=== PATIENT | female | born 1940 | race African-American/Black ===

== ENCOUNTER 2016-09-02 17:40 | Inpatient (IN) | payer OTHER ==
[~2016-09-02] VITALS: Ht 160 cm; Wt 59.0 kg
[~2016-09-02 17:40] MED LIST: ACETAMINOP650 MG/20. GT; ALBUTEROL2.5 MG/3 M INH; AMBIEN5 MG GT; AMIKACIN SULFATE MC; ATIVAN1 MG GT; CARDIZEM30 M1 GT; CATAPRES0.1 MG GT; COLACE100 MG/10 GT; CRANBERRY400 MG GT; CRANBERRY425 MG PO; DIGOXIN0.125 MG/2 GT; DULCOLAX10 MG RC; DUONEB 0.5 MG-33 ML IH; EPOGEN10000 UNIT SUBQ; FAMOTIDINE40 MG/5 ML GT; FERROUS SU325 MG/5 M GT; FERROUS SULFAT325 MG GT; FLEET ENEMA133 ML RECTAL; GLUCAGON W/DILUE1 MG IJ; GUAIFENESI100 MG/5 M GT; HEPARIN SO5000 UNIT2 IJ; HEPARIN SO5000 UNITS INJ; JUVEN PACKET1 EAC1 PO; LISINOPRIL10 MG GT; MILK OF MA400 MG/51 GT; MILK OF MA400 MG/51 ORAL; MIRALAX17 G2 GT; MIRTAZAPINE15 MG GT; MOM30 ML GT; MORPHINE IR15 MG GT; MULTIVITAMINS1 EAC8 GT; NITROSTAT0.4 M2 SL; NORCO 10/3251 EA GT; NORCO 5-325 TA1 EACH GT; PLAVIX75 MG GT; PRILOSEC20 MG GT; PROMOD946 ML GT; PROSTAT SF GT; TYLENOL650 MG/20. GT; ULTRAM50 MG ORAL; VANCOMYCIN250 MG/5 M GT; VIBRAMYCIN100 MG GT; VITAMIN C250 MG GT; VITAMIN C500 MG/11 PO; ZINC SULFATE220 M1 GT; ZINC50 M1 GT; ZOFRAN4 M1 GT; ZOLOFT25 MG GT; [UNRECOGNIZED DRUG - OTHER] MISC
[2016-09-02] MEDS ORDERED: Acetaminophen 650 MG SUPP RECTAL ONE (17:45)
[2016-09-02] MEDS ORDERED: NS 1000ml 1,900 ML IVLG ONE (17:45)
[2016-09-02] MEDS ORDERED: Vancomycin 1 GM in NS 275 ML IV ONE (17:45)
[2016-09-02 17:48] VITALS: BP 166/64
[2016-09-02] MEDS ORDERED: LEVAQUIN500 MG IVPB (18:07)
[2016-09-02] MEDS ORDERED: VANCOMYCIN1 GM/2502 IVPB (18:07)
--- NOTE | 2016-09-02 18:20 | Emergency Room Report ---
History of Present Illness General Chief Complaint: Dyspnea/Respdistress Source: Medical Record, EMS Present Illness HPI The patient was sent in from the care home facility for fever and decreased oxygen saturation. She is ventilator dependent with a tracheostomy. Bili antibiotics were begun last night. She was given Tylenol at some point before transport. The temperature did not change. It's been quite high. The patient is unable to provide any history. She also has a gastrostomy tube. Patient got levaquin and vanco at SNF. H/O CVAs, COPD Discharged March 2015 with these diagnoses: At that time she was treated with amikacin and invanz. 1. Sepsis with bacteremia. 2. Elevated transaminase. 3. Pneumonia. 4. Urinary tract infection. 5. History of chronic obstructive pulmonary disease. 6. Ventilator-dependent respiratory failure with tracheostomy. 7. Anemia. Allergies: Coded Allergies: AMPICILLIN (Verified Allergy, Unknown, 03/04/11) ASPIRIN (Verified Allergy, Unknown, 03/04/11) PENICILLIN (Unverified Allergy, Unknown, 02/14/15) PENICILLINS (Verified Allergy, Unknown, 09/18/11) TRIFLUOPERAZINE (Verified Allergy, Unknown, 03/04/11) Patient History Limited by: medical condition Past Medical History: see triage record Past Surgical History: other - trach and gastrostomy tube Social History Narrative [facility] Reviewed Nursing Documentation: PMH: Agreed, PSxH: Agreed Nursing Documentation-PMH Hx Cardiac Problems: Yes - TRACH TO VENT Hx Hypertension: Yes Hx COPD: Yes Hx Diabetes: Yes Hx Cancer: No Hx Gastrointestinal Problems: Yes - GERD, GT Hx Neurological Problems: No Hx Cerebrovascular Accident: Yes - Hemiplegia, and hemiparesis Hx Transient Ischemic Attacks: Yes Hx Speech Problem: Yes - ON TRACH. Hx Aphasia: Yes Hx Dysphasia: Yes Hx Weakness: Yes - LEFT SIDE. Review of Systems All Other Systems: limited Physical Exam Vital Signs Date Time Temp Pulse Resp B/P Pulse Ox O2 Delivery O2 Flow Rate FiO2 09/02/16 17:38 103.3 101 20 166/57 98 Ambu-Bag 15.0 09/02/16 17:53 50 Sp02 EP Interpretation: reviewed, abnormal - low based on FIO2 as interpreted by me General Appearance: mild distress, lethargic, Chronically Ill Head: normocephalic, atraumatic Eyes: bilateral eye PERRL, bilateral eye normal inspection ENT: dry mucus membranes Neck: no meningismus - but some rigidity, tracheotomy Respiratory: decreased breath sounds, accessory muscle use, rales, rhonchi Cardiovascular #1: tachycardia Gastrointestinal: non tender, abnormal bowel sounds - decreased, other - g tube Musculoskeletal: decreased range of motion - rigidity, other - legs with extensor contractures, arms with flexion contractures Neurologic: responsive - only to pain and cough Psychiatric: other - veetative state Skin: other - sallo and hot Medical Decision Making Diagnostic Impression: Primary Impression: Severe sepsis Additional Impressions: Bilateral pneumonia Qualified Codes: J18.9 - Pneumonia, unspecified organism Hyperkalemia Hyponatremia ER Course The patient presents with elevated temperature and decreased oxygen saturation. Differential includes sepsis, pneumonia, drug reaction, urinary tract infection amongst others. The patient's varnisher time and needs aggressive care. Ventilatory support is ordered. Evaluation with blood cultures, other labs with lactates, fully, urinalysis will be obtained. In addition she'll receive a 30 mille per kilogram bolus. Antibiotics have been ordered as the most likely sources pulmonary. Patient with bilateral infiltrates. Also leukocytosis. Lactate normal, but clinically septic. Bolus given and antibiotics begun. Improved with treatment. Still significantly ill and needing continued antibiotics (and possible adjustment as had similar started yesterday). Fever resistant to treatment - given fluids and other antipyretics. Patient admitted [facility] to Dr. Ruby ([place]). Laboratory Tests Test 09/02/16 18:00 09/02/16 19:15 09/02/16 23:00 Urine Color Pale yellow Urine Appearance Cloudy Urine pH 5 (4.5-8.0) Urine Specific [place] 1.010 (1.005-1.035) Urine Protein 3+ (NEGATIVE) H Urine Glucose (UA) Negative (NEGATIVE) Urine Ketones Negative (NEGATIVE) Urine Occult Blood 5+ (NEGATIVE) H Urine Nitrite Negative (NEGATIVE) Urine Bilirubin Negative (NEGATIVE) Urine Urobilinogen Normal MG/DL (0.0-1.0) Urine Leukocyte Esterase 2+ (NEGATIVE) H Urine RBC 0-2 /HPF (0 - 2) Urine WBC 0-2 /HPF (0 - 2) Urine Squamous Epithelial Cells Many /LPF (NONE/OCC) H Urine Amorphous Sediment Many /LPF (NONE) H Urine Bacteria Few /HPF (NONE) Sodium Level 130 mEQ/L (135-145) L Potassium Level 5.6 mEQ/L (3.4-4.9) H Chloride Level 88 mEQ/L (98-107) L Carbon Dioxide Level 26 mEQ/L (20-30) Anion Gap 16 (5-15) H Blood Urea Nitrogen 54 mg/dL (7-23) H Creatinine 0.8 mg/dL (0.5-0.9) Estimate Glomerular Filtration Rate mL/min (>60) Glucose Level 121 mg/dL (74-106) H Lactic Acid Level 1.60 mmol/L (0.66-2.22) Calcium Level 9.2 mg/dL (8.6-10.2) Total Bilirubin 0.4 mg/dL (0.0-1.2) Aspartate Amino Transferase (AST) 94 U/L (5-40) H Alanine Aminotransferase (ALT) 52 U/L (3-33) H Alkaline Phosphatase 269 U/L (35-104) H Total Creatine Kinase 49 U/L (26-140) Troponin I < 0.30 ng/mL (<=0.30) Pro-B-Type Natriuretic Peptide 3622 pg/mL (0-450) H Total Protein 8.0 g/dL (6.6-8.7) Albumin 3.6 g/dL (3.5-5.2) Globulin 4.4 g/dL Albumin/Globulin Ratio 0.8 (1.0-2.7) L White Blood Count 6.4 K/UL (4.8-10.8) Red Blood Count 3.27 M/UL (4.20-5.40) L Hemoglobin 8.7 G/DL (12.0-16.0) L Hematocrit 29.3 % (37.0-47.0) L Mean Corpuscular Volume 90 FL (80-99) Mean Corpuscular Hemoglobin 26.7 PG (27.0-31.0) L Mean Corpuscular Hemoglobin Concent 29.8 G/DL (32.0-36.0) L Red Cell Distribution Width 17.6 % (11.6-14.8) H Platelet Count 104 K/UL (150-450) L Mean Platelet Volume 8.2 FL (6.5-10.1) Neutrophils (%) (Auto) 86.9 % (45.0-75.0) H Lymphocytes (%) (Auto) 5.1 % (20.0-45.0) L Monocytes (%) (Auto) 6.8 % (1.0-10.0) Eosinophils (%) (Auto) 0.3 % (0.0-3.0) Basophils (%) (Auto) 0.9 % (0.0-2.0) Prothrombin Time 11.4 SEC (9.30-11.50) Prothrombin Time INR 1.1 (0.9-1.1) PTT 28 SEC (23-33) Arterial Blood pH 7.366 (7.350-7.450) Arterial Blood Partial Pressure CO2 48.8 mmHg (35.0-45.0) H Arterial Blood Partial Pressure O2 105.3 mmHg (75.0-100.0) H Arterial Blood HCO3 27.3 mmol/L (22.0-26.0) H Arterial Blood Oxygen Saturation 97.5 % (92.0-98.0) Arterial Blood Base Excess 1.5 Sandro Test Positive Microbiology Date/Time Source Procedure Growth Status 09/02/16 18:47 Nasal Nares Influenza Types A,B Antigen (VASYL) - Final Complete EKG Diagnostic Results Rate: tachycardiac ST Segments: no acute changes Rhythm Strip Diag. Results EP Interpretation: yes Rhythm: no PVC's, no ectopy, other - sinus tachycardia Chest X-Ray Diagnostic Results EP Interpretation: Yes Findings: no pneumothorax, other - bilateral infiltrates with L effusion Number of Views: 1 Last Vital Signs Date Time Temp Pulse Resp B/P Pulse Ox O2 Delivery O2 Flow Rate FiO2 09/03/16 07:00 74 17 35 09/03/16 01:00 100.0 131/82 97 Mechanical Ventilator 09/03/16 00:30 15.0 Status: improved Disposition: ADMITTED INPATIENT Condition: Serious Referrals: BENTLEY MARTINEZ (PCP) Mitul Jacobsen M.D. Sep 02, 2016 18:20
[2016-09-02] MEDS: metroNIDAZOLE 500mg 100 ML IV SCH (18:36)
[2016-09-02 18:43] LABS: ALANINE AMINOTRANSFERASE 52 U/L (3-33); ALBUMIN/GLOBULIN RATIO 0.8 (1.0-2.7); ANION GAP 16 (5-15); ASPARTATE AMINO TRANSFERASE 94 U/L (5-40); CALCIUM 9.2 mg/dL (8.6-10.2); CARBON DIOXIDE 26 mEQ/L (20-30); CHLORIDE 88 mEQ/L (98-107); CREATININE 0.8 mg/dL (0.5-0.9); HEMOLYSIS 108; POTASSIUM 5.6 mEQ/L (3.4-4.9); SODIUM 130 mEQ/L (135-145); TROPONIN I < 0.30 ng/mL (<=0.30)
[2016-09-02 18:45] LABS: APPEARANCE,URINE CLOUDY; KETONES,URINE NEGATIVE (NEGATIVE); LEUKOCYTE ESTERASE ,URINE 2+ (NEGATIVE); NITRITE,URINE NEGATIVE (NEGATIVE); PH,URINE 5 (4.5-8.0); PROTEIN,URINE 3+ (NEGATIVE); UROBILINOGEN,URINE NORMAL MG/DL (0.0-1.0)
[2016-09-02 19:00] LABS: RBC,URINE 0-2 /HPF (0 - 2)
[2016-09-02 19:01] LABS: SQUAMOUS EPITHELIAL CELL,UR MANY /LPF (NONE/OCC); WBC,URINE 0-2 /HPF (0 - 2)
[2016-09-02 19:02] LABS: BACTERIA,URINE FEW /HPF
[2016-09-02 19:03] LABS: AMORPHOUS SEDIMENT,UR MANY /LPF
[2016-09-02 19:33] VITALS: BP 117/43
[2016-09-02 19:35] LABS: MEAN CORPUSCULAR HEMOGLOBIN 26.7 PG (27.0-31.0); MEAN CORPUSCULAR HGB CONC 29.8 G/DL (32.0-36.0); MEAN CORPUSCULAR VOLUME 90 FL (80-99); MEAN PLATELET VOLUME 8.2 FL (6.5-10.1); PLATELET COUNT 104 K/UL (150-450); RED BLOOD COUNT 3.27 M/UL (4.20-5.40); RED CELL DISTRIBUTION WIDTH 17.6 % (11.6-14.8); WHITE BLOOD COUNT 6.4 K/UL (4.8-10.8)
[2016-09-02 19:37] LABS: LYMPHOCYTES % (AUTO) 5.1 % (20.0-45.0); NEUTROPHILS % (AUTO) 86.9 % (45.0-75.0)
[2016-09-02 19:38] LABS: BASOPHILS % (AUTO) 0.9 % (0.0-2.0); EOSINOPHILS % (AUTO) 0.3 % (0.0-3.0); MONOCYTES % (AUTO) 6.8 % (1.0-10.0)
[2016-09-02] MEDS ORDERED: DiphenhydrAMINE 50mg/ml Inj IVP ONE (19:45)
[2016-09-02] MEDS ORDERED: Ketorolac 30mg Inj IV ONE (19:45)
[2016-09-02] MEDS ORDERED: Vancomycin 1gm inj IVPB ONE (20:03)
[2016-09-02 20:25] LABS: INR 1.1 (0.9-1.1); PROTHROMBIN TIME 11.4 SEC (9.30-11.50)
[2016-09-02 21:52] VITALS: BP 100/49
[2016-09-02 23:07] LABS: ABG BASE EXCESS 1.5; ABG PCO2 48.8 mmHg (35.0-45.0)
[2016-09-02 23:08] LABS: ABG ALLEN TEST POSITIVE
[2016-09-02 23:15] VITALS: BP 126/56
[2016-09-03 00:30] VITALS: BP 125/60
[2016-09-03 01:00] VITALS: BP 131/82
[2016-09-03] MEDS ORDERED: UTI-STAT L3875 MG/31 PEG (01:44)
[2016-09-03] MEDS ORDERED: MULTI-VITAMIN-1 EACH PEG (01:44)
[2016-09-03] MEDS ORDERED: FLORASTOR250 MG GT (01:44)
[2016-09-03] MEDS: metroNIDAZOLE 500mg 100 ML IV SCH (01:45)
[2016-09-03] MEDS ORDERED: Milk of Magnesia 30ml Ud GT PRN (02:30)
[2016-09-03] MEDS ORDERED: Albuterol ud Inhalation IN-LINE PRN (02:30)
[2016-09-03 08:00] VITALS: BP 144/70
[2016-09-03] MEDS: Digoxin Elixir 0.125mg GT SCH (09:24)
[2016-09-03] MEDS: Zinc Sulfate 220mg cap GT SCH (09:24)
[2016-09-03] MEDS ORDERED: Sodium Polystyrene Sulfonate 15gm Powder ORAL ONE (10:30)
--- NOTE | 2016-09-03 10:56 | Diagnostic Imaging Report ---
Indication: Cough Technique: XRAY CHEST 1 V Comparison: 02/04/16 Findings: Cardiomedial still silhouette is stable. Tracheostomy is noted. The lungs are hyperinflated with increased interstitial lung markings. There is no gross consolidation or pleural effusion. Osseous structures are stable. Impression: Pulmonary hyperinflation with increased interstitial lung markings similar in appearance to the prior exam. Interstitial edema or infiltrates not excluded. Clinical correlation/followup recommended.
[2016-09-03] MEDS: Heparin 5000 units/ml inj SUBQ SCH ×2 (13:15→21:00)
--- NOTE | 2016-09-03 13:54 | Wound Care Consultation ---
Wound Assessment Wound Assessment #1: Wound Number: #1 Wound Present on Admission: Yes New Wound: No Status Change of Wound: No Wound Location Body Site: abdomen - surrounding skin gtube site. Wound Type: chemical burn Frankie Test: Does not Frankie Wound Thickness: Partial Thickness Wound Length: 6.0 Wound Width: 6.0 Percent of Wound [place]/Red: 100 Wound Drainage Amount: None Wound Drainage Odor: None/Absent Tissue Surrounding Wound: Macerated Wound General Appearance: Reddened Wound Assessment #2: Wound Number: #2 Wound Present on Admission: Yes New Wound: No Wound Location Body Site Modif: mid Wound Location Body Site: sacral Wound Type: pressure ulcer Frankie Test: Does not Frankie Pressure Ulcer Stage: IV/unstageable Wound Thickness: Full Thickness Wound Length: 1.0 Wound Width: 1.0 Wound Depth: 0.3 Percent of Wound [place]/Red: 50 Percent of Wound Purple/Maroon: 50 Wound Drainage Description: Serosanguineous Wound Drainage Amount: Moderate Wound Drainage Odor: None/Absent Tissue Surrounding Wound: Macerated Wound Tunneling Length: 1.0 Tunneling From: 11:00 Tunneling To: 12:00 Wound General Appearance: Reddened - 50% maroon, Draining Wound Assessment #3: Wound Number: #3 Wound Present on Admission: Yes New Wound: No Status Change of Wound: No Wound Location Body Site Modif: lower Wound Location Body Site: sacral Wound Type: pressure ulcer Frankie Test: Does not Frankie Pressure Ulcer Stage: III Wound Thickness: Full Thickness Wound Length: 1.0 Wound Width: 1.0 Wound Depth: 0.3 Percent of Wound [place]/Red: 100 Wound Drainage Description: Serosanguineous Wound Drainage Amount: Scant Wound Drainage Odor: None/Absent Tissue Surrounding Wound: Macerated Wound General Appearance: Reddened Wound Assessment #4: Wound Number: #4 Wound Present on Admission: Yes New Wound: No Status Change of Wound: No Wound Location Body Site: perineal area - extending to perianal Wound Type: chemical burn - with erosion Frankie Test: Does not Frankie Percent of Wound [place]/Red: 100 Wound Drainage Amount: None Wound Drainage Odor: None/Absent Tissue Surrounding Wound: Macerated Wound General Appearance: Reddened, Open to air Wound Comment #1 gtube site- surrounding skin noted with chemical burn with erosion. #2 Sacral stage IV pressure ulcer. #3 lower sacral stage III pressure ulcer. #4 Perineal area extending to perianal chemical burn with erosion. #5 Scattered full thickness scar tissue to sacral area, left and right buttocks. Recommendation - Local wound care as ordered. -Turn and reposition. -Keep clean and dry. -Avoid shear and friction. -Optimize nutrition. -Heel protectors. -Offload affected site, heels and feet. - Apply spr mattress for wound care and skin management. -Assess and notify MD if any change of condition in skin is noted. LATRICIA MAYS Sep 03, 2016 13:54
[2016-09-03 14:00] VITALS: BP 139/83
[2016-09-03 16:00] VITALS: BP 146/55
[2016-09-03] MEDS: Acetaminophen 650mg/20.3ml GT PRN (17:13)
--- NOTE | 2016-09-03 17:14 | Consultation ---
History of Present Illness General Date patient seen: Sep 03, 2016 Time patient seen: 17:03 Chief Complaint: Dyspnea/Respdistress Referring physician: Dr. Haris Ruby Reason for Consultation: hyperkalemia; HARRIETT Present Illness HPI This is a 76 year old female with a history of chronic VDRf s/p trach, Dysphagia s/p PEG, COPD, CVA who was sent in from her nursing facility for fever. Patient was also reported to be hypoxic. Patient unable to give any history and obtained from the chart. Patient was noted to be hyperkalemic and with elevated BUN indicating HARRIETT so renal consult was requested per primary MD. Patient is currently in [facility] with trach to vent. Allergies: Coded Allergies: AMPICILLIN (Verified Allergy, Unknown, 03/04/11) ASPIRIN (Verified Allergy, Unknown, 03/04/11) PENICILLIN (Unverified Allergy, Unknown, 02/14/15) PENICILLINS (Verified Allergy, Unknown, 09/18/11) TRIFLUOPERAZINE (Verified Allergy, Unknown, 03/04/11) Medication History Scheduled Cran/Vitc/Mannose/Inulin/Brom (Uti-Stat Liquid), 3,875 MG PEG DAILY, (Reported) Digoxin* (Digoxin*), 0.125 MG GT DAILY, (Reported) Docusate Sodium (Docusate Sodium), 100 MG GT DAILY, (Reported) Epoetin Cali (Epogen), 10,000 UNIT SUBQ 3XW, (Reported) Ferrous Sulfate* (Ferrous Sulfate*), 330 MG GT DAILY, (Reported) Multivit-Min/Iron Fum/Folic AC (Hzqeb-Ywvybhu-Irmdccja Tablet), 1 EACH PEG DAILY , (Reported) Protein Supplement (Promod), 30 ML GT DAILY, (Reported) Saccharomyces Boulardii (Florastor*), 250 MG GT DAILY, (Reported) Zinc Sulfate (Zinc Sulfate*), 220 MG GT DAILY, (Reported) Scheduled PRN Acetaminophen* (Tylenol*), 650 MG GT Q4HR PRN for Mild Pain/Temp > 100.5, ( Reported) Albuterol Sulfate* (Albuterol Sulfate Hhn*), 3 ML INH Q6H PRN for Shortness of Breath, (Reported) Magnesium Hydroxide (Milk of Magnesia), 30 ML GT DAILY PRN for Constipation, ( Reported) Discontinued Medications Arginine/Glutamine/Calcium Hmb (Yinka Packet), 1 EACH PO, (Reported) Discontinued Reason: Pt stopped taking med Bisacodyl (Dulcolax), 10 MG RC DAILY PRN for Constipation, (Reported) Discontinued Reason: Pt stopped taking med Clonidine Hcl* (Catapres*), 0.1 MG GT EVERY 8 HOURS PRN for For High Blood Pressure, (Reported) Discontinued Reason: Pt stopped taking med Cranberry (Cranberry), 425 MG GT BID, (Reported) Discontinued Reason: Pt stopped taking med Cranberry Extract (Cranberry), 425 MG PO, (Reported) Discontinued Reason: Pt stopped taking med Diltiazem Hcl* (Cardizem*), 30 MG GT QID, (Reported) Discontinued Reason: Pt stopped taking med Famotidine (Famotidine), 40 MG GT, (Reported) Discontinued Reason: Pt stopped taking med Ferrous Sulfate (Ferrous Sulfate), 330 MG GT, (Reported) Discontinued Reason: Pt stopped taking med Glucagon (Glucagen), 1 MG IJ, (Reported) Discontinued Reason: Pt stopped taking med Guaifenesin* (Guaifenesin), 5 ML GT Q6H PRN for For Cough, (Reported) Discontinued Reason: Pt stopped taking med Heparin Sod (Porcine) (Heparin Sodium*), 5,000 UNIT IJ BID, (Reported) Discontinued Reason: Pt stopped taking med Heparin Sodium,Porcine (Heparin Sodium), 5,000 UNITS INJ, (Reported) Discontinued Reason: Pt stopped taking med Hydrocodone Bit/Acetaminophen 5-325* ([place] 5-325*), 1 TAB GT Q6H, (Reported) Discontinued Reason: Pt stopped taking med Ipratropium/Albuterol Sulfate (Duoneb 0.5 Mg-3 Mg/3 Ml Soln), 3 ML IH Q3HR PRN for Shortness of Breath, (Reported) Discontinued Reason: Pt stopped taking med Levofloxacin* (Levaquin*), 500 MG IVPB DAILY, (Reported) Discontinued Reason: Pt stopped taking med Lorazepam* (Ativan*), 0.5 MG GT Q4HR PRN for For Anxiety, (Reported) Discontinued Reason: Pt stopped taking med Mirtazapine* (Remeron*), 7.2 MG GT Q12HR, (Reported) Discontinued Reason: Pt stopped taking med Morphine HCl (Morphine Sulfate ER), 2 MG GT Q6H PRN for For Pain, (Reported) Discontinued Reason: Pt stopped taking med Multivitamin With Minerals (Multivitamins With Minerals*), 1 EACH GT DAILY, ( Reported) Discontinued Reason: Medication dose changed Na Phos,M-B/Na Phos,Di-Ba* (Fleet Enema*), 133 ML RECTAL DAILY PRN for Constipation, (Reported) Discontinued Reason: Pt stopped taking med Na Phos,M-B/Na Phos,Di-Ba* (Fleet Enema*), 133 ML RECTAL DAILY, (Reported) Discontinued Reason: Pt stopped taking med Nitroglycerin (Nitrostat), 0.4 MG SL, (Reported) Discontinued Reason: Pt stopped taking med Omeprazole (Prilosec), 20 MG GT DAILY, (Reported) Discontinued Reason: Pt stopped taking med Ondansetron (Zofran), 4 MG GT Q6H PRN for Nausea & Vomiting, (Reported) Discontinued Reason: Pt stopped taking med Polyethylene Glycol 3350* (Miralax*), 17 GM GT DAILY, (Reported) Discontinued Reason: Pt stopped taking med Sertraline Hcl* (Zoloft*), 25 MG GT DAILY, (Reported) Discontinued Reason: Pt stopped taking med Tramadol Hcl (Ultram*), 50 MG ORAL Q4H, (Reported) Discontinued Reason: Pt stopped taking med Vancomycin Hcl/D5w (Vancomycin-D5w 1 G/250 Ml), 750 GM IVPB Q24H, (Reported) Discontinued Reason: MD discontinued med Vit C/Ascorbate Ca/Ascorb Sod (Vitamin C 500 Mg/15 Ml Liquid), 500 MG PO, ( Reported) Discontinued Reason: Pt stopped taking med Zolpidem Tartrate* (Ambien*), 5 MG GT BEDTIME PRN for Insomnia, (Reported) Discontinued Reason: Pt stopped taking med [Prostat Sf 45ML Qd], 45 ML GT DAILY, (Reported) Discontinued Reason: Pt stopped taking med Patient History History Provided By: Medical Record Healthcare decision maker n/a Resuscitation status Full Code Advanced Directive on File No Past Medical/Surgical History Past Medical/Surgical History: (1) Chronic respiratory failure (2) Feeding by G-tube (3) Hypertension (4) History of CVA (cerebrovascular accident) Review of Systems ROS Narrative unable to obtain due to patient's mental status. Physical Exam General Appearance: WD/WN, alert HEENT: normocephalic, atraumatic, PERRL, EOMI Respiratory/Chest: rhonchi - bilaterally Cardiovascular/Chest: normal rate, regular rhythm Abdomen: non tender, soft Extremities: trace edema Neurologic: alert, other Physical Exam Narrative contracted bilateral UE/LE. Last 24 Hour Vital Signs Date Time Temp Pulse Resp B/P Pulse Ox O2 Delivery O2 Flow Rate FiO2 09/03/16 14:56 99 18 35 09/03/16 14:00 98.2 79 18 139/83 98 Mechanical Ventilator 35 09/03/16 13:15 117 18 35 09/03/16 12:00 35 09/03/16 10:55 74 18 35 09/03/16 09:24 77 09/03/16 08:54 77 18 35 09/03/16 08:00 35 09/03/16 08:00 98.2 80 18 144/70 99 Mechanical Ventilator 35 09/03/16 08:00 87 09/03/16 07:00 74 17 35 09/03/16 05:19 91 18 35 09/03/16 04:00 35 09/03/16 04:00 90 09/03/16 03:02 87 18 35 09/03/16 01:00 100.0 81 18 131/82 97 Mechanical Ventilator 35 09/03/16 00:59 79 18 35 09/03/16 00:30 99.4 75 18 125/60 100 Mechanical Ventilator 35 09/03/16 00:30 99.4 75 18 125/60 100 Mechanical Ventilator 15.0 35 09/02/16 23:15 99.4 77 18 126/56 100 Mechanical Ventilator 35 09/02/16 22:50 86 18 35 09/02/16 21:52 100.3 78 18 100/49 99 Mechanical Ventilator 50 09/02/16 21:01 86 18 35 09/02/16 20:27 100.3 09/02/16 19:33 102.8 92 18 117/43 100 Mechanical Ventilator 50 09/02/16 19:06 102.8 09/02/16 19:00 92 18 50 09/02/16 17:53 110 20 50 09/02/16 17:48 50 09/02/16 17:48 103.3 115 23 166/64 100 Mechanical Ventilator 50 09/02/16 17:48 101 20 Ambu-Bag 15.0 09/02/16 17:38 103.3 101 20 166/57 98 Ambu-Bag 15.0 Intake and Output 09/02/16 09/03/16 19:00 07:00 Intake Total 1900 ml 525 ml Output Total 10 ml 555 ml Balance 1890 ml -30 ml Intake Oral 0 ml IV Total 1900 ml 525 ml Output Urine Total 10 ml 555 ml # Bowel Movements 2 Laboratory Tests Test 09/02/16 18:00 09/02/16 19:15 09/02/16 23:00 Urine Color Pale yellow Urine Appearance Cloudy Urine pH 5 (4.5-8.0) Urine Specific [place] 1.010 (1.005-1.035) Urine Protein 3+ (NEGATIVE) H Urine Glucose (UA) Negative (NEGATIVE) Urine Ketones Negative (NEGATIVE) Urine Occult Blood 5+ (NEGATIVE) H Urine Nitrite Negative (NEGATIVE) Urine Bilirubin Negative (NEGATIVE) Urine Urobilinogen Normal MG/DL (0.0-1.0) Urine Leukocyte Esterase 2+ (NEGATIVE) H Urine RBC 0-2 /HPF (0 - 2) Urine WBC 0-2 /HPF (0 - 2) Urine Squamous Epithelial Cells Many /LPF (NONE/OCC) H Urine Amorphous Sediment Many /LPF (NONE) H Urine Bacteria Few /HPF (NONE) Sodium Level 130 mEQ/L (135-145) L Potassium Level 5.6 mEQ/L (3.4-4.9) H Chloride Level 88 mEQ/L (98-107) L Carbon Dioxide Level 26 mEQ/L (20-30) Anion Gap 16 (5-15) H Blood Urea Nitrogen 54 mg/dL (7-23) H Creatinine 0.8 mg/dL (0.5-0.9) Estimat Glomerular Filtration Rate mL/min (>60) Glucose Level 121 mg/dL (74-106) H Lactic Acid Level 1.60 mmol/L (0.66-2.22) Calcium Level 9.2 mg/dL (8.6-10.2) Total Bilirubin 0.4 mg/dL (0.0-1.2) Aspartate Amino Transf (AST/SGOT) 94 U/L (5-40) H Alanine Aminotransferase (ALT/SGPT) 52 U/L (3-33) H Alkaline Phosphatase 269 U/L (35-104) H Total Creatine Kinase 49 U/L (26-140) Troponin I < 0.30 ng/mL (<=0.30) Pro-B-Type Natriuretic Peptide 3622 pg/mL (0-450) H Total Protein 8.0 g/dL (6.6-8.7) Albumin 3.6 g/dL (3.5-5.2) Globulin 4.4 g/dL Albumin/Globulin Ratio 0.8 (1.0-2.7) L White Blood Count 6.4 K/UL (4.8-10.8) Red Blood Count 3.27 M/UL (4.20-5.40) L Hemoglobin 8.7 G/DL (12.0-16.0) L Hematocrit 29.3 % (37.0-47.0) L Mean Corpuscular Volume 90 FL (80-99) Mean Corpuscular Hemoglobin 26.7 PG (27.0-31.0) L Mean Corpuscular Hemoglobin Concent 29.8 G/DL (32.0-36.0) L Red Cell Distribution Width 17.6 % (11.6-14.8) H Platelet Count 104 K/UL (150-450) L Mean Platelet Volume 8.2 FL (6.5-10.1) Neutrophils (%) (Auto) 86.9 % (45.0-75.0) H Lymphocytes (%) (Auto) 5.1 % (20.0-45.0) L Monocytes (%) (Auto) 6.8 % (1.0-10.0) Eosinophils (%) (Auto) 0.3 % (0.0-3.0) Basophils (%) (Auto) 0.9 % (0.0-2.0) Prothrombin Time 11.4 SEC (9.30-11.50) Prothromb Time International Ratio 1.1 (0.9-1.1) Activated Partial Thromboplast Time 28 SEC (23-33) Arterial Blood pH 7.366 (7.350-7.450) Arterial Blood Partial Pressure CO2 48.8 mmHg (35.0-45.0) H Arterial Blood Partial Pressure O2 105.3 mmHg (75.0-100.0) H Arterial Blood HCO3 27.3 mmol/L (22.0-26.0) H Arterial Blood Oxygen Saturation 97.5 % (92.0-98.0) Arterial Blood Base Excess 1.5 Sandro Test Positive Microbiology Date/Time Source Procedure Growth Status 09/02/16 18:47 Nasal Nares Influenza Types A,B Antigen (VASYL) - Final Complete Height (Feet): 5 Height (Inches): 3.00 Weight (Pounds): 130 Medications Current Medications Medications (Trade) Dose Ordered Sig/Joey Route PRN Reason Start Time Stop Time Status Last Admin Dose Admin Acetaminophen (Tylenol) 650 mg Q4HR PRN GT Mild Pain/Temp > 100.5 09/03/16 02:30 10/03/16 02:29 Albuterol Sulfate (Proventil) 2.5 mg Q6H PRN IN-LINE Shortness of Breath 09/03/16 02:30 09/08/16 02:29 Digoxin (Lanoxin) 0.125 mg DAILY GT 09/03/16 09:00 10/03/16 08:59 09/03/16 09:24 Ferrous Sulfate (Feosol) 325 mg DAILY ORAL 09/03/16 09:00 10/03/16 08:59 09/03/16 09:25 Heparin Sodium (Porcine) (Heparin 5000 units/ml) 5,000 units EVERY 12 HOURS SUBQ 09/03/16 11:00 10/03/16 10:59 09/03/16 13:15 Levofloxacin 150 ml @ 150 mls/hr Q48H IVPB 09/04/16 19:00 09/11/16 18:59 Magnesium Hydroxide (Mom) 30 ml DAILY PRN GT Constipation 09/03/16 02:30 10/03/16 02:29 Saccharomyces Boulardii (Florastor) 250 mg DAILY GT 09/03/16 09:00 10/03/16 08:59 09/03/16 09:24 Sodium Chloride 1,000 ml @ 75 mls/hr [id number] IV 09/03/16 10:30 10/03/16 10:29 09/03/16 13:10 Vancomycin HCl 1 ea 1 ea DAILY PRN MISC Per rx protocol 09/03/16 10:15 10/03/16 10:14 Vancomycin HCl/ Dextrose (Vancomycin/D5W) 275 ml @ 183.708 mls/hr Q24H IVPB 09/03/16 20:00 09/08/16 19:59 Zinc Sulfate (Zinc Sulfate) 220 mg DAILY GT 09/03/16 09:00 10/03/16 08:59 09/03/16 09:24 Assessment/Plan Problem List: (1) Hyperkalemia ICD Codes: E87.5 - Hyperkalemia SNOMED: 32536450 (2) Hyponatremia ICD Codes: E87.1 - Hyponatremia SNOMED: 76218832 (3) Chronic respiratory failure ICD Codes: J96.10 - Chronic respiratory failure SNOMED: 50304030 (4) Feeding by G-tube ICD Codes: Z93.1 - Feeding by G-tube SNOMED: 089944554 (5) History of CVA (cerebrovascular accident) ICD Codes: Z86.73 - History of CVA (cerebrovascular accident) SNOMED: 426753883 (6) Hypertension ICD Codes: I10 - Hypertension SNOMED: 85863554 (7) Anemia ICD Codes: D64.9 - Anemia SNOMED: 610507135 (8) COPD (chronic obstructive pulmonary disease) with acute bronchitis ICD Codes: J44.1 - COPD (chronic obstructive pulmonary disease) with acute bronchitis SNOMED: 32036055 (9) HARRIETT (acute kidney injury) ICD Codes: N17.9 - Acute kidney failure, unspecified SNOMED: 14203811 Assessment/Plan agree with current IVF. kayexalate given. monitor K. restrict free water intake. monitor Na. Check urine Na, Osm. F/u am labs. d/w Dr. Jones. Will follow. thanks. CHANDNI COVARRUBIAS Sep 03, 2016 17:14
[2016-09-03] MEDS: Vancomycin 1gm/D5W 275ml IVPB SCH ×2 (19:34)
[2016-09-04] VITALS: BP 155/74
--- NOTE | 2016-09-04 00:58 | History and Physical Report ---
DATE OF ADMISSION: 09/02/2016 HISTORY OF PRESENT ILLNESS: This is a 76-year-old, chronic vent dependent patient, who is a resident of [facility], who was sent in to the emergency room at [facility] with a history of fever and hypoxemia. The patient had received [facility]com[facility] and [facility]quin [facility]. However, due to failure to respond to these modalities she was transferred to this hospital for subsequent management and care. PAST MEDICAL HISTORY: The patient's past history is long and complex with history of chronic respiratory failure, gastroesophageal reflux disease, previous CVA with left hemiparesis, diabetes mellitus, chronic tracheostomy, chronic G-tube, history of chronic obstructive pulmonary disease, anemia and history of hypertension. ALLERGIES: To ampicillin, aspirin, penicillin and trifluoperazine. MEDICATIONS: Her list of present medications includes digoxin, ferrous sulfate, Florastor, Zinc, subcutaneous heparin, Tylenol, Proventil, and magnesium oxide. She is on enteral feedings as well. She is on Epogen and [place]. PHYSICAL EXAMINATION: GENERAL: Reveals an elderly female. HEENT: Unremarkable. Tracheostomy site is clean. CHEST: Shows clear breath sounds bilaterally with normal heart sounds. ABDOMEN: Soft. G-tube is noted. EXTREMITIES: There is no edema. The patient has bilateral heel protectors and bilateral footdrop. VITAL SIGNS: Blood pressure is 140/70, heart rate is 84, and respirations 18. She is afebrile. T-max is 98.2. O2 saturation is 96%. The patient has AC mode tidal volume of 450, rate of 18. LABORATORY AND DIAGNOSTIC DATA: Chest x-ray has not been obtained. Previous x-ray was obtained on January of last year, which was negative. Per ER physician report, the patient has bilateral infiltrates on chest x-ray. Laboratory testing shows white count 6.4, hemoglobin of 8.7, and platelet count is normal. ABG 7.36, pCO2 48, and PO2 105. Chemistries notable for sodium 130, potassium 5.6, BUN 54, and glucose 121. AST 94, ALT 52, and alkaline phosphatase 269. ProBNP is 3622. Urinalysis shows few WBC. Coags are negative. IMPRESSION: Chronic respiratory failure, bilateral pneumonia, fever, hyponatremia, hyperkalemia, abnormal LFTs, diabetes mellitus, hypertension, and previous CVA. DISCUSSION: Admit to the hospital. Continue home medications. I have added broad-spectrum antibiotics. We will check ultrasound of the abdomen. We will give Kayexalate. Urine evaluation. Intravenous fluids. We will follow carefully. DVT and gastrointestinal prophylaxis. Haris Ruby M.D. DR: DARIUS JOB#: [id number] CC:
[2016-09-04] MEDS: Acetaminophen 650mg/20.3ml GT PRN ×2 (03:36→20:10)
[2016-09-04 04:00] VITALS: BP 138/87
[2016-09-04] MEDS: Zinc Sulfate 220mg cap GT SCH (08:46)
[2016-09-04] MEDS: Digoxin Elixir 0.125mg GT SCH (08:47)
[2016-09-04] MEDS: Heparin 5000 units/ml inj SUBQ SCH ×2 (08:52→20:48)
[2016-09-04 09:41] LABS: MEAN CORPUSCULAR HEMOGLOBIN 26.9 PG (27.0-31.0); MEAN CORPUSCULAR HGB CONC 30.1 G/DL (32.0-36.0); MEAN CORPUSCULAR VOLUME 89 FL (80-99); MEAN PLATELET VOLUME 9.3 FL (6.5-10.1); PLATELET COUNT 167 K/UL (150-450); RED BLOOD COUNT 4.29 M/UL (4.20-5.40); RED CELL DISTRIBUTION WIDTH 18.4 % (11.6-14.8); WHITE BLOOD COUNT 9.5 K/UL (4.8-10.8)
--- NOTE | 2016-09-04 09:50 | Pulmonology Progress Note ---
Assessment/Plan Assessment/Plan IMPRESSION: Chronic respiratory failure, bilateral pneumonia, fever, hyponatremia, hyperkalemia, abnormal LFTs, diabetes mellitus, hypertension, and previous CVA. DISCUSSION: Continue broad-spectrum antibiotics. Await ultrasound of the abdomen. Labs pending this AM Continue ontravenous fluids. I will follow carefully. DVT and gastrointestinal prophylaxis. Will consult cardilolgy for sinus tach vs a fib Subjective Interval Events: Tachycardic to 150. No new events Constitutional: Reports: no symptoms HEENT: Repors: no symptoms Respiratory: Reports: no symptoms Cardiovascular: Reports: no symptoms Gastrointestinal/Abdominal: Reports: no symptoms Allergies: Coded Allergies: AMPICILLIN (Verified Allergy, Unknown, 03/04/11) ASPIRIN (Verified Allergy, Unknown, 03/04/11) PENICILLIN (Unverified Allergy, Unknown, 02/14/15) PENICILLINS (Verified Allergy, Unknown, 09/18/11) TRIFLUOPERAZINE (Verified Allergy, Unknown, 03/04/11) Objective Last 24 Hour Vital Signs Date Time Temp Pulse Resp B/P Pulse Ox O2 Delivery O2 Flow Rate FiO2 09/04/16 08:47 151 09/04/16 06:42 151 19 35 09/04/16 05:12 146 19 35 09/04/16 04:06 98.8 09/04/16 04:00 35 09/04/16 04:00 152 09/04/16 04:00 98.8 148 16 138/87 96 Mechanical Ventilator 09/04/16 03:25 149 18 35 09/04/16 01:26 140 18 35 09/04/16 00:00 35 09/04/16 00:00 98.6 149 18 155/74 97 Mechanical Ventilator 09/04/16 00:00 148 09/03/16 23:25 82 18 35 09/03/16 21:06 80 18 35 09/03/16 20:00 107 09/03/16 20:00 35 09/03/16 18:57 78 18 35 09/03/16 17:21 102 18 35 09/03/16 16:00 127 09/03/16 16:00 100.4 72 18 146/55 98 Mechanical Ventilator 35 09/03/16 16:00 35 09/03/16 14:56 99 18 35 09/03/16 14:00 98.2 79 18 139/83 98 Mechanical Ventilator 35 09/03/16 13:15 117 18 35 09/03/16 12:00 35 09/03/16 10:55 74 18 35 Intake and Output 09/03/16 09/04/16 19:00 07:00 Intake Total 905 ml 1777.4 ml Output Total 450 ml 800 ml Balance 455 ml 977.4 ml Intake Oral 0 ml Free Water 220 ml 50 ml IV Total 375 ml 1267.4 ml Tube Feeding 310 ml 460 ml Output Urine Total 450 ml 800 ml # Bowel Movements 2 1 General Appearance: no acute distress HEENT: normocephalic, status post trach Respiratory/Chest: chest wall non-tender, lungs clear Cardiovascular: normal peripheral pulses, normal rate Abdomen: normal bowel sounds Microbiology Date/Time Source Procedure Growth Status 09/02/16 18:47 Nasal Nares Influenza Types A,B Antigen (VASYL) - Final Complete 09/03/16 00:20 Sacral Wound Gram Stain - Final Resulted 09/03/16 00:20 Sacral Wound Wound Culture Pending Resulted Laboratory Tests 09/04/16 08:45: White Blood Count 9.5, Red Blood Count 4.29, Hemoglobin 11.5L, Hematocrit 38.3, Mean Corpuscular Volume 89, Mean Corpuscular Hemoglobin 26.9L, Mean Corpuscular Hemoglobin Concent 30.1L, Red Cell Distribution Width 18.4H, Platelet Count 167 , Mean Platelet Volume 9.3, Neutrophils (%) (Auto) , Lymphocytes (%) (Auto) , Monocytes (%) (Auto) , Eosinophils (%) (Auto) , Basophils (%) (Auto) , Neutrophils % (Manual) [Pending], Lymphocytes % (Manual) [Pending], Platelet Estimate [Pending], Platelet Morphology [Pending], Sodium Level [Pending], Potassium Level [Pending], Chloride Level [Pending], Carbon Dioxide Level [ Pending], Blood Urea Nitrogen [Pending], Creatinine [Pending], Estimat Glomerular Filtration Rate [Pending], Glucose Level [Pending], Calcium Level [ Pending] Current Medications Medications (Trade) Dose Ordered Sig/Joey Route PRN Reason Start Time Stop Time Status Last Admin Dose Admin Acetaminophen (Tylenol) 650 mg Q4HR PRN GT Mild Pain/Temp > 100.5 09/03/16 02:30 10/03/16 02:29 09/04/16 03:36 Albuterol Sulfate (Proventil) 2.5 mg Q6H PRN IN-LINE Shortness of Breath 09/03/16 02:30 09/08/16 02:29 Digoxin (Lanoxin) 0.125 mg DAILY GT 09/03/16 09:00 10/03/16 08:59 09/04/16 08:47 Ferrous Sulfate (Feosol) 325 mg DAILY ORAL 09/03/16 09:00 10/03/16 08:59 09/04/16 08:46 Heparin Sodium (Porcine) (Heparin 5000 units/ml) 5,000 units EVERY 12 HOURS SUBQ 09/03/16 11:00 10/03/16 10:59 09/04/16 08:52 Levofloxacin 150 ml @ 150 mls/hr Q48H IVPB 09/04/16 19:00 09/11/16 18:59 Magnesium Hydroxide (Mom) 30 ml DAILY PRN GT Constipation 09/03/16 02:30 10/03/16 02:29 Saccharomyces Boulardii (Florastor) 250 mg DAILY GT 09/03/16 09:00 10/03/16 08:59 09/04/16 08:46 Sodium Chloride 1,000 ml @ 75 mls/hr [id number] IV 09/03/16 10:30 10/03/16 10:29 09/04/16 09:06 Vancomycin HCl 1 ea 1 ea DAILY PRN MISC Per rx protocol 09/03/16 10:15 10/03/16 10:14 Vancomycin HCl/ Dextrose (Vancomycin/D5W) 275 ml @ 183.708 mls/hr Q24H IVPB 09/03/16 20:00 09/08/16 19:59 09/03/16 19:34 Zinc Sulfate (Zinc Sulfate) 220 mg DAILY GT 09/03/16 09:00 10/03/16 08:59 09/04/16 08:46 Haris Ruby MD Sep 04, 2016 09:50
[2016-09-04 09:57] LABS: ANION GAP 13 (5-15); CALCIUM 8.7 mg/dL (8.6-10.2); CARBON DIOXIDE 25 mEQ/L (20-30); CHLORIDE 101 mEQ/L (98-107); CREATININE 0.6 mg/dL (0.5-0.9); HEMOLYSIS 3; POTASSIUM 3.6 mEQ/L (3.4-4.9); SODIUM 139 mEQ/L (135-145)
[2016-09-04 11:07] LABS: ANISOCYTOSIS 2+; BAND NEUTROPHILS % (MANUAL) 0 % (0-8); BASOPHILS % (MANUAL) 1 % (0-2); EOSINOPHILS % (MANUAL) 0 % (0-3); HYPOCHROMASIA 1+; LYMPHOCYTES % (MANUAL) 11 % (20-45); NEUTROPHILS % (MANUAL) 85 % (45-75); PLATELET ESTIMATE ADEQUATE; PLATELET MORPHOLOGY NORMAL; TOTAL CELLS COUNTED 100
[2016-09-04] MEDS: Metoprolol 25mg tab ORAL SCH ×2 (11:58→20:47)
--- NOTE | 2016-09-04 15:13 | Nephrology Progress Note ---
Assessment/Plan Problem List: (1) Hyperkalemia Assessment: corrected (2) Hyponatremia Assessment: improving (3) Chronic respiratory failure (4) Feeding by G-tube (5) History of CVA (cerebrovascular accident) (6) Hypertension (7) Anemia (8) COPD (chronic obstructive pulmonary disease) with acute bronchitis (9) HARRIETT (acute kidney injury) Assessment: improving (10) Atrial fibrillation with RVR Assessment: on lopressor and digoxin. recommend cardio consult. Plan cont IVF for now. MOnitor labs closely. d/w Dr. Jones. Subjective Subjective AFIB with RVR HR 140's. Objective Objective Last 24 Hour Vital Signs Date Time Temp Pulse Resp B/P Pulse Ox O2 Delivery O2 Flow Rate FiO2 09/04/16 15:00 141 09/04/16 12:00 35 09/04/16 11:58 148 138/87 09/04/16 11:13 148 18 35 09/04/16 08:47 151 09/04/16 08:40 140 19 35 09/04/16 08:00 35 09/04/16 08:00 152 09/04/16 06:42 151 19 35 09/04/16 05:12 146 19 35 09/04/16 04:06 98.8 09/04/16 04:00 35 09/04/16 04:00 152 09/04/16 04:00 98.8 148 16 138/87 96 Mechanical Ventilator 09/04/16 03:25 149 18 35 09/04/16 01:26 140 18 35 09/04/16 00:00 35 09/04/16 00:00 98.6 149 18 155/74 97 Mechanical Ventilator 09/04/16 00:00 148 09/03/16 23:25 82 18 35 09/03/16 21:06 80 18 35 09/03/16 20:00 107 09/03/16 20:00 35 09/03/16 18:57 78 18 35 09/03/16 17:21 102 18 35 09/03/16 16:00 127 09/03/16 16:00 100.4 72 18 146/55 98 Mechanical Ventilator 35 09/03/16 16:00 35 Intake and Output 09/03/16 09/04/16 19:00 07:00 Intake Total 905 ml 1777.4 ml Output Total 450 ml 800 ml Balance 455 ml 977.4 ml Intake Oral 0 ml Free Water 220 ml 50 ml IV Total 375 ml 1267.4 ml Tube Feeding 310 ml 460 ml Output Urine Total 450 ml 800 ml # Bowel Movements 2 1 Laboratory Tests 09/04/16 08:45: White Blood Count 9.5, Red Blood Count 4.29, Hemoglobin 11.5L, Hematocrit 38.3, Mean Corpuscular Volume 89, Mean Corpuscular Hemoglobin 26.9L, Mean Corpuscular Hemoglobin Concent 30.1L, Red Cell Distribution Width 18.4H, Platelet Count 167 , Mean Platelet Volume 9.3, Neutrophils (%) (Auto) , Lymphocytes (%) (Auto) , Monocytes (%) (Auto) , Eosinophils (%) (Auto) , Basophils (%) (Auto) , Differential Total Cells Counted 100, Neutrophils % (Manual) 85H, Lymphocytes % (Manual) 11L, Monocytes % (Manual) 3, Eosinophils % (Manual) 0, Basophils % ( Manual) 1, Band Neutrophils 0, Platelet Estimate Adequate, Platelet Morphology Normal, Hypochromasia 1+, Anisocytosis 2+, Sodium Level 139, Potassium Level 3.6 , Chloride Level 101, Carbon Dioxide Level 25, Anion Gap 13, Blood Urea Nitrogen 35H, Creatinine 0.6, Estimat Glomerular Filtration Rate , Glucose Level 120H, Calcium Level 8.7 Height (Feet): 5 Height (Inches): 3.00 Weight (Pounds): 130 General Appearance: no apparent distress, alert Cardiovascular: regularly irregular, tachycardia Respiratory/Chest: rhonchi - bilaterally Abdomen: non tender, soft Extremities: non-pitting, other CHANDNI COVARRUBIAS Sep 04, 2016 15:13
[2016-09-04 16:00] VITALS: BP 145/83
[2016-09-04 20:00] VITALS: BP 143/83
[2016-09-04] MEDS: Vancomycin 1gm/D5W 275ml IVPB SCH ×2 (20:31)
[2016-09-04] MEDS ORDERED: Diltiazem 25mg/5ml IV ONE (23:15)
[2016-09-05] VITALS: BP 92/56
[2016-09-05] MEDS ORDERED: KCl 10% 20 mEq/15ml liquid NG ONE
[2016-09-05 04:00] VITALS: BP 139/80
[2016-09-05] MEDS: Acetaminophen 650mg/20.3ml GT PRN ×2 (04:20→13:13)
[2016-09-05 06:12] LABS: MEAN CORPUSCULAR HEMOGLOBIN 27.3 PG (27.0-31.0); MEAN CORPUSCULAR HGB CONC 30.6 G/DL (32.0-36.0); MEAN CORPUSCULAR VOLUME 89 FL (80-99); MEAN PLATELET VOLUME 8.3 FL (6.5-10.1); PLATELET COUNT 157 K/UL (150-450); RED BLOOD COUNT 4.01 M/UL (4.20-5.40); RED CELL DISTRIBUTION WIDTH 18.4 % (11.6-14.8); WHITE BLOOD COUNT 10.9 K/UL (4.8-10.8)
[2016-09-05 06:44] LABS: ANION GAP 9 (5-15); CALCIUM 8.4 mg/dL (8.6-10.2); CARBON DIOXIDE 24 mEQ/L (20-30); CHLORIDE 105 mEQ/L (98-107); CREATININE 0.7 mg/dL (0.5-0.9); HEMOLYSIS 2; POTASSIUM 4.4 mEQ/L (3.4-4.9); SODIUM 138 mEQ/L (135-145)
[2016-09-05 08:00] VITALS: BP 104/52
[2016-09-05] MEDS: Zinc Sulfate 220mg cap GT SCH (08:24)
[2016-09-05] MEDS: Heparin 5000 units/ml inj SUBQ SCH ×2 (08:26→20:26)
[2016-09-05] MEDS: Metoprolol 25mg tab ORAL SCH ×3 (09:00→20:25)
--- NOTE | 2016-09-05 11:38 | Consultation ---
DATE OF CONSULTATION: 09/04/2016 CARDIOLOGY CONSULTATION CONSULTING PHYSICIAN: Mitul Fine M.D. REQUESTING PHYSICIAN: Haris Ruby M.D. REASON FOR CONSULTATION: Rapid tachycardia with rapid arrhythmias. HISTORY OF PRESENT ILLNESS: This is a 76-year-old, ventilator dependent female, who resides at a long-term facility. She was transferred to the emergency room because of fever and hypoxia. She was pancultured and started on antibiotic. She has been in the hospital for the past two days and has had recurring episodes of rapid heart rate today it is same. PAST MEDICAL HISTORY: 1. Ventilator dependent respiratory failure. 2. Cerebrovascular accident with left hemiparesis. 3. Dysphagia with gastrostomy tube. 4. Gastroesophageal reflux disease. 5. Type 2 diabetes mellitus. 6. COPD. 7. Chronic anemia. 8. Hypertension with hypertensive heart disease. MEDICATIONS: Reviewed and reconciled. ALLERGIES: Include penicillin, aspirin and trifluoperazine. SOCIAL HISTORY: Not obtainable. REVIEW OF SYSTEMS: Not obtainable. Chart reviewed x15 minutes from her [facility] records is performed pertinent data outlined above. PHYSICAL EXAMINATION: GENERAL: Elderly female, no acute distress, awake and alert. VITAL SIGNS: Blood pressure is 145/75, pulse 130, respiratory rate 24 and afebrile. LUNGS: Bilateral breath sounds with rhonchi. HEART: Regular rhythm. Rapid rate. Normal S1 and S2. No murmur. ABDOMEN: Obese and soft. The G-tube intact. EXTREMITIES: Revealed trace dependent edema. Good capillary refill. LABORATORY AND DIAGNOSTIC DATA: Labs, sodium 139, potassium 3.6, bicarbonate 25, BUN 35, creatinine 0.6, and glucose 120. White count 9.5 and hemoglobin 11.5. Chest x-ray revealed hyperinflation with increased interstitial markings from 09/02/2016. Interventions, the patient was given 20 mg IV Cardizem with observation and heart rate slowed to the 70s with atrial fibrillation noted. IMPRESSION: 1. Paroxysmal atrial fibrillation/flutter with rapid ventricular response. 2. Ventilator-dependent respiratory failure. 3. Nosocomial pneumonia. 4. Sepsis. 5. Hypoxia. 6. Chronic diastolic congestive heart failure. 7. Chronic obstructive pulmonary disease. 8. Hypertensive heart disease. 9. Cerebrovascular disease with left hemiparesis. 10. Borderline potassium level. PLAN: 1. Discontinue digitalis. 2. Maintain low-dose beta-ching. 3. Add Cardizem for G-tube around the clock. 4. Check magnesium. 5. Additional potassium. 6. Thyroid panel if not recently done. 7. Antibiotics to limit the use of beta agonist in view of tachyarrhythmias. 8. Anticoagulation will be considered for cardioembolic prophylaxis, although in this age group my clinical setting, risk and benefit ratio will have to be discussed with primary attending staff. Mitul Fine M.D. DR: Wen JOB#: [id number] CC:
[2016-09-05 12:00] VITALS: BP 120/68
--- NOTE | 2016-09-05 12:42 | Pulmonology Progress Note ---
Assessment/Plan Assessment/Plan IMPRESSION: Chronic respiratory failure, bilateral pneumonia, fever, hyponatremia, hyperkalemia, abnormal LFTs, diabetes mellitus, hypertension, and previous CVA. DISCUSSION: Continue broad-spectrum antibiotics. Rate control with beta blockers and cardizem Continue intravenous fluids. I will follow carefully. DVT and gastrointestinal prophylaxis. Subjective Interval Events: No new events; seen by cardiology; cardizem added. Constitutional: Reports: no symptoms HEENT: Repors: no symptoms Respiratory: Reports: no symptoms Cardiovascular: Reports: no symptoms Gastrointestinal/Abdominal: Reports: no symptoms Allergies: Coded Allergies: AMPICILLIN (Verified Allergy, Unknown, 03/04/11) ASPIRIN (Verified Allergy, Unknown, 03/04/11) PENICILLIN (Unverified Allergy, Unknown, 02/14/15) PENICILLINS (Verified Allergy, Unknown, 09/18/11) TRIFLUOPERAZINE (Verified Allergy, Unknown, 03/04/11) Objective Last 24 Hour Vital Signs Date Time Temp Pulse Resp B/P Pulse Ox O2 Delivery O2 Flow Rate FiO2 09/05/16 12:00 35 09/05/16 10:49 79 18 35 09/05/16 09:35 115 128/105 09/05/16 08:46 72 18 35 09/05/16 08:00 99.7 109 18 104/52 100 Mechanical Ventilator 35 09/05/16 08:00 35 09/05/16 08:00 87 09/05/16 06:47 75 18 35 09/05/16 05:20 140 137/79 09/05/16 05:20 100.2 09/05/16 05:11 113 18 35 09/05/16 04:32 35 09/05/16 04:00 101.8 61 20 139/80 95 Mechanical Ventilator 09/05/16 04:00 138 09/05/16 03:25 123 18 35 09/05/16 01:44 113 120/94 09/05/16 01:02 136 18 35 09/05/16 00:22 35 09/05/16 00:00 104 09/05/16 00:00 97.9 79 20 92/56 94 Mechanical Ventilator 09/04/16 23:37 128 145/83 09/04/16 23:16 128 18 35 09/04/16 20:54 139 18 35 09/04/16 20:47 135 145/83 09/04/16 20:21 35 09/04/16 20:00 134 09/04/16 20:00 99.5 139 22 143/83 96 Mechanical Ventilator 09/04/16 19:29 135 18 35 09/04/16 17:22 140 18 35 09/04/16 16:00 35 09/04/16 16:00 100.4 140 18 145/83 98 Mechanical Ventilator 98 09/04/16 16:00 143 09/04/16 15:58 136 18 35 09/04/16 15:00 141 09/04/16 13:14 141 18 35 Intake and Output 09/04/16 09/05/16 19:00 07:00 Intake Total 1580 ml 1357 ml Output Total 200 ml Balance 1580 ml 1157 ml Free Water 200 ml 150 ml IV Total 900 ml 525 ml Tube Feeding 480 ml 502 ml Other 180 ml Output Urine Total 200 ml # Bowel Movements 2 General Appearance: no acute distress HEENT: normocephalic Respiratory/Chest: chest wall non-tender, lungs clear Cardiovascular: normal peripheral pulses, tachycardia Abdomen: normal bowel sounds, soft, non tender Microbiology Date/Time Source Procedure Growth Status 09/02/16 18:00 Blood Blood Culture - Preliminary NO GROWTH AFTER 48 HOURS Resulted 09/02/16 17:50 Blood Blood Culture - Preliminary NO GROWTH AFTER 48 HOURS Resulted 09/02/16 18:47 Nasal Nares Influenza Types A,B Antigen (VASYL) - Final Complete 09/02/16 18:43 Nasal Nares MRSA Culture - Final Staphylococcus Aureus - Mrsa Complete 09/04/16 13:19 Stool Clostridium difficile Toxin Assay - Final Complete 09/03/16 00:20 Sacral Wound Gram Stain - Final Resulted 09/03/16 00:20 Wound Culture - Preliminary Proteus Mirabilis Staphylococcus Species Gram Negative Bacillus 2 Resulted Laboratory Tests 09/05/16 04:15: White Blood Count 10.9H, Red Blood Count 4.01L, Hemoglobin 10.9L, Hematocrit 35.8L, Mean Corpuscular Volume 89, Mean Corpuscular Hemoglobin 27.3, Mean Corpuscular Hemoglobin Concent 30.6L, Red Cell Distribution Width 18.4H, Platelet Count 157, Mean Platelet Volume 8.3, Neutrophils (%) (Auto) , Lymphocytes (%) (Auto) , Monocytes (%) (Auto) , Eosinophils (%) (Auto) , Basophils (%) (Auto) , Sodium Level 138, Potassium Level 4.4, Chloride Level 105 , Carbon Dioxide Level 24, Anion Gap 9, Blood Urea Nitrogen 39H, Creatinine 0.7 , Estimat Glomerular Filtration Rate , Glucose Level 151H, Calcium Level 8.4L, Magnesium Level 1.7 Current Medications Medications (Trade) Dose Ordered Sig/Joey Route PRN Reason Start Time Stop Time Status Last Admin Dose Admin Acetaminophen (Tylenol) 650 mg Q4HR PRN GT Mild Pain/Temp > 100.5 09/03/16 02:30 10/03/16 02:29 09/05/16 04:20 Albuterol Sulfate (Proventil) 2.5 mg Q6H PRN IN-LINE Shortness of Breath 09/03/16 02:30 09/08/16 02:29 Diltiazem HCl (Cardizem) 60 mg EVERY 8 HOURS ORAL 09/05/16 00:00 10/05/16 00:00 09/05/16 05:20 Ferrous Sulfate (Feosol) 325 mg DAILY ORAL 09/03/16 09:00 10/03/16 08:59 09/05/16 08:23 Heparin Sodium (Porcine) (Heparin 5000 units/ml) 5,000 units EVERY 12 HOURS SUBQ 09/03/16 11:00 10/03/16 10:59 09/05/16 08:26 Levofloxacin 150 ml @ 150 mls/hr Q48H IVPB 09/04/16 19:00 09/11/16 18:59 09/04/16 19:41 Magnesium Hydroxide (Mom) 30 ml DAILY PRN GT Constipation 09/03/16 02:30 10/03/16 02:29 Metoprolol Tartrate (Lopressor) 25 mg Q12HR ORAL 09/04/16 11:00 10/04/16 10:59 09/05/16 09:35 Saccharomyces Boulardii (Florastor) 250 mg DAILY GT 09/03/16 09:00 10/03/16 08:59 09/05/16 08:24 Sodium Chloride 1,000 ml @ 75 mls/hr [id number] IV 09/03/16 10:30 10/03/16 10:29 09/05/16 04:19 Vancomycin HCl 1 ea 1 ea DAILY PRN MISC Per rx protocol 09/03/16 10:15 10/03/16 10:14 Vancomycin HCl/ Dextrose (Vancomycin/D5W) 275 ml @ 183.708 mls/hr Q24H IVPB 09/03/16 20:00 09/08/16 19:59 09/04/16 20:31 Zinc Sulfate (Zinc Sulfate) 220 mg DAILY GT 09/03/16 09:00 10/03/16 08:59 09/05/16 08:24 Haris Ruby MD Sep 05, 2016 12:42
--- NOTE | 2016-09-05 13:44 | Nephrology Progress Note ---
Assessment/Plan Problem List: (1) Fever (2) Hyperkalemia (3) Chronic respiratory failure (4) Severe sepsis (5) Hypertension (6) Anemia (7) HARRIETT (acute kidney injury) Plan Trach on vent settings Monitor Counts Monitor Temp Monitor renal function Monitor H&H ID consult recommended AM labs Subjective ROS Limited/Unobtainable: Yes Subjective In bed, RN at bedside rendering care.No distress noted. Objective Objective Last 24 Hour Vital Signs Date Time Temp Pulse Resp B/P Pulse Ox O2 Delivery O2 Flow Rate FiO2 09/05/16 13:12 106 120/68 09/05/16 12:00 35 09/05/16 10:49 79 18 35 09/05/16 09:35 115 128/105 09/05/16 08:46 72 18 35 09/05/16 08:00 99.7 109 18 104/52 100 Mechanical Ventilator 35 09/05/16 08:00 35 09/05/16 08:00 87 09/05/16 06:47 75 18 35 09/05/16 05:20 140 137/79 09/05/16 05:20 100.2 09/05/16 05:11 113 18 35 09/05/16 04:32 35 09/05/16 04:00 101.8 61 20 139/80 95 Mechanical Ventilator 09/05/16 04:00 138 09/05/16 03:25 123 18 35 09/05/16 01:44 113 120/94 09/05/16 01:02 136 18 35 09/05/16 00:22 35 09/05/16 00:00 104 09/05/16 00:00 97.9 79 20 92/56 94 Mechanical Ventilator 09/04/16 23:37 128 145/83 09/04/16 23:16 128 18 35 09/04/16 20:54 139 18 35 09/04/16 20:47 135 145/83 09/04/16 20:21 35 09/04/16 20:00 134 09/04/16 20:00 99.5 139 22 143/83 96 Mechanical Ventilator 09/04/16 19:29 135 18 35 09/04/16 17:22 140 18 35 09/04/16 16:00 35 09/04/16 16:00 100.4 140 18 145/83 98 Mechanical Ventilator 98 09/04/16 16:00 143 09/04/16 15:58 136 18 35 09/04/16 15:00 141 Intake and Output 09/04/16 09/05/16 19:00 07:00 Intake Total 1580 ml 1357 ml Output Total 200 ml Balance 1580 ml 1157 ml Free Water 200 ml 150 ml IV Total 900 ml 525 ml Tube Feeding 480 ml 502 ml Other 180 ml Output Urine Total 200 ml # Bowel Movements 2 Laboratory Tests 09/05/16 04:15: White Blood Count 10.9H, Red Blood Count 4.01L, Hemoglobin 10.9L, Hematocrit 35.8L, Mean Corpuscular Volume 89, Mean Corpuscular Hemoglobin 27.3, Mean Corpuscular Hemoglobin Concent 30.6L, Red Cell Distribution Width 18.4H, Platelet Count 157, Mean Platelet Volume 8.3, Neutrophils (%) (Auto) , Lymphocytes (%) (Auto) , Monocytes (%) (Auto) , Eosinophils (%) (Auto) , Basophils (%) (Auto) , Sodium Level 138, Potassium Level 4.4, Chloride Level 105 , Carbon Dioxide Level 24, Anion Gap 9, Blood Urea Nitrogen 39H, Creatinine 0.7 , Estimat Glomerular Filtration Rate , Glucose Level 151H, Calcium Level 8.4L, Magnesium Level 1.7 Height (Feet): 5 Height (Inches): 3.00 Weight (Pounds): 130 General Appearance: no apparent distress Neck: other - tracheostomy Cardiovascular: normal rate, regular rhythm, no JVD Respiratory/Chest: decreased breath sounds, other - Trach Abdomen: non tender, other - PEG Extremities: non-tender Neurologic: alert Alvina Silverio N.P. Sep 05, 2016 13:44
[2016-09-05 16:00] VITALS: BP 122/60
[2016-09-05] MEDS: Vancomycin 1gm/D5W 275ml IVPB SCH ×2 (20:23)
[2016-09-05 20:44] VITALS: BP 107/56
[2016-09-06] VITALS: BP 100/52
[2016-09-06 04:00] VITALS: BP 114/59
[2016-09-06 05:50] LABS: BASOPHILS % (AUTO) 0.8 % (0.0-2.0); EOSINOPHILS % (AUTO) 1.2 % (0.0-3.0); LYMPHOCYTES % (AUTO) 12.3 % (20.0-45.0); MEAN CORPUSCULAR HGB CONC 30.3 G/DL (32.0-36.0); MEAN CORPUSCULAR VOLUME 89 FL (80-99); MEAN PLATELET VOLUME 10.2 FL (6.5-10.1); MONOCYTES % (AUTO) 8.4 % (1.0-10.0); NEUTROPHILS % (AUTO) 77.3 % (45.0-75.0); PLATELET COUNT 104 K/UL (150-450); RED BLOOD COUNT 3.91 M/UL (4.20-5.40); RED CELL DISTRIBUTION WIDTH 18.3 % (11.6-14.8); WHITE BLOOD COUNT 8.7 K/UL (4.8-10.8)
[2016-09-06 06:06] LABS: ANION GAP 13 (5-15); CALCIUM 8.3 mg/dL (8.6-10.2); CARBON DIOXIDE 22 mEQ/L (20-30); CHLORIDE 102 mEQ/L (98-107); CREATININE 0.7 mg/dL (0.5-0.9); HEMOLYSIS 11; POTASSIUM 4.7 mEQ/L (3.4-4.9); SODIUM 137 mEQ/L (135-145)
--- NOTE | 2016-09-06 06:18 | Progress Note ---
DATE: 09/05/2016 CARDIOLOGY PROGRESS NOTE: SUBJECTIVE: The patient remains with controlled atrial flutter/fibrillation. OBJECTIVE: VITAL SIGNS: Blood pressure is stable 104/52 to 187/79, heart rate 75 to 109, respiratory rate 18, and temperature max 101.8. LUNGS: Bilateral breath sounds with rhonchi. Thin trach secretions. HEART: Irregularly irregular rhythm. Normal S1, S2. ABDOMEN: Soft. EXTREMITIES: Trace edema. LABORATORY DATA: White count 10.9 and hemoglobin 10.9. Sodium 138, potassium 4.4, bicarbonate 24, BUN 39, and creatinine 0.7. Magnesium 1.7. IMPRESSION: 1. Ventilator-dependent respiratory failure. 2. Sepsis. 3. Pneumonia. 4. Acute paroxysmal atrial fibrillation and flutter with rapid ventricular response. 5. Chronic diastolic congestive heart failure. PLAN: Continue beta-ching, titrate diltiazem, trend natriuretic peptide assay. Antimicrobials ventilator support. Anticoagulation for cardioembolic prophylaxis will be revisited and risk and benefit ratio is addressed. Mitul Fine M.D. DR: LISA JOB#: [id number] CC:
[2016-09-06 08:00] VITALS: BP 113/59
--- NOTE | 2016-09-06 08:09 | Pulmonology Progress Note ---
Assessment/Plan Assessment/Plan IMPRESSION: Chronic respiratory failure, bilateral pneumonia, fever, resolved hyponatremia, resolved hyperkalemia, resolved abnormal LFTs, diabetes mellitus, hypertension, previous CVA. sacral decubitus mrsa nares DISCUSSION: Continue broad-spectrum antibiotics. Will switch to PO Rate control with beta blockers and cardizem DC back to snf/sub acute wound care Subjective Interval Events: No new events; seen by wound RN Constitutional: Reports: no symptoms HEENT: Repors: no symptoms Respiratory: Reports: no symptoms Cardiovascular: Reports: no symptoms Allergies: Coded Allergies: AMPICILLIN (Verified Allergy, Unknown, 03/04/11) ASPIRIN (Verified Allergy, Unknown, 03/04/11) PENICILLIN (Unverified Allergy, Unknown, 02/14/15) PENICILLINS (Verified Allergy, Unknown, 09/18/11) TRIFLUOPERAZINE (Verified Allergy, Unknown, 03/04/11) Objective Last 24 Hour Vital Signs Date Time Temp Pulse Resp B/P Pulse Ox O2 Delivery O2 Flow Rate FiO2 09/06/16 07:03 73 18 35 09/06/16 06:19 100 114/59 09/06/16 05:09 100 19 35 09/06/16 04:00 35 09/06/16 04:00 75 09/06/16 04:00 97.6 82 19 114/59 100 Mechanical Ventilator 35 09/06/16 04:00 104 09/06/16 03:06 77 18 35 09/06/16 00:57 52 18 35 09/06/16 00:00 97.0 75 18 100/52 100 Mechanical Ventilator 35 09/06/16 00:00 35 09/05/16 23:58 71 09/05/16 23:04 73 18 35 09/05/16 22:28 87 112/57 09/05/16 21:46 90 09/05/16 20:54 66 18 35 09/05/16 20:44 96.8 99 18 107/56 100 Mechanical Ventilator 35 09/05/16 20:25 94 117/57 09/05/16 20:00 35 09/05/16 19:07 95 18 35 09/05/16 17:26 98 18 35 09/05/16 16:00 97.6 96 18 122/60 97 Mechanical Ventilator 09/05/16 16:00 35 09/05/16 15:46 82 09/05/16 15:24 103 18 35 09/05/16 13:51 100.9 09/05/16 13:12 106 120/68 09/05/16 13:09 78 18 35 09/05/16 12:00 104.0 104 18 120/68 98 Mechanical Ventilator 35 09/05/16 12:00 110 09/05/16 12:00 35 09/05/16 10:49 79 18 35 09/05/16 09:35 115 128/105 09/05/16 08:46 72 18 35 Intake and Output 09/05/16 09/06/16 19:00 07:00 Intake Total 1504 ml 1352.000 ml Output Total 175 ml 650 ml Balance 1329 ml 702.000 ml Free Water 55 ml 150 ml IV Total 900 ml 950.000 ml Tube Feeding 504 ml 252 ml Other 45 ml Output Urine Total 175 ml 650 ml # Bowel Movements 1 2 General Appearance: no acute distress HEENT: normocephalic Respiratory/Chest: chest wall non-tender, lungs clear Cardiovascular: normal peripheral pulses, normal rate Abdomen: normal bowel sounds Microbiology Date/Time Source Procedure Growth Status 09/04/16 13:19 Stool Clostridium difficile Toxin Assay - Final Complete Laboratory Tests 09/05/16 19:00: Vancomycin Level Trough 15.4H 09/06/16 03:45: White Blood Count 8.7, Red Blood Count 3.91L, Hemoglobin 10.6L, Hematocrit 34.9L , Mean Corpuscular Volume 89, Mean Corpuscular Hemoglobin 27.0, Mean Corpuscular Hemoglobin Concent 30.3L, Red Cell Distribution Width 18.3H, Platelet Count 104L, Mean Platelet Volume 10.2H, Neutrophils (%) (Auto) 77.3H, Lymphocytes (%) (Auto) 12.3L, Monocytes (%) (Auto) 8.4, Eosinophils (%) (Auto) 1.2, Basophils (%) (Auto) 0.8, Sodium Level 137, Potassium Level 4.7, Chloride Level 102, Carbon Dioxide Level 22, Anion Gap 13, Blood Urea Nitrogen 53H, Creatinine 0.7, Estimat Glomerular Filtration Rate , Glucose Level 105, Calcium Level 8.3L, Pro-B-Type Natriuretic Peptide 6893H Current Medications Medications (Trade) Dose Ordered Sig/Joey Route PRN Reason Start Time Stop Time Status Last Admin Dose Admin Acetaminophen (Tylenol) 650 mg Q4HR PRN GT Mild Pain/Temp > 100.5 09/03/16 02:30 10/03/16 02:29 09/05/16 13:13 Albuterol Sulfate (Proventil) 2.5 mg Q6H PRN IN-LINE Shortness of Breath 09/03/16 02:30 09/08/16 02:29 Diltiazem HCl (Cardizem) 60 mg EVERY 6 HOURS ORAL 09/06/16 06:00 10/06/16 05:59 09/06/16 06:19 Ferrous Sulfate (Feosol) 325 mg DAILY ORAL 09/03/16 09:00 10/03/16 08:59 09/05/16 08:23 Heparin Sodium (Porcine) (Heparin 5000 units/ml) 5,000 units EVERY 12 HOURS SUBQ 09/03/16 11:00 10/03/16 10:59 09/05/16 20:26 Levofloxacin 150 ml @ 150 mls/hr Q48H IVPB 09/04/16 19:00 09/11/16 18:59 09/04/16 19:41 Magnesium Hydroxide (Mom) 30 ml DAILY PRN GT Constipation 09/03/16 02:30 10/03/16 02:29 Metoprolol Tartrate (Lopressor) 25 mg Q12HR ORAL 09/04/16 11:00 10/04/16 10:59 09/05/16 20:25 Saccharomyces Boulardii (Florastor) 250 mg DAILY GT 09/03/16 09:00 10/03/16 08:59 09/05/16 08:24 Sodium Chloride 1,000 ml @ 75 mls/hr [id number] IV 09/03/16 10:30 10/03/16 10:29 09/05/16 19:01 Vancomycin HCl 1 ea 1 ea DAILY PRN MISC Per rx protocol 09/03/16 10:15 10/03/16 10:14 Vancomycin HCl/ Dextrose (Vancomycin/D5W) 275 ml @ 183.708 mls/hr Q24H IVPB 09/03/16 20:00 09/08/16 19:59 09/05/16 20:23 Zinc Sulfate (Zinc Sulfate) 220 mg DAILY GT 09/03/16 09:00 10/03/16 08:59 09/05/16 08:24 Haris Ruby MD Sep 06, 2016 08:09
[2016-09-06] MEDS ORDERED: CARDIZEM60 MG ORAL (08:11)
[2016-09-06] MEDS ORDERED: LOPRESSOR25 M1 ORAL (08:11)
[2016-09-06] MEDS ORDERED: LEVAQUIN500 MG ORAL (08:11)
[2016-09-06] MEDS: Zinc Sulfate 220mg cap GT SCH (08:35)
[2016-09-06] MEDS: Metoprolol 25mg tab ORAL SCH (08:35)
[2016-09-06] MEDS: Heparin 5000 units/ml inj SUBQ SCH (08:37)
[2016-09-06 12:00] VITALS: BP 114/50
[2016-09-06] MEDS ORDERED: NS 275ml ONE (15:29)
[2016-09-06] MEDS ORDERED: Tubing IV Secondary IV ONE (15:29)
--- NOTE | 2016-09-07 03:49 | Progress Note ---
DATE: 09/06/2016 CARDIOLOGY PROGRESS NOTE SUBJECTIVE: The patient's condition has improved. The patient continues to have atrial flutter and fibrillation, however, rates remained controlled. OBJECTIVE: VITAL SIGNS: Blood pressure 114/59, pulse 82, respirations 19, and afebrile. LUNGS: Bilateral breath sounds. Scattered rhonchi. Thin trach secretions. HEART: Irregularly irregular rhythm. Normal S1 and S2. ABDOMEN: Soft. G-tube intact. EXTREMITIES: No edema. LABORATORY DATA: White count 8.7 and hemoglobin 10.6. Potassium is 4.7. Pro-natriuretic peptide is 6800. IMPRESSION: 1. Atrial fibrillation flutter rate controlled. 2. Acute on chronic diastolic congestive heart failure, clinically compensated. 3. Nosocomial pneumonia. 4. Chronic respiratory failure, resolved. 5. Electrolyte abnormalities. 6. Hypertensive heart disease. PLAN: 1. Continue current cardiovascular regimen with beta-ching and diltiazem for rate control and blood pressure management. 2. Antimicrobials. 3. Respiratory hygiene. 4. Maintenance diuretic dosing added as well with titration at the skilled subacute facility based on clinical parameters and trending of natriuretic peptide assay results. Mitul Fine M.D. DR: TRACIE JOB#: [id number] CC:
--- NOTE | 2016-09-08 15:46 | Discharge Summary ---
Discharge Summary Hospital Course Date of Admission Sep 02, 2016 at 18:25 Date of Discharge Sep 06, 2016 at 15:30 Admitting Diagnosis Sepsis HPI Dang Dumont is a 76 year old female who was admitted on Sep 02, 2016 at 18: 25 for Sepsis Hospital Course [id number] Discharge Discharge Disposition Patient was discharged to SNF/Subacute Facility(03) Discharge Diagnoses: Sherice Marques NP Sep 08, 2016 15:46
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
--- NOTE | 2016-09-12 08:47 | Cardiology Report ---
APPROVED REPORT EKG Measurement Heart [id number] Sinus tachycardia with frequent PACs, Left axis deviation Abnormal ECG
== END 2016-09-06 15:30 | DRG 208 ==
LOC: EDBD 17:40 → EMR 18:00 → 2W 18:25 → EDBEDREQ 18:28 → 2W 09-03 00:55
PROC: 5A1945Z Respiratory Ventilation, 24-96 Consecutive Hours (ICD-10-PCS; principal; 2006-09-02)
DX: J18.9 Pneumonia, unspecified organism (principal); J96.21 Acute and chronic respiratory failure with hypoxia; I50.33 Acute on chronic diastolic (congestive) heart failure; N17.9 Acute kidney failure, unspecified; Z99.11 Dependence on respirator [ventilator] status; Z43.0 Encounter for attention to tracheostomy; L89.154 Pressure ulcer of sacral region, stage 4; R13.10 Dysphagia, unspecified; I48.92 Unspecified atrial flutter; I69.354 Hemiplegia and hemiparesis following cerebral infarction affecting left non-dominant side; I11.0 Hypertensive heart disease with heart failure; E87.1 Hypo-osmolality and hyponatremia; Z43.1 Encounter for attention to gastrostomy; J44.0 Chronic obstructive pulmonary disease with (acute) lower respiratory infection; E87.5 Hyperkalemia; E11.9 Type 2 diabetes mellitus without complications; D64.9 Anemia, unspecified; Z88.6 Allergy status to analgesic agent; Z88.1 Allergy status to other antibiotic agents; Z88.0 Allergy status to penicillin; Z88.8 Allergy status to other drugs, medicaments and biological substances; I48.91 Unspecified atrial fibrillation; Z22.322 Carrier or suspected carrier of Methicillin resistant Staphylococcus aureus; K21.9 Gastro-esophageal reflux disease without esophagitis; R00.0 Tachycardia, unspecified; J20.9 Acute bronchitis, unspecified
CPT/HCPCS: 36415; 36600; 71010; 80048; 80053; 80202; 81003; 82550; 82803; 82962; 83605; 83735; 83880; 84484; 85007; 85025; 85610; 85730; 86710; 87040; 87070; 87081; 87181; 87205; 87493; 93005; 94002; 94003

== ENCOUNTER 2016-10-24 22:16 | Inpatient (IN) | payer OTHER ==
[~2016-10-24] VITALS: Ht 172.7 cm; Wt 73.0 kg
[~2016-10-24 22:16] MED LIST changes: +CARDIZEM60 MG ORAL; +FLORASTOR250 MG GT; +LEVAQUIN500 MG IVPB; +LEVAQUIN500 MG ORAL; +LOPRESSOR25 M1 ORAL; +MULTI-VITAMIN-1 EACH PEG; +UTI-STAT L3875 MG/31 PEG; +VANCOMYCIN1 GM/2502 IVPB
[2016-10-24 22:29] VITALS: BP 159/52
--- NOTE | 2016-10-24 22:46 | Emergency Room Report ---
History of Present Illness General Chief Complaint: Abnormal Labs Source: Medical Record, EMS Present Illness HPI [id number] BIBEMS from SNF for "abnormal labs" including Na, K, BUN/Cr. Patient not providing additional HPI at this time. Chronic trach/vent patient. Recent admission for multiple medical problems including sepsis d/t PNA. Care complicated by KNOWN metabolic abnormalities. PMHx: HypoNa, HyperK, DM, HTN, previous CVA, sacral decub, Acute on chronic diastolic CHF, Aflutter/fib, anemia Allergies: Coded Allergies: AMPICILLIN (Verified Allergy, Unknown, 03/04/11) ASPIRIN (Verified Allergy, Unknown, 03/04/11) PENICILLIN (Unverified Allergy, Unknown, 02/14/15) PENICILLINS (Verified Allergy, Unknown, 09/18/11) TRIFLUOPERAZINE (Verified Allergy, Unknown, 03/04/11) Patient History Past Medical History: see triage record, old chart reviewed, other - see my HPI Past Surgical History: unable to obtain Pertinent Family History: unable to obtain Social History: Denies: alcohol use, drug use, smoking Last Menstrual Period: n/A Now: No Immunizations: UTD Reviewed Nursing Documentation: PMH: Agreed, PSxH: Agreed Nursing Documentation-PMH Hx Cardiac Problems: Yes Hx Hypertension: Yes Hx COPD: Yes Hx Diabetes: Yes Hx Cancer: No Hx Gastrointestinal Problems: Yes Hx Neurological Problems: Yes - AMS,transcient cerebral ischemic attack Hx Cerebrovascular Accident: Yes Hx Transient Ischemic Attacks: Yes Hx Speech Problem: Yes - ON TRACH. Hx Aphasia: Yes Hx Dysphasia: Yes Hx Weakness: Yes - LEFT SIDE. Review of Systems All Other Systems: limited - Vent dependent, not contributing to HPI Physical Exam Vital Signs Date Time Temp Pulse Resp B/P Pulse Ox O2 Delivery O2 Flow Rate FiO2 10/24/16 22:18 97.9 55 20 159/52 99 Endotracheal Tube 35 Sp02 EP Interpretation: reviewed, normal General Appearance: normal inspection, well appearing, no apparent distress, alert, obese, other - Generalized severely edematous Head: normocephalic, atraumatic Eyes: bilateral eye EOMI, bilateral eye PERRL ENT: normal ENT inspection, normal pharynx, no angioedema, other - Trach in place, no air leak or mucous plug Neck: normal inspection, full range of motion, supple, no bony tend Respiratory: normal inspection, lungs clear, normal breath sounds, no respiratory distress, no retraction, no wheezing Cardiovascular #1: regular rate, rhythm, no edema Gastrointestinal: normal inspection, normal bowel sounds, non tender, soft, no guarding, no hernia Genitourinary: no CVA tenderness Musculoskeletal: normal inspection, back normal, normal range of motion, Timothy' s Sign negative Neurologic: normal inspection, alert, responsive, speech normal, other - Responds to painful stimuli Psychiatric: normal inspection, judgement/insight normal, mood/affect normal Skin: normal inspection Procedures Central Line Central Line : Consent: Emergent Central Line Lumen: triple Maximal Sterile Barrier Tech: yes cap, yes mask, yes sterile gown, yes sterile gloves, yes large sterile sheet, yes hand hygiene, yes chlorhexidine prep Central Line Postion: subclavian (L) Complications: none Attempts: Other Patient Tolerated: Well Complications: None Progress Patient unable to have RIJ or LIJ central line d/t trach mask in the area Severely edematous to bilateral groin area - unable to reach femoral vein using ultrasound guidance for visualization Additional Procedure Procedure Narrative IO access obtained to right tibia Area cleaned and prepped Blue 15gauge IO placed Lidocaine 2% flushed into line Good blood return Patient tolerated procedure Medical Decision Making Medicare Attestation I Dionna Louise MD hereby attest that the medical record entry for date of service, 06/06/16 accurately reflects signatures/notations that I made in my capacity as MD when I treated/diagnosed the above listed Medicare beneficiary. I attest that this information is true, accurate and complete to the best of my knowledge. I understand that any falsification, omission, or concealment of material fact may subject me to administrative, civil, or criminal liability. This patient warrants hospital admission for extreme of age and has a condition that cannot be treated as outpatient. Diagnostic Impression: Primary Impression: Acute kidney injury Additional Impressions: Anemia Qualified Codes: D64.9 - Anemia, unspecified Hyperkalemia Hyponatremia ER Course Labs: Hb 7.5 Anemia - likely d/t chronic disease - No active bleeding in ED - Blood Transfusion ordered in ED for 2U PRBCs Hyponatremia - 112 - Unknown if acute vs subacute. Worse since previous admission - Gave 250cc bolus hypertonic saline Hyperkalemia - Slightly elevated - Albuterol given via Trach - No acute ECG changes Patient with poor peripheral access Multiple nurses with multiple attempts to secure peripheral access were unsuccessful as well as my attempts to place central catheter Ultimately a right IO was placed right tibia to give hypertonic saline Patient needs PICC line in AM for blood transfusion Endorsed to Dr Sutherland at 330am for JODY admission EKG Diagnostic Results Rate: normal Rhythm: NSR ST Segments: no acute changes ASA given to the pt in ED: No Rhythm Strip Diag. Results EP Interpretation: yes Rate: 59 Rhythm: NSR, no PVC's, no ectopy Chest X-Ray Diagnostic Results EP Interpretation: Yes Findings: no consolidation, no effusion, no pneumothorax, no acute cardiopulmonary disease Number of Views: 1 Last Vital Signs Date Time Temp Pulse Resp B/P Pulse Ox O2 Delivery O2 Flow Rate FiO2 10/24/16 22:18 97.9 55 20 159/52 99 Endotracheal Tube 35 Status: improved Disposition: ADMITTED INPATIENT Condition: Serious DIONNA LOUISE M.D. Oct 24, 2016 22:46
[2016-10-24 23:40] LABS: ALANINE AMINOTRANSFERASE 34 U/L (3-33); ALBUMIN/GLOBULIN RATIO 0.7 (1.0-2.7); ANION GAP 9 (5-15); ASPARTATE AMINO TRANSFERASE 55 U/L (5-40); CALCIUM 8.5 mg/dL (8.6-10.2); CARBON DIOXIDE 32 mEQ/L (20-30); CHLORIDE 71 mEQ/L (98-107); HEMOLYSIS 30; POTASSIUM 5.1 mEQ/L (3.4-4.9); TOTAL PROTEIN 6.8 g/dL (6.6-8.7); TROPONIN I < 0.30 ng/mL (<=0.30)
[2016-10-24 23:49] LABS: SODIUM 112 mEQ/L (135-145)
[2016-10-24 23:50] LABS: CKMB 2.1 ng/mL (< 3.8)
[2016-10-24 23:59] LABS: MEAN CORPUSCULAR HEMOGLOBIN 27.4 PG (27.0-31.0); MEAN CORPUSCULAR HGB CONC 32.5 G/DL (32.0-36.0); MEAN CORPUSCULAR VOLUME 84 FL (80-99); MEAN PLATELET VOLUME 5.5 FL (6.5-10.1); PLATELET COUNT 194 K/UL (150-450); RED BLOOD COUNT 2.72 M/UL (4.20-5.40); RED CELL DISTRIBUTION WIDTH 16.1 % (11.6-14.8); WHITE BLOOD COUNT 6.6 K/UL (4.8-10.8)
[2016-10-25] VITALS (7 sets, daily range): BP systolic 109–132; BP diastolic 34–73
[2016-10-25 00:06] LABS: INR 1.1 (0.9-1.1); PROTHROMBIN TIME 10.7 SEC (9.30-11.50)
[2016-10-25] MEDS ORDERED: Lidocaine 2% MPF 5ml Vial INJ ONE (03:06)
[2016-10-25] MEDS ORDERED: NaCl 3% 500ml 250 ML IVPB ONE (03:30)
[2016-10-25] MEDS ORDERED: Albuterol ud Inhalation HHN SCH (03:30)
[2016-10-25] MEDS ORDERED: Amikacin Rx to dose MISC PRN (07:30)
[2016-10-25] MEDS ORDERED: Miralax 17gm pkt ORAL PRN (08:30)
[2016-10-25] MEDS ORDERED: Morphine Sulfate 2mg/ml Inj IVP PRN (08:30)
[2016-10-25] MEDS ORDERED: Nitroglycerin Subl 0.4mg tab (Bottle Of 25) SL PRN (08:30)
[2016-10-25] MEDS ORDERED: DuoNeb 0.5-3(2.5)mg/3ml neb HHN PRN (08:30)
[2016-10-25] MEDS: Metoprolol 25mg tab ORAL SCH ×2 (09:00→21:00)
[2016-10-25] MEDS: Heparin 5000 units/ml inj SUBQ SCH ×2 (09:00→21:00)
[2016-10-25] MEDS: Digoxin Elixir 0.125mg GT SCH (10:14)
--- NOTE | 2016-10-25 11:39 | History and Physical ---
History of Present Illness General Date patient seen: Oct 25, 2016 Reason for Hospitalization: Abnormal Labs Present Illness HPI 76 year old female with PMHx: Chronic trach/vent HypoNa, HyperK, DM, HTN, previous CVA, sacral decub, Acute on chronic diastolic CHF, Aflutter/fib, anemia from SNF brought in because of "abnormal labs" including Na, K, BUN/Cr. pts BUN was 110 and NA was 110 as well. She had anasarca. She is admitted to [facility] because of trach and vent. She is awake but cant give any further history. Allergies: Coded Allergies: AMPICILLIN (Verified Allergy, Unknown, 03/04/11) ASPIRIN (Verified Allergy, Unknown, 03/04/11) PENICILLIN (Unverified Allergy, Unknown, 02/14/15) PENICILLINS (Verified Allergy, Unknown, 09/18/11) TRIFLUOPERAZINE (Verified Allergy, Unknown, 03/04/11) Medication History Scheduled Cran/Vitc/Mannose/Inulin/Brom (Uti-Stat Liquid), 3,875 MG PEG DAILY, (Reported) Digoxin* (Digoxin*), 0.125 MG GT DAILY, (Reported) Diltiazem Hcl* (Cardizem*), 60 MG ORAL EVERY 6 HOURS Docusate Sodium (Docusate Sodium), 100 MG GT DAILY, (Reported) Epoetin Cali (Epogen), 10,000 UNIT SUBQ 3XW, (Reported) Ferrous Sulfate* (Ferrous Sulfate*), 330 MG GT DAILY, (Reported) Levofloxacin* (Levaquin*), 500 MG ORAL DAILY Metoprolol Tartrate (Metoprolol Tartrate), 25 MG ORAL Q12HR Multivit-Min/Iron Fum/Folic AC (Kojhc-Ilytocm-Ifuczrap Tablet), 1 EACH PEG DAILY , (Reported) Protein Supplement (Promod), 30 ML GT DAILY, (Reported) Saccharomyces Boulardii (Florastor*), 250 MG GT DAILY, (Reported) Zinc Sulfate (Zinc Sulfate*), 220 MG GT DAILY, (Reported) Scheduled PRN Acetaminophen* (Tylenol*), 650 MG GT Q4HR PRN for Mild Pain/Temp > 100.5, ( Reported) Albuterol Sulfate* (Albuterol Sulfate Hhn*), 3 ML INH Q6H PRN for Shortness of Breath, (Reported) Magnesium Hydroxide (Milk of Magnesia), 30 ML GT DAILY PRN for Constipation, ( Reported) Patient History Healthcare decision maker Brother Geoffrey Corado Resuscitation status Full Code Advanced Directive on File No Past Medical/Surgical History Past Medical/Surgical History: (1) Tracheostomy in place (2) History of CVA (cerebrovascular accident) (3) COPD (chronic obstructive pulmonary disease) with acute bronchitis (4) Chronic respiratory failure Review of Systems All Other Systems: negative except mentioned in HPI Physical Exam Lines, tubes and drains: peripheral, central line, gtube HEENT: normocephalic, atraumatic Neck: non-tender, normal alignment Respiratory/Chest: chest wall non-tender, lungs clear Cardiovascular/Chest: normal peripheral pulses, normal rate Abdomen: normal bowel sounds, non tender Genitourinary/Rectal: normal genital exam, normal rectal exam Extremities: normal range of motion, non-tender Neurologic: director of sustainable design II-XII grossly normal, no motor/sensory deficits Last 24 Hour Vital Signs Date Time Temp Pulse Resp B/P Pulse Ox O2 Delivery O2 Flow Rate FiO2 10/25/16 10:44 71 18 35 10/25/16 10:14 68 10/25/16 09:00 68 102/39 10/25/16 08:51 68 18 35 10/25/16 08:00 60 10/25/16 08:00 97.3 55 18 109/34 98 Mechanical Ventilator 35 10/25/16 06:51 64 18 35 10/25/16 06:42 97.3 69 18 123/34 100 Endotracheal Tube 35 10/25/16 05:19 97.9 55 18 119/36 100 Mechanical Ventilator 35 10/25/16 05:19 58 18 100 Mechanical Ventilator 10/25/16 04:53 56 18 35 10/25/16 04:50 57 18 99 Mechanical Ventilator 35 10/25/16 04:05 97.9 55 21 119/36 100 Endotracheal Tube 35 10/25/16 00:54 56 18 35 10/25/16 00:24 97.9 58 18 130/46 100 Endotracheal Tube 35 10/24/16 22:53 54 18 35 10/24/16 22:30 35 10/24/16 22:29 97.9 62 20 159/52 99 Endotracheal Tube 35 10/24/16 22:18 97.9 55 20 159/52 99 Endotracheal Tube 35 Intake and Output 10/24/16 10/25/16 19:00 07:00 Output Total 500 ml Balance -500 ml Output Urine Total 500 ml Laboratory Tests Test 10/24/16 23:15 10/24/16 23:45 Sodium Level 112 mEQ/L (135-145) *L Potassium Level 5.1 mEQ/L (3.4-4.9) H Chloride Level 71 mEQ/L (98-107) L Carbon Dioxide Level 32 mEQ/L (20-30) H Anion Gap 9 (5-15) Blood Urea Nitrogen 109 mg/dL (7-23) H Creatinine 1.0 mg/dL (0.5-0.9) H Estimat Glomerular Filtration Rate mL/min (>60) Glucose Level 136 mg/dL (74-106) H Calcium Level 8.5 mg/dL (8.6-10.2) L Total Bilirubin 0.3 mg/dL (0.0-1.2) Aspartate Amino Transf (AST/SGOT) 55 U/L (5-40) H Alanine Aminotransferase (ALT/SGPT) 34 U/L (3-33) H Alkaline Phosphatase 454 U/L (35-104) H Total Creatine Kinase 31 U/L (26-140) Creatine Kinase MB 2.1 ng/mL (< 3.8) Creatine Kinase MB Relative Index 6.7 Troponin I < 0.30 ng/mL (<=0.30) Total Protein 6.8 g/dL (6.6-8.7) Albumin 2.8 g/dL (3.5-5.2) L Globulin 4.0 g/dL Albumin/Globulin Ratio 0.7 (1.0-2.7) L White Blood Count 6.6 K/UL (4.8-10.8) Red Blood Count 2.72 M/UL (4.20-5.40) L Hemoglobin 7.5 G/DL (12.0-16.0) L Hematocrit 23.0 % (37.0-47.0) L Mean Corpuscular Volume 84 FL (80-99) Mean Corpuscular Hemoglobin 27.4 PG (27.0-31.0) Mean Corpuscular Hemoglobin Concent 32.5 G/DL (32.0-36.0) Red Cell Distribution Width 16.1 % (11.6-14.8) H Platelet Count 194 K/UL (150-450) Mean Platelet Volume 5.5 FL (6.5-10.1) L Neutrophils (%) (Auto) % (45.0-75.0) Lymphocytes (%) (Auto) % (20.0-45.0) Monocytes (%) (Auto) % (1.0-10.0) Eosinophils (%) (Auto) % (0.0-3.0) Basophils (%) (Auto) % (0.0-2.0) Prothrombin Time 10.7 SEC (9.30-11.50) Prothromb Time International Ratio 1.1 (0.9-1.1) Activated Partial Thromboplast Time 31 SEC (23-33) Height (Feet): 5 Height (Inches): 8.00 Weight (Pounds): 161 Medications Current Medications Medications (Trade) Dose Ordered Sig/Joey Route PRN Reason Start Time Stop Time Status Last Admin Dose Admin Acetaminophen (Tylenol) 650 mg Q4H PRN ORAL fever>100.5 10/25/16 08:30 11/24/16 08:29 Albuterol/ Ipratropium (DuoNeb 0.5-3(2.5)mg/3ml) 3 ml Q4H PRN HHN Shortness of Breath 10/25/16 08:30 10/30/16 08:29 Amikacin Protocol 1 ea 1 ea DAILY PRN MISC Per rx protocol 10/25/16 07:30 11/24/16 07:29 UNV Aztreonam 1 gm/ Sodium Chloride 55 ml @ 110 mls/hr EVERY 8 HOURS IVPB 10/25/16 14:00 11/01/16 13:59 Digoxin (Lanoxin) 0.125 mg DAILY GT 10/25/16 09:00 11/24/16 08:59 10/25/16 10:14 Diltiazem HCl (Cardizem) 60 mg EVERY 6 HOURS ORAL 10/25/16 12:00 11/24/16 11:59 Heparin Sodium (Porcine) (Heparin 5000 units/ml) 5,000 units EVERY 12 HOURS SUBQ 10/25/16 09:00 11/24/16 08:59 10/25/16 09:00 Levofloxacin 50 ml @ 50 mls/hr Q24H IVPB 10/26/16 09:00 11/02/16 08:59 Levofloxacin (Levaquin) 100 ml @ 100 mls/hr ONCE ONCE IVPB 10/25/16 11:00 10/25/16 11:59 Metoprolol Tartrate 25 mg 25 mg Q12HR ORAL 10/25/16 09:00 11/24/16 08:59 Morphine Sulfate (Morphine Sulfate) 2 mg Q4H PRN IVP Moderate Pain (Pain Scale 4-6) 10/25/16 08:30 11/01/16 08:29 Nitroglycerin 0.4 mg 0.4 mg Q5M PRN SL Prn Chest Pain 10/25/16 08:30 11/24/16 08:29 Ondansetron HCl (Zofran) 4 mg Q6H PRN IVP Nausea & Vomiting 10/25/16 08:30 11/24/16 08:29 Polyethylene Glycol (Miralax) 17 gm DAILYPRN PRN ORAL Constipation 10/25/16 08:30 11/24/16 08:29 Sodium Chloride (Hypertonic Saline) 250 ml @ 30 mls/hr ONCE ONCE IVPB 10/25/16 03:30 10/25/16 11:49 10/25/16 04:56 Sodium Chloride (Sodium Chloride 1000ml bag) 1,000 ml @ 150 mls/hr Q6H40M IVLG 10/26/16 09:00 11/25/16 08:59 Temazepam (Restoril) 15 mg HSPRN PRN ORAL Insomnia 10/25/16 21:00 11/01/16 20:59 Vancomycin HCl/ Dextrose (Vancomycin/D5W) 275 ml @ 183.708 mls/hr Q24H IVPB 10/25/16 12:00 10/30/16 11:59 Assessment/Plan Problem List: (1) HARRIETT (acute kidney injury) ICD Codes: N17.9 - Acute kidney failure, unspecified SNOMED: 95693870 (2) Anemia ICD Codes: D64.9 - Anemia SNOMED: 087536499 Qualifiers: Qualified Codes: D64.9 - Anemia, unspecified (3) Chronic respiratory failure ICD Codes: J96.10 - Chronic respiratory failure, unsp w hypoxia or hypercapnia SNOMED: 50388573 (4) Tracheostomy in place ICD Codes: Z93.0 - Tracheostomy in place SNOMED: 866930004 (5) History of CVA (cerebrovascular accident) ICD Codes: Z86.73 - History of CVA (cerebrovascular accident) SNOMED: 289642886 (6) Hypertension ICD Codes: I10 - Hypertension SNOMED: 47512801 Assessment/Plan IV fluids prbc anemia w/u f/u electolytes hold feeding , because of leaking from gtube site GI evaluation BENTLEY MARTINEZ Oct 25, 2016 11:39
[2016-10-25] MEDS ORDERED: Vancomycin 1250mg in D5W 275ml IVPB SCH (12:00)
--- NOTE | 2016-10-25 12:22 | GI Initial Consult Note ---
Georgette Yuen NMarkPMark 10/25/16 1222: History of Present Illness General Date patient seen: Oct 25, 2016 Time patient seen: 12:21 Reason for Hospitalization: Abnormal Labs Referring physician: PAUL Reason for Consultation: GT LEAKAGE Present Illness HPI 76YOF BIBEMS from SNF for "abnormal labs" including Na, K, BUN/Cr. Patient not providing additional HPI at this time. Chronic trach/vent patient. Recent admission for multiple medical problems including sepsis d/t PNA. Care complicated by KNOWN metabolic abnormalities. GI CONSULT: HPI as noted above. GI consulted for GT malfunction/leakage. Pt seen on floor, A&O NAD on trach to vent. GT site assessed with noted drainage with minimal amounts of blood. Erythema noted around GT site with no noted breaks in skin. Patient presents today with anemia, transaminitis, and hypoalbuminemia. Unknown history of colonoscopy. Home Meds Active Scripts Metoprolol Tartrate (Metoprolol Tartrate) 25 Mg Tablet, 25 MG ORAL Q12HR for 60 Days, TAB Prov:Haris Ruby MD 09/06/16 Reported Medications Diltiazem HCl (Diltiazem 12Hr ER) 60 Mg Cap.er.12h, 120 MG ORAL EVERY 12 HOURS, TAB 10/26/16 Hydrocodone Bit/Acetaminophen 5-325* (NORCO 5-325 TABLET*) 1 Each Tablet, 1 TAB GT PRIOR TO DRESSING CH Y for For Pain, TAB 10/26/16 Hydrocodone Bit/Acetaminophen 5-325* (NORCO 5-325 TABLET*) 1 Each Tablet, 1 TAB GT BEDTIME Y for For Pain, TAB 10/26/16 Na Phos,M-B/Na Phos,Di-Ba (Fleet Enema) 133 Ml Enema, 118 ML RC PRN Y for Constipation, EA 10/26/16 Bisacodyl (DULCOLAX) 10 Mg Supp.rect, 10 MG RC PRN Y for Constipation, SUPP 10/26/16 Saccharomyces Boulardii (FLORASTOR*) 250 Mg Capsule, 250 MG GT DAILY, CAP 09/03/16 Multivit-Min/Iron Fum/Folic AC (Movpu-Nxlysgi-Rmivylwl Tablet) 1 Each Tablet, 1 EACH PEG DAILY, TAB 09/03/16 Digoxin* (DIGOXIN*) 0.125 Mg/2.5 Ml Solution, 0.125 MG GT DAILY, ML 0 Refills 01/05/16 Zinc Sulfate (ZINC SULFATE*) 220 Mg Capsule, 220 MG GT DAILY, CAP 0 Refills 01/05/16 Docusate Sodium (Docusate Sodium) 100 Mg/10 Ml Udc, 100 MG GT DAILY, EA 12/28/14 Albuterol Sulfate* (ALBUTEROL SULFATE HHN*) 2.5 Mg/3 Ml Vial.neb, 3 ML INH Q6H Y for Shortness of Breath, #30 EA 0 Refills 12/28/14 Protein Supplement (PROMOD) 946 Ml Liquid, 30 ML GT DAILY 12/27/12 Ferrous Sulfate* (FERROUS SULFATE*) 325 Mg Tablet, 330 MG GT DAILY, #20 TAB 08/22/12 Acetaminophen* (TYLENOL*) 650 Mg/20.3 Ml Oral.susp, 650 MG GT Q4HR Y for Mild Pain/Temp > 100.5 08/22/12 Magnesium Hydroxide (Milk of Magnesia) 30 Ml Susp, 30 ML GT DAILY Y for Constipation 08/22/12 Discontinued Reported Medications Cran/Vitc/Mannose/Inulin/Brom (UTI-STAT LIQUID) 3,875 Mg/30 Ml Liquid, 3875 MG PEG DAILY, ML 09/03/16 Epoetin Cali (Epogen) 10 000/1 Ml Vial, 23593 UNIT SUBQ 3XW, VIAL 12/28/14 Discontinued Scripts Levofloxacin* (LEVAQUIN*) 500 Mg Tablet, 500 MG ORAL DAILY for 10 Days, TAB Prov:Haris Ruby MD 09/06/16 Diltiazem Hcl* (CARDIZEM*) 60 Mg Tablet, 60 MG ORAL EVERY 6 HOURS for 60 Days, TAB Prov:Haris Ruby MD 09/06/16 Med list reviewed/reconciled: Yes Allergies: Coded Allergies: AMPICILLIN (Verified Allergy, Unknown, 03/04/11) ASPIRIN (Verified Allergy, Unknown, 03/04/11) PENICILLIN (Unverified Allergy, Unknown, 02/14/15) PENICILLINS (Verified Allergy, Unknown, 09/18/11) TRIFLUOPERAZINE (Verified Allergy, Unknown, 03/04/11) Patient History Limited by: medical condition History Provided By: Medical Record PMH Narrative PMHx: HypoNa, HyperK, DM, HTN, previous CVA, sacral decub, Acute on chronic diastolic CHF, Aflutter/fib, anemia Hx Cardiac Problems: Yes Hx Hypertension: Yes Hx COPD: Yes Hx Diabetes: Yes Hx Cancer: No Hx Gastrointestinal Problems: Yes Hx Neurological Problems: Yes - AMS,transcient cerebral ischemic attack Hx Cerebrovascular Accident: Yes Hx Transient Ischemic Attacks: Yes Hx Speech Problem: Yes - ON TRACH. Hx Aphasia: Yes Hx Dysphasia: Yes Hx Weakness: Yes - LEFT SIDE. Review of Systems All Other Systems: limited Physical Exam Vital Signs Date Time Temp Pulse Resp B/P Pulse Ox O2 Delivery O2 Flow Rate FiO2 10/24/16 22:18 97.9 55 20 159/52 99 Endotracheal Tube 35 Sp02 EP Interpretation: reviewed Labs Laboratory Tests Test 10/24/16 23:15 10/24/16 23:45 Sodium Level 112 mEQ/L (135-145) *L Potassium Level 5.1 mEQ/L (3.4-4.9) H Chloride Level 71 mEQ/L (98-107) L Carbon Dioxide Level 32 mEQ/L (20-30) H Anion Gap 9 (5-15) Blood Urea Nitrogen 109 mg/dL (7-23) H Creatinine 1.0 mg/dL (0.5-0.9) H Estimat Glomerular Filtration Rate mL/min (>60) Glucose Level 136 mg/dL (74-106) H Calcium Level 8.5 mg/dL (8.6-10.2) L Total Bilirubin 0.3 mg/dL (0.0-1.2) Aspartate Amino Transf (AST/SGOT) 55 U/L (5-40) H Alanine Aminotransferase (ALT/SGPT) 34 U/L (3-33) H Alkaline Phosphatase 454 U/L (35-104) H Total Creatine Kinase 31 U/L (26-140) Creatine Kinase MB 2.1 ng/mL (< 3.8) Creatine Kinase MB Relative Index 6.7 Troponin I < 0.30 ng/mL (<=0.30) Total Protein 6.8 g/dL (6.6-8.7) Albumin 2.8 g/dL (3.5-5.2) L Globulin 4.0 g/dL Albumin/Globulin Ratio 0.7 (1.0-2.7) L White Blood Count 6.6 K/UL (4.8-10.8) Red Blood Count 2.72 M/UL (4.20-5.40) L Hemoglobin 7.5 G/DL (12.0-16.0) L Hematocrit 23.0 % (37.0-47.0) L Mean Corpuscular Volume 84 FL (80-99) Mean Corpuscular Hemoglobin 27.4 PG (27.0-31.0) Mean Corpuscular Hemoglobin Concent 32.5 G/DL (32.0-36.0) Red Cell Distribution Width 16.1 % (11.6-14.8) H Platelet Count 194 K/UL (150-450) Mean Platelet Volume 5.5 FL (6.5-10.1) L Neutrophils (%) (Auto) % (45.0-75.0) Lymphocytes (%) (Auto) % (20.0-45.0) Monocytes (%) (Auto) % (1.0-10.0) Eosinophils (%) (Auto) % (0.0-3.0) Basophils (%) (Auto) % (0.0-2.0) Prothrombin Time 10.7 SEC (9.30-11.50) Prothromb Time International Ratio 1.1 (0.9-1.1) Activated Partial Thromboplast Time 31 SEC (23-33) General Appearance: well appearing, alert Head: normocephalic EENT: normal ENT inspection Neck: supple Respiratory: other - mech vent Cardiovascular: normal rate Gastrointestinal: gt - erythema/drainage noted around site. Rectal: deferred Neurologic: alert Skin: normal color, no rash, warm/dry Lymphatic: normal inspection, no adenopathy Current Medications Current Medications Medications (Trade) Dose Ordered Sig/Joey Route PRN Reason Start Time Stop Time Status Last Admin Dose Admin Acetaminophen (Tylenol) 650 mg Q4H PRN ORAL fever>100.5 10/25/16 08:30 11/24/16 08:29 Albuterol/ Ipratropium (DuoNeb 0.5-3(2.5)mg/3ml) 3 ml Q4H PRN HHN Shortness of Breath 10/25/16 08:30 10/30/16 08:29 Amikacin Protocol 1 ea 1 ea DAILY PRN MISC Per rx protocol 10/25/16 07:30 11/24/16 07:29 UNV Aztreonam/Sodium Chloride (Azactam/Sodium Chloride) 55 ml @ 110 mls/hr EVERY 8 HOURS IVPB 10/25/16 14:00 11/01/16 13:59 Digoxin (Lanoxin) 0.125 mg DAILY GT 10/25/16 09:00 11/24/16 08:59 10/25/16 10:14 Diltiazem HCl (Cardizem) 60 mg EVERY 6 HOURS ORAL 10/25/16 12:00 11/24/16 11:59 Heparin Sodium (Porcine) (Heparin 5000 units/ml) 5,000 units EVERY 12 HOURS SUBQ 10/25/16 09:00 11/24/16 08:59 10/25/16 09:00 Levofloxacin 50 ml @ 50 mls/hr Q24H IVPB 10/26/16 09:00 11/02/16 08:59 Metoprolol Tartrate 25 mg 25 mg Q12HR ORAL 10/25/16 09:00 11/24/16 08:59 Morphine Sulfate (Morphine Sulfate) 2 mg Q4H PRN IVP Moderate Pain (Pain Scale 4-6) 10/25/16 08:30 11/01/16 08:29 Nitroglycerin 0.4 mg 0.4 mg Q5M PRN SL Prn Chest Pain 10/25/16 08:30 11/24/16 08:29 Ondansetron HCl (Zofran) 4 mg Q6H PRN IVP Nausea & Vomiting 10/25/16 08:30 11/24/16 08:29 Polyethylene Glycol (Miralax) 17 gm DAILYPRN PRN ORAL Constipation 10/25/16 08:30 11/24/16 08:29 Sodium Chloride (Sodium Chloride 1000ml bag) 1,000 ml @ 150 mls/hr Q6H40M IVLG 10/26/16 09:00 11/25/16 08:59 Temazepam (Restoril) 15 mg HSPRN PRN ORAL Insomnia 10/25/16 21:00 11/01/16 20:59 Vancomycin HCl/ Dextrose (Vancomycin/D5W) 275 ml @ 183.708 mls/hr Q24H IVPB 10/25/16 12:00 10/30/16 11:59 GI: Plan Problems: (1) Malnutrition (2) Transaminitis (3) Malfunction of gastrostomy tube (4) Feeding by G-tube (5) Chronic respiratory failure (6) Anemia Plan GT exchanged to 24 burkinan. okay to start GTF's after KUB with confirmation. GT site care BID/prn anemia work up OB stool uncollected H2 fu hep panel fu labs Discussed with Dr. Lazaro. Thank you for referring this patient, we will follow. WOLFGANGChioJACKSOND 10/27/16 1219: History of Present Illness General Reason for Hospitalization: Abnormal Labs Present Illness Home Meds Active Scripts Metoprolol Tartrate (Metoprolol Tartrate) 25 Mg Tablet, 25 MG ORAL Q12HR for 60 Days, TAB Prov:Haris Ruby MD 09/06/16 Reported Medications Diltiazem HCl (Diltiazem 12Hr ER) 60 Mg Cap.er.12h, 120 MG ORAL EVERY 12 HOURS, TAB 10/26/16 Hydrocodone Bit/Acetaminophen 5-325* (NORCO 5-325 TABLET*) 1 Each Tablet, 1 TAB GT PRIOR TO DRESSING CH Y for For Pain, TAB 10/26/16 Hydrocodone Bit/Acetaminophen 5-325* (NORCO 5-325 TABLET*) 1 Each Tablet, 1 TAB GT BEDTIME Y for For Pain, TAB 10/26/16 Na Phos,M-B/Na Phos,Di-Ba (Fleet Enema) 133 Ml Enema, 118 ML RC PRN Y for Constipation, EA 10/26/16 Bisacodyl (DULCOLAX) 10 Mg Supp.rect, 10 MG RC PRN Y for Constipation, SUPP 10/26/16 Saccharomyces Boulardii (FLORASTOR*) 250 Mg Capsule, 250 MG GT DAILY, CAP 09/03/16 Multivit-Min/Iron Fum/Folic AC (Cwbsg-Jbhniks-Nhkgfelg Tablet) 1 Each Tablet, 1 EACH PEG DAILY, TAB 09/03/16 Digoxin* (DIGOXIN*) 0.125 Mg/2.5 Ml Solution, 0.125 MG GT DAILY, ML 0 Refills 01/05/16 Zinc Sulfate (ZINC SULFATE*) 220 Mg Capsule, 220 MG GT DAILY, CAP 0 Refills 01/05/16 Docusate Sodium (Docusate Sodium) 100 Mg/10 Ml Udc, 100 MG GT DAILY, EA 12/28/14 Albuterol Sulfate* (ALBUTEROL SULFATE HHN*) 2.5 Mg/3 Ml Vial.neb, 3 ML INH Q6H Y for Shortness of Breath, #30 EA 0 Refills 12/28/14 Protein Supplement (PROMOD) 946 Ml Liquid, 30 ML GT DAILY 12/27/12 Ferrous Sulfate* (FERROUS SULFATE*) 325 Mg Tablet, 330 MG GT DAILY, #20 TAB 08/22/12 Acetaminophen* (TYLENOL*) 650 Mg/20.3 Ml Oral.susp, 650 MG GT Q4HR Y for Mild Pain/Temp > 100.5 08/22/12 Magnesium Hydroxide (Milk of Magnesia) 30 Ml Susp, 30 ML GT DAILY Y for Constipation 08/22/12 Discontinued Reported Medications Cran/Vitc/Mannose/Inulin/Brom (UTI-STAT LIQUID) 3,875 Mg/30 Ml Liquid, 3875 MG PEG DAILY, ML 09/03/16 Epoetin Cali (Epogen) 10 000/1 Ml Vial, 20779 UNIT SUBQ 3XW, VIAL 12/28/14 Discontinued Scripts Levofloxacin* (LEVAQUIN*) 500 Mg Tablet, 500 MG ORAL DAILY for 10 Days, TAB Prov:Haris Ruby MD 09/06/16 Diltiazem Hcl* (CARDIZEM*) 60 Mg Tablet, 60 MG ORAL EVERY 6 HOURS for 60 Days, TAB Prov:Haris Ruby MD 09/06/16 Allergies: Coded Allergies: AMPICILLIN (Verified Allergy, Unknown, 03/04/11) ASPIRIN (Verified Allergy, Unknown, 03/04/11) PENICILLIN (Unverified Allergy, Unknown, 02/14/15) PENICILLINS (Verified Allergy, Unknown, 09/18/11) TRIFLUOPERAZINE (Verified Allergy, Unknown, 03/04/11) GI: Plan Plan The patient was seen and examined at bedside and all new and available data was reviewed in the patients chart. I agree with the above findings, impression and plan. (Patient seen earlier today. Signature stamp does not reflect patient encounter time.). -Carin Evans MDh Wisam N.P. Oct 25, 2016 12:22 HEATHER LAZARO Oct 27, 2016 12:19
--- NOTE | 2016-10-25 12:50 | Consultation ---
Consult Note Consult Note Chief Complaint: Abnormal Labs 76YOF BIBEMS from SNF for "abnormal labs" including Na, K, BUN/Cr. Patient not providing additional HPI at this time. Chronic trach/vent patient. Recent admission for multiple medical problems including sepsis d/t PNA. Care complicated by KNOWN metabolic abnormalities. PMHx: HypoNa, HyperK, DM, HTN, previous CVA, sacral decub, Acute on chronic diastolic CHF, Aflutter/fib, anemia Allergies: Coded Allergies: AMPICILLIN (Verified Allergy, Unknown, 03/04/11) ASPIRIN (Verified Allergy, Unknown, 03/04/11) PENICILLIN (Unverified Allergy, Unknown, 02/14/15) PENICILLINS (Verified Allergy, Unknown, 09/18/11) TRIFLUOPERAZINE (Verified Allergy, Unknown, 03/04/11) Hx Cardiac Problems: Yes Hx Hypertension: Yes Hx COPD: Yes Hx Diabetes: Yes Hx Gastrointestinal Problems: Yes Hx Neurological Problems: Yes - AMS,transcient cerebral ischemic attack Hx Cerebrovascular Accident: Yes Hx Transient Ischemic Attacks: Yes Hx Speech Problem: Yes - ON TRACH. Hx Aphasia: Yes Hx Dysphasia: Yes Hx Weakness: Yes - LEFT SIDE. PAST MEDICAL HISTORY: Significant for COPD, chronic respiratory failure, GT tube in place, gastroesophageal reflux disease, previous CVA, diverticulosis of colon, history of CHF, anxiety disorder, and pressure sores. Assessment/Plan HypoNatremia likely depletional Azotemia mostly pre renal , likely GI bleed Anemia, likely GI bleed Chronic respiratory failure HypoAlbuminemai Sug% Saline- U Na Anemia robles Transfusion if needed monitor lytes and renal parameters- MADHU MENDEZ Oct 25, 2016 12:50
[2016-10-25] MEDS ORDERED: Vancomycin 1 GM in D5W 275 ML IVPB SCH (14:00)
[2016-10-25] MEDS ORDERED: Aztreonam Inj 1 GM in NS 55 ML IVPB SCH (14:00)
[2016-10-25] MEDS ORDERED: Heparin 2000 units/Ns 1000ml INJ ONE (14:30)
[2016-10-25] MEDS ORDERED: Lidocaine 1% Plain 30 ml INJ ONE (14:30)
[2016-10-25] MEDS ORDERED: Sodium Bicarbonate 8.4% 50ml Inj IV ONE (14:30)
[2016-10-25] MEDS ORDERED: NaCl 3% 500ml 500 ML IV ONE (15:00)
[2016-10-25] MEDS: Aztreonam Inj 1 GM in NS 55 ML IVPB SCH ×2 (16:00→23:06)
--- NOTE | 2016-10-25 16:06 | Diagnostic Imaging Report ---
Indications: Long-term central IV access required for multiple medications. Technique: The procedure indications, risks, and alternatives were explained to the patient's family who understands and gives consent to proceed. Procedure was performed at bedside. Strict aseptic technique was utilized, including hand washing, use of hat and mask, use of sterile gown and gloves, sterile ultrasound gel and probe cover, prepping of right arm skin with 2% chlorhexidine solution, and application of full body sterile barrier over this area. Skin and subcutaneous soft tissues were infiltrated with 1% lidocaine and sodium bicarbonate. A small dermatotomy was made, through which the larger of two patent, adequate size right brachial veins was punctured percutaneously under direct sonographic guidance with a 21-gauge needle. Exchange was made over a 0.018 inch guidewire for a 5 [place] peel-away sheath. A [employer]-PICC 5 [place] dual lumen central venous catheter was cut to 35 cm, then advanced through the sheath over the guidewire. Guidewire and sheath were removed. Both catheter ports were aspirated, then flushed with heparinized saline. Catheter was secured the skin with adhesive dressing. Patient tolerated procedure well without immediate complications. Followup portable chest radiograph performed. No other significant change from prior chest radiograph Findings: Comparison: Chest radiograph 09/02/2016 Both ports aspirate and flush freely. Tip of PICC at level of SVC-right atrial junction. IMPRESSION: Bedside placement of peripherally inserted central venous catheter via right brachial vein, working well, in good position, may be used.
--- NOTE | 2016-10-25 16:13 | Wound Care Consultation ---
Wound Assessment Wound Assessment #1: Wound Present on Admission: Yes New Wound: No Status Change of Wound: No Wound Location Body Site Modif: mid Wound Location Body Site: sacral Wound Type: pressure ulcer Frankie Test: Does not Frankie Wound Thickness: Full Thickness - scar tissue Wound Length: 6.0 Wound Width: 6.0 Percent of Wound Fertile/Red: 100 Wound Drainage Amount: None Wound Drainage Odor: None/Absent Tissue Surrounding Wound: Intact Wound General Appearance: Asymptomatic Wound Assessment #2: Wound Number: #2 Wound Present on Admission: Yes New Wound: No Status Change of Wound: No Wound Location Body Site: perineal area Wound Type: chemical burn - with erosion Frankie Test: Does not Frankie Percent of Wound Fertile/Red: 100 Wound Drainage Description: Serosanguineous Wound Drainage Amount: Scant Wound Drainage Odor: None/Absent Tissue Surrounding Wound: Erythemic Wound General Appearance: Reddened Wound Comment #1 Sacral area full thickness scar tissue #2 Perineal area chemical burn with erosion #3 Gt site erosion Recommendation -GT site erosion Cleanse with saline, pat dry, apply Triad cream, cover with 4x4, secure with paper tape daily and PRN soiled/dislodged -Perineal chemical burn with erosion Cleanse with saline, pat dry, apply Triad cream BID and leave area open to air -keep clean and dry -Turn and reposition -Optimize nutrition -Local wound care as ordered for erosions on perineal area and Gt site -Offload both heels -Heel protector on both -Low air loss overlay mattress -Assess and f/u accordingly for any changes ALIRIO GUIDO RN Oct 25, 2016 16:13
[2016-10-25 17:25] LABS: MEAN CORPUSCULAR HEMOGLOBIN 27.6 PG (27.0-31.0); MEAN CORPUSCULAR HGB CONC 32.5 G/DL (32.0-36.0); MEAN CORPUSCULAR VOLUME 85 FL (80-99); MEAN PLATELET VOLUME 5.6 FL (6.5-10.1); PLATELET COUNT 207 K/UL (150-450); RED BLOOD COUNT 2.78 M/UL (4.20-5.40); RED CELL DISTRIBUTION WIDTH 15.9 % (11.6-14.8); WHITE BLOOD COUNT 6.7 K/UL (4.8-10.8)
[2016-10-25] MEDS: Vancomycin 1250mg in D5W 275ml IVPB SCH (17:36)
[2016-10-25 17:44] LABS: ALANINE AMINOTRANSFERASE 39 U/L (3-33); ALBUMIN/GLOBULIN RATIO 0.7 (1.0-2.7); ANION GAP 8 (5-15); ASPARTATE AMINO TRANSFERASE 63 U/L (5-40); CALCIUM 8.8 mg/dL (8.6-10.2); CARBON DIOXIDE 35 mEQ/L (20-30); CHLORIDE 80 mEQ/L (98-107); CREATININE 0.8 mg/dL (0.5-0.9); POTASSIUM 4.7 mEQ/L (3.4-4.9); SODIUM 123 mEQ/L (135-145)
[2016-10-25 17:47] LABS: HEMOLYSIS 3; IRON 28 ug/dL (37-145); TOTAL IRON BINDING CAPACITY 287 ug/dL (250-400)
--- NOTE | 2016-10-25 20:23 | Consultation ---
Consult Note Consult Note ID Dic # [id number] PUMA OROZCO M.D. Oct 25, 2016 20:23
[2016-10-25] MEDS: Famotidine 20 MG/ 2ML VIAL IVP SCH (21:21)
[2016-10-25 22:25] LABS: APPEARANCE,URINE CLEAR; KETONES,URINE NEGATIVE (NEGATIVE); LEUKOCYTE ESTERASE ,URINE 1+ (NEGATIVE); NITRITE,URINE NEGATIVE (NEGATIVE); PH,URINE 8 (4.5-8.0); PROTEIN,URINE 1+ (NEGATIVE); UROBILINOGEN,URINE NORMAL MG/DL (0.0-1.0)
[2016-10-25 22:42] LABS: RBC,URINE 0-2 /HPF (0 - 2)
[2016-10-25 22:43] LABS: WBC,URINE 0-2 /HPF (0 - 2)
--- NOTE | 2016-10-25 23:58 | Consultation ---
DATE OF CONSULTATION: 10/25/2016 INFECTIOUS DISEASE CONSULTATION CONSULTING PHYSICIAN: Chris Holland M.D. REFERRING PHYSICIAN: Erlin Sutheralnd M.D. REASON FOR CONSULTATION: Evaluation of the patient for sepsis as well as pneumonia and antibiotic management. HISTORY OF PRESENT ILLNESS: The patient is a 76-year-old female with multiple medical problems as listed below was transferred to this medical center due to abnormal labs including electrolytes. The patient's chest x-ray showed increased interstitial lung markings and edema or infiltrate cannot be ruled out. Infectious disease consultation has been requested for further evaluation of the patient and antibiotic management. The patient is not able to provide information. Most of the information was gathered through the chart and speaking to the staff. PAST MEDICAL HISTORY: 1. History of ventilator-dependent respiratory failure. 2. Status post trach. 3. Status post PEG. 4. History of diverticulosis. 5. Congestive heart failure. 6. Hypertension. 7. Chronic obstructive pulmonary disease. ALLERGIES: Ampicillin, penicillin, and aspirin. FAMILY HISTORY: Unavailable. REVIEW OF SYSTEMS: Unobtainable. MEDICATIONS: Vancomycin and Estraderm. PHYSICAL EXAMINATION: VITAL SIGNS: Temperature 97.5, blood pressure 132/58, pulse 86, respiratory rate 18, and pulse 86. HEENT: Mild pale conjunctivae. No icterus. NECK: No lymphadenopathy. CHEST: Coarse breathing sounds. HEART: S1 and S2. ABDOMEN: Soft. EXTREMITIES: No cyanosis at this time. NEUROLOGIC: Alert and nonverbal. LABORATORY DATA: White blood cells 6.7, hemoglobin 7.7, platelets 207,000. UA was unremarkable. BUN 101 and creatinine 0.8. C. difficile toxin a month ago was negative. Chest x-ray, as mentioned above. ASSESSMENT: The patient is a 76-year-old white female who was admitted to this medical center due to abnormal electrolytes with elevated BUN and creatinine and dehydration. Chest x-ray showed possible infiltrate. However, the x-ray is unconclusive. PLAN: 1. At this time, we will continue the patient on broad-spectrum antibiotics. 2. Monitor CBC. 3. Monitor BMP. 4. Monitor culture (blood and sputum). 5. Monitor chest x-ray. 6. Based on the patient's clinical course and laboratories, we will do further recommendations. Thank you, Dr. Sutherland, for allowing me to participate in the care of this patient. I will follow the patient with you during this hospitalization. Chris Holland M.D. DR: SHERRY JOB#: [id number] CC:
[2016-10-26] VITALS: BP 103/49
[2016-10-26] MEDS ORDERED: Vancomycin 1 GM in D5W 275 ML IV SCH (00:30)
[2016-10-26] MEDS ORDERED: NORCO 5-325 TA1 EAC1 GT ×2 (02:52)
[2016-10-26] MEDS ORDERED: FLEET ENEMA133 M1 RC (02:52)
[2016-10-26] MEDS ORDERED: DULCOLAX10 MG RC (02:52)
[2016-10-26] MEDS ORDERED: CARDIZEM30 MG ORAL (02:56)
[2016-10-26 04:00] VITALS: BP 127/70
[2016-10-26 05:40] LABS: BASOPHILS % (AUTO) 0.6 % (0.0-2.0); EOSINOPHILS % (AUTO) 2.2 % (0.0-3.0); LYMPHOCYTES % (AUTO) 3.9 % (20.0-45.0); MEAN CORPUSCULAR HEMOGLOBIN 27.4 PG (27.0-31.0); MEAN CORPUSCULAR HGB CONC 31.9 G/DL (32.0-36.0); MEAN CORPUSCULAR VOLUME 86 FL (80-99); MEAN PLATELET VOLUME 6.2 FL (6.5-10.1); MONOCYTES % (AUTO) 9.1 % (1.0-10.0); NEUTROPHILS % (AUTO) 84.3 % (45.0-75.0); PLATELET COUNT 180 K/UL (150-450); RED BLOOD COUNT 2.97 M/UL (4.20-5.40); RED CELL DISTRIBUTION WIDTH 15.6 % (11.6-14.8); WHITE BLOOD COUNT 6.2 K/UL (4.8-10.8)
[2016-10-26] MEDS: Aztreonam Inj 1 GM in NS 55 ML IVPB SCH ×3 (05:40→21:01)
[2016-10-26 05:50] LABS: CRP QUANT 0.8 mg/dL (< 0.5); MAGNESIUM 2.6 mg/dL (1.7-2.5); PHOSPHORUS 2.8 mg/dL (2.5-4.8); URIC ACID 7.4 mg/dL (3.0-7.5)
[2016-10-26 05:54] LABS: ALANINE AMINOTRANSFERASE 32 U/L (3-33); ALBUMIN/GLOBULIN RATIO 0.7 (1.0-2.7); ANION GAP 8 (5-15); ASPARTATE AMINO TRANSFERASE 51 U/L (5-40); CALCIUM 8.3 mg/dL (8.6-10.2); CARBON DIOXIDE 34 mEQ/L (20-30); CHLORIDE 96 mEQ/L (98-107); CHOLESTEROL 107 mg/dL (< 200); CHOLESTEROL/HDL RATIO 1.8 (3.3-4.4); CREATININE 0.7 mg/dL (0.5-0.9); HEMOLYSIS 5; LDL CHOLESTEROL (CALC.) 28 mg/dL (60-99); POTASSIUM 3.8 mEQ/L (3.4-4.9); SODIUM 138 mEQ/L (135-145); TOTAL PROTEIN 6.3 g/dL (6.6-8.7)
[2016-10-26 06:19] LABS: HEMOGLOBIN A1C 5.2 % (< 6.0)
[2016-10-26 08:00] VITALS: BP 145/93
[2016-10-26 08:55] LABS: ABG ALLEN TEST POSITIVE; ABG BASE EXCESS 5.8
[2016-10-26] MEDS ORDERED: Levofloxacin 250mg/D5W 50ml IVPB SCH (09:00)
--- NOTE | 2016-10-26 09:40 | Diagnostic Imaging Report ---
Indication: Status post replacement of gastrostomy Technique: Supine view of the abdomen after injection of water-soluble contrast into gastrostomy Comparison: 02/14/2015 Findings: Contrast opacifies the stomach. No contrast extravasation is demonstrated. The bowel gas pattern is unremarkable. Impression: Satisfactory position of gastrostomy tube This agrees with the preliminary interpretation provided overnight by [facility] teleradiology service.
[2016-10-26] MEDS: Metoprolol 25mg tab ORAL SCH (09:57)
[2016-10-26] MEDS: Digoxin Elixir 0.125mg GT SCH (09:57)
[2016-10-26] MEDS: Famotidine 20 MG/ 2ML VIAL IVP SCH (09:57)
[2016-10-26] MEDS: Heparin 5000 units/ml inj SUBQ SCH ×2 (09:58→20:50)
[2016-10-26 10:22] LABS: ABG PCO2 118.7 mmHg (35.0-45.0)
[2016-10-26 10:23] LABS: ABG ALLEN TEST POSITIVE; ABG BASE EXCESS 8.6
[2016-10-26 10:49] LABS: ABG PCO2 78.5 mmHg (35.0-45.0)
[2016-10-26 10:50] LABS: ABG ALLEN TEST POSITIVE; ABG BASE EXCESS 5.2
--- NOTE | 2016-10-26 11:12 | General Progress Note ---
Assessment/Plan Status: stable - from renal stand Status Narrative Na higher- Hgb Higher Assessment/Plan status: HypoNatremia likely depletional Azotemia mostly pre renal , likely GI bleed Anemia, likely GI bleed Chronic respiratory failure HypoAlbuminemai Sug% Saline- given U Na Anemia robles Transfusion needed monitor lytes and renal parameters- Subjective ROS Limited/Unobtainable: No Constitutional: Reports: malaise, weakness Allergies: Coded Allergies: AMPICILLIN (Verified Allergy, Unknown, 03/04/11) ASPIRIN (Verified Allergy, Unknown, 03/04/11) PENICILLIN (Unverified Allergy, Unknown, 02/14/15) PENICILLINS (Verified Allergy, Unknown, 09/18/11) TRIFLUOPERAZINE (Verified Allergy, Unknown, 03/04/11) Objective Last 24 Hour Vital Signs Date Time Temp Pulse Resp B/P Pulse Ox O2 Delivery O2 Flow Rate FiO2 10/26/16 11:06 50 10/26/16 10:47 106 24 50 10/26/16 10:05 114 24 50 10/26/16 10:03 50 10/26/16 09:57 113 145/93 10/26/16 09:57 113 10/26/16 09:38 113 22 98 Mechanical Ventilator 100 10/26/16 08:56 118 22 100 10/26/16 08:00 98.7 114 18 145/93 100 Mechanical Ventilator 100 10/26/16 08:00 35 10/26/16 07:55 116 18 35 10/26/16 07:42 117 10/26/16 07:01 76 18 35 10/26/16 05:48 113 98/42 10/26/16 05:27 77 18 35 10/26/16 04:00 35 10/26/16 04:00 98.1 100 18 127/70 100 Mechanical Ventilator 35 10/26/16 03:50 86 10/26/16 03:38 73 18 35 10/26/16 01:10 72 18 35 10/26/16 00:00 97.7 63 18 103/49 100 Mechanical Ventilator 35 10/26/16 00:00 63 103/49 10/26/16 00:00 35 10/25/16 23:29 71 18 35 10/25/16 23:02 62 10/25/16 21:05 76 18 35 10/25/16 21:00 66 103/44 10/25/16 20:51 98.0 62 18 130/51 100 Mechanical Ventilator 35 10/25/16 20:00 35 10/25/16 19:53 73 18 35 10/25/16 19:04 68 10/25/16 18:00 71 132/58 10/25/16 17:17 71 18 35 10/25/16 16:00 35 10/25/16 16:00 97.5 71 18 132/58 96 Mechanical Ventilator 35 10/25/16 16:00 70 10/25/16 14:51 68 18 35 10/25/16 13:15 66 18 35 10/25/16 12:00 58 10/25/16 12:00 35 10/25/16 12:00 68 126/73 10/25/16 12:00 97.9 61 18 126/73 98 Mechanical Ventilator 35 Intake and Output 10/25/16 10/26/16 19:00 07:00 Intake Total 568.708 ml 1120.292 ml Output Total 1850 ml Balance -1281.292 ml 1120.292 ml Intake Free Water 50 ml IV Total 568.708 ml 591.292 ml Tube Feeding 200 ml Blood Product 279 ml Output Urine Total 1850 ml # Bowel Movements 4 2 Laboratory Tests 10/25/16 17:00: White Blood Count 6.7, Red Blood Count 2.78L, Hemoglobin 7.7L, Hematocrit 23.6L , Mean Corpuscular Volume 85, Mean Corpuscular Hemoglobin 27.6, Mean Corpuscular Hemoglobin Concent 32.5, Red Cell Distribution Width 15.9H, Platelet Count 207, Mean Platelet Volume 5.6L, Neutrophils (%) (Auto) , Lymphocytes (%) (Auto) , Monocytes (%) (Auto) , Eosinophils (%) (Auto) , Basophils (%) (Auto) , Sodium Level 123#L, Potassium Level 4.7, Chloride Level 80L, Carbon Dioxide Level 35H, Anion Gap 8, Blood Urea Nitrogen 101H, Creatinine 0.8, Estimat Glomerular Filtration Rate , Glucose Level 102, Uric Acid 7.1, Calcium Level 8.8, Iron Level 28L, Total Iron Binding Capacity 287, Percent Iron Saturation 10L, Unsaturated Iron Binding 259, Ferritin 564H, Total Bilirubin 0.3, Aspartate Amino Transf (AST/SGOT) 63H, Alanine Aminotransferase ( ALT/SGPT) 39H, Alkaline Phosphatase 397H, Total Protein 7.0, Albumin 3.0L, Globulin 4.0, Albumin/Globulin Ratio 0.7L 10/25/16 20:20: Urine Color Pale yellow, Urine Appearance Clear, Urine pH 8, Urine Specific [place] 1.010, Urine Protein 1+H, Urine Glucose (UA) Negative, Urine Ketones Negative, Urine Occult Blood 1+H, Urine Nitrite Negative, Urine Bilirubin Negative, Urine Urobilinogen Normal, Urine Leukocyte Esterase 1+H, Urine RBC 0-2 , Urine WBC 0-2, Urine Squamous Epithelial Cells None, Urine Bacteria None, Urine Random Sodium 29, Stool Occult Blood [Pending] 10/26/16 04:20: White Blood Count 6.2, Red Blood Count 2.97L, Hemoglobin 8.2L, Hematocrit 25.6L , Mean Corpuscular Volume 86, Mean Corpuscular Hemoglobin 27.4, Mean Corpuscular Hemoglobin Concent 31.9L, Red Cell Distribution Width 15.6H, Platelet Count 180, Mean Platelet Volume 6.2L, Neutrophils (%) (Auto) 84.3H, Lymphocytes (%) (Auto) 3.9L, Monocytes (%) (Auto) 9.1, Eosinophils (%) (Auto) 2.2, Basophils (%) (Auto) 0.6, Sodium Level 138#, Potassium Level 3.8, Chloride Level 96L, Carbon Dioxide Level 34H, Anion Gap 8, Blood Urea Nitrogen 89H, Creatinine 0.7, Estimat Glomerular Filtration Rate , Glucose Level 90, Uric Acid 7.4, Calcium Level 8.3L, Total Bilirubin 0.3, Aspartate Amino Transf (AST/ SGOT) 51H, Alanine Aminotransferase (ALT/SGPT) 32, Alkaline Phosphatase 339H, Total Protein 6.3L, Albumin 2.6L, Globulin 3.7, Albumin/Globulin Ratio 0.7L, Hemoglobin A1c 5.2, Phosphorus Level 2.8, Magnesium Level 2.6H, Gamma Glutamyl Transpeptidase 286H, C-Reactive Protein, Quantitative 0.8H, Pro-B-Type Natriuretic Peptide 4013H, Triglycerides Level 95, Cholesterol Level 107, LDL Cholesterol 28L, HDL Cholesterol 60, Cholesterol/HDL Ratio 1.8L, Carcinoembryonic Antigen 5.7H, Vitamin B12 Level 1427H, Folate [Pending], Thyroid Stimulating Hormone (TSH) 2.670 10/26/16 08:41: Arterial Blood pH 7.313L, Arterial Blood Partial Pressure CO2 68.0*H, Arterial Blood Partial Pressure O2 105.8H, Arterial Blood HCO3 33.7H, Arterial Blood Oxygen Saturation 97.1, Arterial Blood Base Excess 5.8, Sandro Test Positive 10/26/16 09:49: Arterial Blood pH 7.153*L, Arterial Blood Partial Pressure CO2 118.7*H, Arterial Blood Partial Pressure O2 478.8H, Arterial Blood HCO3 40.7H, Arterial Blood Oxygen Saturation 99.7H, Arterial Blood Base Excess 8.6, Sandro Test Positive 10/26/16 10:37: Arterial Blood pH 7.269L, Arterial Blood Partial Pressure CO2 78.5*H, Arterial Blood Partial Pressure O2 117.2H, Arterial Blood HCO3 35.2H, Arterial Blood Oxygen Saturation 96.1, Arterial Blood Base Excess 5.2, Sandro Test Positive Height (Feet): 5 Height (Inches): 8.00 Weight (Pounds): 161 General Appearance: mild distress EENT: other - Trach Cardiovascular: tachycardia Respiratory/Chest: decreased breath sounds Abdomen: soft Objective other PE not changed MADHU MENDEZ Oct 26, 2016 11:12
--- NOTE | 2016-10-26 11:29 | Diagnostic Imaging Report ---
Indication: PAIN shortness of breath Technique: One view of the chest Comparison: 09/02/2016 Findings: Lungs and pleural spaces are clear. Heart size is upper limits normal. Aorta is tortuous. The upper mediastinum is unremarkable. Previously demonstrated tracheostomy is no longer present. Impression: No acute process
[2016-10-26 12:00] VITALS: BP 100/47
--- NOTE | 2016-10-26 12:01 | Diagnostic Imaging Report ---
Indication: SOB Technique: One view of the chest Comparison: 10/25/2016 post PICC chest radiograph Findings: Diffuse bilateral interstitial disease persists, probably not significantly changed allowing for inspiration and technical differences. Tracheostomy remains. Right arm PICC remains. Heart size is normal Impression: Unchanged, over one day, findings as above.
--- NOTE | 2016-10-26 12:14 | GI Progress Note ---
Assessment/Plan Problems: (1) Anemia ICD Codes: D64.9 - Anemia SNOMED: 353033937 Qualifiers: Qualified Codes: D64.9 - Anemia, unspecified (2) Feeding by G-tube ICD Codes: Z93.1 - Feeding by G-tube SNOMED: 380412694 (3) Malfunction of gastrostomy tube ICD Codes: K94.23 - Gastrostomy malfunction SNOMED: 153899538 (4) Transaminitis ICD Codes: R74.0 - Nonspec elev of levels of transamns & lactic acid dehydrgnse SNOMED: 093224822 Status: unchanged Status Narrative Discussed with Dr. Walker. Assessment/Plan GT replaced to 24fr elevated CEA >> 5.4 OB positive defer GI procedures at this time GTF's per dietary GT site care BID/prn monitor H&H, transfuse prn H2 fu hep panel fu labs Subjective Subjective limited Objective Last 24 Hour Vital Signs Date Time Temp Pulse Resp B/P Pulse Ox O2 Delivery O2 Flow Rate FiO2 10/26/16 11:06 50 10/26/16 10:47 106 24 50 10/26/16 10:05 114 24 50 10/26/16 10:03 50 10/26/16 09:57 113 145/93 10/26/16 09:57 113 10/26/16 09:38 113 22 98 Mechanical Ventilator 100 10/26/16 08:56 118 22 100 10/26/16 08:00 98.7 114 18 145/93 100 Mechanical Ventilator 100 10/26/16 08:00 35 10/26/16 07:55 116 18 35 10/26/16 07:42 117 10/26/16 07:01 76 18 35 10/26/16 05:48 113 98/42 10/26/16 05:27 77 18 35 10/26/16 04:00 35 10/26/16 04:00 98.1 100 18 127/70 100 Mechanical Ventilator 35 10/26/16 03:50 86 10/26/16 03:38 73 18 35 10/26/16 01:10 72 18 35 10/26/16 00:00 97.7 63 18 103/49 100 Mechanical Ventilator 35 10/26/16 00:00 63 103/49 10/26/16 00:00 35 10/25/16 23:29 71 18 35 10/25/16 23:02 62 10/25/16 21:05 76 18 35 10/25/16 21:00 66 103/44 10/25/16 20:51 98.0 62 18 130/51 100 Mechanical Ventilator 35 10/25/16 20:00 35 10/25/16 19:53 73 18 35 10/25/16 19:04 68 10/25/16 18:00 71 132/58 10/25/16 17:17 71 18 35 10/25/16 16:00 35 10/25/16 16:00 97.5 71 18 132/58 96 Mechanical Ventilator 35 10/25/16 16:00 70 10/25/16 14:51 68 18 35 10/25/16 13:15 66 18 35 Intake and Output 10/25/16 10/26/16 19:00 07:00 Intake Total 568.708 ml 1120.292 ml Output Total 1850 ml Balance -1281.292 ml 1120.292 ml Intake Free Water 50 ml IV Total 568.708 ml 591.292 ml Tube Feeding 200 ml Blood Product 279 ml Output Urine Total 1850 ml # Bowel Movements 4 2 Laboratory Tests Test 10/25/16 17:00 10/25/16 20:20 10/26/16 04:20 10/26/16 08:41 White Blood Count 6.7 K/UL (4.8-10.8) 6.2 K/UL (4.8-10.8) Red Blood Count 2.78 M/UL (4.20-5.40) L 2.97 M/UL (4.20-5.40) L Hemoglobin 7.7 G/DL (12.0-16.0) L 8.2 G/DL (12.0-16.0) L Hematocrit 23.6 % (37.0-47.0) L 25.6 % (37.0-47.0) L Mean Corpuscular Volume 85 FL (80-99) 86 FL (80-99) Mean Corpuscular Hemoglobin 27.6 PG (27.0-31.0) 27.4 PG (27.0-31.0) Mean Corpuscular Hemoglobin Concent 32.5 G/DL (32.0-36.0) 31.9 G/DL (32.0-36.0) L Red Cell Distribution Width 15.9 % (11.6-14.8) H 15.6 % (11.6-14.8) H Platelet Count 207 K/UL (150-450) 180 K/UL (150-450) Mean Platelet Volume 5.6 FL (6.5-10.1) L 6.2 FL (6.5-10.1) L Neutrophils (%) (Auto) % (45.0-75.0) 84.3 % (45.0-75.0) H Lymphocytes (%) (Auto) % (20.0-45.0) 3.9 % (20.0-45.0) L Monocytes (%) (Auto) % (1.0-10.0) 9.1 % (1.0-10.0) Eosinophils (%) (Auto) % (0.0-3.0) 2.2 % (0.0-3.0) Basophils (%) (Auto) % (0.0-2.0) 0.6 % (0.0-2.0) Sodium Level 123 mEQ/L (135-145) #L 138 mEQ/L (135-145) # Potassium Level 4.7 mEQ/L (3.4-4.9) 3.8 mEQ/L (3.4-4.9) Chloride Level 80 mEQ/L (98-107) L 96 mEQ/L (98-107) L Carbon Dioxide Level 35 mEQ/L (20-30) H 34 mEQ/L (20-30) H Anion Gap 8 (5-15) 8 (5-15) Blood Urea Nitrogen 101 mg/dL (7-23) H 89 mg/dL (7-23) H Creatinine 0.8 mg/dL (0.5-0.9) 0.7 mg/dL (0.5-0.9) Estimat Glomerular Filtration Rate mL/min (>60) mL/min (>60) Glucose Level 102 mg/dL (74-106) 90 mg/dL (74-106) Uric Acid 7.1 mg/dL (3.0-7.5) 7.4 mg/dL (3.0-7.5) Calcium Level 8.8 mg/dL (8.6-10.2) 8.3 mg/dL (8.6-10.2) L Iron Level 28 ug/dL (37-145) L Total Iron Binding Capacity 287 ug/dL (250-400) Percent Iron Saturation 10 % (15-50) L Unsaturated Iron Binding 259 ug/dL (112-346) Ferritin 564 ng/mL (13-150) H Total Bilirubin 0.3 mg/dL (0.0-1.2) 0.3 mg/dL (0.0-1.2) Aspartate Amino Transf (AST/SGOT) 63 U/L (5-40) H 51 U/L (5-40) H Alanine Aminotransferase (ALT/SGPT) 39 U/L (3-33) H 32 U/L (3-33) Alkaline Phosphatase 397 U/L (35-104) H 339 U/L (35-104) H Total Protein 7.0 g/dL (6.6-8.7) 6.3 g/dL (6.6-8.7) L Albumin 3.0 g/dL (3.5-5.2) L 2.6 g/dL (3.5-5.2) L Globulin 4.0 g/dL 3.7 g/dL Albumin/Globulin Ratio 0.7 (1.0-2.7) L 0.7 (1.0-2.7) L Urine Color Pale yellow Urine Appearance Clear Urine pH 8 (4.5-8.0) Urine Specific [place] 1.010 (1.005-1.035) Urine Protein 1+ (NEGATIVE) H Urine Glucose (UA) Negative (NEGATIVE) Urine Ketones Negative (NEGATIVE) Urine Occult Blood 1+ (NEGATIVE) H Urine Nitrite Negative (NEGATIVE) Urine Bilirubin Negative (NEGATIVE) Urine Urobilinogen Normal MG/DL (0.0-1.0) Urine Leukocyte Esterase 1+ (NEGATIVE) H Urine RBC 0-2 /HPF (0 - 2) Urine WBC 0-2 /HPF (0 - 2) Urine Squamous Epithelial Cells None /LPF (NONE/OCC) Urine Bacteria None /HPF (NONE) Urine Random Sodium 29 mmol/L Stool Occult Blood Positive (NEGATIVE) Hemoglobin A1c 5.2 % (< 6.0) Phosphorus Level 2.8 mg/dL (2.5-4.8) Magnesium Level 2.6 mg/dL (1.7-2.5) H Gamma Glutamyl Transpeptidase 286 U/L (5-36) H C-Reactive Protein, Quantitative 0.8 mg/dL (< 0.5) H Pro-B-Type Natriuretic Peptide 4013 pg/mL (0-450) H Triglycerides Level 95 mg/dL (< 150) Cholesterol Level 107 mg/dL (< 200) LDL Cholesterol 28 mg/dL (60-99) L HDL Cholesterol 60 mg/dL (> 60) Cholesterol/HDL Ratio 1.8 (3.3-4.4) L Carcinoembryonic Antigen 5.7 ng/mL H Vitamin B12 Level 1427 pg/mL (211-946) H Folate Pending Thyroid Stimulating Hormone (TSH) 2.670 uIU/mL (0.300-4.500) Arterial Blood pH 7.313 (7.350-7.450) Arterial Blood Partial Pressure CO2 68.0 mmHg (35.0-45.0) *H Arterial Blood Partial Pressure O2 105.8 mmHg (75.0-100.0) H Arterial Blood HCO3 33.7 mmol/L (22.0-26.0) H Arterial Blood Oxygen Saturation 97.1 % (92.0-98.0) Arterial Blood Base Excess 5.8 Sandro Test Positive Test 10/26/16 09:49 10/26/16 10:37 Arterial Blood pH 7.153 (7.350-7.450) 7.269 (7.350-7.450) Arterial Blood Partial Pressure CO2 118.7 mmHg (35.0-45.0) *H 78.5 mmHg (35.0-45.0) *H Arterial Blood Partial Pressure O2 478.8 mmHg (75.0-100.0) H 117.2 mmHg (75.0-100.0) H Arterial Blood HCO3 40.7 mmol/L (22.0-26.0) H 35.2 mmol/L (22.0-26.0) H Arterial Blood Oxygen Saturation 99.7 % (92.0-98.0) H 96.1 % (92.0-98.0) Arterial Blood Base Excess 8.6 5.2 Sandro Test Positive Positive Height (Feet): 5 Height (Inches): 8.00 Weight (Pounds): 161 General Appearance: no apparent distress Cardiovascular: normal rate, tachycardia Respiratory/Chest: other - mech vent Abdominal Exam: GT site - erythema/drainage Georgette Wiley N.P. Oct 26, 2016 12:14
--- NOTE | 2016-10-26 12:32 | Pulmonology Progress Note ---
Assessment/Plan Problems: (1) HARRIETT (acute kidney injury) (2) Anemia (3) Chronic respiratory failure (4) Tracheostomy in place (5) History of CVA (cerebrovascular accident) (6) Hypertension Respiratory: monitor respiratory rate, adjust FIO2, other - decreaser TV, use more sedation for high Peak pressure Cardiac: continue to monitor HR/BP Renal: F/U I&O Infectious Disease: check cultures, continue antibiotics Gastrointestinal: continue feedings/current rate Endocrine: monitor blood sugar, continue sliding scale insulin Hematologic: monitor H/H, transfuse if hgb<8.5 Neurologic: PRN Ativan, PRN Morphine, keep patient comfortable Affect: PRN ativan Notes Reviewed: plate keeper, cardio, renal Discussed with: nurses, consultants, case assembler Subjective ROS Limited/Unobtainable: No Constitutional: Reports: no symptoms HEENT: Repors: no symptoms Respiratory: Reports: no symptoms Allergies: Coded Allergies: AMPICILLIN (Verified Allergy, Unknown, 03/04/11) ASPIRIN (Verified Allergy, Unknown, 03/04/11) PENICILLIN (Unverified Allergy, Unknown, 02/14/15) PENICILLINS (Verified Allergy, Unknown, 09/18/11) TRIFLUOPERAZINE (Verified Allergy, Unknown, 03/04/11) Objective Last 24 Hour Vital Signs Date Time Temp Pulse Resp B/P Pulse Ox O2 Delivery O2 Flow Rate FiO2 10/26/16 11:06 50 10/26/16 10:47 106 24 50 10/26/16 10:05 114 24 50 10/26/16 10:03 50 10/26/16 09:57 113 145/93 10/26/16 09:57 113 10/26/16 09:38 113 22 98 Mechanical Ventilator 100 10/26/16 08:56 118 22 100 10/26/16 08:00 98.7 114 18 145/93 100 Mechanical Ventilator 100 10/26/16 08:00 35 10/26/16 07:55 116 18 35 10/26/16 07:42 117 10/26/16 07:01 76 18 35 10/26/16 05:48 113 98/42 10/26/16 05:27 77 18 35 10/26/16 04:00 35 10/26/16 04:00 98.1 100 18 127/70 100 Mechanical Ventilator 35 10/26/16 03:50 86 10/26/16 03:38 73 18 35 10/26/16 01:10 72 18 35 10/26/16 00:00 97.7 63 18 103/49 100 Mechanical Ventilator 35 10/26/16 00:00 63 103/49 10/26/16 00:00 35 10/25/16 23:29 71 18 35 10/25/16 23:02 62 10/25/16 21:05 76 18 35 10/25/16 21:00 66 103/44 10/25/16 20:51 98.0 62 18 130/51 100 Mechanical Ventilator 35 10/25/16 20:00 35 10/25/16 19:53 73 18 35 10/25/16 19:04 68 10/25/16 18:00 71 132/58 10/25/16 17:17 71 18 35 10/25/16 16:00 35 10/25/16 16:00 97.5 71 18 132/58 96 Mechanical Ventilator 35 10/25/16 16:00 70 10/25/16 14:51 68 18 35 10/25/16 13:15 66 18 35 Intake and Output 10/25/16 10/26/16 19:00 07:00 Intake Total 568.708 ml 1120.292 ml Output Total 1850 ml Balance -1281.292 ml 1120.292 ml Intake Free Water 50 ml IV Total 568.708 ml 591.292 ml Tube Feeding 200 ml Blood Product 279 ml Output Urine Total 1850 ml # Bowel Movements 4 2 General Appearance: WD/WN HEENT: normocephalic, atraumatic Respiratory/Chest: chest wall non-tender, lungs clear, normal breath sounds, no respiratory distress Cardiovascular: normal peripheral pulses, normal rate Abdomen: normal bowel sounds, soft, non tender Genitourinary: normal external genitalia Extremities: no cyanosis Skin: no rash Microbiology Date/Time Source Procedure Growth Status 10/25/16 20:20 Stool Clostridium difficile Toxin Assay - Final Complete Laboratory Tests 10/25/16 17:00: White Blood Count 6.7, Red Blood Count 2.78L, Hemoglobin 7.7L, Hematocrit 23.6L , Mean Corpuscular Volume 85, Mean Corpuscular Hemoglobin 27.6, Mean Corpuscular Hemoglobin Concent 32.5, Red Cell Distribution Width 15.9H, Platelet Count 207, Mean Platelet Volume 5.6L, Neutrophils (%) (Auto) , Lymphocytes (%) (Auto) , Monocytes (%) (Auto) , Eosinophils (%) (Auto) , Basophils (%) (Auto) , Sodium Level 123#L, Potassium Level 4.7, Chloride Level 80L, Carbon Dioxide Level 35H, Anion Gap 8, Blood Urea Nitrogen 101H, Creatinine 0.8, Estimat Glomerular Filtration Rate , Glucose Level 102, Uric Acid 7.1, Calcium Level 8.8, Iron Level 28L, Total Iron Binding Capacity 287, Percent Iron Saturation 10L, Unsaturated Iron Binding 259, Ferritin 564H, Total Bilirubin 0.3, Aspartate Amino Transf (AST/SGOT) 63H, Alanine Aminotransferase ( ALT/SGPT) 39H, Alkaline Phosphatase 397H, Total Protein 7.0, Albumin 3.0L, Globulin 4.0, Albumin/Globulin Ratio 0.7L 10/25/16 20:20: Urine Color Pale yellow, Urine Appearance Clear, Urine pH 8, Urine Specific [place] 1.010, Urine Protein 1+H, Urine Glucose (UA) Negative, Urine Ketones Negative, Urine Occult Blood 1+H, Urine Nitrite Negative, Urine Bilirubin Negative, Urine Urobilinogen Normal, Urine Leukocyte Esterase 1+H, Urine RBC 0-2 , Urine WBC 0-2, Urine Squamous Epithelial Cells None, Urine Bacteria None, Urine Random Sodium 29, Stool Occult Blood Positive 10/26/16 04:20: White Blood Count 6.2, Red Blood Count 2.97L, Hemoglobin 8.2L, Hematocrit 25.6L , Mean Corpuscular Volume 86, Mean Corpuscular Hemoglobin 27.4, Mean Corpuscular Hemoglobin Concent 31.9L, Red Cell Distribution Width 15.6H, Platelet Count 180, Mean Platelet Volume 6.2L, Neutrophils (%) (Auto) 84.3H, Lymphocytes (%) (Auto) 3.9L, Monocytes (%) (Auto) 9.1, Eosinophils (%) (Auto) 2.2, Basophils (%) (Auto) 0.6, Sodium Level 138#, Potassium Level 3.8, Chloride Level 96L, Carbon Dioxide Level 34H, Anion Gap 8, Blood Urea Nitrogen 89H, Creatinine 0.7, Estimat Glomerular Filtration Rate , Glucose Level 90, Uric Acid 7.4, Calcium Level 8.3L, Total Bilirubin 0.3, Aspartate Amino Transf (AST/ SGOT) 51H, Alanine Aminotransferase (ALT/SGPT) 32, Alkaline Phosphatase 339H, Total Protein 6.3L, Albumin 2.6L, Globulin 3.7, Albumin/Globulin Ratio 0.7L, Hemoglobin A1c 5.2, Phosphorus Level 2.8, Magnesium Level 2.6H, Gamma Glutamyl Transpeptidase 286H, C-Reactive Protein, Quantitative 0.8H, Pro-B-Type Natriuretic Peptide 4013H, Triglycerides Level 95, Cholesterol Level 107, LDL Cholesterol 28L, HDL Cholesterol 60, Cholesterol/HDL Ratio 1.8L, Carcinoembryonic Antigen 5.7H, Vitamin B12 Level 1427H, Folate [Pending], Thyroid Stimulating Hormone (TSH) 2.670 10/26/16 08:41: Arterial Blood pH 7.313L, Arterial Blood Partial Pressure CO2 68.0*H, Arterial Blood Partial Pressure O2 105.8H, Arterial Blood HCO3 33.7H, Arterial Blood Oxygen Saturation 97.1, Arterial Blood Base Excess 5.8, Sandro Test Positive 10/26/16 09:49: Arterial Blood pH 7.153*L, Arterial Blood Partial Pressure CO2 118.7*H, Arterial Blood Partial Pressure O2 478.8H, Arterial Blood HCO3 40.7H, Arterial Blood Oxygen Saturation 99.7H, Arterial Blood Base Excess 8.6, Sandro Test Positive 10/26/16 10:37: Arterial Blood pH 7.269L, Arterial Blood Partial Pressure CO2 78.5*H, Arterial Blood Partial Pressure O2 117.2H, Arterial Blood HCO3 35.2H, Arterial Blood Oxygen Saturation 96.1, Arterial Blood Base Excess 5.2, Sandro Test Positive Current Medications Medications (Trade) Dose Ordered Sig/Joey Route PRN Reason Start Time Stop Time Status Last Admin Dose Admin Acetaminophen (Tylenol) 650 mg Q4H PRN ORAL fever>100.5 10/25/16 08:30 11/24/16 08:29 Albuterol/ Ipratropium (DuoNeb 0.5-3(2.5)mg/3ml) 3 ml Q4H PRN HHN Shortness of Breath 10/25/16 08:30 10/30/16 08:29 10/26/16 09:38 Aztreonam 1 gm/ Sodium Chloride 55 ml @ 110 mls/hr EVERY 8 HOURS IVPB 10/25/16 16:00 11/01/16 15:59 10/26/16 05:40 Digoxin (Lanoxin) 0.125 mg DAILY GT 10/25/16 09:00 11/24/16 08:59 10/26/16 09:57 Diltiazem HCl (Cardizem) 60 mg EVERY 6 HOURS ORAL 10/25/16 12:00 11/24/16 11:59 Heparin Sodium (Porcine) (Heparin 5000 units/ml) 5,000 units EVERY 12 HOURS SUBQ 10/25/16 09:00 11/24/16 08:59 10/26/16 09:58 Iron Sucrose/ Sodium Chloride (Venofer/Sodium Chloride) 60 ml @ 240 mls/hr BEDTIME IVPB 10/26/16 21:00 10/30/16 21:14 Metoprolol Tartrate (Lopressor) 50 mg Q12HR ORAL 10/26/16 21:00 11/25/16 20:59 Morphine Sulfate (Morphine Sulfate) 2 mg Q4H PRN IVP Moderate Pain (Pain Scale 4-6) 10/25/16 08:30 11/01/16 08:29 Nitroglycerin 0.4 mg 0.4 mg Q5M PRN SL Prn Chest Pain 10/25/16 08:30 11/24/16 08:29 Ondansetron HCl (Zofran) 4 mg Q6H PRN IVP Nausea & Vomiting 10/25/16 08:30 11/24/16 08:29 Pantoprazole (Protonix) 40 mg EVERY 12 HOURS IVP 10/26/16 21:00 11/25/16 20:59 Polyethylene Glycol (Miralax) 17 gm DAILYPRN PRN ORAL Constipation 10/25/16 08:30 11/24/16 08:29 Temazepam (Restoril) 15 mg HSPRN PRN ORAL Insomnia 10/25/16 21:00 11/01/16 20:59 Vancomycin HCl 1.25 gm/Dextrose 275 ml @ 183.708 mls/hr Q24H IVPB 10/25/16 17:00 10/30/16 16:59 10/25/16 17:36 BENTLEY MARTINEZ Oct 26, 2016 12:32
[2016-10-26] MEDS ORDERED: LORazepam Inj 2mg/ml 1ml IV PRN (12:45)
--- NOTE | 2016-10-26 14:27 | Infectious Diseases Prog Note ---
Assessment/Plan Assessment/Plan A: The patient is a 76-year-old female with Probable Pneumonia chest x-ray : increased interstitial lung markings and edema or infiltrate cannot be ruled out Elev alk Ph ro Billiary dis CDiff Neg PEG malfunctions VDRF Status post trach. Status post PEG. Diverticulosis. Congestive heart failure. Hypertension Chronic obstructive pulmonary disease PLAN: continue the patient on Azactam and IV Vanco d# 2 ( FOR NOW ) Monitor CBC Monitor BMP Monitor culture (blood and sputum). Monitor chest x-ray US of Abd Diffuse bilateral interstitial disease persists Subjective Constitutional: Denies: anorexia, chills, drenching sweats, fatigue, fever, no symptoms, other Allergies: Coded Allergies: AMPICILLIN (Verified Allergy, Unknown, 03/04/11) ASPIRIN (Verified Allergy, Unknown, 03/04/11) PENICILLIN (Unverified Allergy, Unknown, 02/14/15) PENICILLINS (Verified Allergy, Unknown, 09/18/11) TRIFLUOPERAZINE (Verified Allergy, Unknown, 03/04/11) Objective Vital Signs Last 24 Hour Vital Signs Date Time Temp Pulse Resp B/P Pulse Ox O2 Delivery O2 Flow Rate FiO2 10/26/16 13:07 100 108/59 10/26/16 12:32 103 28 50 10/26/16 12:00 98.3 118 28 100/47 100 Mechanical Ventilator 50 10/26/16 11:52 118 10/26/16 11:06 50 10/26/16 10:47 106 24 50 10/26/16 10:05 114 24 50 10/26/16 10:03 50 10/26/16 09:57 113 145/93 10/26/16 09:57 113 10/26/16 09:38 113 22 98 Mechanical Ventilator 100 10/26/16 08:56 118 22 100 10/26/16 08:00 98.7 114 18 145/93 100 Mechanical Ventilator 100 10/26/16 08:00 35 10/26/16 07:55 116 18 35 10/26/16 07:42 117 10/26/16 07:01 76 18 35 10/26/16 05:48 113 98/42 10/26/16 05:27 77 18 35 10/26/16 04:00 35 10/26/16 04:00 98.1 100 18 127/70 100 Mechanical Ventilator 35 10/26/16 03:50 86 10/26/16 03:38 73 18 35 10/26/16 01:10 72 18 35 10/26/16 00:00 97.7 63 18 103/49 100 Mechanical Ventilator 35 10/26/16 00:00 63 103/49 10/26/16 00:00 35 10/25/16 23:29 71 18 35 10/25/16 23:02 62 10/25/16 21:05 76 18 35 10/25/16 21:00 66 103/44 10/25/16 20:51 98.0 62 18 130/51 100 Mechanical Ventilator 35 10/25/16 20:00 35 10/25/16 19:53 73 18 35 10/25/16 19:04 68 10/25/16 18:00 71 132/58 10/25/16 17:17 71 18 35 10/25/16 16:00 35 10/25/16 16:00 97.5 71 18 132/58 96 Mechanical Ventilator 35 10/25/16 16:00 70 10/25/16 14:51 68 18 35 Height (Feet): 5 Height (Inches): 8.00 Weight (Pounds): 161 HEENT: anicteric Respiratory/Chest: no accessory muscle use Cardiovascular: no gallop/murmur Abdomen: no mass Microbiology Date/Time Source Procedure Growth Status 10/26/16 04:20 Sputum Gram Stain - Final Resulted 10/26/16 04:20 Sputum Sputum Culture Pending Resulted 10/25/16 20:20 Stool Clostridium difficile Toxin Assay - Final Complete Laboratory Tests Test 10/25/16 17:00 10/25/16 20:20 10/26/16 04:20 10/26/16 08:41 White Blood Count 6.7 K/UL (4.8-10.8) 6.2 K/UL (4.8-10.8) Red Blood Count 2.78 M/UL (4.20-5.40) L 2.97 M/UL (4.20-5.40) L Hemoglobin 7.7 G/DL (12.0-16.0) L 8.2 G/DL (12.0-16.0) L Hematocrit 23.6 % (37.0-47.0) L 25.6 % (37.0-47.0) L Mean Corpuscular Volume 85 FL (80-99) 86 FL (80-99) Mean Corpuscular Hemoglobin 27.6 PG (27.0-31.0) 27.4 PG (27.0-31.0) Mean Corpuscular Hemoglobin Concent 32.5 G/DL (32.0-36.0) 31.9 G/DL (32.0-36.0) L Red Cell Distribution Width 15.9 % (11.6-14.8) H 15.6 % (11.6-14.8) H Platelet Count 207 K/UL (150-450) 180 K/UL (150-450) Mean Platelet Volume 5.6 FL (6.5-10.1) L 6.2 FL (6.5-10.1) L Neutrophils (%) (Auto) % (45.0-75.0) 84.3 % (45.0-75.0) H Lymphocytes (%) (Auto) % (20.0-45.0) 3.9 % (20.0-45.0) L Monocytes (%) (Auto) % (1.0-10.0) 9.1 % (1.0-10.0) Eosinophils (%) (Auto) % (0.0-3.0) 2.2 % (0.0-3.0) Basophils (%) (Auto) % (0.0-2.0) 0.6 % (0.0-2.0) Sodium Level 123 mEQ/L (135-145) #L 138 mEQ/L (135-145) # Potassium Level 4.7 mEQ/L (3.4-4.9) 3.8 mEQ/L (3.4-4.9) Chloride Level 80 mEQ/L (98-107) L 96 mEQ/L (98-107) L Carbon Dioxide Level 35 mEQ/L (20-30) H 34 mEQ/L (20-30) H Anion Gap 8 (5-15) 8 (5-15) Blood Urea Nitrogen 101 mg/dL (7-23) H 89 mg/dL (7-23) H Creatinine 0.8 mg/dL (0.5-0.9) 0.7 mg/dL (0.5-0.9) Estimat Glomerular Filtration Rate mL/min (>60) mL/min (>60) Glucose Level 102 mg/dL (74-106) 90 mg/dL (74-106) Uric Acid 7.1 mg/dL (3.0-7.5) 7.4 mg/dL (3.0-7.5) Calcium Level 8.8 mg/dL (8.6-10.2) 8.3 mg/dL (8.6-10.2) L Iron Level 28 ug/dL (37-145) L Total Iron Binding Capacity 287 ug/dL (250-400) Percent Iron Saturation 10 % (15-50) L Unsaturated Iron Binding 259 ug/dL (112-346) Ferritin 564 ng/mL (13-150) H Total Bilirubin 0.3 mg/dL (0.0-1.2) 0.3 mg/dL (0.0-1.2) Aspartate Amino Transf (AST/SGOT) 63 U/L (5-40) H 51 U/L (5-40) H Alanine Aminotransferase (ALT/SGPT) 39 U/L (3-33) H 32 U/L (3-33) Alkaline Phosphatase 397 U/L (35-104) H 339 U/L (35-104) H Total Protein 7.0 g/dL (6.6-8.7) 6.3 g/dL (6.6-8.7) L Albumin 3.0 g/dL (3.5-5.2) L 2.6 g/dL (3.5-5.2) L Globulin 4.0 g/dL 3.7 g/dL Albumin/Globulin Ratio 0.7 (1.0-2.7) L 0.7 (1.0-2.7) L Urine Color Pale yellow Urine Appearance Clear Urine pH 8 (4.5-8.0) Urine Specific [place] 1.010 (1.005-1.035) Urine Protein 1+ (NEGATIVE) H Urine Glucose (UA) Negative (NEGATIVE) Urine Ketones Negative (NEGATIVE) Urine Occult Blood 1+ (NEGATIVE) H Urine Nitrite Negative (NEGATIVE) Urine Bilirubin Negative (NEGATIVE) Urine Urobilinogen Normal MG/DL (0.0-1.0) Urine Leukocyte Esterase 1+ (NEGATIVE) H Urine RBC 0-2 /HPF (0 - 2) Urine WBC 0-2 /HPF (0 - 2) Urine Squamous Epithelial Cells None /LPF (NONE/OCC) Urine Bacteria None /HPF (NONE) Urine Random Sodium 29 mmol/L Stool Occult Blood Positive (NEGATIVE) Hemoglobin A1c 5.2 % (< 6.0) Phosphorus Level 2.8 mg/dL (2.5-4.8) Magnesium Level 2.6 mg/dL (1.7-2.5) H Gamma Glutamyl Transpeptidase 286 U/L (5-36) H C-Reactive Protein, Quantitative 0.8 mg/dL (< 0.5) H Pro-B-Type Natriuretic Peptide 4013 pg/mL (0-450) H Triglycerides Level 95 mg/dL (< 150) Cholesterol Level 107 mg/dL (< 200) LDL Cholesterol 28 mg/dL (60-99) L HDL Cholesterol 60 mg/dL (> 60) Cholesterol/HDL Ratio 1.8 (3.3-4.4) L Carcinoembryonic Antigen 5.7 ng/mL H Vitamin B12 Level 1427 pg/mL (211-946) H Folate Pending Thyroid Stimulating Hormone (TSH) 2.670 uIU/mL (0.300-4.500) Arterial Blood pH 7.313 (7.350-7.450) Arterial Blood Partial Pressure CO2 68.0 mmHg (35.0-45.0) *H Arterial Blood Partial Pressure O2 105.8 mmHg (75.0-100.0) H Arterial Blood HCO3 33.7 mmol/L (22.0-26.0) H Arterial Blood Oxygen Saturation 97.1 % (92.0-98.0) Arterial Blood Base Excess 5.8 Sandro Test Positive Test 10/26/16 09:49 10/26/16 10:37 Arterial Blood pH 7.153 (7.350-7.450) 7.269 (7.350-7.450) Arterial Blood Partial Pressure CO2 118.7 mmHg (35.0-45.0) *H 78.5 mmHg (35.0-45.0) *H Arterial Blood Partial Pressure O2 478.8 mmHg (75.0-100.0) H 117.2 mmHg (75.0-100.0) H Arterial Blood HCO3 40.7 mmol/L (22.0-26.0) H 35.2 mmol/L (22.0-26.0) H Arterial Blood Oxygen Saturation 99.7 % (92.0-98.0) H 96.1 % (92.0-98.0) Arterial Blood Base Excess 8.6 5.2 Sandro Test Positive Positive Current Medications Medications (Trade) Dose Ordered Sig/Joey Route PRN Reason Start Time Stop Time Status Last Admin Dose Admin Acetaminophen (Tylenol) 650 mg Q4H PRN ORAL fever>100.5 10/25/16 08:30 11/24/16 08:29 Albuterol/ Ipratropium (DuoNeb 0.5-3(2.5)mg/3ml) 3 ml Q4H PRN HHN Shortness of Breath 10/25/16 08:30 10/30/16 08:29 10/26/16 09:38 Aztreonam 1 gm/ Sodium Chloride 55 ml @ 110 mls/hr EVERY 8 HOURS IVPB 10/25/16 16:00 11/01/16 15:59 10/26/16 05:40 Digoxin (Lanoxin) 0.125 mg DAILY GT 10/25/16 09:00 11/24/16 08:59 10/26/16 09:57 Diltiazem HCl (Cardizem) 60 mg EVERY 6 HOURS ORAL 10/25/16 12:00 11/24/16 11:59 10/26/16 13:07 Heparin Sodium (Porcine) (Heparin 5000 units/ml) 5,000 units EVERY 12 HOURS SUBQ 10/25/16 09:00 11/24/16 08:59 10/26/16 09:58 Iron Sucrose/ Sodium Chloride (Venofer/Sodium Chloride) 60 ml @ 240 mls/hr BEDTIME IVPB 10/26/16 21:00 10/30/16 21:14 Lorazepam (Ativan 2mg/ml 1ml) 1 mg Q4H PRN IV For Anxiety 10/26/16 12:45 11/02/16 12:44 Metoprolol Tartrate (Lopressor) 50 mg Q12HR ORAL 10/26/16 21:00 11/25/16 20:59 Morphine Sulfate (Morphine Sulfate) 2 mg Q4H PRN IVP Moderate Pain (Pain Scale 4-6) 10/25/16 08:30 11/01/16 08:29 Nitroglycerin 0.4 mg 0.4 mg Q5M PRN SL Prn Chest Pain 10/25/16 08:30 11/24/16 08:29 Ondansetron HCl (Zofran) 4 mg Q6H PRN IVP Nausea & Vomiting 10/25/16 08:30 11/24/16 08:29 Pantoprazole (Protonix) 40 mg EVERY 12 HOURS IVP 10/26/16 21:00 11/25/16 20:59 Polyethylene Glycol (Miralax) 17 gm DAILYPRN PRN ORAL Constipation 10/25/16 08:30 11/24/16 08:29 Temazepam (Restoril) 15 mg HSPRN PRN ORAL Insomnia 10/25/16 21:00 11/01/16 20:59 Vancomycin HCl 1.25 gm/Dextrose 275 ml @ 183.708 mls/hr Q24H IVPB 10/25/16 17:00 10/30/16 16:59 10/25/16 17:36 PUMA OROZCO M.D. Oct 26, 2016 14:27
[2016-10-26 16:00] VITALS: BP 117/62
[2016-10-26] MEDS: Vancomycin 1250mg in D5W 275ml IVPB SCH (16:20)
[2016-10-26] MEDS ORDERED: NS 275ml ONE (16:27)
[2016-10-26] MEDS ORDERED: Tubing IV Secondary IV ONE (16:27)
[2016-10-26] MEDS ORDERED: Tubing Blood Filter IV ONE (16:27)
[2016-10-26 20:00] VITALS: BP 101/40
[2016-10-26] MEDS: Iron Sucrose 100 MG in NS 55 ML IVPB SCH (20:45)
[2016-10-26] MEDS: Pantoprazole Inj IVP SCH (20:45)
[2016-10-26] MEDS: Metoprolol 50mg tab ORAL SCH (20:47)
[2016-10-27] VITALS: BP 107/58
[2016-10-27 04:00] VITALS: BP 111/45
[2016-10-27] MEDS: Aztreonam Inj 1 GM in NS 55 ML IVPB SCH (06:10)
[2016-10-27 07:40] LABS: MEAN CORPUSCULAR HEMOGLOBIN 27.2 PG (27.0-31.0); MEAN CORPUSCULAR HGB CONC 30.7 G/DL (32.0-36.0); MEAN CORPUSCULAR VOLUME 89 FL (80-99); MEAN PLATELET VOLUME 5.6 FL (6.5-10.1); PLATELET COUNT 162 K/UL (150-450); RED BLOOD COUNT 2.78 M/UL (4.20-5.40); RED CELL DISTRIBUTION WIDTH 16.1 % (11.6-14.8); WHITE BLOOD COUNT 5.3 K/UL (4.8-10.8)
[2016-10-27 08:00] VITALS: BP 105/60
[2016-10-27 08:05] LABS: ALANINE AMINOTRANSFERASE 30 U/L (3-33); ALBUMIN/GLOBULIN RATIO 0.6 (1.0-2.7); ANION GAP 13 (5-15); ASPARTATE AMINO TRANSFERASE 44 U/L (5-40); CALCIUM 8.9 mg/dL (8.6-10.2); CARBON DIOXIDE 30 mEQ/L (20-30); CHLORIDE 90 mEQ/L (98-107); HEMOLYSIS 4; POTASSIUM 4.1 mEQ/L (3.4-4.9); SODIUM 133 mEQ/L (135-145); TOTAL PROTEIN 6.6 g/dL (6.6-8.7)
[2016-10-27] MEDS: Pantoprazole Inj IVP SCH ×2 (09:36→20:57)
[2016-10-27] MEDS: Metoprolol 50mg tab ORAL SCH ×2 (09:37→21:00)
[2016-10-27] MEDS: Digoxin Elixir 0.125mg GT SCH (09:38)
[2016-10-27 09:50] LABS: ANISOCYTOSIS 1+; BAND NEUTROPHILS % (MANUAL) 0 % (0-8); BASOPHILS % (MANUAL) 0 % (0-2); EOSINOPHILS % (MANUAL) 3 % (0-3); HYPOCHROMASIA 1+; LYMPHOCYTES % (MANUAL) 9 % (20-45); NEUTROPHILS % (MANUAL) 80 % (45-75); PLATELET ESTIMATE ADEQUATE; PLATELET MORPHOLOGY NORMAL; TOTAL CELLS COUNTED 100
--- NOTE | 2016-10-27 11:05 | GI Progress Note ---
Assessment/Plan Problems: (1) Anemia ICD Codes: D64.9 - Anemia SNOMED: 729988509 Qualifiers: Qualified Codes: D64.9 - Anemia, unspecified (2) Feeding by G-tube ICD Codes: Z93.1 - Feeding by G-tube SNOMED: 599959126 (3) Malfunction of gastrostomy tube ICD Codes: K94.23 - Gastrostomy malfunction SNOMED: 442376235 (4) Transaminitis ICD Codes: R74.0 - Nonspec elev of levels of transamns & lactic acid dehydrgnse SNOMED: 563932848 Status: progressing, unchanged Status Narrative Discussed with Dr. Walker. Assessment/Plan GT replaced to 24fr elevated CEA >> 5.4 OB positive defer GI procedures at this time GTF's per dietary GT site care daily/prn monitor H&H, transfuse prn H2 fu hep panel fu labs Subjective Subjective limited Objective Last 24 Hour Vital Signs Date Time Temp Pulse Resp B/P Pulse Ox O2 Delivery O2 Flow Rate FiO2 10/27/16 09:38 67 10/27/16 09:37 67 105/60 10/27/16 08:50 70 28 40 10/27/16 08:00 98.3 67 28 105/60 100 Mechanical Ventilator 40 10/27/16 07:35 72 28 50 10/27/16 06:10 65 111/57 10/27/16 05:09 90 28 50 10/27/16 04:00 97.7 61 28 111/45 99 Mechanical Ventilator 40 10/27/16 04:00 40 10/27/16 04:00 63 10/27/16 02:59 94 28 50 10/27/16 01:27 97 28 50 10/27/16 00:00 97.7 57 28 107/58 100 Mechanical Ventilator 40 10/27/16 00:00 56 107/58 10/27/16 00:00 40 10/26/16 23:41 63 10/26/16 23:30 95 28 50 10/26/16 21:13 98 28 50 10/26/16 20:47 100 122/53 10/26/16 20:00 40 10/26/16 20:00 98.3 98 28 101/40 97 Mechanical Ventilator 40 10/26/16 19:27 98 10/26/16 18:47 96 28 50 10/26/16 17:55 99 117/62 10/26/16 16:33 99 28 50 10/26/16 16:07 102 10/26/16 16:00 40 10/26/16 16:00 98.7 88 28 117/62 100 Mechanical Ventilator 40 10/26/16 14:31 101 28 50 10/26/16 13:07 100 108/59 10/26/16 12:32 103 28 50 10/26/16 12:00 98.3 118 28 100/47 100 Mechanical Ventilator 50 10/26/16 11:52 118 10/26/16 11:06 50 Intake and Output 10/26/16 10/27/16 19:00 07:00 Intake Total 795.000 ml 520 ml Output Total 2075 ml 2000 ml Balance -1280.000 ml -1480 ml Intake Free Water 100 ml IV Total 330.000 ml 280 ml Tube Feeding 405 ml 140 ml Other 60 ml Output Urine Total 2075 ml 2000 ml # Bowel Movements 2 1 Laboratory Tests Test 10/27/16 04:00 White Blood Count 5.3 K/UL (4.8-10.8) Red Blood Count 2.78 M/UL (4.20-5.40) L Hemoglobin 7.5 G/DL (12.0-16.0) L Hematocrit 24.6 % (37.0-47.0) L Mean Corpuscular Volume 89 FL (80-99) Mean Corpuscular Hemoglobin 27.2 PG (27.0-31.0) Mean Corpuscular Hemoglobin Concent 30.7 G/DL (32.0-36.0) L Red Cell Distribution Width 16.1 % (11.6-14.8) H Platelet Count 162 K/UL (150-450) Mean Platelet Volume 5.6 FL (6.5-10.1) L Neutrophils (%) (Auto) % (45.0-75.0) Lymphocytes (%) (Auto) % (20.0-45.0) Monocytes (%) (Auto) % (1.0-10.0) Eosinophils (%) (Auto) % (0.0-3.0) Basophils (%) (Auto) % (0.0-2.0) Differential Total Cells Counted 100 Neutrophils % (Manual) 80 % (45-75) H Lymphocytes % (Manual) 9 % (20-45) L Monocytes % (Manual) 8 % (1-10) Eosinophils % (Manual) 3 % (0-3) Basophils % (Manual) 0 % (0-2) Band Neutrophils 0 % (0-8) Platelet Estimate Adequate Platelet Morphology Normal Hypochromasia 1+ Anisocytosis 1+ Sodium Level 133 mEQ/L (135-145) L Potassium Level 4.1 mEQ/L (3.4-4.9) Chloride Level 90 mEQ/L (98-107) L Carbon Dioxide Level 30 mEQ/L (20-30) Anion Gap 13 (5-15) Blood Urea Nitrogen 97 mg/dL (7-23) H Creatinine 1.0 mg/dL (0.5-0.9) H Estimat Glomerular Filtration Rate mL/min (>60) Glucose Level 79 mg/dL (74-106) Calcium Level 8.9 mg/dL (8.6-10.2) Total Bilirubin 0.3 mg/dL (0.0-1.2) Aspartate Amino Transf (AST/SGOT) 44 U/L (5-40) H Alanine Aminotransferase (ALT/SGPT) 30 U/L (3-33) Alkaline Phosphatase 349 U/L (35-104) H Pro-B-Type Natriuretic Peptide 37218 pg/mL (0-450) H Total Protein 6.6 g/dL (6.6-8.7) Albumin 2.7 g/dL (3.5-5.2) L Globulin 3.9 g/dL Albumin/Globulin Ratio 0.6 (1.0-2.7) L Height (Feet): 5 Height (Inches): 8.00 Weight (Pounds): 161 General Appearance: no apparent distress Cardiovascular: normal rate Respiratory/Chest: other - mech vent Abdominal Exam: GT site - less drainage noted, GT site erythema improving Georgette uYen NMarlyn Oct 27, 2016 11:05
--- NOTE | 2016-10-27 11:09 | Infectious Diseases Prog Note ---
Assessment/Plan Assessment/Plan A: The patient is a 76-year-old female with Doubt Pneumonia chest x-ray : increased interstitial lung markings and edema or infiltrate cannot be ruled out Elev alk Ph ro Billiary dis CDiff Neg PEG malfunctions VDRF Status post trach. Status post PEG. Diverticulosis. Congestive heart failure. Hypertension Chronic obstructive pulmonary disease PLAN: DC on Azactam and IV Vanco d# 3 and monitor pt off of aB Rx Monitor CBC Monitor BMP Monitor culture (blood and sputum). Monitor chest x-ray US of Abd Diffuse bilateral interstitial disease persists Subjective Constitutional: Denies: anorexia, chills, drenching sweats, fatigue, fever, no symptoms, other Allergies: Coded Allergies: AMPICILLIN (Verified Allergy, Unknown, 03/04/11) ASPIRIN (Verified Allergy, Unknown, 03/04/11) PENICILLIN (Unverified Allergy, Unknown, 02/14/15) PENICILLINS (Verified Allergy, Unknown, 09/18/11) TRIFLUOPERAZINE (Verified Allergy, Unknown, 03/04/11) Objective Vital Signs Last 24 Hour Vital Signs Date Time Temp Pulse Resp B/P Pulse Ox O2 Delivery O2 Flow Rate FiO2 10/27/16 09:38 67 10/27/16 09:37 67 105/60 10/27/16 08:50 70 28 40 10/27/16 08:00 98.3 67 28 105/60 100 Mechanical Ventilator 40 10/27/16 07:35 72 28 50 10/27/16 06:10 65 111/57 10/27/16 05:09 90 28 50 10/27/16 04:00 97.7 61 28 111/45 99 Mechanical Ventilator 40 10/27/16 04:00 40 10/27/16 04:00 63 10/27/16 02:59 94 28 50 10/27/16 01:27 97 28 50 10/27/16 00:00 97.7 57 28 107/58 100 Mechanical Ventilator 40 10/27/16 00:00 56 107/58 10/27/16 00:00 40 10/26/16 23:41 63 10/26/16 23:30 95 28 50 10/26/16 21:13 98 28 50 10/26/16 20:47 100 122/53 10/26/16 20:00 40 10/26/16 20:00 98.3 98 28 101/40 97 Mechanical Ventilator 40 10/26/16 19:27 98 10/26/16 18:47 96 28 50 10/26/16 17:55 99 117/62 10/26/16 16:33 99 28 50 10/26/16 16:07 102 10/26/16 16:00 40 10/26/16 16:00 98.7 88 28 117/62 100 Mechanical Ventilator 40 10/26/16 14:31 101 28 50 10/26/16 13:07 100 108/59 10/26/16 12:32 103 28 50 10/26/16 12:00 98.3 118 28 100/47 100 Mechanical Ventilator 50 10/26/16 11:52 118 Height (Feet): 5 Height (Inches): 8.00 Weight (Pounds): 161 HEENT: anicteric Respiratory/Chest: normal breath sounds Cardiovascular: normal rate Abdomen: no organomegaly Skin: no lesions Microbiology Date/Time Source Procedure Growth Status 10/26/16 06:25 Blood Blood Culture - Preliminary NO GROWTH AFTER 24 HOURS Resulted 10/26/16 05:30 Blood Blood Culture - Preliminary NO GROWTH AFTER 24 HOURS Resulted 10/26/16 04:20 Sputum Gram Stain - Final Resulted 10/26/16 04:20 Sputum Sputum Culture Pending Resulted 10/25/16 20:20 Stool Clostridium difficile Toxin Assay - Final Complete Laboratory Tests Test 10/27/16 04:00 White Blood Count 5.3 K/UL (4.8-10.8) Red Blood Count 2.78 M/UL (4.20-5.40) L Hemoglobin 7.5 G/DL (12.0-16.0) L Hematocrit 24.6 % (37.0-47.0) L Mean Corpuscular Volume 89 FL (80-99) Mean Corpuscular Hemoglobin 27.2 PG (27.0-31.0) Mean Corpuscular Hemoglobin Concent 30.7 G/DL (32.0-36.0) L Red Cell Distribution Width 16.1 % (11.6-14.8) H Platelet Count 162 K/UL (150-450) Mean Platelet Volume 5.6 FL (6.5-10.1) L Neutrophils (%) (Auto) % (45.0-75.0) Lymphocytes (%) (Auto) % (20.0-45.0) Monocytes (%) (Auto) % (1.0-10.0) Eosinophils (%) (Auto) % (0.0-3.0) Basophils (%) (Auto) % (0.0-2.0) Differential Total Cells Counted 100 Neutrophils % (Manual) 80 % (45-75) H Lymphocytes % (Manual) 9 % (20-45) L Monocytes % (Manual) 8 % (1-10) Eosinophils % (Manual) 3 % (0-3) Basophils % (Manual) 0 % (0-2) Band Neutrophils 0 % (0-8) Platelet Estimate Adequate Platelet Morphology Normal Hypochromasia 1+ Anisocytosis 1+ Sodium Level 133 mEQ/L (135-145) L Potassium Level 4.1 mEQ/L (3.4-4.9) Chloride Level 90 mEQ/L (98-107) L Carbon Dioxide Level 30 mEQ/L (20-30) Anion Gap 13 (5-15) Blood Urea Nitrogen 97 mg/dL (7-23) H Creatinine 1.0 mg/dL (0.5-0.9) H Estimat Glomerular Filtration Rate mL/min (>60) Glucose Level 79 mg/dL (74-106) Calcium Level 8.9 mg/dL (8.6-10.2) Total Bilirubin 0.3 mg/dL (0.0-1.2) Aspartate Amino Transf (AST/SGOT) 44 U/L (5-40) H Alanine Aminotransferase (ALT/SGPT) 30 U/L (3-33) Alkaline Phosphatase 349 U/L (35-104) H Pro-B-Type Natriuretic Peptide 95820 pg/mL (0-450) H Total Protein 6.6 g/dL (6.6-8.7) Albumin 2.7 g/dL (3.5-5.2) L Globulin 3.9 g/dL Albumin/Globulin Ratio 0.6 (1.0-2.7) L Current Medications Medications (Trade) Dose Ordered Sig/Joey Route PRN Reason Start Time Stop Time Status Last Admin Dose Admin Acetaminophen (Tylenol) 650 mg Q4H PRN ORAL fever>100.5 10/25/16 08:30 11/24/16 08:29 Albuterol/ Ipratropium (DuoNeb 0.5-3(2.5)mg/3ml) 3 ml Q4H PRN HHN Shortness of Breath 10/25/16 08:30 10/30/16 08:29 10/26/16 09:38 Aztreonam 1 gm/ Sodium Chloride 55 ml @ 110 mls/hr EVERY 8 HOURS IVPB 10/25/16 16:00 11/01/16 15:59 10/27/16 06:10 Digoxin (Lanoxin) 0.125 mg DAILY GT 10/25/16 09:00 11/24/16 08:59 10/27/16 09:38 Diltiazem HCl (Cardizem) 60 mg EVERY 6 HOURS ORAL 10/25/16 12:00 11/24/16 11:59 10/27/16 06:10 Iron Sucrose/ Sodium Chloride (Venofer/Sodium Chloride) 60 ml @ 240 mls/hr BEDTIME IVPB 10/26/16 21:00 10/30/16 21:14 10/26/16 20:45 Lorazepam (Ativan 2mg/ml 1ml) 1 mg Q4H PRN IV For Anxiety 10/26/16 12:45 11/02/16 12:44 Metoprolol Tartrate (Lopressor) 50 mg Q12HR ORAL 10/26/16 21:00 11/25/16 20:59 10/27/16 09:37 Morphine Sulfate (Morphine Sulfate) 2 mg Q4H PRN IVP Moderate Pain (Pain Scale 4-6) 10/25/16 08:30 11/01/16 08:29 Nitroglycerin 0.4 mg 0.4 mg Q5M PRN SL Prn Chest Pain 10/25/16 08:30 11/24/16 08:29 Ondansetron HCl (Zofran) 4 mg Q6H PRN IVP Nausea & Vomiting 10/25/16 08:30 11/24/16 08:29 Pantoprazole (Protonix) 40 mg EVERY 12 HOURS IVP 10/26/16 21:00 11/25/16 20:59 10/27/16 09:36 Polyethylene Glycol (Miralax) 17 gm DAILYPRN PRN ORAL Constipation 10/25/16 08:30 11/24/16 08:29 Temazepam (Restoril) 15 mg HSPRN PRN ORAL Insomnia 10/25/16 21:00 11/01/16 20:59 Vancomycin HCl 1.25 gm/Dextrose 275 ml @ 183.708 mls/hr Q24H IVPB 10/25/16 17:00 10/30/16 16:59 10/26/16 16:20 PUMA OROZCO M.D. Oct 27, 2016 11:09
--- NOTE | 2016-10-27 11:37 | Consultation ---
DATE OF CONSULTATION: 10/27/2016 PULMONARY CONSULTATION/HISTORY AND PHYSICAL CONSULTING PHYSICIAN: Haris Ruby M.D. HISTORY OF PRESENT ILLNESS: This is an elderly patient 76-year-old, who is a detention resident with chronic trach vent. Her x-ray of chest has shown diffuse infiltrate she may have underlying pulmonary fibrosis. She was transferred from outside hospital to [facility] [address] with abnormal laboratories with elevated BUN and creatinine also anemia. PAST MEDICAL HISTORY: The patient's past history is notable for chronic trach vent, electrolyte disorder, diabetes mellitus, hypertension, CVA, sacral decubitus, acute on chronic diastolic CHF, atrial flutter, anemia, and atrial fibrillation. MEDICATIONS: Her present medications include iron, metoprolol, Protonix, sodium chloride, lorazepam, temazepam, Pepcid, vancomycin, aztreonam, Cardizem, digoxin, heparin subcutaneous, albuterol, Tylenol, morphine, MiraLax, Zofran, and nitroglycerin. ALLERGIES: Listed to ampicillin, aspirin, penicillin and trifluoperazine. REVIEW OF SYSTEMS: Review of systems was not obtainable, the patient is nonverbal. PHYSICAL EXAMINATION: GENERAL: Reveals elderly female. HEENT: Unremarkable. Tracheostomy site is noted. LUNGS: Shows clear, but some with decreased breath sounds both lung base. ABDOMEN: Soft. G-tube is noted. EXTREMITIES: There is no edema. Both heels are iron protected. LABORATORY AND DIAGNOSTIC DATA: Laboratory testing today shows ABG 7.26, PCO2 of 78, pO2 of 117. Creatinine is 1 and BUN is 97. White count 5.8, hemoglobin 7.5, and platelet count is normal. IMPRESSION: 1. Anemia. 2. Hyponatremia. 3. Azotemia. 4. Elevated proBNP. 5. Malnutrition. 6. Possible gastrointestinal bleeding. DISCUSSION: The patient has stool occult blood positivity and note that Gastroenterology is following the patient. All that is unclear if there is plans to perform endoscopy or not. At this time, NG tube has been exchanged, which may be a site for blood loss as well. The patient is being seen by Nephrology regarding hyponatremia and azotemia. We will continue present medications and care including IV antibiotics. I do not suspect an active infection. We will defer to ID regarding choice of antibiotics in needed. We will hold off on further subcutaneous heparin given decreasing trend of hemoglobin. The patient will continue iron, aztreonam, vancomycin, Tylenol, digoxin, Cardizem, breathing treatments, Ativan, Lopressor, morphine, nitroglycerin and Protonix. We will increase tidal volume to 400 mL. Continue medications and care. We will follow carefully. Haris Ruby M.D. DR: Fely JOB#: [id number] CC:
[2016-10-27 12:00] VITALS: BP 96/48
--- NOTE | 2016-10-27 12:20 | General Progress Note ---
Assessment/Plan Status: stable Assessment/Plan status: HypoNatremia likely depletional Azotemia mostly pre renal , likely GI bleed Anemia, likely GI bleed Chronic respiratory failure HypoAlbuminemai Sugg: Anemia robles Transfusion needed monitor lytes and renal parameters- Subjective ROS Limited/Unobtainable: Yes Allergies: Coded Allergies: AMPICILLIN (Verified Allergy, Unknown, 03/04/11) ASPIRIN (Verified Allergy, Unknown, 03/04/11) PENICILLIN (Unverified Allergy, Unknown, 02/14/15) PENICILLINS (Verified Allergy, Unknown, 09/18/11) TRIFLUOPERAZINE (Verified Allergy, Unknown, 03/04/11) Objective Last 24 Hour Vital Signs Date Time Temp Pulse Resp B/P Pulse Ox O2 Delivery O2 Flow Rate FiO2 10/27/16 11:44 69 28 40 10/27/16 09:38 67 10/27/16 09:37 67 105/60 10/27/16 08:50 70 28 40 10/27/16 08:00 98.3 67 28 105/60 100 Mechanical Ventilator 40 10/27/16 08:00 73 10/27/16 08:00 45 10/27/16 07:35 72 28 50 10/27/16 06:10 65 111/57 10/27/16 05:09 90 28 50 10/27/16 04:00 97.7 61 28 111/45 99 Mechanical Ventilator 40 10/27/16 04:00 40 10/27/16 04:00 63 10/27/16 02:59 94 28 50 10/27/16 01:27 97 28 50 10/27/16 00:00 97.7 57 28 107/58 100 Mechanical Ventilator 40 10/27/16 00:00 56 107/58 10/27/16 00:00 40 10/26/16 23:41 63 10/26/16 23:30 95 28 50 10/26/16 21:13 98 28 50 10/26/16 20:47 100 122/53 10/26/16 20:00 40 10/26/16 20:00 98.3 98 28 101/40 97 Mechanical Ventilator 40 10/26/16 19:27 98 10/26/16 18:47 96 28 50 10/26/16 17:55 99 117/62 10/26/16 16:33 99 28 50 10/26/16 16:07 102 10/26/16 16:00 40 10/26/16 16:00 98.7 88 28 117/62 100 Mechanical Ventilator 40 10/26/16 14:31 101 28 50 10/26/16 13:07 100 108/59 10/26/16 12:32 103 28 50 Intake and Output 10/26/16 10/27/16 19:00 07:00 Intake Total 795.000 ml 520 ml Output Total 2075 ml 2000 ml Balance -1280.000 ml -1480 ml Intake Free Water 100 ml IV Total 330.000 ml 280 ml Tube Feeding 405 ml 140 ml Other 60 ml Output Urine Total 2075 ml 2000 ml # Bowel Movements 2 1 Laboratory Tests 10/27/16 04:00: White Blood Count 5.3, Red Blood Count 2.78L, Hemoglobin 7.5L, Hematocrit 24.6L , Mean Corpuscular Volume 89, Mean Corpuscular Hemoglobin 27.2, Mean Corpuscular Hemoglobin Concent 30.7L, Red Cell Distribution Width 16.1H, Platelet Count 162, Mean Platelet Volume 5.6L, Neutrophils (%) (Auto) , Lymphocytes (%) (Auto) , Monocytes (%) (Auto) , Eosinophils (%) (Auto) , Basophils (%) (Auto) , Differential Total Cells Counted 100, Neutrophils % ( Manual) 80H, Lymphocytes % (Manual) 9L, Monocytes % (Manual) 8, Eosinophils % ( Manual) 3, Basophils % (Manual) 0, Band Neutrophils 0, Platelet Estimate Adequate, Platelet Morphology Normal, Hypochromasia 1+, Anisocytosis 1+, Sodium Level 133L, Potassium Level 4.1, Chloride Level 90L, Carbon Dioxide Level 30, Anion Gap 13, Blood Urea Nitrogen 97H, Creatinine 1.0H, Estimat Glomerular Filtration Rate , Glucose Level 79, Calcium Level 8.9, Total Bilirubin 0.3, Aspartate Amino Transf (AST/SGOT) 44H, Alanine Aminotransferase (ALT/SGPT) 30, Alkaline Phosphatase 349H, Pro-B-Type Natriuretic Peptide 12540A, Total Protein 6.6, Albumin 2.7L, Globulin 3.9, Albumin/Globulin Ratio 0.6L Height (Feet): 5 Height (Inches): 8.00 Weight (Pounds): 161 General Appearance: no apparent distress Cardiovascular: normal rate Respiratory/Chest: decreased breath sounds Abdomen: soft Objective other PE not changed MADHU MENDEZ Oct 27, 2016 12:20
--- NOTE | 2016-10-27 12:52 | Diagnostic Imaging Report ---
Indication: DYSPNEA Technique: One view of the chest Comparison: 10/26/2016 Findings: Stable satisfactory position of tracheostomy, right arm PICC. Diffuse mostly interstitial parenchymal disease persists and is unchanged. The heart size is upper limits normal. Impression: Unchanged, over one day, findings as above.
[2016-10-27] MEDS ORDERED: NS 275ml ONE (14:17)
[2016-10-27] MEDS ORDERED: Tubing IV Secondary IV ONE (14:17)
[2016-10-27 16:00] VITALS: BP 113/54
--- NOTE | 2016-10-27 16:51 | Diagnostic Imaging Report ---
Indication: Right upper quadrant pain Technique: Lorenzo-scale and duplex images of the upper abdomen were obtained Comparison: 12/03/2014 Findings: Gallbladder is not visualized, consistent with prior cholecystectomy. Common bile duct measures 10 mm in diameter. No intrahepatic biliary ductal dilatation. Demonstrates coarsened echogenicity, slight atrophy, slightly irregular shape and surface nodularity. Portal vein and hepatic veins are patent. There is trace ascites Pancreas is unremarkable. Spleen is enlarged, measuring 13.3 cm long axis dimension Left kidney measures 12 cm in length. Right kidney measures 11 cm length. Both kidneys demonstrate borderline increased echogenicity. There is no hydronephrosis. No focal abnormality . Abdominal aorta is partially obscured by bowel gas, visualized portions are non-aneurysmal . Impression: Surgically absent gallbladder Dilated intrahepatic bile ducts. Probably related to age and postcholecystectomy state, downstream obstruction not completely excludable. Also reported on July 2015 CT scan. Consider MRCP for better characterization if clinically indicated Evidence of hepatic cirrhosis. This is a new finding since the 2015 ultrasound. Splenomegaly, trace ascites, likely stigmata of the above Slightly increased renal echogenicity, may indicate medical renal disease. Correlate with laboratory findings Note inability to visualize the distal aorta
[2016-10-27 20:00] VITALS: BP 106/51
[2016-10-27] MEDS: Iron Sucrose 100 MG in NS 55 ML IVPB SCH (21:12)
[2016-10-28] VITALS: BP 98/39
[2016-10-28 04:00] VITALS: BP 98/42
[2016-10-28 06:55] LABS: BASOPHILS % (AUTO) 0.6 % (0.0-2.0); EOSINOPHILS % (AUTO) 3.1 % (0.0-3.0); LYMPHOCYTES % (AUTO) 5.7 % (20.0-45.0); MEAN CORPUSCULAR HEMOGLOBIN 27.2 PG (27.0-31.0); MEAN CORPUSCULAR HGB CONC 30.9 G/DL (32.0-36.0); MEAN CORPUSCULAR VOLUME 88 FL (80-99); MEAN PLATELET VOLUME 5.6 FL (6.5-10.1); NEUTROPHILS % (AUTO) 83.6 % (45.0-75.0); PLATELET COUNT 149 K/UL (150-450); RED BLOOD COUNT 2.96 M/UL (4.20-5.40); RED CELL DISTRIBUTION WIDTH 16.6 % (11.6-14.8); WHITE BLOOD COUNT 6.6 K/UL (4.8-10.8)
[2016-10-28 07:05] LABS: ANION GAP 13 (5-15); CALCIUM 8.8 mg/dL (8.6-10.2); CARBON DIOXIDE 32 mEQ/L (20-30); CHLORIDE 90 mEQ/L (98-107); HEMOLYSIS 2; POTASSIUM 3.9 mEQ/L (3.4-4.9); SODIUM 135 mEQ/L (135-145)
[2016-10-28 08:00] VITALS: BP 113/61
[2016-10-28 08:23] LABS: ABG ALLEN TEST POSITIVE; ABG PCO2 55.4 mmHg (35.0-45.0)
[2016-10-28 09:16] LABS: OTHERS PATHOLOGIST COMMENT
[2016-10-28] MEDS: Metoprolol 50mg tab ORAL SCH (09:16)
[2016-10-28] MEDS: Digoxin Elixir 0.125mg GT SCH (09:17)
[2016-10-28] MEDS: Pantoprazole Inj IVP SCH (09:17)
--- NOTE | 2016-10-28 09:55 | General Progress Note ---
Assessment/Plan Status: stable - from renal stand point Assessment/Plan status: HypoNatremia likely depletional Azotemia mostly pre renal , likely GI bleed Anemia, likely GI bleed Chronic respiratory failure HypoAlbuminemai Sugg: Anemia robles Transfusion as needed monitor lytes and renal parameters- per orders Subjective ROS Limited/Unobtainable: Yes Allergies: Coded Allergies: AMPICILLIN (Verified Allergy, Unknown, 03/04/11) ASPIRIN (Verified Allergy, Unknown, 03/04/11) PENICILLIN (Unverified Allergy, Unknown, 02/14/15) PENICILLINS (Verified Allergy, Unknown, 09/18/11) TRIFLUOPERAZINE (Verified Allergy, Unknown, 03/04/11) Objective Last 24 Hour Vital Signs Date Time Temp Pulse Resp B/P Pulse Ox O2 Delivery O2 Flow Rate FiO2 10/28/16 09:17 81 10/28/16 09:16 80 113/61 10/28/16 09:08 80 28 45 10/28/16 08:18 45 10/28/16 08:00 97.5 87 28 113/61 100 Mechanical Ventilator 45 10/28/16 06:32 87 28 45 10/28/16 06:00 89 94/42 10/28/16 05:10 70 28 40 10/28/16 04:00 89 10/28/16 04:00 45 10/28/16 04:00 97.3 89 28 98/42 100 Mechanical Ventilator 45 10/28/16 03:20 67 28 40 10/28/16 01:20 67 28 40 10/28/16 00:00 97.5 71 28 98/39 100 Mechanical Ventilator 45 10/28/16 00:00 71 10/28/16 00:00 45 10/28/16 00:00 45 10/28/16 00:00 97.5 71 14 98/39 100 Nasal Cannula 10/28/16 00:00 97.5 71 14 98/39 100 Mechanical Ventilator 45 10/27/16 23:00 65 28 40 10/27/16 22:00 58 95/42 10/27/16 21:15 78 28 40 10/27/16 21:00 61 105/51 10/27/16 20:00 61 10/27/16 20:00 97.5 78 28 106/51 99 Mechanical Ventilator 45 10/27/16 20:00 45 10/27/16 19:10 63 28 40 10/27/16 17:20 55 28 40 10/27/16 16:15 45 10/27/16 16:00 78 10/27/16 16:00 98.6 76 28 113/54 100 Mechanical Ventilator 45 10/27/16 15:00 59 28 40 10/27/16 12:50 68 28 40 10/27/16 12:00 45 10/27/16 12:00 98.0 84 28 96/48 100 Mechanical Ventilator 45 10/27/16 12:00 82 10/27/16 11:44 69 28 40 Intake and Output 10/27/16 10/28/16 19:00 07:00 Intake Total 445 ml 1692 ml Output Total 375 ml 2050 ml Balance 70 ml -358 ml Intake Free Water 200 ml 100 ml IV Total 60 ml Tube Feeding 245 ml 455 ml Blood Product 837 ml Other 240 ml Output Urine Total 375 ml 2050 ml # Bowel Movements 1 5 Laboratory Tests 10/28/16 04:00: Arterial Blood pH 7.427, Arterial Blood Partial Pressure CO2 55.4*H, Arterial Blood Partial Pressure O2 63.9L, Arterial Blood HCO3 35.7H, Arterial Blood Oxygen Saturation 91.7L, Arterial Blood Base Excess 10.0, Sandro Test Positive 10/28/16 05:45: White Blood Count 6.6, Red Blood Count 2.96L, Hemoglobin 8.1L, Hematocrit 26.1L , Mean Corpuscular Volume 88, Mean Corpuscular Hemoglobin 27.2, Mean Corpuscular Hemoglobin Concent 30.9L, Red Cell Distribution Width 16.6H, Platelet Count 149L, Mean Platelet Volume 5.6L, Neutrophils (%) (Auto) 83.6H, Lymphocytes (%) (Auto) 5.7L, Monocytes (%) (Auto) 7.0, Eosinophils (%) (Auto) 3.1H, Basophils (%) (Auto) 0.6, Sodium Level 135, Potassium Level 3.9, Chloride Level 90L, Carbon Dioxide Level 32H, Anion Gap 13, Blood Urea Nitrogen 92H, Creatinine 1.0H, Estimat Glomerular Filtration Rate , Glucose Level 61L, Calcium Level 8.8, Pro-B-Type Natriuretic Peptide 7635H Height (Feet): 5 Height (Inches): 8.00 Weight (Pounds): 161 Objective other PE not changed MADHU MENDEZ Oct 28, 2016 09:55
--- NOTE | 2016-10-28 10:11 | Pulmonology Progress Note ---
Assessment/Plan Assessment/Plan IMPRESSION: 1. Anemia. 2. Hyponatremia. 3. Azotemia. 4. Elevated proBNP. 5. Malnutrition. 6. Possible gastrointestinal bleeding. DISCUSSION: The patient has stool occult blood positivity and note that Gastroenterology is following the patient. At this time, G tube has been exchanged, which may be a site for blood loss as well. The patient is being seen by Nephrology regarding hyponatremia and azotemia. Will dc back to SNF The patient will continue iron, aztreonam, vancomycin, Tylenol, digoxin, Cardizem, breathing treatments, Ativan, Lopressor, morphine, nitroglycerin and Protonix. I will follow carefully. Subjective Interval Events: No change; labs better; imaging studies reviewed Constitutional: Reports: no symptoms HEENT: Repors: no symptoms Respiratory: Reports: no symptoms Cardiovascular: Reports: no symptoms Gastrointestinal/Abdominal: Reports: no symptoms Allergies: Coded Allergies: AMPICILLIN (Verified Allergy, Unknown, 03/04/11) ASPIRIN (Verified Allergy, Unknown, 03/04/11) PENICILLIN (Unverified Allergy, Unknown, 02/14/15) PENICILLINS (Verified Allergy, Unknown, 09/18/11) TRIFLUOPERAZINE (Verified Allergy, Unknown, 03/04/11) Objective Last 24 Hour Vital Signs Date Time Temp Pulse Resp B/P Pulse Ox O2 Delivery O2 Flow Rate FiO2 10/28/16 09:17 81 10/28/16 09:16 80 113/61 10/28/16 09:08 80 28 45 10/28/16 08:18 45 10/28/16 08:00 97.5 87 28 113/61 100 Mechanical Ventilator 45 10/28/16 06:32 87 28 45 10/28/16 06:00 89 94/42 10/28/16 05:10 70 28 40 10/28/16 04:00 89 10/28/16 04:00 45 10/28/16 04:00 97.3 89 28 98/42 100 Mechanical Ventilator 45 10/28/16 03:20 67 28 40 10/28/16 01:20 67 28 40 10/28/16 00:00 97.5 71 28 98/39 100 Mechanical Ventilator 45 10/28/16 00:00 71 10/28/16 00:00 45 10/28/16 00:00 45 10/28/16 00:00 97.5 71 14 98/39 100 Nasal Cannula 10/28/16 00:00 97.5 71 14 98/39 100 Mechanical Ventilator 45 10/27/16 23:00 65 28 40 10/27/16 22:00 58 95/42 10/27/16 21:15 78 28 40 10/27/16 21:00 61 105/51 10/27/16 20:00 61 10/27/16 20:00 97.5 78 28 106/51 99 Mechanical Ventilator 45 10/27/16 20:00 45 10/27/16 19:10 63 28 40 10/27/16 17:20 55 28 40 10/27/16 16:15 45 10/27/16 16:00 78 10/27/16 16:00 98.6 76 28 113/54 100 Mechanical Ventilator 45 10/27/16 15:00 59 28 40 10/27/16 12:50 68 28 40 10/27/16 12:00 45 10/27/16 12:00 98.0 84 28 96/48 100 Mechanical Ventilator 45 10/27/16 12:00 82 10/27/16 11:44 69 28 40 Intake and Output 10/27/16 10/28/16 19:00 07:00 Intake Total 445 ml 1692 ml Output Total 375 ml 2050 ml Balance 70 ml -358 ml Intake Free Water 200 ml 100 ml IV Total 60 ml Tube Feeding 245 ml 455 ml Blood Product 837 ml Other 240 ml Output Urine Total 375 ml 2050 ml # Bowel Movements 1 5 General Appearance: no acute distress HEENT: normocephalic Respiratory/Chest: chest wall non-tender, lungs clear Cardiovascular: normal peripheral pulses, normal rate Abdomen: normal bowel sounds, soft, non tender Extremities: no cyanosis Microbiology Date/Time Source Procedure Growth Status 10/26/16 06:25 Blood Blood Culture - Preliminary NO GROWTH AFTER 48 HOURS Resulted 10/26/16 05:30 Blood Blood Culture - Preliminary NO GROWTH AFTER 48 HOURS Resulted 10/26/16 04:20 Sputum Gram Stain - Final Resulted 10/26/16 04:20 Sputum Culture - Preliminary Gram Negative Bacillus 1 Gram Negative Bacillus 2 Resulted 10/25/16 20:20 Stool Clostridium difficile Toxin Assay - Final Complete Laboratory Tests 10/28/16 04:00: Arterial Blood pH 7.427, Arterial Blood Partial Pressure CO2 55.4*H, Arterial Blood Partial Pressure O2 63.9L, Arterial Blood HCO3 35.7H, Arterial Blood Oxygen Saturation 91.7L, Arterial Blood Base Excess 10.0, Sandro Test Positive 10/28/16 05:45: White Blood Count 6.6, Red Blood Count 2.96L, Hemoglobin 8.1L, Hematocrit 26.1L , Mean Corpuscular Volume 88, Mean Corpuscular Hemoglobin 27.2, Mean Corpuscular Hemoglobin Concent 30.9L, Red Cell Distribution Width 16.6H, Platelet Count 149L, Mean Platelet Volume 5.6L, Neutrophils (%) (Auto) 83.6H, Lymphocytes (%) (Auto) 5.7L, Monocytes (%) (Auto) 7.0, Eosinophils (%) (Auto) 3.1H, Basophils (%) (Auto) 0.6, Sodium Level 135, Potassium Level 3.9, Chloride Level 90L, Carbon Dioxide Level 32H, Anion Gap 13, Blood Urea Nitrogen 92H, Creatinine 1.0H, Estimat Glomerular Filtration Rate , Glucose Level 61L, Uric Acid [Pending], Calcium Level 8.8, Phosphorus Level [Pending], Magnesium Level [ Pending], Pro-B-Type Natriuretic Peptide 7635H Current Medications Medications (Trade) Dose Ordered Sig/Joey Route PRN Reason Start Time Stop Time Status Last Admin Dose Admin Acetaminophen (Tylenol) 650 mg Q4H PRN ORAL fever>100.5 10/25/16 08:30 11/24/16 08:29 Albuterol/ Ipratropium (DuoNeb 0.5-3(2.5)mg/3ml) 3 ml Q4H PRN HHN Shortness of Breath 10/25/16 08:30 10/30/16 08:29 10/26/16 09:38 Digoxin (Lanoxin) 0.125 mg DAILY GT 10/25/16 09:00 11/24/16 08:59 10/28/16 09:17 Diltiazem HCl (Cardizem) 60 mg EVERY 8 HOURS ORAL 10/27/16 22:00 11/26/16 21:59 Iron Sucrose/ Sodium Chloride (Venofer/Sodium Chloride) 60 ml @ 240 mls/hr BEDTIME IVPB 10/26/16 21:00 10/30/16 21:14 10/27/16 21:12 Lorazepam (Ativan 2mg/ml 1ml) 1 mg Q4H PRN IV For Anxiety 10/26/16 12:45 11/02/16 12:44 Metoprolol Tartrate (Lopressor) 50 mg Q12HR ORAL 10/26/16 21:00 11/25/16 20:59 10/28/16 09:16 Morphine Sulfate (Morphine Sulfate) 2 mg Q4H PRN IVP Moderate Pain (Pain Scale 4-6) 10/25/16 08:30 11/01/16 08:29 Nitroglycerin 0.4 mg 0.4 mg Q5M PRN SL Prn Chest Pain 10/25/16 08:30 11/24/16 08:29 Ondansetron HCl (Zofran) 4 mg Q6H PRN IVP Nausea & Vomiting 10/25/16 08:30 11/24/16 08:29 Pantoprazole (Protonix) 40 mg EVERY 12 HOURS IVP 10/26/16 21:00 11/25/16 20:59 10/28/16 09:17 Polyethylene Glycol (Miralax) 17 gm DAILYPRN PRN ORAL Constipation 10/25/16 08:30 11/24/16 08:29 Temazepam (Restoril) 15 mg HSPRN PRN ORAL Insomnia 10/25/16 21:00 11/01/16 20:59 Haris Ruby MD Oct 28, 2016 10:11
[2016-10-28 10:14] LABS: MAGNESIUM 2.7 mg/dL (1.7-2.5); PHOSPHORUS 2.4 mg/dL (2.5-4.8)
--- NOTE | 2016-10-28 10:50 | Diagnostic Imaging Report ---
Indication: Abnormal breath sounds Comparison: 10/27/16 A single view chest radiograph was obtained. Findings: Tracheostomy and PICC line are stable. Heart is mildly enlarged stable. Vascular and interstitial edema suspected with bilateral pleural effusions no significant change is appreciated. Impression: No significant change from one day earlier
[2016-10-28 12:06] VITALS: BP 120/72
--- NOTE | 2016-10-28 12:13 | GI Progress Note ---
Assessment/Plan Problems: (1) Anemia ICD Codes: D64.9 - Anemia SNOMED: 335671349 Qualifiers: Qualified Codes: D64.9 - Anemia, unspecified (2) Feeding by G-tube ICD Codes: Z93.1 - Feeding by G-tube SNOMED: 215501801 (3) Malfunction of gastrostomy tube ICD Codes: K94.23 - Gastrostomy malfunction SNOMED: 216425037 (4) Transaminitis ICD Codes: R74.0 - Nonspec elev of levels of transamns & lactic acid dehydrgnse SNOMED: 102340127 Status: stable, unchanged Status Narrative Discussed with Dr. Walker. Assessment/Plan GT replaced to 24fr elevated CEA >> 5.4 OB positive defer GI procedures at this time GTF's per dietary GT site care daily/prn monitor H&H, transfuse prn H2 fu hep panel fu labs Subjective Subjective limited Objective Last 24 Hour Vital Signs Date Time Temp Pulse Resp B/P Pulse Ox O2 Delivery O2 Flow Rate FiO2 10/28/16 12:06 98.1 80 20 120/72 100 Mechanical Ventilator 45 10/28/16 09:17 81 10/28/16 09:16 80 113/61 10/28/16 09:08 80 28 45 10/28/16 08:18 45 10/28/16 08:00 92 10/28/16 08:00 97.5 87 28 113/61 100 Mechanical Ventilator 45 10/28/16 06:32 87 28 45 10/28/16 06:00 89 94/42 10/28/16 05:10 70 28 40 10/28/16 04:00 89 10/28/16 04:00 45 10/28/16 04:00 97.3 89 28 98/42 100 Mechanical Ventilator 45 10/28/16 03:20 67 28 40 10/28/16 01:20 67 28 40 10/28/16 00:00 97.5 71 28 98/39 100 Mechanical Ventilator 45 10/28/16 00:00 71 10/28/16 00:00 45 10/28/16 00:00 45 10/28/16 00:00 97.5 71 14 98/39 100 Nasal Cannula 10/28/16 00:00 97.5 71 14 98/39 100 Mechanical Ventilator 45 10/27/16 23:00 65 28 40 10/27/16 22:00 58 95/42 10/27/16 21:15 78 28 40 10/27/16 21:00 61 105/51 10/27/16 20:00 61 10/27/16 20:00 97.5 78 28 106/51 99 Mechanical Ventilator 45 10/27/16 20:00 45 10/27/16 19:10 63 28 40 10/27/16 17:20 55 28 40 10/27/16 16:15 45 10/27/16 16:00 78 10/27/16 16:00 98.6 76 28 113/54 100 Mechanical Ventilator 45 10/27/16 15:00 59 28 40 10/27/16 12:50 68 28 40 Intake and Output 10/27/16 10/28/16 19:00 07:00 Intake Total 445 ml 1692 ml Output Total 375 ml 2050 ml Balance 70 ml -358 ml Intake Free Water 200 ml 100 ml IV Total 60 ml Tube Feeding 245 ml 455 ml Blood Product 837 ml Other 240 ml Output Urine Total 375 ml 2050 ml # Bowel Movements 1 5 Laboratory Tests Test 10/28/16 04:00 10/28/16 05:45 Arterial Blood pH 7.427 (7.350-7.450) Arterial Blood Partial Pressure CO2 55.4 mmHg (35.0-45.0) *H Arterial Blood Partial Pressure O2 63.9 mmHg (75.0-100.0) L Arterial Blood HCO3 35.7 mmol/L (22.0-26.0) H Arterial Blood Oxygen Saturation 91.7 % (92.0-98.0) L Arterial Blood Base Excess 10.0 Sandro Test Positive White Blood Count 6.6 K/UL (4.8-10.8) Red Blood Count 2.96 M/UL (4.20-5.40) L Hemoglobin 8.1 G/DL (12.0-16.0) L Hematocrit 26.1 % (37.0-47.0) L Mean Corpuscular Volume 88 FL (80-99) Mean Corpuscular Hemoglobin 27.2 PG (27.0-31.0) Mean Corpuscular Hemoglobin Concent 30.9 G/DL (32.0-36.0) L Red Cell Distribution Width 16.6 % (11.6-14.8) H Platelet Count 149 K/UL (150-450) L Mean Platelet Volume 5.6 FL (6.5-10.1) L Neutrophils (%) (Auto) 83.6 % (45.0-75.0) H Lymphocytes (%) (Auto) 5.7 % (20.0-45.0) L Monocytes (%) (Auto) 7.0 % (1.0-10.0) Eosinophils (%) (Auto) 3.1 % (0.0-3.0) H Basophils (%) (Auto) 0.6 % (0.0-2.0) Sodium Level 135 mEQ/L (135-145) Potassium Level 3.9 mEQ/L (3.4-4.9) Chloride Level 90 mEQ/L (98-107) L Carbon Dioxide Level 32 mEQ/L (20-30) H Anion Gap 13 (5-15) Blood Urea Nitrogen 92 mg/dL (7-23) H Creatinine 1.0 mg/dL (0.5-0.9) H Estimat Glomerular Filtration Rate mL/min (>60) Glucose Level 61 mg/dL (74-106) L Uric Acid 9.0 mg/dL (3.0-7.5) H Calcium Level 8.8 mg/dL (8.6-10.2) Phosphorus Level 2.4 mg/dL (2.5-4.8) L Magnesium Level 2.7 mg/dL (1.7-2.5) H Pro-B-Type Natriuretic Peptide 7635 pg/mL (0-450) H Height (Feet): 5 Height (Inches): 8.00 Weight (Pounds): 161 General Appearance: no apparent distress Cardiovascular: normal rate Respiratory/Chest: other - mech vent Abdominal Exam: GT site - c/d/i Georgette Yuen N.P. Oct 28, 2016 12:13
--- NOTE | 2016-10-28 14:24 | Infectious Diseases Prog Note ---
Assessment/Plan Assessment/Plan A: The patient is a 76-year-old female with Doubt Pneumonia Scx: GNR x 2 ( Colonizer ) chest x-ray : increased interstitial lung markings and edema or infiltrate cannot be ruled out Elev alk Ph US of Abd : Surgically absent gallbladder, Dilated intrahepatic bile ducts. Probably related to age and postcholecystectomy CDiff Neg PEG malfunctions VDRF Status post trach. Status post PEG. Diverticulosis. Congestive heart failure. Hypertension Chronic obstructive pulmonary disease PLAN: monitor pt off of aB Rx ( 10/27 SP Azactam and IV Vanco d# 3 ) Monitor CBC Monitor BMP Monitor culture (blood and sputum). Monitor chest x-ray Diffuse bilateral interstitial disease persists Subjective Constitutional: Denies: anorexia, chills, drenching sweats, fatigue, fever, no symptoms, other Allergies: Coded Allergies: AMPICILLIN (Verified Allergy, Unknown, 03/04/11) ASPIRIN (Verified Allergy, Unknown, 03/04/11) PENICILLIN (Unverified Allergy, Unknown, 02/14/15) PENICILLINS (Verified Allergy, Unknown, 09/18/11) TRIFLUOPERAZINE (Verified Allergy, Unknown, 03/04/11) Objective Vital Signs Last 24 Hour Vital Signs Date Time Temp Pulse Resp B/P Pulse Ox O2 Delivery O2 Flow Rate FiO2 10/28/16 14:12 81 120/72 10/28/16 13:15 81 28 45 10/28/16 12:06 98.1 80 20 120/72 100 Mechanical Ventilator 45 10/28/16 10:34 76 28 45 10/28/16 09:17 81 10/28/16 09:16 80 113/61 10/28/16 09:08 80 28 45 10/28/16 08:18 45 10/28/16 08:00 92 10/28/16 08:00 97.5 87 28 113/61 100 Mechanical Ventilator 45 10/28/16 06:32 87 28 45 10/28/16 06:00 89 94/42 10/28/16 05:10 70 28 40 10/28/16 04:00 89 10/28/16 04:00 45 10/28/16 04:00 97.3 89 28 98/42 100 Mechanical Ventilator 45 10/28/16 03:20 67 28 40 10/28/16 01:20 67 28 40 10/28/16 00:00 97.5 71 28 98/39 100 Mechanical Ventilator 45 10/28/16 00:00 71 10/28/16 00:00 45 10/28/16 00:00 45 10/28/16 00:00 97.5 71 14 98/39 100 Nasal Cannula 10/28/16 00:00 97.5 71 14 98/39 100 Mechanical Ventilator 45 10/27/16 23:00 65 28 40 10/27/16 22:00 58 95/42 10/27/16 21:15 78 28 40 10/27/16 21:00 61 105/51 10/27/16 20:00 61 10/27/16 20:00 97.5 78 28 106/51 99 Mechanical Ventilator 45 10/27/16 20:00 45 10/27/16 19:10 63 28 40 10/27/16 17:20 55 28 40 10/27/16 16:15 45 10/27/16 16:00 78 10/27/16 16:00 98.6 76 28 113/54 100 Mechanical Ventilator 45 10/27/16 15:00 59 28 40 Height (Feet): 5 Height (Inches): 8.00 Weight (Pounds): 161 HEENT: anicteric Respiratory/Chest: normal breath sounds Cardiovascular: regular rhythm Abdomen: non distended Microbiology Date/Time Source Procedure Growth Status 10/26/16 06:25 Blood Blood Culture - Preliminary NO GROWTH AFTER 48 HOURS Resulted 10/26/16 05:30 Blood Blood Culture - Preliminary NO GROWTH AFTER 48 HOURS Resulted 10/26/16 04:20 Sputum Gram Stain - Final Resulted 10/26/16 04:20 Sputum Culture - Preliminary Gram Negative Bacillus 1 Gram Negative Bacillus 2 Resulted 10/25/16 20:20 Stool Clostridium difficile Toxin Assay - Final Complete Laboratory Tests Test 10/28/16 04:00 10/28/16 05:45 Arterial Blood pH 7.427 (7.350-7.450) Arterial Blood Partial Pressure CO2 55.4 mmHg (35.0-45.0) *H Arterial Blood Partial Pressure O2 63.9 mmHg (75.0-100.0) L Arterial Blood HCO3 35.7 mmol/L (22.0-26.0) H Arterial Blood Oxygen Saturation 91.7 % (92.0-98.0) L Arterial Blood Base Excess 10.0 Sandro Test Positive White Blood Count 6.6 K/UL (4.8-10.8) Red Blood Count 2.96 M/UL (4.20-5.40) L Hemoglobin 8.1 G/DL (12.0-16.0) L Hematocrit 26.1 % (37.0-47.0) L Mean Corpuscular Volume 88 FL (80-99) Mean Corpuscular Hemoglobin 27.2 PG (27.0-31.0) Mean Corpuscular Hemoglobin Concent 30.9 G/DL (32.0-36.0) L Red Cell Distribution Width 16.6 % (11.6-14.8) H Platelet Count 149 K/UL (150-450) L Mean Platelet Volume 5.6 FL (6.5-10.1) L Neutrophils (%) (Auto) 83.6 % (45.0-75.0) H Lymphocytes (%) (Auto) 5.7 % (20.0-45.0) L Monocytes (%) (Auto) 7.0 % (1.0-10.0) Eosinophils (%) (Auto) 3.1 % (0.0-3.0) H Basophils (%) (Auto) 0.6 % (0.0-2.0) Sodium Level 135 mEQ/L (135-145) Potassium Level 3.9 mEQ/L (3.4-4.9) Chloride Level 90 mEQ/L (98-107) L Carbon Dioxide Level 32 mEQ/L (20-30) H Anion Gap 13 (5-15) Blood Urea Nitrogen 92 mg/dL (7-23) H Creatinine 1.0 mg/dL (0.5-0.9) H Estimat Glomerular Filtration Rate mL/min (>60) Glucose Level 61 mg/dL (74-106) L Uric Acid 9.0 mg/dL (3.0-7.5) H Calcium Level 8.8 mg/dL (8.6-10.2) Phosphorus Level 2.4 mg/dL (2.5-4.8) L Magnesium Level 2.7 mg/dL (1.7-2.5) H Pro-B-Type Natriuretic Peptide 7635 pg/mL (0-450) H Current Medications Medications (Trade) Dose Ordered Sig/Joey Route PRN Reason Start Time Stop Time Status Last Admin Dose Admin Acetaminophen (Tylenol) 650 mg Q4H PRN ORAL fever>100.5 10/25/16 08:30 11/24/16 08:29 Albuterol/ Ipratropium (DuoNeb 0.5-3(2.5)mg/3ml) 3 ml Q4H PRN HHN Shortness of Breath 10/25/16 08:30 10/30/16 08:29 10/26/16 09:38 Digoxin (Lanoxin) 0.125 mg DAILY GT 10/25/16 09:00 11/24/16 08:59 10/28/16 09:17 Diltiazem HCl (Cardizem) 60 mg EVERY 8 HOURS ORAL 10/27/16 22:00 11/26/16 21:59 10/28/16 14:12 Iron Sucrose/ Sodium Chloride (Venofer/Sodium Chloride) 60 ml @ 240 mls/hr BEDTIME IVPB 10/26/16 21:00 10/30/16 21:14 10/27/16 21:12 Lorazepam (Ativan 2mg/ml 1ml) 1 mg Q4H PRN IV For Anxiety 10/26/16 12:45 11/02/16 12:44 Metoprolol Tartrate (Lopressor) 50 mg Q12HR ORAL 10/26/16 21:00 11/25/16 20:59 10/28/16 09:16 Morphine Sulfate (Morphine Sulfate) 2 mg Q4H PRN IVP Moderate Pain (Pain Scale 4-6) 10/25/16 08:30 11/01/16 08:29 Nitroglycerin 0.4 mg 0.4 mg Q5M PRN SL Prn Chest Pain 10/25/16 08:30 11/24/16 08:29 Ondansetron HCl (Zofran) 4 mg Q6H PRN IVP Nausea & Vomiting 10/25/16 08:30 11/24/16 08:29 Pantoprazole (Protonix) 40 mg EVERY 12 HOURS IVP 10/26/16 21:00 11/25/16 20:59 10/28/16 09:17 Polyethylene Glycol (Miralax) 17 gm DAILYPRN PRN ORAL Constipation 10/25/16 08:30 11/24/16 08:29 Temazepam (Restoril) 15 mg HSPRN PRN ORAL Insomnia 10/25/16 21:00 11/01/16 20:59 PUMA OROZCO M.D. Oct 28, 2016 14:24
[2016-10-28 16:00] VITALS: BP 108/67
--- NOTE | 2016-10-31 09:35 | Discharge Summary ---
Discharge Summary Hospital Course Date of Admission Oct 24, 2016 at 23:40 Date of Discharge Oct 28, 2016 at 19:26 Admitting Diagnosis anemia, hyponatremia HPI Dang Dumont is a 76 year old female who was admitted on Oct 24, 2016 at 23 :40 for Anemia,Hyponatremia Hospital Course dc summary #[id number] Discharge Medications Continued Medications: Acetaminophen* (Tylenol*) 650 Mg/20.3 Ml Oral.susp 650 MG GT Q4HR PRN for Mild Pain/Temp > 100.5 Albuterol Sulfate* (Albuterol Sulfate Hhn*) 2.5 Mg/3 Ml Vial.neb 3 ML INH Q6H PRN for Shortness of Breath, #30 EA 0 Refills Bisacodyl (Dulcolax) 10 Mg Supp.rect 10 MG RC PRN PRN for Constipation, SUPP Digoxin* (Digoxin*) 0.125 Mg/2.5 Ml Solution 0.125 MG GT DAILY, ML 0 Refills Diltiazem HCl (Diltiazem 12Hr ER) 60 Mg Cap.er.12h 120 MG ORAL EVERY 12 HOURS, TAB Docusate Sodium (Docusate Sodium) 100 Mg/10 Ml Udc 100 MG GT DAILY, EA Ferrous Sulfate* (Ferrous Sulfate*) 325 Mg Tablet 330 MG GT DAILY, #20 TAB Hydrocodone Bit/Acetaminophen 5-325* ([place] 5-325 Tablet*) 1 Each Tablet 1 TAB GT BEDTIME PRN for For Pain, TAB Hydrocodone Bit/Acetaminophen 5-325* ([place] 5-325 Tablet*) 1 Each Tablet 1 TAB GT PRIOR TO DRESSING CH PRN for For Pain, TAB Magnesium Hydroxide (Milk of Magnesia) 30 Ml Susp 30 ML GT DAILY PRN for Constipation Metoprolol Tartrate (Metoprolol Tartrate) 25 Mg Tablet 25 MG ORAL Q12HR for 60 Days, TAB Multivit-Min/Iron Fum/Folic AC (Ssooo-Srofmcq-Kjfiwbhq Tablet) 1 Each Tablet 1 EACH PEG DAILY, TAB Na Phos,M-B/Na Phos,Di-Ba (Fleet Enema) 133 Ml Enema 118 ML RC PRN PRN for Constipation, EA Protein Supplement (Promod) 946 Ml Liquid 30 ML GT DAILY Saccharomyces Boulardii (Florastor*) 250 Mg Capsule 250 MG GT DAILY, CAP Zinc Sulfate (Zinc Sulfate*) 220 Mg Capsule 220 MG GT DAILY, CAP 0 Refills Discharge Condition Upon Discharge: stable Discharge Disposition Patient was discharged to SNF/Subacute Facility(03) Discharge Diagnoses: Discharge Instructions Discharge Instructions Special Instructions I have been assigned to complete a D/C Summary on this account. I was not involved in the patient management Fernanda Short NP (Vanchtein) October 31, 2016 09:35
--- NOTE | 2016-11-01 02:38 | Discharge Summary 2 SIG ---
DATE OF ADMISSION: 10/24/2016 DATE OF DISCHARGE: 10/28/2016 REASON FOR ADMISSION: 76-year-old female with multiple chronic medical comorbidities including chronic respiratory failure, ventilator dependent with tracheostomy status, dysphagia , G-tube, was sent from the nursing home facility for abnormal labs. Workup in the ER revealed sodium- 112, potassium- 5.1, hemoglobin -7.5, BUN -109, and creatinine -1.0. Gastrostomy tube noted to be leaking. The patient was admitted for further management. ADMITTING DIAGNOSES: 1. Acute kidney injury with azotemia 2. Anemia. 3. Acute hyponatremia. 4. Hyperkalemia. 5. Chronic respiratory failure. 6. Tracheostomy status. 7. Percutaneous endoscopic gastrostomy malfunctioning. 8. History of cerebrovascular accident. HOSPITAL STAY: The patient was admitted to [facility]. In the emergency department, the patient undergone first 250 mL of hypertonic saline. Nephrology consult was requested. Hyponatremia workup was done by product introduction manager and according to product introduction manager, hyponatremia was likely depletional. The patient received another hypertonic solution as ordered by product introduction manager. Sodium-138 prior to discharge. Potassium was stable - 3.8 prior to discharge. The patient was on the IV fluids. BUN down to 89 and creatinine down to 0.7. Abdominal ultrasound revealed slightly increased renal echogenicity, likely indicative of medical renal disease. According to product introduction manager, the patient likely have chronic renal insufficiency and acute kidney injury possibly due to dehydration was imposed on chronic renal insufficiency. Ventilator and tracheostomy care was provided. Baseline ABG obtained and ventilator settings were adjusted. No signs of respiratory distress on current settings. Initial chest x-ray with possible pneumonia. ID consult was requested. The patient was on empiric antibiotics. Sputum culture revealed Acinetobacter complex and Stenotrophomonas as well as the Staphylococcus aureus. The patient was followed up with chest x-ray. According to Infectious Disease doctor, he doubted pneumonia. Sputum culture was colonized. He recommended to monitor the patient off antibiotics. The patient was afebrile. No leukocytosis. Initially, PEG was malfunctioning, i.e. leaking at the site. Tube feeding was on hold while IV fluid was infusing. GI consult was requested. GI specialist exchanged the tube on the bedside to 24-Bengali. KUB confirmed placement. G-tube feeding restarted. The patient was able to tolerate tube feeding. G-tube site care was provided. H2 ching was initiated. The patient noted to be anemic. On admission, hemoglobin - 7.5 and hematocrit- 23. The patient undergone transfusion of one unit of packed red blood cells. Hemoglobin- 8.1 and hematocrit -26.1 prior to discharge. Anemia workup initiated . Patient was noted to have stool OB positive. CEA was elevated at 5.7. Low iron, but high ferritin noted. Stable B12 and folate level. Per GI, any GI procedure were deferred at this time. Cardiac medications, Cardizem and Digoxin were continued. Troponin initially checked, negative. EKG showed sinus rhythm and no ischemic changes. Closely monitor hemoglobin and hematocrit at the nursing home facility. The patient was stable for discharge. DISCHARGE DIAGNOSES: 1. Acute kidney injury on chronic renal insufficiency. 2. Anemia, status post one unit packed red blood cells. 3. Hyponatremia ,likely depletional,- resolved. 4. Mild hyperkalemia,- resolved. 5. Azotemia likely prerenal, improved. 6. Chronic respiratory failure, ventilator dependent. 7. Tracheostomy status. 8. History of cerebrovascular accident. 9. Hypertension. 10. Possible gastrointestinal bleeding. 11. Percutaneous endoscopic gastrostomy malfunctioning, status post exchange. DISCHARGE MEDICATIONS: See medication reconciliation list. DISCHARGE INSTRUCTIONS: The patient was discharged to nursing home facility. FOLLOWUP: Follow up with medical doctor and operative supervisor at the facility. Closely monitor renal parameters and hemoglobin/hematocrit. Haris Ruby M.D. I have been assigned to dictate discharge summary on this account and I was not involved in the patient's management. Fernanda Gantrodo N.P. DR: REMIGIO JOB#: [id number] CC: ILANA
== END 2016-10-28 19:26 | DRG 683 ==
LOC: EDUNIT# 22:16 → EDBD 22:16 → EMR 22:32 → 2W 23:40 → EDBEDREQ 10-25 00:30
PROC: 5A1945Z Respiratory Ventilation, 24-96 Consecutive Hours (ICD-10-PCS; principal; 2016-10-24)
PROC: 0D20XUZ Change Feeding Device in Upper Intestinal Tract, External Approach (ICD-10-PCS; 2016-10-24)
PROC: 30233N1 Transfusion of Nonautologous Red Blood Cells into Peripheral Vein, Percutaneous Approach (ICD-10-PCS; 2016-10-25)
PROC: 02HV33Z Insertion of Infusion Device into Superior Vena Cava, Percutaneous Approach (ICD-10-PCS; 2016-10-25)
DX: N17.9 Acute kidney failure, unspecified (principal); K92.2 Gastrointestinal hemorrhage, unspecified; Z99.11 Dependence on respirator [ventilator] status; J96.10 Chronic respiratory failure, unspecified whether with hypoxia or hypercapnia; E46 Unspecified protein-calorie malnutrition; Z43.0 Encounter for attention to tracheostomy; J44.9 Chronic obstructive pulmonary disease, unspecified; E87.1 Hypo-osmolality and hyponatremia; K94.23 Gastrostomy malfunction; I50.32 Chronic diastolic (congestive) heart failure; E87.5 Hyperkalemia; Z86.73 Personal history of transient ischemic attack (TIA), and cerebral infarction without residual deficits; I10 Essential (primary) hypertension; Z88.6 Allergy status to analgesic agent; Z88.1 Allergy status to other antibiotic agents; Z88.0 Allergy status to penicillin; Z88.8 Allergy status to other drugs, medicaments and biological substances; R13.10 Dysphagia, unspecified; E86.0 Dehydration; Y83.3 Surgical operation with formation of external stoma as the cause of abnormal reaction of the patient, or of later complication, without mention of misadventure at the time of the procedure; K57.90 Diverticulosis of intestine, part unspecified, without perforation or abscess without bleeding; I48.91 Unspecified atrial fibrillation; D50.0 Iron deficiency anemia secondary to blood loss (chronic)
CPT/HCPCS: 36415; 36569; 36600; 71010; 74000; 76700; 76937; 80048; 80053; 80061; 81001; 82270; 82378; 82550; 82553; 82607; 82728; 82746; 82803; 82977; 83036; 83540; 83550; 83735; 83880; 84100; 84300; 84443; 84484; 84550; 85007; 85025; 85610; 85730; 86140; 86850; 86900; 86901; 86920; 87040; 87070; 87181; 87205; 87324; 93005; 94002; 94003; 94640; J7620

== ENCOUNTER 2016-12-02 22:30 | Inpatient (IN) | payer OTHER, MEDICAID ==
[~2016-12-02] VITALS: Ht 160 cm; Wt 79.8 kg
[~2016-12-02 22:30] MED LIST changes: +CARDIZEM30 MG ORAL; +FLEET ENEMA133 M1 RC; +NORCO 5-325 TA1 EAC1 GT
[2016-12-02 23:04] VITALS: BP 107/71
[2016-12-02 23:44] LABS: BASOPHILS % (AUTO) 0.9 % (0.0-2.0); EOSINOPHILS % (AUTO) 3.6 % (0.0-3.0); LYMPHOCYTES % (AUTO) 6.1 % (20.0-45.0); MEAN CORPUSCULAR HEMOGLOBIN 29.6 PG (27.0-31.0); MEAN CORPUSCULAR HGB CONC 32.5 G/DL (32.0-36.0); MEAN CORPUSCULAR VOLUME 91 FL (80-99); MEAN PLATELET VOLUME 8.3 FL (6.5-10.1); MONOCYTES % (AUTO) 7.5 % (1.0-10.0); NEUTROPHILS % (AUTO) 81.9 % (45.0-75.0); PLATELET COUNT 151 K/UL (150-450); RED BLOOD COUNT 2.88 M/UL (4.20-5.40); RED CELL DISTRIBUTION WIDTH 15.8 % (11.6-14.8); WHITE BLOOD COUNT 7.6 K/UL (4.8-10.8)
[2016-12-03] VITALS (60 sets, daily range): BP systolic 79–134; BP diastolic 34–106
[2016-12-03] LABS: ALANINE AMINOTRANSFERASE 10 U/L (3-33); ALBUMIN/GLOBULIN RATIO 0.8 (1.0-2.7); ANION GAP 11 (5-15); ASPARTATE AMINO TRANSFERASE 28 U/L (5-40); CARBON DIOXIDE 27 mEQ/L (20-30); CHLORIDE 101 mEQ/L (98-107); CREATININE 1.6 mg/dL (0.5-0.9); HEMOLYSIS 1; SODIUM 139 mEQ/L (135-145); TOTAL PROTEIN 7.1 g/dL (6.6-8.7)
[2016-12-03 00:04] LABS: TROPONIN I < 0.30 ng/mL (<=0.30)
[2016-12-03 00:13] LABS: CKMB 2.3 ng/mL (< 3.8)
[2016-12-03] MEDS ORDERED: Calcium Gluconate 1gm/10ml vial IVP ONE (00:15)
[2016-12-03 00:19] LABS: KETONES,URINE NEGATIVE (NEGATIVE); LEUKOCYTE ESTERASE ,URINE 3+ (NEGATIVE); NITRITE,URINE NEGATIVE (NEGATIVE); PH,URINE 5 (4.5-8.0); PROTEIN,URINE 3+ (NEGATIVE); UROBILINOGEN,URINE 4 MG/DL (0.0-1.0)
[2016-12-03 00:24] LABS: PROTHROMBIN TIME 10.8 SEC (9.30-11.50)
[2016-12-03 00:29] LABS: APPEARANCE,URINE CLOUDY
[2016-12-03 00:30] LABS: BACTERIA,URINE MODERATE /HPF; SQUAMOUS EPITHELIAL CELL,UR MANY /LPF (NONE/OCC); WBC,URINE 40-60 /HPF (0 - 2)
[2016-12-03 00:31] LABS: AMORPHOUS SEDIMENT,UR MANY /LPF
[2016-12-03] MEDS ORDERED: Sodium Polystyrene Sulfonate 15gm Powder ORAL ONE (00:45)
[2016-12-03] MEDS ORDERED: DOPamine 400mg/250ml 250 ML IV SCH (00:45)
[2016-12-03 03:58] LABS: ABG BASE EXCESS 2.7; ABG PCO2 60.9 mmHg (35.0-45.0)
[2016-12-03 04:00] LABS: ABG ALLEN TEST POSITIVE
[2016-12-03] MEDS ORDERED: LORAZEPAM0.5 MG GT (05:38)
[2016-12-03] MEDS ORDERED: VITAMIN C500 M1 GT (05:38)
[2016-12-03] MEDS ORDERED: ZINC SULFATE220 M1 GT (05:38)
--- NOTE | 2016-12-03 07:13 | Emergency Room Report ---
History of Present Illness General Chief Complaint: Dyspnea/Respdistress Source: Patient, Medical Record Present Illness HPI Patient is a 76-year-old female sent from [facility] after a difficulty with breathing. Patient was noted to have decreased respiratory volumes. Patient prior history of tracheostomy as well as ventilator dependence. The patient is followed by Dr. kohler. Patient was noted to have full CODE STATUS. She had not been having any reported fever. Patient is penicillin allergic. Allergies: Coded Allergies: AMPICILLIN (Verified Allergy, Unknown, 03/04/11) ASPIRIN (Verified Allergy, Unknown, 03/04/11) PENICILLIN (Unverified Allergy, Unknown, 02/14/15) PENICILLINS (Verified Allergy, Unknown, 09/18/11) TRIFLUOPERAZINE (Verified Allergy, Unknown, 03/04/11) Patient History Past Medical History: old chart reviewed, COPD Reviewed Nursing Documentation: PMH: Agreed, PSxH: Agreed Nursing Documentation-PMH Hx Cardiac Problems: Yes - a-fib Hx Hypertension: Yes Hx COPD: Yes - chronic resp.failure,vent dep., copd Hx Diabetes: Yes Hx Cancer: No Hx Gastrointestinal Problems: Yes - g-tube, gerd Hx Neurological Problems: Yes - cva Hx Cerebrovascular Accident: Yes Hx Transient Ischemic Attacks: Yes Hx Speech Problem: Yes - ON TRACH. Hx Aphasia: Yes Hx Dysphasia: Yes Hx Weakness: Yes - LEFT SIDE. Review of Systems All Other Systems: negative except mentioned in HPI Physical Exam Vital Signs Date Time Temp Pulse Resp B/P Pulse Ox O2 Delivery O2 Flow Rate FiO2 12/02/16 22:17 84 16 101/44 88 Ambu-Bag 12/02/16 22:30 100 12/02/16 23:04 100.9 General Appearance: alert, moderate distress Neck: tracheotomy - some air leak Respiratory: lungs clear, normal breath sounds, no rhonchi Cardiovascular #1: edema Gastrointestinal: normal inspection, other - gtube Musculoskeletal: back normal Neurologic: alert, responsive, motor weakness, other - bilateral lower extremity weakness Skin: other - edema Medical Decision Making Diagnostic Impression: Primary Impression: COPD (chronic obstructive pulmonary disease) with acute bronchitis Additional Impressions: Hyperkalemia Severe sepsis Urinary tract infection ER Course Patient presented for shortness of breath. Differential included but was not limited to anemia, pneumonia, pneumothorax, myocardial infarction, pericardial effusion, congestive heart failure, acidosis. Because of complexity of patient' s case laboratory testing and imaging studies were ordered. The patient was noted to have some evidence of infection and as well as urinary tract infection laboratory testing. Patient was started on IV fluids for hypotension. The patient was not given fluid bolus to the marked edema fluid overload. The patient was noted to have allergy to penicillin so she was given IV Cipro. She started on a dopamine drip due to relative bradycardia and hypotension. Dr. Haris Ruby was contacted for inpatient management due to capitated physician. Labs Test 12/02/16 23:10 12/02/16 23:50 12/03/16 03:41 White Blood Count 7.6 K/UL (4.8-10.8) Red Blood Count 2.88 M/UL (4.20-5.40) Hemoglobin 8.5 G/DL (12.0-16.0) Hematocrit 26.3 % (37.0-47.0) Mean Corpuscular Volume 91 FL (80-99) Mean Corpuscular Hemoglobin 29.6 PG (27.0-31.0) Mean Corpuscular Hemoglobin Concent 32.5 G/DL (32.0-36.0) Red Cell Distribution Width 15.8 % (11.6-14.8) Platelet Count 151 K/UL (150-450) Mean Platelet Volume 8.3 FL (6.5-10.1) Neutrophils (%) (Auto) 81.9 % (45.0-75.0) Lymphocytes (%) (Auto) 6.1 % (20.0-45.0) Monocytes (%) (Auto) 7.5 % (1.0-10.0) Eosinophils (%) (Auto) 3.6 % (0.0-3.0) Basophils (%) (Auto) 0.9 % (0.0-2.0) Prothrombin Time 10.8 SEC (9.30-11.50) Prothromb Time International Ratio 1.0 (0.9-1.1) Activated Partial Thromboplast Time 34 SEC (23-33) Sodium Level 139 mEQ/L (135-145) Potassium Level 6.0 mEQ/L (3.4-4.9) Chloride Level 101 mEQ/L (98-107) Carbon Dioxide Level 27 mEQ/L (20-30) Anion Gap 11 (5-15) Blood Urea Nitrogen 44 mg/dL (7-23) Creatinine 1.6 mg/dL (0.5-0.9) Estimat Glomerular Filtration Rate mL/min (>60) Glucose Level 97 mg/dL (74-106) Lactic Acid Level 0.50 mmol/L (0.66-2.22) Calcium Level 9.0 mg/dL (8.6-10.2) Total Bilirubin 0.5 mg/dL (0.0-1.2) Aspartate Amino Transf (AST/SGOT) 28 U/L (5-40) Alanine Aminotransferase (ALT/SGPT) 10 U/L (3-33) Alkaline Phosphatase 264 U/L (35-104) Total Creatine Kinase 45 U/L (26-140) Creatine Kinase MB 2.3 ng/mL (< 3.8) Creatine Kinase MB Relative Index 5.1 Troponin I < 0.30 ng/mL (<=0.30) Pro-B-Type Natriuretic Peptide 31506 pg/mL (0-450) Total Protein 7.1 g/dL (6.6-8.7) Albumin 3.3 g/dL (3.5-5.2) Globulin 3.8 g/dL Albumin/Globulin Ratio 0.8 (1.0-2.7) Urine Color Yellow Urine Appearance Cloudy Urine pH 5 (4.5-8.0) Urine Specific Dickinson 1.025 (1.005-1.035) Urine Protein 3+ (NEGATIVE) Urine Glucose (UA) Negative (NEGATIVE) Urine Ketones Negative (NEGATIVE) Urine Occult Blood 2+ (NEGATIVE) Urine Nitrite Negative (NEGATIVE) Urine Bilirubin Negative (NEGATIVE) Urine Urobilinogen 4 MG/DL (0.0-1.0) Urine Leukocyte Esterase 3+ (NEGATIVE) Urine RBC 5-10 /HPF (0 - 2) Urine WBC 40-60 /HPF (0 - 2) Urine Squamous Epithelial Cells Many /LPF (NONE/OCC) Urine Amorphous Sediment Many /LPF (NONE) Urine Bacteria Moderate /HPF (NONE) Arterial Blood pH 7.306 (7.350-7.450) Arterial Blood Partial Pressure CO2 60.9 mmHg (35.0-45.0) Arterial Blood Partial Pressure O2 340.5 mmHg (75.0-100.0) Arterial Blood HCO3 29.7 mmol/L (22.0-26.0) Arterial Blood Oxygen Saturation 99.5 % (92.0-98.0) Arterial Blood Base Excess 2.7 Sandro Test Positive EKG Diagnostic Results Rate: normal Rhythm: NSR ST Segments: no acute changes Rhythm Strip Diag. Results EP Interpretation: yes Rhythm: NSR, no PVC's Chest X-Ray Diagnostic Results EP Interpretation: Yes Findings: no consolidation, no effusion, no pneumothorax, no acute cardiopulmonary disease Number of Views: 1 Last Vital Signs Date Time Temp Pulse Resp B/P Pulse Ox O2 Delivery O2 Flow Rate FiO2 12/03/16 06:54 105 20 93/48 100 Mechanical Ventilator 50 12/02/16 23:04 100.9 Status: unchanged Disposition: ADMITTED INPATIENT Condition: Critical Referrals: [facility],REFERRING (PCP) Sj Cardenas Dec 03, 2016 07:13
[2016-12-03] MEDS ORDERED: LORazepam Inj 2mg/ml 1ml IV PRN (08:45)
--- NOTE | 2016-12-03 10:41 | Diagnostic Imaging Report ---
Indication: Dyspnea Comparison: 10/28/16 A single view chest radiograph was obtained. Findings: Lungs are hyperexpanded. Small bilateral pleural effusions are suspected. Interstitial edema and cardiomegaly are present. There is a right subclavian line and tracheostomy noted. The bones are osteopenic. There is no pneumothorax. New surgical skin zehra noted the left lung base with an apparent chest tube or abdominal drain. Impression: Suspected interstitial edema/CHF. This appears slightly worse. Suspected bilateral pleural effusions, small in degree. COPD Right subclavian line placement. No pneumothorax or other complications. Status post recent surgery left upper quadrant abdomen/lower chest with apparent drain or chest tube noted.
[2016-12-03] MEDS: Pantoprazole Inj IV SCH (11:41)
[2016-12-03] MEDS: DOPamine 400mg/250ml 250 ML IV SCH ×2 (11:43→13:56)
[2016-12-03] MEDS ORDERED: Aztreonam Inj 2 GM in D5W 110 ML IV SCH (12:00)
[2016-12-03] MEDS: Aztreonam 1gm in D5W 55ml IVPB SCH ×2 (12:10→17:58)
[2016-12-03] MEDS: DuoNeb 0.5-3(2.5)mg/3ml neb HHN SCH ×2 (13:16→19:07)
[2016-12-03 13:22] LABS: ANION GAP 13 (5-15); CARBON DIOXIDE 27 mEQ/L (20-30); CHLORIDE 100 mEQ/L (98-107); CREATININE 1.5 mg/dL (0.5-0.9); HEMOLYSIS 2; POTASSIUM 4.9 mEQ/L (3.4-4.9); SODIUM 140 mEQ/L (135-145)
--- NOTE | 2016-12-03 20:30 | History and Physical Report ---
DATE OF ADMISSION: 12/03/2016 HISTORY OF PRESENT ILLNESS: This is a 76-year-old female, who was sent from a [facility] after she was found to have shortness of breath. The patient is on a chronic trach and vent. She was noted to have decreased volumes and secretions. The patient is Full Code. She was transferred to [facility] and I was contacted due to patient's insurance. The patient is unable to provide any history. Therefore, the history is obtained from the medical records accompanying the patient. PAST MEDICAL HISTORY: The patient had a history of cardiac arrhythmias, hypertension, anemia, chronic tracheostomy and vent dependence. PREVIOUS SURGICAL HISTORY: Gastrostomy tube placement, tracheostomy, there is also history of renal insufficiency, previous CVA and renal insufficiency. MEDICATIONS: Her list of medications at the facility include Ativan p.r.n., multivitamins, Vitamin C, Zinc, digoxin, metoprolol, Cardizem and ferrous sulfate. She is also on p.r.n. medications of Tylenol ALLERGIES: Ampicillin, aspirin, penicillin and trifluoperazine. REVIEW OF SYSTEMS: Not obtainable. PHYSICAL EXAMINATION: GENERAL: The patient is a middle-aged female. HEENT: Unremarkable. Tracheostomy site is clean. ABDOMEN: Soft and nondistended. There is a G-tube in place. CHEST: Clear bilaterally with decreased breath sounds at both lung bases. ABDOMEN: Soft. NEUROLOGIC: The patient is unresponsive. She has bilateral foot drop and weakness of her lower extremities manifested by atrophy of both calf. Neurologic examination incomplete because of patient's inability to follow commands. LABORATORY AND DIAGNOSTIC DATA: X-ray of chest shows loss of cardiophrenic silhouette and costophrenic angle, suspicious for either fluid or pneumonia. EKG shows junctional rhythm. Lab testing shows hemoglobin 8.5, white count 7.6, and platelet count is normal. Potassium was noted to be 6. The patient has received Kayexalate in the emergency room. Creatinine 1.6. Alkaline phosphatase 264. ProBNP 48750. Urinalysis shows multiple WBCs. Coagulations are negative. IMPRESSION: 1. Urinary tract infection. 2. Hypotension. 3. Septic shock. 4. Renal failure. 5. Hyperkalemia. 6. Chronic respiratory failure. 7. Pulmonary edema. 8. Previous cerebrovascular accident. DISCUSSION: Admit to the hospital. Continue vent AC mode. The patient is on dopamine 10 mcg, which I will continue and start broad-spectrum antibiotics. Consult Nephrology. Repeat morning laboratories for chemistries. Intravenous fluids to be given. We will follow as faculty physician will order respiratory treatments, pulmonary hygiene, and GI and DVT prophylaxis. Continue entral feedings. Haris Ruby M.D. DR: LISA JOB#: [id number] CC:
[2016-12-04] VITALS (36 sets, daily range): BP systolic 103–140; BP diastolic 37–78
[2016-12-04] MEDS: Aztreonam 1gm in D5W 55ml IVPB SCH ×4 (00:04→18:04)
[2016-12-04] MEDS: DuoNeb 0.5-3(2.5)mg/3ml neb HHN SCH ×4 (01:02→19:42)
[2016-12-04] MEDS: DOPamine 400mg/250ml 250 ML IV SCH (03:52)
[2016-12-04 05:55] LABS: BASOPHILS % (AUTO) 0.7 % (0.0-2.0); EOSINOPHILS % (AUTO) 5.1 % (0.0-3.0); LYMPHOCYTES % (AUTO) 7.4 % (20.0-45.0); MEAN CORPUSCULAR HEMOGLOBIN 27.9 PG (27.0-31.0); MEAN CORPUSCULAR HGB CONC 31.6 G/DL (32.0-36.0); MEAN CORPUSCULAR VOLUME 88 FL (80-99); MEAN PLATELET VOLUME 7.1 FL (6.5-10.1); MONOCYTES % (AUTO) 9.9 % (1.0-10.0); NEUTROPHILS % (AUTO) 76.9 % (45.0-75.0); PLATELET COUNT 145 K/UL (150-450); RED BLOOD COUNT 2.96 M/UL (4.20-5.40); RED CELL DISTRIBUTION WIDTH 15.7 % (11.6-14.8); WHITE BLOOD COUNT 5.7 K/UL (4.8-10.8)
[2016-12-04 06:49] LABS: ANION GAP 12 (5-15); CALCIUM 8.6 mg/dL (8.6-10.2); CARBON DIOXIDE 25 mEQ/L (20-30); CHLORIDE 103 mEQ/L (98-107); CREATININE 1.2 mg/dL (0.5-0.9); HEMOLYSIS 1; POTASSIUM 4.4 mEQ/L (3.4-4.9); SODIUM 140 mEQ/L (135-145)
--- NOTE | 2016-12-04 08:25 | Pulmonology Progress Note ---
Assessment/Plan Assessment/Plan IMPRESSION: 1. Urinary tract infection. 2. Hypotension. 3. Septic shock. 4. Renal failure. 5. Hyperkalemia. 6. Chronic respiratory failure. 7. Pulmonary edema. 8. Previous cerebrovascular accident. 9. Diarrhea DISCUSSION: Continue vent AC mode. Continue dopamine Continue broad-spectrum antibiotics. Repeat morning laboratories for chemistries. Intravenous fluids to be given. 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 Continue enteral feedings Check stool for C. diff. Subjective Interval Events: having loose watery diarrhea; more awake and responsive; stiiol on dopamine Constitutional: Reports: no symptoms HEENT: Repors: no symptoms Respiratory: Reports: no symptoms Cardiovascular: Reports: no symptoms Gastrointestinal/Abdominal: Reports: diarrhea Genitourinary: Reports: no symptoms Neurologic: Reports: no symptoms Allergies: Coded Allergies: AMPICILLIN (Verified Allergy, Unknown, 03/04/11) ASPIRIN (Verified Allergy, Unknown, 03/04/11) PENICILLIN (Unverified Allergy, Unknown, 02/14/15) PENICILLINS (Verified Allergy, Unknown, 09/18/11) TRIFLUOPERAZINE (Verified Allergy, Unknown, 03/04/11) Objective Last 24 Hour Vital Signs Date Time Temp Pulse Resp B/P Pulse Ox O2 Delivery O2 Flow Rate FiO2 12/04/16 07:48 80 14 100 Mechanical Ventilator 40 12/04/16 07:33 83 14 40 12/04/16 07:33 85 14 100 Mechanical Ventilator 40 12/04/16 07:33 40 12/04/16 07:00 117/44 12/04/16 07:00 88 17 117/44 100 Mechanical Ventilator 50 12/04/16 06:30 87 26 118/48 100 Mechanical Ventilator 50 12/04/16 06:05 120/45 12/04/16 06:00 95 32 120/45 100 Mechanical Ventilator 50 12/04/16 05:30 93 22 111/37 100 Mechanical Ventilator 50 12/04/16 05:05 105 14 50 12/04/16 05:04 116/43 12/04/16 05:00 90 14 116/43 100 Mechanical Ventilator 50 12/04/16 04:30 88 16 119/46 100 Mechanical Ventilator 50 12/04/16 04:00 98.9 89 17 109/67 100 Mechanical Ventilator 50 12/04/16 04:00 109/67 12/04/16 04:00 98 12/04/16 04:00 50 12/04/16 03:52 118/46 12/04/16 03:30 95 16 114/49 100 Mechanical Ventilator 50 12/04/16 03:00 114/49 12/04/16 03:00 89 16 117/43 100 Mechanical Ventilator 50 12/04/16 02:50 85 14 50 12/04/16 02:30 97 16 109/56 100 Mechanical Ventilator 50 12/04/16 02:00 88 16 113/49 100 Mechanical Ventilator 50 12/04/16 02:00 113/49 12/04/16 01:30 90 17 112/41 100 Mechanical Ventilator 50 12/04/16 01:08 95 14 100 Mechanical Ventilator 50 12/04/16 01:00 93 14 50 12/04/16 01:00 89 16 109/42 100 Mechanical Ventilator 50 12/04/16 01:00 109/42 12/04/16 01:00 93 14 100 Mechanical Ventilator 50 12/04/16 00:30 90 16 111/47 100 Mechanical Ventilator 50 12/04/16 00:04 113/57 12/04/16 00:00 50 12/04/16 00:00 98.9 98 17 113/57 100 Mechanical Ventilator 50 12/04/16 00:00 98 12/03/16 23:30 104 16 119/48 100 Mechanical Ventilator 50 12/03/16 23:00 98 14 50 12/03/16 23:00 118/95 12/03/16 23:00 101 15 118/95 100 Mechanical Ventilator 50 12/03/16 22:30 103 15 117/51 100 Mechanical Ventilator 50 12/03/16 22:00 102 19 102/59 100 Mechanical Ventilator 50 12/03/16 22:00 102/59 12/03/16 21:30 98 23 130/106 100 Mechanical Ventilator 50 12/03/16 21:00 134/45 12/03/16 21:00 101 18 134/45 100 Mechanical Ventilator 50 12/03/16 20:38 96 14 50 12/03/16 20:30 93 16 109/43 100 Mechanical Ventilator 50 12/03/16 20:00 98 12/03/16 20:00 50 12/03/16 20:00 125/84 12/03/16 20:00 99.6 98 14 115/39 100 Mechanical Ventilator 50 617 19:30 97 14 125/44 100 Mechanical Ventilator 50 17 19:15 104 20 100 Mechanical Ventilator 50 6/3/17 19:07 104 20 100 Mechanical Ventilator 50 63/17 19:06 104 14 50 6/3/17 19:00 107 20 126/47 100 Mechanical Ventilator 50 3/17 19:00 126/47 17 18:30 110 20 110/44 100 Mechanical Ventilator 50 17 18:00 116/51 6/17 18:00 112 20 116/51 100 Mechanical Ventilator 50 12/03/17 17:45 112 20 116/51 100 Mechanical Ventilator 50 12/03/17 17:30 114 20 118/45 100 Mechanical Ventilator 50 12/03/17 17:15 110 20 119/50 100 Mechanical Ventilator 50 12/03/17 17:00 120/43 12/03/16 17:00 112 20 120/43 100 Mechanical Ventilator 50 12/03/16 16:48 122 20 50 12/03/16 16:45 124 20 121/41 100 Mechanical Ventilator 50 12/03/16 16:30 119 20 114/51 100 Mechanical Ventilator 50 12/03/16 16:15 124 20 122/48 100 Mechanical Ventilator 50 12/03/16 16:00 99.4 127 20 121/52 100 Mechanical Ventilator 50 12/03/16 16:00 121/52 12/03/16 16:00 50 12/03/16 15:45 121 20 111/55 100 Mechanical Ventilator 50 12/03/16 15:30 121 20 115/52 100 Mechanical Ventilator 50 17 15:15 122 20 121/52 100 Mechanical Ventilator 50 17 15:14 114 20 50 3/17 15:00 111 3/17 15:00 119 20 111/50 100 Mechanical Ventilator 50 12/03/16 15:00 111/50 3/17 14:45 115 20 112/54 100 Mechanical Ventilator 50 12/03/17 14:30 114 20 119/60 100 Mechanical Ventilator 50 3/17 14:15 116 20 113/47 100 Mechanical Ventilator 50 63/17 14:00 115/46 617 14:00 113 20 115/46 100 Mechanical Ventilator 50 12/03/16 13:56 110/49 6 13:45 107 20 119/42 100 Mechanical Ventilator 50 12/03/16 13:30 106 20 110/49 100 Mechanical Ventilator 50 12/03/16 13:22 101 20 100 Mechanical Ventilator 50 12/03/ 13:18 108 20 50 6//17 13:15 106 20 108/44 100 Mechanical Ventilator 50 12/03/ 13:10 108 20 100 Mechanical Ventilator 50 12/03/16 13:00 110 20 105/52 100 Mechanical Ventilator 50 12/03/16 13:00 110/49 12/03/16 12:45 109 20 104/53 100 Mechanical Ventilator 50 12/03/16 12:30 106 20 108/49 100 Mechanical Ventilator 50 12/03/16 12:15 105 20 93/69 100 Mechanical Ventilator 50 12/03/16 12:00 99.1 111 20 110/46 100 Mechanical Ventilator 50 12/03/16 12:00 123 12/03/16 12:00 50 12/03/16 11:45 109 20 116/89 100 Mechanical Ventilator 50 12/03/16 11:43 108/48 12/03/16 11:30 108 20 127/50 100 Mechanical Ventilator 50 12/03/16 11:21 98 20 50 12/03/16 11:15 108 20 108/48 100 Mechanical Ventilator 50 12/03/16 11:00 105 20 121/48 100 Mechanical Ventilator 50 12/03/16 11:00 121/48 12/03/16 10:45 104 22 110/47 100 Mechanical Ventilator 50 12/03/16 10:30 102 21 113/57 100 Mechanical Ventilator 50 12/03/16 10:15 110 20 107/52 100 Mechanical Ventilator 50 12/03/16 10:00 116/92 12/03/16 10:00 113 21 79/62 100 Mechanical Ventilator 50 12/03/ 09:45 108 21 116/92 100 Mechanical Ventilator 50 12/03/16 09:30 109 20 109/51 100 Mechanical Ventilator 50 12/03/16 09:20 111 19 50 12/03/ 09:15 110 17 113/46 100 Mechanical Ventilator 50 12/03/16 09:00 108 20 102/45 100 Mechanical Ventilator 50 12/03/16 09:00 102/47 12/03/16 08:45 108 18 97/44 100 Mechanical Ventilator 50 12/03/16 08:30 109 20 95/44 100 Mechanical Ventilator 50 Intake and Output 12/03/16 12/04/16 19:00 07:00 Intake Total 1113.65 ml 1665.15 ml Output Total 745 ml 580 ml Balance 368.65 ml 1085.15 ml Intake IV Total 1033.65 ml 1395.15 ml Tube Feeding 80 ml 270 ml Output Urine Total 745 ml 580 ml # Bowel Movements 3 General Appearance: no acute distress HEENT: normocephalic, status post trach Respiratory/Chest: chest wall non-tender, lungs clear Cardiovascular: normal peripheral pulses Abdomen: normal bowel sounds, soft, non tender Extremities: no cyanosis Microbiology Date/Time Source Procedure Growth Status 12/02/16 23:25 Blood Blood Culture - Preliminary NO GROWTH AFTER 24 HOURS Resulted 12/02/16 23:05 Blood Blood Culture - Preliminary NO GROWTH AFTER 24 HOURS Resulted 12/03/16 11:30 Indwelling Cath Urine Culture - Preliminary Resulted 12/02/16 23:50 Urine,Clean Catch Urine Culture - Preliminary Mixed Gram Positive Organism Resulted Laboratory Tests 12/03/16 12:30: Sodium Level 140, Potassium Level 4.9, Chloride Level 100, Carbon Dioxide Level 27, Anion Gap 13, Blood Urea Nitrogen 45H, Creatinine 1.5H, Estimat Glomerular Filtration Rate , Glucose Level 96, Calcium Level 9.0 12/04/16 04:40: Sodium Level 140, Potassium Level 4.4, Chloride Level 103, Carbon Dioxide Level 25, Anion Gap 12, Blood Urea Nitrogen 42H, Creatinine 1.2H, Estimat Glomerular Filtration Rate , Glucose Level 114H, Calcium Level 8.6, White Blood Count 5.7, Red Blood Count 2.96L, Hemoglobin 8.3L, Hematocrit 26.1L, Mean Corpuscular Volume 88, Mean Corpuscular Hemoglobin 27.9, Mean Corpuscular Hemoglobin Concent 31.6L, Red Cell Distribution Width 15.7H, Platelet Count 145L, Mean Platelet Volume 7.1, Neutrophils (%) (Auto) 76.9H, Lymphocytes (%) (Auto) 7.4L, Monocytes (%) (Auto) 9.9, Eosinophils (%) (Auto) 5.1H, Basophils (%) (Auto) 0.7 Current Medications Medications (Trade) Dose Ordered Sig/Joey Route PRN Reason Start Time Stop Time Status Last Admin Dose Admin Acetaminophen (Tylenol) 650 mg Q4H PRN ORAL Mild Pain (Pain Scale 1-3) 12/03/16 08:45 01/02/17 08:44 Albuterol/ Ipratropium 3 ml 3 ml Q6HRT HHN 12/03/16 13:00 12/08/16 12:59 12/04/16 07:33 Aztreonam 1 gm/ Dextrose 55 ml @ 110 mls/hr Q6HR IVPB 12/03/16 12:00 12/10/16 11:59 12/04/16 06:05 Chlorhexidine Gluconate (Ginger-Hex 2%) 1 applic DAILY TOPIC 12/04/16 09:00 01/03/17 08:59 12/04/16 04:30 Dextrose STAT PRN IV Hypoglycemia 12/03/16 08:45 01/02/17 08:44 Dopamine HCl/ Dextrose (DOPamine 400mg/ 250ml) 250 ml @ 0 mls/hr Q24H IV 12/03/16 10:00 01/02/17 09:59 12/04/16 03:52 Levofloxacin (Levaquin 750mg/ D5W) 150 ml @ 150 mls/hr Q48H IVPB 12/04/16 05:00 12/11/16 04:59 12/04/16 05:04 Lorazepam (Ativan 2mg/ml 1ml) 0.5 mg Q4H PRN IV For Anxiety 12/03/16 08:45 12/10/16 08:44 Ondansetron HCl (Zofran) 4 mg Q6H PRN IVP Nausea & Vomiting 12/03/16 08:45 01/02/17 08:44 Pantoprazole (Protonix) 40 mg DAILY IV 12/03/16 09:00 01/02/17 08:59 12/03/16 11:41 Sodium Chloride (Sodium Chloride 1000ml bag) 1,000 ml @ 100 mls/hr Q10H IVLG 12/03/16 09:40 01/02/17 09:39 12/04/16 07:00 Haris Ruby MD Dec 04, 2016 08:25
[2016-12-04] MEDS: Pantoprazole Inj IV SCH (08:49)
[2016-12-04] MEDS ORDERED: Dyna-Hex 2% Top Sol 8oz TOPIC SCH (09:00)
[2016-12-04] MEDS: metroNIDAZOLE 500mg 100 ML IVPB SCH ×3 (11:17→23:00)
[2016-12-04] MEDS: Vancomycin 1gm/D5W 275ml IVPB SCH ×2 (14:14)
[2016-12-04] MEDS ORDERED: Tubing IV Secondary IV ONE (15:39)
--- NOTE | 2016-12-04 17:48 | Consultation ---
History of Present Illness General Chief Complaint: Dyspnea/Respdistress Referring physician: Flori Reason for Consultation: ARF,Hyperkalemia Present Illness HPI This is a 76-year-old female, subacute resident with a PMHx significant for cardiac arrhythmias, hypertension, anemia, chronic tracheostomy and vent dependence, found to have shortness of breath. She was noted to have decreased volumes and secretions. Pt is unable to give any health related information. Therefore, the history is obtained from the medical records.The patient is Full Code. Consult is requested due to elevated BUN/cr and hyperkalemia which is corrected at this time. Allergies: Coded Allergies: AMPICILLIN (Verified Allergy, Unknown, 03/04/11) ASPIRIN (Verified Allergy, Unknown, 03/04/11) PENICILLIN (Unverified Allergy, Unknown, 02/14/15) PENICILLINS (Verified Allergy, Unknown, 09/18/11) TRIFLUOPERAZINE (Verified Allergy, Unknown, 03/04/11) Medication History Scheduled Ascorbic Acid* (Vitamin C*), 500 MG GT DAILY, (Reported) Digoxin* (Digoxin*), 0.125 MG GT DAILY, (Reported) Diltiazem HCl (Diltiazem 12Hr ER), 120 MG ORAL EVERY 12 HOURS, (Reported) Docusate Sodium (Docusate Sodium), 100 MG GT DAILY, (Reported) Ferrous Sulfate* (Ferrous Sulfate*), 330 MG GT DAILY, (Reported) Lorazepam* (Lorazepam*), 0.5 MG GT Q4HR, (Reported) Metoprolol Tartrate (Metoprolol Tartrate), 25 MG ORAL Q12HR Multivit-Min/Iron Fum/Folic AC (Gxabx-Ejijqag-Jkjffujw Tablet), 1 EACH PEG DAILY , (Reported) Protein Supplement (Promod), 30 ML GT DAILY, (Reported) Saccharomyces Boulardii (Florastor*), 250 MG GT DAILY, (Reported) Zinc Sulfate (Zinc Sulfate*), 220 MG GT DAILY, (Reported) Zinc Sulfate (Zinc Sulfate*), 220 MG GT DAILY, (Reported) Scheduled PRN Acetaminophen* (Tylenol*), 650 MG GT Q4HR PRN for Mild Pain/Temp > 100.5, ( Reported) Albuterol Sulfate* (Albuterol Sulfate Hhn*), 3 ML INH Q6H PRN for Shortness of Breath, (Reported) Bisacodyl (Dulcolax), 10 MG RC PRN PRN for Constipation, (Reported) Hydrocodone Bit/Acetaminophen 5-325* ([place]fside 5-325 Tablet*), 1 TAB GT BEDTIME PRN for For Pain, (Reported) Hydrocodone Bit/Acetaminophen 5-325* (Surf[place] 5-325 Tablet*), 1 TAB GT PRIOR TO DRESSING CH PRN for For Pain, (Reported) Magnesium Hydroxide (Milk of Magnesia), 30 ML GT DAILY PRN for Constipation, ( Reported) Na Phos,M-B/Na Phos,Di-Ba (Fleet Enema), 118 ML RC PRN PRN for Constipation, ( Reported) Patient History Healthcare decision maker Resuscitation status Full Code Advanced Directive on File No Past Medical/Surgical History Past Medical/Surgical History: (1) Nosocomial pneumonia (2) C. difficile colitis (3) Renal failure (ARF), acute on chronic (4) Ileus (5) Colitis (6) COPD (chronic obstructive pulmonary disease) with acute bronchitis (7) History of CVA (cerebrovascular accident) (8) Hypertension (9) Anemia Social History Social History: (1) Non-smoker (2) No illicit drug use (3) No history of alcohol use Review of Systems ROS Narrative Unobtainable due to pt's mental status Physical Exam General Appearance: no apparent distress Lines, tubes and drains: gtube HEENT: normocephalic Neck: trach Respiratory/Chest: decreased breath sounds Cardiovascular/Chest: no JVD Abdomen: feeding tube Genitourinary/Rectal: valero Neurologic: motor weakness Last 24 Hour Vital Signs Date Time Temp Pulse Resp B/P Pulse Ox O2 Delivery O2 Flow Rate FiO2 12/04/16 16:00 50 12/04/16 16:00 99.0 100 20 132/48 97 Mechanical Ventilator 50 12/04/16 16:00 98 12/04/16 15:24 102 15 40 12/04/16 15:00 112 15 131/45 97 Mechanical Ventilator 50 12/04/16 14:00 100 14 134/54 100 Mechanical Ventilator 50 12/04/16 13:44 98 14 100 Mechanical Ventilator 40 12/04/16 13:29 40 12/04/16 13:29 95 14 100 Mechanical Ventilator 60 12/04/16 13:28 97 14 40 12/04/16 13:00 100 23 134/54 100 Mechanical Ventilator 60 12/04/16 12:00 60 12/04/16 12:00 128 12/04/16 12:00 98.6 108 14 138/62 100 Mechanical Ventilator 60 12/04/16 11:16 102 14 40 12/04/16 11:00 99 33 139/78 91 Mechanical Ventilator 40 12/04/16 10:00 104 35 140/76 94 Mechanical Ventilator 40 12/04/16 09:15 101 26 112/70 91 Mechanical Ventilator 40 12/04/16 09:00 103 26 138/56 92 Mechanical Ventilator 40 12/04/16 09:00 138/75 12/04/16 08:52 93 21 40 12/04/16 08:45 96 22 131/66 95 Mechanical Ventilator 40 12/04/16 08:30 94 26 126/54 93 Mechanical Ventilator 40 12/04/16 08:15 98 27 103/72 90 Mechanical Ventilator 40 12/04/16 08:00 98.8 87 24 105/41 94 Mechanical Ventilator 40 12/04/16 08:00 40 12/04/16 08:00 105/41 12/04/16 08:00 88 12/04/16 07:48 80 14 100 Mechanical Ventilator 40 12/04/16 07:33 83 14 40 12/04/16 07:33 85 14 100 Mechanical Ventilator 40 12/04/16 07:33 40 12/04/16 07:30 86 17 111/40 100 Mechanical Ventilator 50 12/04/16 07:00 117/44 12/04/16 07:00 88 17 117/44 100 Mechanical Ventilator 50 12/04/16 06:30 87 26 118/48 100 Mechanical Ventilator 50 12/04/16 06:05 120/45 12/04/16 06:00 95 32 120/45 100 Mechanical Ventilator 50 12/04/16 05:30 93 22 111/37 100 Mechanical Ventilator 50 12/04/16 05:05 105 14 50 12/04/16 05:04 116/43 12/04/16 05:00 90 14 116/43 100 Mechanical Ventilator 50 12/04/16 04:30 88 16 119/46 100 Mechanical Ventilator 50 12/04/16 04:00 98.9 89 17 109/67 100 Mechanical Ventilator 50 12/04/16 04:00 109/67 12/04/16 04:00 98 12/04/16 04:00 50 12/04/16 03:52 118/46 12/04/16 03:30 95 16 114/49 100 Mechanical Ventilator 50 12/04/16 03:00 114/49 12/04/16 03:00 89 16 117/43 100 Mechanical Ventilator 50 12/04/16 02:50 85 14 50 12/04/16 02:30 97 16 109/56 100 Mechanical Ventilator 50 12/04/16 02:00 88 16 113/49 100 Mechanical Ventilator 50 12/04/16 02:00 113/49 12/04/16 01:30 90 17 112/41 100 Mechanical Ventilator 50 12/04/16 01:08 95 14 100 Mechanical Ventilator 50 12/04/16 01:00 93 14 50 12/04/16 01:00 89 16 109/42 100 Mechanical Ventilator 50 12/04/16 01:00 109/42 12/04/16 01:00 93 14 100 Mechanical Ventilator 50 12/04/16 00:30 90 16 111/47 100 Mechanical Ventilator 50 12/04/16 00:04 113/57 12/04/16 00:00 50 12/04/16 00:00 98.9 98 17 113/57 100 Mechanical Ventilator 50 12/04/16 00:00 98 12/03/16 23:30 104 16 119/48 100 Mechanical Ventilator 50 12/03/16 23:00 98 14 50 12/03/16 23:00 118/95 12/03/16 23:00 101 15 118/95 100 Mechanical Ventilator 50 12/03/16 22:30 103 15 117/51 100 Mechanical Ventilator 50 12/03/16 22:00 102 19 102/59 100 Mechanical Ventilator 50 12/03/16 22:00 102/59 12/03/16 21:30 98 23 130/106 100 Mechanical Ventilator 50 12/03/16 21:00 134/45 12/03/16 21:00 101 18 134/45 100 Mechanical Ventilator 50 12/03/16 20:38 96 14 50 12/03/16 20:30 93 16 109/43 100 Mechanical Ventilator 50 12/03/16 20:00 98 12/03/16 20:00 50 12/03/16 20:00 125/84 12/03/16 20:00 99.6 98 14 115/39 100 Mechanical Ventilator 50 12/03/16 19:30 97 14 125/44 100 Mechanical Ventilator 50 12/03/16 19:15 104 20 100 Mechanical Ventilator 50 12/03/16 19:07 104 20 100 Mechanical Ventilator 50 12/03/16 19:06 104 14 50 12/03/16 19:00 107 20 126/47 100 Mechanical Ventilator 50 12/03/16 19:00 126/47 12/03/16 18:30 110 20 110/44 100 Mechanical Ventilator 50 12/03/16 18:00 116/51 12/03/16 18:00 112 20 116/51 100 Mechanical Ventilator 50 12/03/16 17:45 112 20 116/51 100 Mechanical Ventilator 50 Intake and Output 12/03/16 12/04/16 19:00 07:00 Intake Total 1113.65 ml 1665.15 ml Output Total 745 ml 580 ml Balance 368.65 ml 1085.15 ml IV Total 1033.65 ml 1395.15 ml Tube Feeding 80 ml 270 ml Output Urine Total 745 ml 580 ml # Bowel Movements 3 Laboratory Tests Test 12/04/16 04:40 White Blood Count 5.7 K/UL (4.8-10.8) Red Blood Count 2.96 M/UL (4.20-5.40) L Hemoglobin 8.3 G/DL (12.0-16.0) L Hematocrit 26.1 % (37.0-47.0) L Mean Corpuscular Volume 88 FL (80-99) Mean Corpuscular Hemoglobin 27.9 PG (27.0-31.0) Mean Corpuscular Hemoglobin Concent 31.6 G/DL (32.0-36.0) L Red Cell Distribution Width 15.7 % (11.6-14.8) H Platelet Count 145 K/UL (150-450) L Mean Platelet Volume 7.1 FL (6.5-10.1) Neutrophils (%) (Auto) 76.9 % (45.0-75.0) H Lymphocytes (%) (Auto) 7.4 % (20.0-45.0) L Monocytes (%) (Auto) 9.9 % (1.0-10.0) Eosinophils (%) (Auto) 5.1 % (0.0-3.0) H Basophils (%) (Auto) 0.7 % (0.0-2.0) Sodium Level 140 mEQ/L (135-145) Potassium Level 4.4 mEQ/L (3.4-4.9) Chloride Level 103 mEQ/L (98-107) Carbon Dioxide Level 25 mEQ/L (20-30) Anion Gap 12 (5-15) Blood Urea Nitrogen 42 mg/dL (7-23) H Creatinine 1.2 mg/dL (0.5-0.9) H Estimat Glomerular Filtration Rate mL/min (>60) Glucose Level 114 mg/dL (74-106) H Calcium Level 8.6 mg/dL (8.6-10.2) Microbiology Date/Time Source Procedure Growth Status 12/04/16 04:40 Stool Clostridium difficile Toxin Assay - Final Complete Height (Feet): 5 Height (Inches): 3.00 Weight (Pounds): 145 Medications Current Medications Medications (Trade) Dose Ordered Sig/Joey Route PRN Reason Start Time Stop Time Status Last Admin Dose Admin Acetaminophen (Tylenol) 650 mg Q4H PRN ORAL Mild Pain (Pain Scale 1-3) 12/03/16 08:45 01/02/17 08:44 Albuterol/ Ipratropium 3 ml 3 ml Q6HRT HHN 12/03/16 13:00 12/08/16 12:59 12/04/16 13:28 Aztreonam 1 gm/ Dextrose 55 ml @ 110 mls/hr Q6HR IVPB 12/03/16 12:00 12/10/16 11:59 12/04/16 12:42 Chlorhexidine Gluconate 1 applic 1 applic DAILY TOPIC 12/05/16 09:00 01/04/17 08:59 Dextrose STAT PRN IV Hypoglycemia 12/03/16 08:45 01/02/17 08:44 Dopamine HCl/ Dextrose (DOPamine 400mg/ 250ml) 250 ml @ 0 mls/hr Q24H IV 12/03/16 10:00 01/02/17 09:59 12/04/16 03:52 Heparin Sodium/ Sodium Chloride (Heparin 2000 units/Ns 1000ml premix) 2,000 unit ONCE PRN INJ PRN PICC LINE PLACEMENT 12/05/16 06:00 12/05/16 18:00 Levofloxacin (Levaquin 750mg/ D5W) 150 ml @ 150 mls/hr Q48H IVPB 12/04/16 05:00 12/11/16 04:59 12/04/16 05:04 Lidocaine HCl (Xylocaine 1% 30ml) 30 ml ONCE PRN INJ PRN PICC LINE PLACEMENT 12/05/16 06:00 12/05/16 18:00 Lorazepam (Ativan 2mg/ml 1ml) 0.5 mg Q4H PRN IV For Anxiety 12/03/16 08:45 12/10/16 08:44 Metronidazole (Flagyl) 100 ml @ 100 mls/hr Q8HR IVPB 12/04/16 11:00 12/11/16 10:59 12/04/16 16:54 Ondansetron HCl (Zofran) 4 mg Q6H PRN IVP Nausea & Vomiting 12/03/16 08:45 01/02/17 08:44 Pantoprazole (Protonix) 40 mg DAILY IV 12/03/16 09:00 01/02/17 08:59 12/04/16 08:49 Sodium Bicarbonate (Sodium Bicarbonate 4%) 1 ml ONCE PRN INJ PRN PICC LINE PLACEMENT 12/05/16 06:00 12/05/16 18:00 Sodium Chloride (Sodium Chloride 1000ml bag) 1,000 ml @ 100 mls/hr Q10H IVLG 12/03/16 09:40 01/02/17 09:39 12/04/16 15:42 Vancomycin HCl 1 ea 1 ea DAILY PRN MISC Per rx protocol 12/04/16 12:00 01/03/17 11:59 Vancomycin HCl/ Dextrose (Vancomycin/D5W) 275 ml @ 183.708 mls/hr Q24H IVPB 12/04/16 14:00 12/09/16 13:59 12/04/16 14:14 Assessment/Plan Problem List: (1) Dysphagia ICD Codes: R13.10 - Dysphagia, unspecified SNOMED: 98798714, 556776684 (2) Renal failure (ARF), acute on chronic ICD Codes: N17.9 - Acute kidney failure, unspecified; N18.9 - Chronic kidney disease, unspecified SNOMED: 630112381 (3) Hyperkalemia ICD Codes: E87.5 - Hyperkalemia SNOMED: 02072868 (4) Ventilator dependence ICD Codes: Z99.11 - Dependence on respirator [ventilator] status SNOMED: 286479603 (5) Respiratory failure, acute and chronic ICD Codes: J96.20 - Acute and chronic respiratory failure, unspecified whether with hypoxia or hypercapnia SNOMED: 94999394, 32134220 Assessment/Plan Monitor renal function Monitor lytes, correct as needed Continue IVF Avoid nephrotoxic agents Continue abx Wound care Continue vent AC. Continue dopamine Continue neb treatments GI and DVT prophylaxis. Continue enteral feedings Alvina Silverio N.P. Dec 04, 2016 17:48
--- NOTE | 2016-12-04 18:15 | Consultation ---
DATE OF CONSULTATION: 12/04/2016 This consult is for coverage for Dr. Madison. CONSULTING PHYSICIAN: Ernesto Flannery M.D. PRIMARY ATTENDING: Haris Ruby M.D. REASON FOR CONSULTATION: UTI, sepsis, septic shock, and COPD. HISTORY OF PRESENT ILLNESS: This 76-year-old female admitted yesterday from custodial facility because of shortness of breath. The patient was already on mechanical ventilator. She has increased secretion. She had a fever of 100.9 at the time of admission. Blood gas showed hypercapnia. The patient was on pressor that was discontinued in the morning. She is in the ICU, not a source of history. PAST MEDICAL HISTORY: Significant for ventilatory dependent respiratory failure, COPD, history of G-tube placement, and anemia. ALLERGIES: Allergic to ampicillin, aspirin, penicillins, and trifluoperazine. MEDICATIONS: Getting Flagyl, sodium bicarbonate, lidocaine, Levaquin, DuoNeb inhaler, aztreonam, dopamine that was discontinued, sodium chloride, Tylenol, Zofran, and lorazepam. REVIEW OF SYSTEMS: Unobtainable, but the patient developed diarrhea, had three bowel movements today. PHYSICAL EXAMINATION: VITAL SIGNS: Temperature is 98.9, pulse 93, and blood pressure is 117/44. GENERAL APPEARANCE: Awake. Has tremor. HEAD AND NECK: Status post tracheostomy. HEART: Regular. LUNGS: Clear, on mechanical ventilator. ABDOMEN: Soft. G-tube in place. EXTREMITIES: The patient has bilateral sequential compression devices of legs. LINES: The patient has right subclavian central line. LABORATORY AND DIAGNOSTIC DATA: Sodium 140, potassium 4.4, chloride 103, bicarbonate 25, BUN 42, and creatinine 1.2. Creatinine at the time of admission was 1.6 and potassium was 6 at the time of admission. WBC 5.7, hemoglobin 8.3, hematocrit 26.1, and platelets 145,000. Urinalysis showed WBC of 40 to 60, leukocyte esterase trace to 3+. BNP was elevated at 21,916. Chest x-ray showed COPD and CHF. Blood gas showed PCO2 60.9, PO2 of 340, and O2 saturation 99.5%. IMPRESSION: 1. Sepsis with septic shock, currently the patient is off the pressor. Source may be urinary tract infection. The patient has pyuria. 2. The patient has chronic obstructive pulmonary disease, likely with exacerbation. 3. She has ventilatory-dependent respiratory failure. 4. She has acute renal failure that is improving. 5. She has anemia. 6. She has diarrhea. RECOMMENDATION: We will continue with Flagyl, Levaquin and Azactam for now. We will follow the culture now. Antibiotic. We will follow up the C. diff test. At the end of my exam, I thank Dr. Ruby for involving me in the care of this patient. Ernesto Flannery M.D. DR: WILLIAM JOB#: [id number] CC:
[2016-12-05] VITALS (22 sets, daily range): BP systolic 92–136; BP diastolic 37–67
[2016-12-05] MEDS: Aztreonam 1gm in D5W 55ml IVPB SCH ×4 (00:04→17:31)
[2016-12-05] MEDS: DuoNeb 0.5-3(2.5)mg/3ml neb HHN SCH ×4 (01:38→20:11)
[2016-12-05] MEDS ORDERED: Sodium Bicarbonate 4% 2.4meq/5ml vial INJ PRN (06:00)
[2016-12-05] MEDS ORDERED: Heparin 2000 units/Ns 1000ml INJ PRN (06:00)
[2016-12-05] MEDS ORDERED: Lidocaine 1% Plain 30 ml INJ PRN (06:00)
[2016-12-05 06:10] LABS: MEAN CORPUSCULAR HEMOGLOBIN 27.3 PG (27.0-31.0); MEAN CORPUSCULAR HGB CONC 30.3 G/DL (32.0-36.0); MEAN CORPUSCULAR VOLUME 90 FL (80-99); MEAN PLATELET VOLUME 8.1 FL (6.5-10.1); PLATELET COUNT 169 K/UL (150-450); RED BLOOD COUNT 2.89 M/UL (4.20-5.40); RED CELL DISTRIBUTION WIDTH 16.3 % (11.6-14.8)
[2016-12-05] MEDS: metroNIDAZOLE 500mg 100 ML IVPB SCH (06:19)
[2016-12-05 06:24] LABS: ANION GAP 10 (5-15); CALCIUM 8.5 mg/dL (8.6-10.2); CARBON DIOXIDE 27 mEQ/L (20-30); CHLORIDE 106 mEQ/L (98-107); HEMOLYSIS 1; POTASSIUM 4.1 mEQ/L (3.4-4.9); SODIUM 143 mEQ/L (135-145)
[2016-12-05] MEDS: Pantoprazole Inj IV SCH (08:27)
[2016-12-05] MEDS ORDERED: Dyna-Hex 2% Top Sol 8oz TOPIC SCH (09:00)
[2016-12-05 09:59] LABS: ANISOCYTOSIS 1+; BAND NEUTROPHILS % (MANUAL) 0 % (0-8); BASOPHILS % (MANUAL) 0 % (0-2); EOSINOPHILS % (MANUAL) 5 % (0-3); HYPOCHROMASIA 1+; LYMPHOCYTES % (MANUAL) 5 % (20-45); NEUTROPHILS % (MANUAL) 82 % (45-75); PLATELET ESTIMATE ADEQUATE; PLATELET MORPHOLOGY NORMAL; TOTAL CELLS COUNTED 100
[2016-12-05] MEDS: DOPamine 400mg/250ml 250 ML IV SCH (10:00)
--- NOTE | 2016-12-05 10:22 | Pulmonology Progress Note ---
Assessment/Plan Assessment/Plan IMPRESSION: 1. Urinary tract infection. 2. Hypotension. 3. Septic shock. 4. Renal failure. 5. Hyperkalemia. 6. Chronic respiratory failure. 7. Pulmonary edema. 8. Previous cerebrovascular accident. 9. Diarrhea 10. Anemia DISCUSSION: Continue vent AC mode. Off dopamine Continue broad-spectrum antibiotics. Repeat morning laboratories for chemistries. Intravenous fluids to be given. I will follow as hospital administrative assistant Continue respiratory treatments, pulmonary hygiene, and GI and DVT prophylaxis. Continue enteral feedings Check stool for C. diff Consider prbc transfusion. Subjective Interval Events: Doing better; off dopamine, seen by nephrology and ID Constitutional: Reports: no symptoms HEENT: Repors: no symptoms Respiratory: Reports: no symptoms Cardiovascular: Reports: no symptoms Gastrointestinal/Abdominal: Reports: diarrhea Genitourinary: Reports: no symptoms Neurologic: Reports: no symptoms Psychiatric: Reports: no symptoms Allergies: Coded Allergies: AMPICILLIN (Verified Allergy, Unknown, 03/04/11) ASPIRIN (Verified Allergy, Unknown, 03/04/11) PENICILLIN (Unverified Allergy, Unknown, 02/14/15) PENICILLINS (Verified Allergy, Unknown, 09/18/11) TRIFLUOPERAZINE (Verified Allergy, Unknown, 03/04/11) Objective Last 24 Hour Vital Signs Date Time Temp Pulse Resp B/P Pulse Ox O2 Delivery O2 Flow Rate FiO2 12/05/16 10:00 135/58 12/05/16 09:24 102 15 50 12/05/16 08:00 50 12/05/16 08:00 125 12/05/16 08:00 98.4 107 14 96/37 100 Mechanical Ventilator 50 12/05/16 07:34 115 14 97 Mechanical Ventilator 50 12/05/16 07:19 50 12/05/16 07:19 115 14 97 Mechanical Ventilator 50 12/05/16 07:19 117 14 50 12/05/16 07:00 111 20 127/44 100 Mechanical Ventilator 50 12/05/16 06:00 105 20 128/40 97 Mechanical Ventilator 50 12/05/16 05:07 117 15 50 12/05/16 05:00 114 20 114/58 98 Mechanical Ventilator 50 12/05/16 04:00 107 12/05/16 04:00 50 12/05/16 04:00 99.5 107 23 121/42 98 Mechanical Ventilator 50 6/5/17 03:24 97 15 50 6/5/17 03:00 106 20 126/52 97 Mechanical Ventilator 50 6/5/17 02:00 113 20 124/52 98 Mechanical Ventilator 50 6/5/17 01:53 118 15 100 Mechanical Ventilator 40 6/5/17 01:38 113 14 50 6/5/17 01:37 40 6/5/17 01:37 113 14 100 Mechanical Ventilator 60 6/5/17 01:00 110 24 130/49 98 Mechanical Ventilator 50 6/5/17 00:00 50 6/5/17 00:00 103 6/5/17 00:00 99.6 103 23 130/44 93 Mechanical Ventilator 50 6/4/17 23:32 101 15 50 6/4/17 23:00 118 20 130/49 98 Mechanical Ventilator 50 6//17 22:00 104 23 129/47 97 Mechanical Ventilator 50 6//17 21:30 100 15 50 6/4/17 21:00 105 33 129/47 97 Mechanical Ventilator 50 6/17 20:00 99.6 114 23 113/43 93 Mechanical Ventilator 50 6/ 20:00 40 6/4/17 20:00 104 6//17 19:57 120 14 100 Mechanical Ventilator 40 6/4/17 19:41 40 6/4/17 19:41 102 14 99 Mechanical Ventilator 60 6/17 19:41 40 6/4/17 19:40 100 15 50 6/4/17 19:00 105 19 115/53 97 Mechanical Ventilator 50 6//17 18:03 109 22 127/48 97 Mechanical Ventilator 50 6//17 17:14 111 14 50 6/4/17 17:00 106 20 126/49 98 Mechanical Ventilator 50 6/4/17 16:00 50 6/4/17 16:00 99.0 100 20 132/48 97 Mechanical Ventilator 50 6/4/17 16:00 98 6/4/17 15:24 102 15 40 6/4/17 15:00 112 15 131/45 97 Mechanical Ventilator 50 6/4/17 14:00 100 14 134/54 100 Mechanical Ventilator 50 6/4/17 13:44 98 14 100 Mechanical Ventilator 40 6/4/17 13:29 40 6/4/17 13:29 95 14 100 Mechanical Ventilator 60 6/4/17 13:28 97 14 40 6/4/17 13:00 100 23 134/54 100 Mechanical Ventilator 60 12/04/16 12:00 60 12/04/16 12:00 128 12/04/16 12:00 98.6 108 14 138/62 100 Mechanical Ventilator 60 12/04/16 11:16 102 14 40 12/04/16 11:00 99 33 139/78 91 Mechanical Ventilator 40 Intake and Output 12/04/16 12/05/16 19:00 07:00 Intake Total 2338.03 ml 1735 ml Output Total 385 ml 355 ml Balance 1953.03 ml 1380 ml Intake Free Water 100 ml IV Total 1738.03 ml 1255 ml Tube Feeding 470 ml 480 ml Other 30 ml Output Urine Total 360 ml 355 ml Other 25 ml # Bowel Movements 2 1 General Appearance: no acute distress HEENT: normocephalic Respiratory/Chest: chest wall non-tender, lungs clear Cardiovascular: normal peripheral pulses, normal rate Abdomen: normal bowel sounds, soft, non tender Microbiology Date/Time Source Procedure Growth Status 12/02/16 23:25 Blood Blood Culture - Preliminary Staphylococcus Sp Coag Neg Resulted 12/02/16 23:05 Blood Blood Culture - Preliminary Staphylococcus Sp Coag Neg Resulted 12/03/16 11:30 Sputum Induced Gram Stain - Final Resulted 12/03/16 11:30 Sputum Culture - Preliminary Gram Negative Bacillus 1 Gram Negative Bacillus 2 Resulted 12/04/16 04:40 Stool Clostridium difficile Toxin Assay - Final Complete 12/03/16 11:30 Indwelling Cath Urine Culture - Preliminary Gram Negative Bacillus 1 Resulted 12/02/16 23:50 Urine,Clean Catch Urine Culture - Preliminary Mixed Gram Positive Organism Gram Negative Bacillus 1 Resulted Laboratory Tests 12/05/16 04:00: White Blood Count 7.0, Red Blood Count 2.89L, Hemoglobin 7.9L, Hematocrit 26.0L , Mean Corpuscular Volume 90, Mean Corpuscular Hemoglobin 27.3, Mean Corpuscular Hemoglobin Concent 30.3L, Red Cell Distribution Width 16.3H, Platelet Count 169, Mean Platelet Volume 8.1, Neutrophils (%) (Auto) , Lymphocytes (%) (Auto) , Monocytes (%) (Auto) , Eosinophils (%) (Auto) , Basophils (%) (Auto) , Differential Total Cells Counted 100, Neutrophils % ( Manual) 82H, Lymphocytes % (Manual) 5L, Monocytes % (Manual) 8, Eosinophils % ( Manual) 5H, Basophils % (Manual) 0, Band Neutrophils 0, Platelet Estimate Adequate, Platelet Morphology Normal, Hypochromasia 1+, Anisocytosis 1+, Sodium Level 143, Potassium Level 4.1, Chloride Level 106, Carbon Dioxide Level 27, Anion Gap 10, Blood Urea Nitrogen 41H, Creatinine 1.0H, Estimat Glomerular Filtration Rate , Glucose Level 117H, Calcium Level 8.5L Current Medications Medications (Trade) Dose Ordered Sig/Joey Route PRN Reason Start Time Stop Time Status Last Admin Dose Admin Acetaminophen (Tylenol) 650 mg Q4H PRN ORAL Mild Pain (Pain Scale 1-3) 12/03/16 08:45 01/02/17 08:44 Albuterol/ Ipratropium 3 ml 3 ml Q6HRT HHN 12/03/16 13:00 12/08/16 12:59 12/05/16 07:18 Aztreonam 1 gm/ Dextrose 55 ml @ 110 mls/hr Q6HR IVPB 12/03/16 12:00 12/10/16 11:59 12/05/16 05:40 Chlorhexidine Gluconate 1 applic 1 applic DAILY TOPIC 12/05/16 09:00 01/04/17 08:59 12/05/16 04:00 Dextrose STAT PRN IV Hypoglycemia 12/03/16 08:45 01/02/17 08:44 Dopamine HCl/ Dextrose (DOPamine 400mg/ 250ml) 250 ml @ 0 mls/hr Q24H IV 12/03/16 10:00 01/02/17 09:59 12/04/16 03:52 Heparin Sodium/ Sodium Chloride (Heparin 2000 units/Ns 1000ml premix) 2,000 unit ONCE PRN INJ PRN PICC LINE PLACEMENT 12/05/16 06:00 12/05/16 18:00 Levofloxacin (Levaquin 750mg/ D5W) 150 ml @ 150 mls/hr Q48H IVPB 12/04/16 05:00 12/11/16 04:59 12/04/16 05:04 Lidocaine HCl (Xylocaine 1% 30ml) 30 ml ONCE PRN INJ PRN PICC LINE PLACEMENT 12/05/16 06:00 12/05/16 18:00 Lorazepam (Ativan 2mg/ml 1ml) 0.5 mg Q4H PRN IV For Anxiety 12/03/16 08:45 12/10/16 08:44 Metronidazole (Flagyl) 100 ml @ 100 mls/hr Q8HR IVPB 12/04/16 11:00 12/11/16 10:59 12/05/16 06:19 Ondansetron HCl (Zofran) 4 mg Q6H PRN IVP Nausea & Vomiting 12/03/16 08:45 01/02/17 08:44 Pantoprazole (Protonix) 40 mg DAILY IV 12/03/16 09:00 01/02/17 08:59 12/05/16 08:27 Sodium Bicarbonate (Sodium Bicarbonate 4%) 1 ml ONCE PRN INJ PRN PICC LINE PLACEMENT 12/05/16 06:00 12/05/16 18:00 Sodium Chloride (Sodium Chloride 1000ml bag) 1,000 ml @ 100 mls/hr Q10H IVLG 12/03/16 09:40 01/02/17 09:39 12/05/16 01:01 Vancomycin HCl 1 ea 1 ea DAILY PRN MISC Per rx protocol 12/04/16 12:00 01/03/17 11:59 Vancomycin HCl/ Dextrose (Vancomycin/D5W) 275 ml @ 183.708 mls/hr Q24H IVPB 12/04/16 14:00 12/09/16 13:59 12/04/16 14:14 Haris Ruby MD Dec 05, 2016 10:22
--- NOTE | 2016-12-05 11:57 | Infectious Diseases Prog Note ---
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 P: Continue Azactam & Vancomycin Discontinue Levaquin & Flagyl wound culture Abdominal US Subjective ROS Limited/Unobtainable: Yes Allergies: Coded Allergies: AMPICILLIN (Verified Allergy, Unknown, 03/04/11) ASPIRIN (Verified Allergy, Unknown, 03/04/11) PENICILLIN (Unverified Allergy, Unknown, 02/14/15) PENICILLINS (Verified Allergy, Unknown, 09/18/11) TRIFLUOPERAZINE (Verified Allergy, Unknown, 03/04/11) Objective Vital Signs Last 24 Hour Vital Signs Date Time Temp Pulse Resp B/P Pulse Ox O2 Delivery O2 Flow Rate FiO2 12/05/16 10:43 106 14 50 12/05/16 10:00 135/58 12/05/16 10:00 116 26 135/58 95 Mechanical Ventilator 50 12/05/16 09:24 102 15 50 12/05/16 09:00 113 15 132/47 97 Mechanical Ventilator 50 12/05/16 08:00 50 12/05/16 08:00 125 12/05/16 08:00 98.4 107 14 96/37 100 Mechanical Ventilator 50 12/05/16 07:34 115 14 97 Mechanical Ventilator 50 12/05/16 07:19 50 12/05/16 07:19 115 14 97 Mechanical Ventilator 50 12/05/16 07:19 117 14 50 12/05/16 07:00 111 20 127/44 100 Mechanical Ventilator 50 12/05/16 06:00 105 20 128/40 97 Mechanical Ventilator 50 12/05/16 05:07 117 15 50 12/05/16 05:00 114 20 114/58 98 Mechanical Ventilator 50 12/05/16 04:00 107 12/05/16 04:00 50 12/05/16 04:00 99.5 107 23 121/42 98 Mechanical Ventilator 50 12/05/16 03:24 97 15 50 12/05/16 03:00 106 20 126/52 97 Mechanical Ventilator 50 12/05/16 02:00 113 20 124/52 98 Mechanical Ventilator 50 12/05/16 01:53 118 15 100 Mechanical Ventilator 40 12/05/16 01:38 113 14 50 12/05/16 01:37 40 12/05/16 01:37 113 14 100 Mechanical Ventilator 60 12/05/16 01:00 110 24 130/49 98 Mechanical Ventilator 50 12/05/16 00:00 50 12/05/16 00:00 103 /11/16 00:00 99.6 103 23 130/44 93 Mechanical Ventilator 50 12/04/16 23:32 101 15 50 12/04/16 23:00 118 20 130/49 98 Mechanical Ventilator 50 12/04/16 22:00 104 23 129/47 97 Mechanical Ventilator 50 12/04/16 21:30 100 15 50 12/04/16 21:00 105 33 129/47 97 Mechanical Ventilator 50 12/04/16 20:00 99.6 114 23 113/43 93 Mechanical Ventilator 50 12/04/16 20:00 40 12/04/16 20:00 104 12/04/16 19:57 120 14 100 Mechanical Ventilator 40 12/04/16 19:41 40 12/04/16 19:41 102 14 99 Mechanical Ventilator 60 12/04/16 19:41 40 12/04/16 19:40 100 15 50 12/04/16 19:00 105 19 115/53 97 Mechanical Ventilator 50 12/04/16 18:03 109 22 127/48 97 Mechanical Ventilator 50 12/04/16 17:14 111 14 50 12/04/16 17:00 106 20 126/49 98 Mechanical Ventilator 50 12/04/16 16:00 50 12/04/16 16:00 99.0 100 20 132/48 97 Mechanical Ventilator 50 12/04/16 16:00 98 12/04/16 15:24 102 15 40 12/04/16 15:00 112 15 131/45 97 Mechanical Ventilator 50 12/04/16 14:00 100 14 134/54 100 Mechanical Ventilator 50 12/04/16 13:44 98 14 100 Mechanical Ventilator 40 12/04/16 13:29 40 12/04/16 13:29 95 14 100 Mechanical Ventilator 60 12/04/16 13:28 97 14 40 12/04/16 13:00 100 23 134/54 100 Mechanical Ventilator 60 12/04/16 12:00 60 12/04/16 12:00 128 12/04/16 12:00 98.6 108 14 138/62 100 Mechanical Ventilator 60 Height (Feet): 5 Height (Inches): 3.00 Weight (Pounds): 145 HEENT: status post trach Respiratory/Chest: other - on ventilator, few rhonchi Cardiovascular: tachycardia, other - R subclavian line Abdomen: distended, other - surgical zehra in LUQ, with erythema & discharge Neurologic/Psychiatric: alert, responsive Microbiology Date/Time Source Procedure Growth Status 12/02/16 23:25 Blood Blood Culture - Preliminary Staphylococcus Sp Coag Neg Resulted 12/02/16 23:05 Blood Blood Culture - Preliminary Staphylococcus Sp Coag Neg Resulted 12/03/16 11:30 Sputum Induced Gram Stain - Final Resulted 12/03/16 11:30 Sputum Culture - Preliminary Gram Negative Bacillus 1 Gram Negative Bacillus 2 Resulted 12/04/16 04:40 Stool Clostridium difficile Toxin Assay - Final Complete 12/03/16 11:30 Indwelling Cath Urine Culture - Preliminary Gram Negative Bacillus 1 Resulted 12/02/16 23:50 Urine,Clean Catch Urine Culture - Preliminary Mixed Gram Positive Organism Gram Negative Bacillus 1 Resulted Laboratory Tests Test 12/05/16 04:00 White Blood Count 7.0 K/UL (4.8-10.8) Red Blood Count 2.89 M/UL (4.20-5.40) L Hemoglobin 7.9 G/DL (12.0-16.0) L Hematocrit 26.0 % (37.0-47.0) L Mean Corpuscular Volume 90 FL (80-99) Mean Corpuscular Hemoglobin 27.3 PG (27.0-31.0) Mean Corpuscular Hemoglobin Concent 30.3 G/DL (32.0-36.0) L Red Cell Distribution Width 16.3 % (11.6-14.8) H Platelet Count 169 K/UL (150-450) Mean Platelet Volume 8.1 FL (6.5-10.1) Neutrophils (%) (Auto) % (45.0-75.0) Lymphocytes (%) (Auto) % (20.0-45.0) Monocytes (%) (Auto) % (1.0-10.0) Eosinophils (%) (Auto) % (0.0-3.0) Basophils (%) (Auto) % (0.0-2.0) Differential Total Cells Counted 100 Neutrophils % (Manual) 82 % (45-75) H Lymphocytes % (Manual) 5 % (20-45) L Monocytes % (Manual) 8 % (1-10) Eosinophils % (Manual) 5 % (0-3) H Basophils % (Manual) 0 % (0-2) Band Neutrophils 0 % (0-8) Platelet Estimate Adequate Platelet Morphology Normal Hypochromasia 1+ Anisocytosis 1+ Sodium Level 143 mEQ/L (135-145) Potassium Level 4.1 mEQ/L (3.4-4.9) Chloride Level 106 mEQ/L (98-107) Carbon Dioxide Level 27 mEQ/L (20-30) Anion Gap 10 (5-15) Blood Urea Nitrogen 41 mg/dL (7-23) H Creatinine 1.0 mg/dL (0.5-0.9) H Estimat Glomerular Filtration Rate mL/min (>60) Glucose Level 117 mg/dL (74-106) H Calcium Level 8.5 mg/dL (8.6-10.2) L Current Medications Medications (Trade) Dose Ordered Sig/Joey Route PRN Reason Start Time Stop Time Status Last Admin Dose Admin Acetaminophen (Tylenol) 650 mg Q4H PRN ORAL Mild Pain (Pain Scale 1-3) 12/03/16 08:45 01/02/17 08:44 Albuterol/ Ipratropium 3 ml 3 ml Q6HRT HHN 12/03/16 13:00 12/08/16 12:59 12/05/16 07:18 Aztreonam 1 gm/ Dextrose 55 ml @ 110 mls/hr Q6HR IVPB 12/03/16 12:00 12/10/16 11:59 12/05/16 05:40 Chlorhexidine Gluconate 1 applic 1 applic DAILY TOPIC 12/05/16 09:00 01/04/17 08:59 12/05/16 04:00 Dextrose STAT PRN IV Hypoglycemia 12/03/16 08:45 01/02/17 08:44 Dopamine HCl/ Dextrose (DOPamine 400mg/ 250ml) 250 ml @ 0 mls/hr Q24H IV 12/03/16 10:00 01/02/17 09:59 12/04/16 03:52 Heparin Sodium/ Sodium Chloride (Heparin 2000 units/Ns 1000ml premix) 2,000 unit ONCE PRN INJ PRN PICC LINE PLACEMENT 12/05/16 06:00 12/05/16 18:00 Levofloxacin (Levaquin 750mg/ D5W) 150 ml @ 150 mls/hr Q48H IVPB 12/04/16 05:00 12/11/16 04:59 12/04/16 05:04 Lidocaine HCl (Xylocaine 1% 30ml) 30 ml ONCE PRN INJ PRN PICC LINE PLACEMENT 12/05/16 06:00 12/05/16 18:00 Lorazepam (Ativan 2mg/ml 1ml) 0.5 mg Q4H PRN IV For Anxiety 12/03/16 08:45 12/10/16 08:44 Metronidazole (Flagyl) 100 ml @ 100 mls/hr Q8HR IVPB 12/04/16 11:00 12/11/16 10:59 12/05/16 06:19 Ondansetron HCl (Zofran) 4 mg Q6H PRN IVP Nausea & Vomiting 12/03/16 08:45 01/02/17 08:44 Pantoprazole (Protonix) 40 mg DAILY IV 12/03/16 09:00 01/02/17 08:59 12/05/16 08:27 Sodium Bicarbonate (Sodium Bicarbonate 4%) 1 ml ONCE PRN INJ PRN PICC LINE PLACEMENT 12/05/16 06:00 12/05/16 18:00 Sodium Chloride (Sodium Chloride 1000ml bag) 1,000 ml @ 100 mls/hr Q10H IVLG 12/03/16 09:40 01/02/17 09:39 12/05/16 01:01 Vancomycin HCl 1 ea 1 ea DAILY PRN MISC Per rx protocol 12/04/16 12:00 01/03/17 11:59 Vancomycin HCl/ Dextrose (Vancomycin/D5W) 275 ml @ 183.708 mls/hr Q24H IVPB 12/04/16 14:00 12/09/16 13:59 12/04/16 14:14 PRIMO MONIQUE Dec 05, 2016 11:56
[2016-12-05 13:54] LABS: OTHERS PATHOLOGIST COMMENT
[2016-12-05] MEDS: Vancomycin 1gm/D5W 275ml IVPB SCH ×2 (14:12)
--- NOTE | 2016-12-05 14:15 | Wound Care Consultation ---
Wound Assessment Wound Assessment #1: Wound Number: #1 Wound Present on Admission: Yes New Wound: No Status Change of Wound: No Wound Location Body Site Modif: mid Wound Location Body Site: sacral Wound Type: pressure ulcer Frankie Test: Does not Frankie Pressure Ulcer Stage: II - SCATTERED Wound Length: 3.0 - SCATTERED Wound Width: 2.5 - SCATTERED Wound Depth: <0.1 Percent of Wound Gardner/Red: 100 Wound Drainage Description: Serosanguineous Wound Drainage Amount: Scant Wound Drainage Odor: None/Absent Tissue Surrounding Wound: Macerated Wound General Appearance: Reddened Wound Assessment #2: Wound Number: #2 Wound Present on Admission: Yes New Wound: No Status Change of Wound: No Wound Location Body Site: sacral Wound Type: scar - SCATTERED Frankie Test: Does not Frankie Wound Thickness: Full Thickness Percent of Wound Gardner/Red: 100 Wound Drainage Amount: None Wound Drainage Odor: None/Absent Tissue Surrounding Wound: Intact Wound Assessment #3: Wound Number: #3 Wound Present on Admission: Yes New Wound: No Status Change of Wound: No Wound Location Body Site Modif: right, lateral Wound Location Body Site: malleolus/ankle Wound Type: pressure ulcer Frankie Test: Does not Frankie Wound Thickness: Full Thickness Wound Length: 0.8 Wound Width: 0.8 Wound Depth: utd Percent of Wound Purple/Maroon: 100 Wound Drainage Amount: None Wound Drainage Odor: None/Absent Tissue Surrounding Wound: Erythemic - maroon Wound General Appearance: Reddened - maroon Wound Assessment #4: Wound Number: #4 Wound Present on Admission: Yes New Wound: No Status Change of Wound: No Wound Location Body Site: perineal area Wound Type: chemical burn - with erosion Frankie Test: Does not Frankie Wound Thickness: Partial Thickness Percent of Wound Gardner/Red: 100 - scattered Wound Drainage Amount: None Wound Drainage Odor: None/Absent Tissue Surrounding Wound: Macerated Wound General Appearance: Reddened Wound Comment #1 Mid Sacral scattered pressure ulcer stage II. #2 Sacral scattered full thickness scar tissue. #3 right lateral malleolus deep tissue injury #4 perineal area chemical burn with erosion. Recommendation. -Local wound care. -Keep clean and dry. -Turn and reposition. -Optimize nutrition. -Heel protectors. -Offload heels and feet. -apply spr mattress. -Assess and notify MD for any change of condition to skin. LATRICIA MAYS Dec 05, 2016 14:15
--- NOTE | 2016-12-05 17:29 | Nephrology Progress Note ---
Assessment/Plan Problem List: (1) Dysphagia (2) Renal failure (ARF), acute on chronic (3) Hyperkalemia (4) Ventilator dependence (5) Respiratory failure, acute and chronic Plan Monitor renal function Monitor lytes, correct as needed Continue IVF Avoid nephrotoxic agents Continue abx Wound care Continue vent. Continue neb treatments GI and DVT prophylaxis. Continue enteral feedings Subjective ROS Limited/Unobtainable: Yes Subjective Intubated on vent Objective Objective Last 24 Hour Vital Signs Date Time Temp Pulse Resp B/P Pulse Ox O2 Delivery O2 Flow Rate FiO2 12/05/16 17:00 113 15 127/67 94 Mechanical Ventilator 50 12/05/16 16:00 84 12/05/16 16:00 50 12/05/16 16:00 99.2 113 24 121/57 99 Mechanical Ventilator 50 12/05/16 15:11 88 14 50 12/05/16 15:00 92 19 101/48 100 Mechanical Ventilator 50 12/05/16 14:00 94 14 92/44 100 Mechanical Ventilator 50 12/05/16 13:05 112 15 100 Mechanical Ventilator 50 12/05/16 13:00 98.2 114 23 99/52 95 Mechanical Ventilator 50 12/05/16 12:48 110 14 96 Mechanical Ventilator 50 12/05/16 12:48 50 12/05/16 12:48 110 14 50 12/05/16 12:00 124 12/05/16 12:00 50 12/05/16 12:00 104 22 127/45 95 Mechanical Ventilator 50 12/05/16 11:00 112 23 136/60 95 Mechanical Ventilator 50 12/05/16 10:43 106 14 50 12/05/16 10:00 135/58 12/05/16 10:00 116 26 135/58 95 Mechanical Ventilator 50 12/05/16 09:24 102 15 50 12/05/16 09:00 113 15 132/47 97 Mechanical Ventilator 50 12/05/16 08:00 50 12/05/16 08:00 125 12/05/16 08:00 98.4 107 14 96/37 100 Mechanical Ventilator 50 12/05/16 07:34 115 14 97 Mechanical Ventilator 50 12/05/16 07:19 50 12/05/16 07:19 115 14 97 Mechanical Ventilator 50 12/05/16 07:19 117 14 50 12/05/16 07:00 111 20 127/44 100 Mechanical Ventilator 50 12/05/16 06:00 105 20 128/40 97 Mechanical Ventilator 50 12/05/16 05:07 117 15 50 6/11/16 05:00 114 20 114/58 98 Mechanical Ventilator 50 12/05/16 04:00 107 12/05/16 04:00 50 12/05/16 04:00 99.5 107 23 121/42 98 Mechanical Ventilator 50 12/05/16 03:24 97 15 50 12/05/16 03:00 106 20 126/52 97 Mechanical Ventilator 50 12/05/16 02:00 113 20 124/52 98 Mechanical Ventilator 50 12/05/16 01:53 118 15 100 Mechanical Ventilator 40 12/05/16 01:38 113 14 50 12/05/16 01:37 40 12/05/16 01:37 113 14 100 Mechanical Ventilator 60 12/05/16 01:00 110 24 130/49 98 Mechanical Ventilator 50 12/05/16 00:00 50 12/05/16 00:00 103 12/05/16 00:00 99.6 103 23 130/44 93 Mechanical Ventilator 50 12/04/16 23:32 101 15 50 12/04/16 23:00 118 20 130/49 98 Mechanical Ventilator 50 12/04/16 22:00 104 23 129/47 97 Mechanical Ventilator 50 12/04/16 21:30 100 15 50 12/04/16 21:00 105 33 129/47 97 Mechanical Ventilator 50 12/04/16 20:00 99.6 114 23 113/43 93 Mechanical Ventilator 50 12/04/16 20:00 40 12/04/16 20:00 104 12/04/16 19:57 120 14 100 Mechanical Ventilator 40 12/04/16 19:41 40 12/04/16 19:41 102 14 99 Mechanical Ventilator 60 12/04/16 19:41 40 12/04/16 19:40 100 15 50 12/04/16 19:00 105 19 115/53 97 Mechanical Ventilator 50 12/04/16 18:03 109 22 127/48 97 Mechanical Ventilator 50 Intake and Output 12/04/17 12/05/16 19:00 07:00 Intake Total 2338.03 ml 1735 ml Output Total 385 ml 355 ml Balance 1953.03 ml 1380 ml Intake Free Water 100 ml IV Total 1738.03 ml 1255 ml Tube Feeding 470 ml 480 ml Other 30 ml Output Urine Total 360 ml 355 ml Other 25 ml # Bowel Movements 2 1 Laboratory Tests 12/05/16 04:00: White Blood Count 7.0, Red Blood Count 2.89L, Hemoglobin 7.9L, Hematocrit 26.0L , Mean Corpuscular Volume 90, Mean Corpuscular Hemoglobin 27.3, Mean Corpuscular Hemoglobin Concent 30.3L, Red Cell Distribution Width 16.3H, Platelet Count 169, Mean Platelet Volume 8.1, Neutrophils (%) (Auto) , Lymphocytes (%) (Auto) , Monocytes (%) (Auto) , Eosinophils (%) (Auto) , Basophils (%) (Auto) , Differential Total Cells Counted 100, Neutrophils % ( Manual) 82H, Lymphocytes % (Manual) 5L, Monocytes % (Manual) 8, Eosinophils % ( Manual) 5H, Basophils % (Manual) 0, Band Neutrophils 0, Other Cell Type Pathologist comment, Platelet Estimate Adequate, Platelet Morphology Normal, Hypochromasia 1+, Anisocytosis 1+, Sodium Level 143, Potassium Level 4.1, Chloride Level 106, Carbon Dioxide Level 27, Anion Gap 10, Blood Urea Nitrogen 41H, Creatinine 1.0H, Estimat Glomerular Filtration Rate , Glucose Level 117H, Calcium Level 8.5L Height (Feet): 5 Height (Inches): 3.00 Weight (Pounds): 145 General Appearance: no apparent distress Neck: other - trach Cardiovascular: no JVD Respiratory/Chest: other - trach to vent Abdomen: other - PEG Genitourinary/Rectal: other - ARCEO Neurologic: motor weakness Alvina Silverio N.P. Dec 05, 2016 17:29
[2016-12-05] MEDS ORDERED: LORazepam Inj 2mg/ml 1ml IV PRN (21:00)
[2016-12-05] MEDS: Aztreonam Inj 1 GM in D5W 55 ML IVPB SCH (23:22)
[2016-12-06] VITALS (7 sets, daily range): BP systolic 92–130; BP diastolic 48–65
[2016-12-06] MEDS: DuoNeb 0.5-3(2.5)mg/3ml neb HHN SCH ×4 (01:19→19:00)
[2016-12-06] MEDS: Aztreonam Inj 1 GM in D5W 55 ML IVPB SCH (05:21)
[2016-12-06] MEDS: Pantoprazole Inj IV SCH (08:29)
[2016-12-06] MEDS: Dyna-Hex 2% Top Sol 8oz TOPIC SCH (08:30)
--- NOTE | 2016-12-06 11:26 | Infectious Diseases Prog Note ---
Assessment/Plan Assessment/Plan antibiotics : vancomycin iv, aztreonam A 1. abdominal wall cellulitis 2. ascites 3. serratia pneumonia 4. klebsiella UTI 5. respiratory failure 6. renal insufficiency P 1. d/c vancomycin iv, aztreonam 2. start tygacil, ceftriaxone 3. will follow up cultures Subjective ROS Limited/Unobtainable: Yes Allergies: Coded Allergies: AMPICILLIN (Verified Allergy, Unknown, 03/04/11) ASPIRIN (Verified Allergy, Unknown, 03/04/11) PENICILLIN (Unverified Allergy, Unknown, 02/14/15) PENICILLINS (Verified Allergy, Unknown, 09/18/11) TRIFLUOPERAZINE (Verified Allergy, Unknown, 03/04/11) Objective Vital Signs Last 24 Hour Vital Signs Date Time Temp Pulse Resp B/P Pulse Ox O2 Delivery O2 Flow Rate FiO2 12/06/16 09:07 62 14 50 12/06/16 08:00 50 12/06/16 08:00 110 12/06/16 08:00 98.7 95 22 113/53 100 Mechanical Ventilator 50 12/06/16 07:14 103 14 98 Mechanical Ventilator 50 12/06/16 07:04 50 12/06/16 07:04 102 14 50 12/06/16 07:04 101 13 97 Mechanical Ventilator 50 12/06/16 04:52 102 14 50 12/06/16 04:00 98.9 87 24 92/48 99 Mechanical Ventilator 50 12/06/16 04:00 94 12/06/16 04:00 50 12/06/16 03:18 105 14 50 12/06/16 01:21 108 14 98 Mechanical Ventilator 50 12/06/16 01:21 50 12/06/16 01:21 105 13 97 Mechanical Ventilator 50 12/06/16 01:19 106 14 50 12/06/16 00:45 114 12/06/16 00:00 50 12/06/16 00:00 99.2 124 24 130/57 99 Mechanical Ventilator 50 12/05/16 23:16 100 14 50 12/05/16 21:30 100 15 50 12/05/16 21:00 100.3 111 22 126/52 95 Mechanical Ventilator 50 12/05/16 20:00 50 12/05/16 20:00 112 12/05/16 20:00 100.1 100 21 128/53 96 Mechanical Ventilator 50 12/05/16 19:45 119 14 97 Mechanical Ventilator 50 12/05/16 19:30 102 14 50 12/05/16 19:30 107 14 97 Mechanical Ventilator 50 12/05/16 19:30 50 12/05/16 19:00 124 21 127/43 96 Mechanical Ventilator 50 12/05/16 18:00 105 23 127/43 96 Mechanical Ventilator 50 12/05/16 17:21 120 14 50 12/05/16 17:00 113 15 127/67 94 Mechanical Ventilator 50 12/05/16 16:00 84 12/05/16 16:00 50 12/05/16 16:00 99.2 113 24 121/57 99 Mechanical Ventilator 50 12/05/16 15:11 88 14 50 12/05/16 15:00 92 19 101/48 100 Mechanical Ventilator 50 12/05/16 14:00 94 14 92/44 100 Mechanical Ventilator 50 12/05/16 13:05 112 15 100 Mechanical Ventilator 50 12/05/16 13:00 98.2 114 23 99/52 95 Mechanical Ventilator 50 12/05/16 12:48 110 14 96 Mechanical Ventilator 50 12/05/16 12:48 50 12/05/16 12:48 110 14 50 12/05/16 12:00 124 12/05/16 12:00 50 12/05/16 12:00 104 22 127/45 95 Mechanical Ventilator 50 Height (Feet): 5 Height (Inches): 3.00 Weight (Pounds): 167 HEENT: status post trach Respiratory/Chest: lungs clear Cardiovascular: normal rate, regular rhythm, no gallop/murmur Abdomen: soft, non tender, distended, other - GT Extremities: other - + edema, right subclavian Microbiology Date/Time Source Procedure Growth Status 12/03/16 11:30 Sputum Induced Gram Stain - Final Complete 12/03/16 11:30 Sputum Culture - Final Serratia Marcescens Complete 12/04/16 04:40 Stool Clostridium difficile Toxin Assay - Final Complete 12/03/16 11:30 Indwelling Cath Urine Culture - Preliminary Klebsiella Pneumoniae Resulted 12/05/16 11:45 Abdomen Gram Stain - Final Resulted 12/05/16 11:45 Abdomen Wound Culture Pending Resulted DAIANA LEACH Dec 06, 2016 11:26
[2016-12-06] MEDS ORDERED: Tigecycline 100 MG in D5W 110 ML IVPB ONE (13:00)
[2016-12-06] MEDS: cefTRIAXone 1 GM in D5W 55 ML IVPB SCH (13:34)
[2016-12-06] MEDS ORDERED: Vancomycin 1 GM in D5W 275 ML IVPB SCH (14:00)
--- NOTE | 2016-12-06 14:14 | Diagnostic Imaging Report ---
Indication: termite exterminator helper venous access Findings: After the indications, procedure, risks, complications, and alternatives of the procedure were explained, written informed consent was obtained. The right upper extremity was prepped with alcohol. All elements of maximal sterile barrier technique were followed including usage of a cap, mask, sterile gown, sterile gloves, hand hygiene and a large sterile sheet. Sonographic evaluation of the upper extremity was performed demonstrating a patent and compressible basilic vein. Access was obtained under real-time ultrasound guidance and digital image was saved and archived. An .018 wire was introduced. Needle exchanged for a 5 Tristanian peel-away sheath. Measurements were obtained. A 5 Tristanian dual-lumen Power PICC line catheter was cut to 25 cm and introduced over the wire. Peel-away sheath and wire were removed.Catheter was secured to the skin using 2-0 Prolene suture. Both ports aspirate and flush easily. Post procedure chest x-ray demonstrates good position of the PICC line catheter within the SVC. Impression: Successful placement of an upper extremity PICC line catheter
--- NOTE | 2016-12-06 15:15 | GI Initial Consult Note ---
Yuen,Georgette Wisam N.PMark 12/06/16 1515: History of Present Illness General Date patient seen: Dec 06, 2016 Time patient seen: 14:00 Reason for Hospitalization: Dyspnea/Respdistress Referring physician: Flori Reason for Consultation: GT SITE EVALUATION Present Illness HPI This is a 76-year-old female, who was sent from a snf/subacute after she was found to have shortness of breath. The patient is on a chronic trach and vent. She was noted to have decreased volumes and secretions. The patient is Full Code. She was transferred to [facility] and I was contacted due to patient's insurance. The patient is unable to provide any history. Therefore, the history is obtained from the medical records accompanying the patient. GI CONSULT. HPI as noted above. GI consulted for GT site evaluation. ROS limited. Pt seen on floor, awake trach to vent NAD. GT site assessed noted to have multiple abdominal surgical incisions adjacent to location. Noted pink ascites draining consistently at one of the surgical sites now being captured by a colostomy bag. The patient presents today with anemia, hx of cirrhosis and hypoalbuminemia. Cdiff negative. Abdominal U/S taken and still pending. Home Meds Active Scripts Metoprolol Tartrate (Metoprolol Tartrate) 25 Mg Tablet, 25 MG ORAL Q12HR for 60 Days, TAB Prov:Haris Ruby MD 09/06/16 Reported Medications Zinc Sulfate (ZINC SULFATE*) 220 Mg Capsule, 220 MG GT DAILY, CAP 0 Refills 12/03/16 Ascorbic Acid* (VITAMIN C*) 500 Mg Tablet, 500 MG GT DAILY, #30 TAB 0 Refills 12/03/16 Lorazepam* (LORAZEPAM*) 0.5 Mg Tablet, 0.5 MG GT Q4HR for For Anxiety, TAB 12/03/16 Diltiazem HCl (Diltiazem 12Hr ER) 60 Mg Cap.er.12h, 120 MG ORAL EVERY 12 HOURS, TAB 10/26/16 Hydrocodone Bit/Acetaminophen 5-325* (NORCO 5-325 TABLET*) 1 Each Tablet, 1 TAB GT PRIOR TO DRESSING CH Y for For Pain, TAB 10/26/16 Hydrocodone Bit/Acetaminophen 5-325* (NORCO 5-325 TABLET*) 1 Each Tablet, 1 TAB GT BEDTIME Y for For Pain, TAB 10/26/16 Na Phos,M-B/Na Phos,Di-Ba (Fleet Enema) 133 Ml Enema, 118 ML RC PRN Y for Constipation, EA 10/26/16 Bisacodyl (DULCOLAX) 10 Mg Supp.rect, 10 MG RC PRN Y for Constipation, SUPP 10/26/16 Saccharomyces Boulardii (FLORASTOR*) 250 Mg Capsule, 250 MG GT DAILY, CAP 09/03/16 Multivit-Min/Iron Fum/Folic AC (Kpxvg-Cuikokb-Yqjkwmrc Tablet) 1 Each Tablet, 1 EACH PEG DAILY, TAB 09/03/16 Digoxin* (DIGOXIN*) 0.125 Mg/2.5 Ml Solution, 0.125 MG GT DAILY, ML 0 Refills 01/05/16 Zinc Sulfate (ZINC SULFATE*) 220 Mg Capsule, 220 MG GT DAILY, CAP 0 Refills 01/05/16 Docusate Sodium (Docusate Sodium) 100 Mg/10 Ml Udc, 100 MG GT DAILY, EA 12/28/14 Albuterol Sulfate* (ALBUTEROL SULFATE HHN*) 2.5 Mg/3 Ml Vial.neb, 3 ML INH Q6H Y for Shortness of Breath, #30 EA 0 Refills 12/28/14 Protein Supplement (PROMOD) 946 Ml Liquid, 30 ML GT DAILY 12/27/12 Ferrous Sulfate* (FERROUS SULFATE*) 325 Mg Tablet, 330 MG GT DAILY, #20 TAB 08/22/12 Acetaminophen* (TYLENOL*) 650 Mg/20.3 Ml Oral.susp, 650 MG GT Q4HR Y for Mild Pain/Temp > 100.5 08/22/12 Magnesium Hydroxide (Milk of Magnesia) 30 Ml Susp, 30 ML GT DAILY Y for Constipation 08/22/12 Med list reviewed/reconciled: Yes Allergies: Coded Allergies: AMPICILLIN (Verified Allergy, Unknown, 03/04/11) ASPIRIN (Verified Allergy, Unknown, 03/04/11) PENICILLIN (Unverified Allergy, Unknown, 02/14/15) PENICILLINS (Verified Allergy, Unknown, 09/18/11) TRIFLUOPERAZINE (Verified Allergy, Unknown, 03/04/11) Patient History Limited by: medical condition History Provided By: Medical Record PMH Narrative PMHx: HypoNa, HyperK, DM, HTN, previous CVA, sacral decub, Acute on chronic diastolic CHF, Aflutter/fib, anemia Hx Cardiac Problems: Yes Hx Hypertension: Yes Hx COPD: Yes Hx Diabetes: Yes Hx Cancer: No Hx Gastrointestinal Problems: Yes Hx Neurological Problems: Yes - AMS, transcient cerebral ischemic attack Hx Cerebrovascular Accident: Yes Hx Transient Ischemic Attacks: Yes Hx Speech Problem: Yes - ON TRACH. Hx Aphasia: Yes Hx Dysphasia: Yes Hx Weakness: Yes - LEFT SIDE. Review of Systems All Other Systems: limited Physical Exam Vital Signs Date Time Temp Pulse Resp B/P Pulse Ox O2 Delivery O2 Flow Rate FiO2 12/02/16 22:17 84 16 101/44 88 Ambu-Bag 12/02/16 22:30 100 12/02/16 23:04 100.9 Sp02 EP Interpretation: reviewed General Appearance: no apparent distress Head: normocephalic EENT: PERRL/EOMI Neck: supple Respiratory: other - trach to vent Cardiovascular: normal rate Gastrointestinal: gt - GT site c/d/i, other - surgical incisions with zehra, leaking ascites with surrounding erythema Neurologic: alert Skin: normal color, no rash, warm/dry Lymphatic: normal inspection, no adenopathy Current Medications Current Medications Medications (Trade) Dose Ordered Sig/Joey Route PRN Reason Start Time Stop Time Status Last Admin Dose Admin Acetaminophen (Tylenol) 650 mg Q4H PRN ORAL Mild Pain (Pain Scale 1-3) 12/05/16 23:45 01/04/17 23:44 Albuterol/ Ipratropium (DuoNeb 0.5-3(2.5)mg/3ml) 3 ml Q6HRT HHN 12/06/16 01:00 12/11/16 00:59 12/06/16 12:32 Ceftriaxone Sodium/Dextrose (Rocephin/D5W) 55 ml @ 110 mls/hr Q24H IVPB 12/06/16 14:00 12/13/16 13:59 12/06/16 13:34 Chlorhexidine Gluconate (Ginger-Hex 2%) 1 applic DAILY TOPIC 12/06/16 09:00 01/05/17 08:59 12/06/16 08:30 Dextrose (Dextrose 50%) STAT PRN IV Hypoglycemia 12/05/16 21:00 01/04/17 20:59 Lorazepam (Ativan 2mg/ml 1ml) 0.5 mg Q4H PRN IV For Anxiety 12/05/16 21:00 12/12/16 20:59 Ondansetron HCl (Zofran) 4 mg Q6H PRN IVP Nausea & Vomiting 12/05/16 21:00 01/04/17 20:59 Pantoprazole 40 mg 40 mg DAILY IV 12/06/16 09:00 01/05/17 08:59 12/06/16 08:29 Sodium Chloride (Sodium Chloride 1000ml bag) 1,000 ml @ 100 mls/hr Q10H IVLG 12/05/16 21:30 01/04/17 21:29 12/06/16 13:34 Tigecycline 50 mg/ Dextrose 110 ml @ 220 mls/hr EVERY 12 HOURS IVPB 12/06/16 23:00 12/13/16 22:59 GI: Plan Problems: (1) Anemia (2) Feeding by G-tube (3) Dysphagia (4) Ileus Plan GT replaced to 24fr on last admission (10/25/16) elevated CEA >> 5.4 hep panel >> negative iron deficiency defer GI procedures at this time anemia work up ordered APCT to evaluate abdominal surgical incisions fu abdominal US GTF's per dietary GT site care daily/prn monitor H&H, transfuse prn cont ppi fu labs Discussed with Dr. Lazaro. Thank you for referring this patient, we will follow. MITCHELL LAZARO 12/08/16 1242: History of Present Illness General Reason for Hospitalization: Dyspnea/Respdistress Present Illness Home Meds Active Scripts Metoprolol Tartrate (Metoprolol Tartrate) 25 Mg Tablet, 25 MG ORAL Q12HR for 60 Days, TAB Prov:Haris Ruby MD 09/06/16 Reported Medications Zinc Sulfate (ZINC SULFATE*) 220 Mg Capsule, 220 MG GT DAILY, CAP 0 Refills 12/03/16 Ascorbic Acid* (VITAMIN C*) 500 Mg Tablet, 500 MG GT DAILY, #30 TAB 0 Refills 12/03/16 Lorazepam* (LORAZEPAM*) 0.5 Mg Tablet, 0.5 MG GT Q4HR for For Anxiety, TAB 12/03/16 Diltiazem HCl (Diltiazem 12Hr ER) 60 Mg Cap.er.12h, 120 MG ORAL EVERY 12 HOURS, TAB 10/26/16 Hydrocodone Bit/Acetaminophen 5-325* (NORCO 5-325 TABLET*) 1 Each Tablet, 1 TAB GT PRIOR TO DRESSING CH Y for For Pain, TAB 10/26/16 Hydrocodone Bit/Acetaminophen 5-325* (NORCO 5-325 TABLET*) 1 Each Tablet, 1 TAB GT BEDTIME Y for For Pain, TAB 10/26/16 Na Phos,M-B/Na Phos,Di-Ba (Fleet Enema) 133 Ml Enema, 118 ML RC PRN Y for Constipation, EA 10/26/16 Bisacodyl (DULCOLAX) 10 Mg Supp.rect, 10 MG RC PRN Y for Constipation, SUPP 10/26/16 Saccharomyces Boulardii (FLORASTOR*) 250 Mg Capsule, 250 MG GT DAILY, CAP 09/03/16 Multivit-Min/Iron Fum/Folic AC (Mqagp-Wzrbviy-Caexhwnl Tablet) 1 Each Tablet, 1 EACH PEG DAILY, TAB 09/03/16 Digoxin* (DIGOXIN*) 0.125 Mg/2.5 Ml Solution, 0.125 MG GT DAILY, ML 0 Refills 01/05/16 Zinc Sulfate (ZINC SULFATE*) 220 Mg Capsule, 220 MG GT DAILY, CAP 0 Refills 01/05/16 Docusate Sodium (Docusate Sodium) 100 Mg/10 Ml Udc, 100 MG GT DAILY, EA 12/28/14 Albuterol Sulfate* (ALBUTEROL SULFATE HHN*) 2.5 Mg/3 Ml Vial.neb, 3 ML INH Q6H Y for Shortness of Breath, #30 EA 0 Refills 12/28/14 Protein Supplement (PROMOD) 946 Ml Liquid, 30 ML GT DAILY 12/27/12 Ferrous Sulfate* (FERROUS SULFATE*) 325 Mg Tablet, 330 MG GT DAILY, #20 TAB 08/22/12 Acetaminophen* (TYLENOL*) 650 Mg/20.3 Ml Oral.susp, 650 MG GT Q4HR Y for Mild Pain/Temp > 100.5 08/22/12 Magnesium Hydroxide (Milk of Magnesia) 30 Ml Susp, 30 ML GT DAILY Y for Constipation 08/22/12 Allergies: Coded Allergies: AMPICILLIN (Verified Allergy, Unknown, 03/04/11) ASPIRIN (Verified Allergy, Unknown, 03/04/11) PENICILLIN (Unverified Allergy, Unknown, 02/14/15) PENICILLINS (Verified Allergy, Unknown, 09/18/11) TRIFLUOPERAZINE (Verified Allergy, Unknown, 03/04/11) GI: Plan Plan The patient was seen and examined at bedside and all new and available data was reviewed in the patients chart. I agree with the above findings, impression and plan. (Patient seen earlier today. Signature stamp does not reflect patient encounter time.). -[facility] Wisam Herring Dec 06, 2016 15:15 MITCHELL LAZARO Dec 08, 2016 12:42
--- NOTE | 2016-12-06 16:55 | Diagnostic Imaging Report ---
Indication:Abdominal pain Technique: Grayscale and duplex Doppler imaging of the abdomen performed. Comparison: None Findings: Coarsened liver echotexture demonstrated with nodularity of the liver surface, findings suspicious for surrounding liver. There is ascites. The gallbladder is not seen. CBD is prominent measuring between 9 and 10 mm. Spleen is normal in size. Pancreas and aorta are not seen. Kidneys are echogenic bilaterally but normal in size. Main portal vein is patent upon Doppler interrogation. Impression: Suspected liver cirrhosis. Moderate ascites may indicate portal hypertension. Nonvisualization of the pancreas and aorta. Echogenic kidneys consistent medical renal disease
[2016-12-06] MEDS: Tigecycline 50 MG in D5W 110 ML IVPB SCH (23:05)
--- NOTE | 2016-12-07 00:01 | Progress Note ---
DATE: 12/06/2016 PULMONARY FOLLOWUP: SUBJECTIVE: The patient has not been transferred to the [facility]. she smiles. She has no other problems noted. Nurses report that there is oozing from suture site at the G-tube site. OBJECTIVE: GENERAL: VITAL SIGNS: Blood pressure is 130/70, heart rate 84, respiratory 26, afebrile, she remains on vent AC mode. PEG site is clean. ABDOMEN: Soft. Surgical site is noted over G-tube area. PEG site is clean. EXTREMITIES: There is no edema. Bilateral heel protectors are noted. LABORATORY DATA: Lab testing shows a creatinine of 1. White count is normal and hemoglobin 7.9. IMPRESSION: 1. Chronic respiratory failure. 2. Renal failure, improved. 3. Serratia pneumonia. 4. Klebsiella pneumoniae carbapenemase positive urinary tract infection sensitive to Tygacil only . 5. Coagulase negative bacteremia. 6. chronic gastrostomy tube. DISCUSSION: Continue antibiotics per ID. The patient will have a PICC line placed today. Await stool for C. difficile. Ultrasound of the abdomen to be done today as well. We will consult GI regarding surgical site over G-tube area. Her septic shock and hypotension has resolved. We will continue follow carefully. Haris Ruby M.D. DR: Polo JOB#: [id number] CC:
[2016-12-07] MEDS: DuoNeb 0.5-3(2.5)mg/3ml neb HHN SCH ×4 (00:39→20:35)
[2016-12-07 04:00] VITALS: BP 131/71
[2016-12-07 04:45] LABS: MEAN CORPUSCULAR HEMOGLOBIN 27.8 PG (27.0-31.0); MEAN CORPUSCULAR VOLUME 90 FL (80-99); MEAN PLATELET VOLUME 7.8 FL (6.5-10.1); PLATELET COUNT 174 K/UL (150-450); RED CELL DISTRIBUTION WIDTH 16.7 % (11.6-14.8); WHITE BLOOD COUNT 6.2 K/UL (4.8-10.8)
[2016-12-07 05:40] LABS: ALANINE AMINOTRANSFERASE 8 U/L (3-33); ALBUMIN/GLOBULIN RATIO 0.7 (1.0-2.7); ANION GAP 12 (5-15); ASPARTATE AMINO TRANSFERASE 23 U/L (5-40); CALCIUM 8.3 mg/dL (8.6-10.2); CARBON DIOXIDE 22 mEQ/L (20-30); CHLORIDE 106 mEQ/L (98-107); CREATININE 1.2 mg/dL (0.5-0.9); HEMOLYSIS 0; POTASSIUM 3.9 mEQ/L (3.4-4.9); SODIUM 140 mEQ/L (135-145); TOTAL PROTEIN 6.3 g/dL (6.6-8.7)
[2016-12-07 08:25] VITALS: BP 123/57
[2016-12-07] MEDS: Pantoprazole Inj IV SCH (08:55)
[2016-12-07] MEDS: Dyna-Hex 2% Top Sol 8oz TOPIC SCH (08:55)
[2016-12-07] MEDS: Tigecycline 50 MG in D5W 110 ML IVPB SCH ×2 (08:55→23:45)
--- NOTE | 2016-12-07 09:35 | Diagnostic Imaging Report ---
Indication: Abdominal pain Technique: Continuous helical transaxial imaging of the abdomen and pelvis was obtained from the lung bases to the pubic symphysis during intravenous contrast administration. Coronal 2-D reformats were also obtained. Study obtained in a Siemens sensation [address] Total Dose length Product (DLP): [address] Dose Index Volume (CTDIvol): 19 mGy Comparison: 01/05/16 Findings: Posterior basilar infiltrates and/or atelectasis is present. There is constipation of the mitral valve. Anasarca noted. Ascites is present. The spleen is enlarged. There is a suggestion of surface nodularity in the liver. This is suggestive of cirrhosis. There is a gastrostomy tube present. Moderate arterial vascular calcifications are present. Diverticula noted in the colon. There is no hydronephrosis. Cholecystectomy is noted. Gastrostomy noted. Cannon catheter noted. No evidence of bowel obstruction. No free air identified. Recent abdominal surgery has been done as there are skin zehra present in the ventral abdominal wall. No compelling evidence for abdominal abscess. Impression: Status post recent abdominal surgery. Moderate ascites Nodularity of the liver. Query possibility of cirrhosis chronic liver disease. Please correlate clinically. Splenomegaly Basilar infiltrates versus atelectasis. No evidence of intra-abdominal abscess or bowel obstruction. Diverticulosis of the colon Status post cholecystectomy Gastrostomy Cannon catheter Atherosclerotic vascular disease Anasarca The CT scanner at [facility] is accredited by the [employer] and the scans are performed using dose optimization techniques as appropriate to a performed exam including Automatic Exposure control.
--- NOTE | 2016-12-07 10:22 | Infectious Diseases Prog Note ---
Assessment/Plan Assessment/Plan antibiotics : tygacil, ceftriaxone A 1. abdominal wall cellulitis improving 2. ascites 3. serratia pneumonia 4. klebsiella UTI 5. respiratory failure 6. renal insufficiency P 1. continue tygacil, ceftriaxone 2. will follow up cultures Subjective ROS Limited/Unobtainable: Yes Allergies: Coded Allergies: AMPICILLIN (Verified Allergy, Unknown, 03/04/11) ASPIRIN (Verified Allergy, Unknown, 03/04/11) PENICILLIN (Unverified Allergy, Unknown, 02/14/15) PENICILLINS (Verified Allergy, Unknown, 09/18/11) TRIFLUOPERAZINE (Verified Allergy, Unknown, 03/04/11) Objective Vital Signs Last 24 Hour Vital Signs Date Time Temp Pulse Resp B/P Pulse Ox O2 Delivery O2 Flow Rate FiO2 12/07/16 09:17 78 14 50 12/07/16 08:25 97.9 125 14 123/57 100 Mechanical Ventilator 12/07/16 08:00 50 12/07/16 07:22 76 14 98 Mechanical Ventilator 50 12/07/16 07:12 74 14 97 Mechanical Ventilator 50 12/07/16 07:12 74 14 50 12/07/16 07:12 50 12/07/16 05:00 101 14 50 12/07/16 04:00 98.1 129 17 131/71 100 Nasal Cannula 12/07/16 04:00 50 12/07/16 04:00 130 12/07/16 03:08 102 14 50 12/07/16 00:58 108 14 98 Mechanical Ventilator 50 12/07/16 00:41 50 12/07/16 00:40 105 14 50 12/07/16 00:40 105 14 98 Mechanical Ventilator 50 12/07/16 00:00 125 12/07/16 00:00 50 12/06/16 23:59 98.1 125 16 127/ 98 Room Air 12/06/16 23:18 102 14 50 12/06/16 21:09 110 14 50 12/06/16 20:00 50 12/06/16 20:00 124 12/06/16 20:00 97.9 123 16 117/63 97 Nasal Cannula 12/06/16 19:23 Mechanical Ventilator 12/06/16 19:23 Mechanical Ventilator 12/06/16 19:22 128 14 50 12/06/16 16:51 69 15 50 12/06/16 16:00 123 12/06/16 16:00 50 12/06/16 15:56 98.2 126 15 118/65 99 Mechanical Ventilator 50 12/06/16 15:10 63 14 50 12/06/16 12:42 69 15 98 Mechanical Ventilator 50 12/06/16 12:32 66 15 97 Mechanical Ventilator 50 12/06/16 12:32 50 12/06/16 12:32 66 15 50 12/06/16 12:00 108 12/06/16 12:00 98.4 99 24 128/65 100 Mechanical Ventilator 50 12/06/16 12:00 50 12/06/16 11:20 65 14 50 Height (Feet): 5 Height (Inches): 3.00 Weight (Pounds): 170 HEENT: status post trach Respiratory/Chest: lungs clear Cardiovascular: normal rate, regular rhythm, no gallop/murmur Abdomen: soft, non tender, distended, other - GT Extremities: other - + edema, right arm PICC Microbiology Date/Time Source Procedure Growth Status 12/05/16 11:45 Abdomen Gram Stain - Final Resulted 12/05/16 11:45 Abdomen Wound Culture Pending Resulted Laboratory Tests Test 12/07/16 04:00 White Blood Count 6.2 K/UL (4.8-10.8) Red Blood Count 2.80 M/UL (4.20-5.40) L Hemoglobin 7.8 G/DL (12.0-16.0) L Hematocrit 25.1 % (37.0-47.0) L Mean Corpuscular Volume 90 FL (80-99) Mean Corpuscular Hemoglobin 27.8 PG (27.0-31.0) Mean Corpuscular Hemoglobin Concent 31.0 G/DL (32.0-36.0) L Red Cell Distribution Width 16.7 % (11.6-14.8) H Platelet Count 174 K/UL (150-450) Mean Platelet Volume 7.8 FL (6.5-10.1) Neutrophils (%) (Auto) % (45.0-75.0) Lymphocytes (%) (Auto) % (20.0-45.0) Monocytes (%) (Auto) % (1.0-10.0) Eosinophils (%) (Auto) % (0.0-3.0) Basophils (%) (Auto) % (0.0-2.0) Neutrophils % (Manual) Pending Lymphocytes % (Manual) Pending Platelet Estimate Pending Platelet Morphology Pending Sodium Level 140 mEQ/L (135-145) Potassium Level 3.9 mEQ/L (3.4-4.9) Chloride Level 106 mEQ/L (98-107) Carbon Dioxide Level 22 mEQ/L (20-30) Anion Gap 12 (5-15) Blood Urea Nitrogen 54 mg/dL (7-23) H Creatinine 1.2 mg/dL (0.5-0.9) H Estimat Glomerular Filtration Rate mL/min (>60) Glucose Level 98 mg/dL (74-106) Calcium Level 8.3 mg/dL (8.6-10.2) L Total Bilirubin 0.3 mg/dL (0.0-1.2) Aspartate Amino Transf (AST/SGOT) 23 U/L (5-40) Alanine Aminotransferase (ALT/SGPT) 8 U/L (3-33) Alkaline Phosphatase 193 U/L (35-104) H Total Protein 6.3 g/dL (6.6-8.7) L Albumin 2.7 g/dL (3.5-5.2) L Globulin 3.6 g/dL Albumin/Globulin Ratio 0.7 (1.0-2.7) L DAIANA LEACH Dec 07, 2016 10:22
[2016-12-07] MEDS ORDERED: Tubing IV Secondary IV ONE (10:30)
--- NOTE | 2016-12-07 10:47 | GI Progress Note ---
Assessment/Plan Problems: (1) History of abdominal surgery ICD Codes: Z98.890 - Other specified postprocedural states SNOMED: 418944211, 176660651 (2) Anemia ICD Codes: D64.9 - Anemia SNOMED: 247558551 (3) Feeding by G-tube ICD Codes: Z93.1 - Feeding by G-tube SNOMED: 993041609 (4) Malfunction of gastrostomy tube ICD Codes: K94.23 - Gastrostomy malfunction SNOMED: 841690016 (5) Malnutrition ICD Codes: E46 - Unspecified protein-calorie malnutrition SNOMED: 7191536 Status: unchanged Status Narrative Discussed with Dr. Walker. Assessment/Plan GT replaced to 24fr on last admission (10/25/16) APCT reviewed >> possibility of cirrhosis chronic liver disease. Recent abdominal surgery. No evidence of bowel obstruction. abd US reviewed. elevated CEA >> 5.4 hep panel >> negative iron deficiency will consider EGD this Monday if still inpatient to evaluate for EV ordered paracentesis, r/o SBP GTF's per dietary GT site care daily/prn monitor H&H, transfuse prn cont ppi fu labs Subjective Subjective limited Objective Last 24 Hour Vital Signs Date Time Temp Pulse Resp B/P Pulse Ox O2 Delivery O2 Flow Rate FiO2 12/07/16 09:17 78 14 50 12/07/16 08:25 97.9 125 14 123/57 100 Mechanical Ventilator 12/07/16 08:00 50 12/07/16 07:22 76 14 98 Mechanical Ventilator 50 12/07/16 07:12 74 14 97 Mechanical Ventilator 50 12/07/16 07:12 74 14 50 12/07/16 07:12 50 12/07/16 05:00 101 14 50 12/07/16 04:00 98.1 129 17 131/71 100 Nasal Cannula 12/07/16 04:00 50 12/07/16 04:00 130 12/07/16 03:08 102 14 50 12/07/16 00:58 108 14 98 Mechanical Ventilator 50 12/07/16 00:41 50 12/07/16 00:40 105 14 50 12/07/16 00:40 105 14 98 Mechanical Ventilator 50 12/07/16 00:00 125 12/07/16 00:00 50 12/06/16 23:59 98.1 125 16 127/ 98 Room Air 12/06/16 23:18 102 14 50 12/06/16 21:09 110 14 50 12/06/16 20:00 50 12/06/16 20:00 124 12/06/16 20:00 97.9 123 16 117/63 97 Nasal Cannula 12/06/16 19:23 Mechanical Ventilator 12/06/16 19:23 Mechanical Ventilator 12/06/16 19:22 128 14 50 12/06/16 16:51 69 15 50 12/06/16 16:00 123 12/06/16 16:00 50 12/06/16 15:56 98.2 126 15 118/65 99 Mechanical Ventilator 50 12/06/16 15:10 63 14 50 12/06/16 12:42 69 15 98 Mechanical Ventilator 50 12/06/16 12:32 66 15 97 Mechanical Ventilator 50 12/06/16 12:32 50 12/06/16 12:32 66 15 50 12/06/16 12:00 108 12/06/16 12:00 98.4 99 24 128/65 100 Mechanical Ventilator 50 12/06/16 12:00 50 12/06/16 11:20 65 14 50 Intake and Output 12/06/16 12/07/16 19:00 07:00 Intake Total 1575 ml 1380 ml Output Total 500 ml 1050 ml Balance 1075 ml 330 ml Intake Free Water 50 ml 100 ml IV Total 1465 ml 860 ml Tube Feeding 60 ml 420 ml Output Urine Total 300 ml 250 ml Other 200 ml 800 ml # Bowel Movements 1 2 Laboratory Tests Test 12/07/16 04:00 White Blood Count 6.2 K/UL (4.8-10.8) Red Blood Count 2.80 M/UL (4.20-5.40) L Hemoglobin 7.8 G/DL (12.0-16.0) L Hematocrit 25.1 % (37.0-47.0) L Mean Corpuscular Volume 90 FL (80-99) Mean Corpuscular Hemoglobin 27.8 PG (27.0-31.0) Mean Corpuscular Hemoglobin Concent 31.0 G/DL (32.0-36.0) L Red Cell Distribution Width 16.7 % (11.6-14.8) H Platelet Count 174 K/UL (150-450) Mean Platelet Volume 7.8 FL (6.5-10.1) Neutrophils (%) (Auto) % (45.0-75.0) Lymphocytes (%) (Auto) % (20.0-45.0) Monocytes (%) (Auto) % (1.0-10.0) Eosinophils (%) (Auto) % (0.0-3.0) Basophils (%) (Auto) % (0.0-2.0) Neutrophils % (Manual) Pending Lymphocytes % (Manual) Pending Platelet Estimate Pending Platelet Morphology Pending Sodium Level 140 mEQ/L (135-145) Potassium Level 3.9 mEQ/L (3.4-4.9) Chloride Level 106 mEQ/L (98-107) Carbon Dioxide Level 22 mEQ/L (20-30) Anion Gap 12 (5-15) Blood Urea Nitrogen 54 mg/dL (7-23) H Creatinine 1.2 mg/dL (0.5-0.9) H Estimat Glomerular Filtration Rate mL/min (>60) Glucose Level 98 mg/dL (74-106) Calcium Level 8.3 mg/dL (8.6-10.2) L Total Bilirubin 0.3 mg/dL (0.0-1.2) Aspartate Amino Transf (AST/SGOT) 23 U/L (5-40) Alanine Aminotransferase (ALT/SGPT) 8 U/L (3-33) Alkaline Phosphatase 193 U/L (35-104) H Total Protein 6.3 g/dL (6.6-8.7) L Albumin 2.7 g/dL (3.5-5.2) L Globulin 3.6 g/dL Albumin/Globulin Ratio 0.7 (1.0-2.7) L Height (Feet): 5 Height (Inches): 3.00 Weight (Pounds): 170 General Appearance: alert Cardiovascular: normal rate Respiratory/Chest: other - mech vent Abdominal Exam: incision site - erythema with ascities drainage, GT site - c/d/ i Georgette Yuen N.P. Dec 07, 2016 10:47
[2016-12-07 10:50] LABS: ANISOCYTOSIS 1+; BAND NEUTROPHILS % (MANUAL) 0 % (0-8); BASOPHILS % (MANUAL) 0 % (0-2); EOSINOPHILS % (MANUAL) 2 % (0-3); HYPOCHROMASIA 1+; LYMPHOCYTES % (MANUAL) 8 % (20-45); NEUTROPHILS % (MANUAL) 86 % (45-75); PLATELET ESTIMATE ADEQUATE; PLATELET MORPHOLOGY NORMAL; TOTAL CELLS COUNTED 100
[2016-12-07 11:48] VITALS: BP 129/63
[2016-12-07 13:02] LABS: INR 1.1 (0.9-1.1)
[2016-12-07] MEDS: cefTRIAXone 1 GM in D5W 55 ML IVPB SCH (13:23)
[2016-12-07 15:40] VITALS: BP 113/72
[2016-12-07 20:25] VITALS: BP 128/65
--- NOTE | 2016-12-07 22:57 | Nephrology Progress Note ---
Assessment/Plan Problem List: (1) Dysphagia (2) Renal failure (ARF), acute on chronic (3) Hyperkalemia (4) Ventilator dependence (5) Respiratory failure, acute and chronic Plan Monitor renal function - Improved Adequate urine output Monitor lytes, correct as needed Continue IVF Avoid nephrotoxic agents Continue abx Wound care Objective Objective Last 24 Hour Vital Signs Date Time Temp Pulse Resp B/P Pulse Ox O2 Delivery O2 Flow Rate FiO2 12/07/16 22:38 130 14 50 12/07/16 21:25 130 14 50 12/07/16 20:36 50 12/07/16 20:36 119 14 98 Mechanical Ventilator 15.0 50 12/07/16 20:36 119 14 100 Mechanical Ventilator 50 12/07/16 20:25 99.6 130 14 128/65 99 Mechanical Ventilator 50 12/07/16 20:00 131 12/07/16 20:00 50 12/07/16 19:22 80 14 50 12/07/16 16:30 75 14 50 12/07/16 16:00 50 12/07/16 15:54 129 12/07/16 15:40 98.0 129 14 113/72 99 Mechanical Ventilator 12/07/16 15:07 81 14 50 12/07/16 13:30 81 16 98 Mechanical Ventilator 50 12/07/16 13:20 50 12/07/16 13:20 78 14 98 Mechanical Ventilator 15.0 50 12/07/16 13:18 75 14 50 12/07/16 12:00 50 12/07/16 11:48 98.4 130 14 129/63 100 Mechanical Ventilator 12/07/16 11:33 131 12/07/16 11:16 76 14 50 12/07/16 09:17 78 14 50 12/07/16 08:25 97.9 125 14 123/57 100 Mechanical Ventilator 12/07/16 08:00 50 12/07/16 07:31 128 12/07/16 07:22 76 14 98 Mechanical Ventilator 50 12/07/16 07:12 74 14 97 Mechanical Ventilator 50 12/07/16 07:12 74 14 50 12/07/16 07:12 50 12/07/16 05:00 101 14 50 12/07/16 04:00 98.1 129 17 131/71 100 Nasal Cannula 12/07/16 04:00 50 12/07/16 04:00 130 12/07/16 03:08 102 14 50 12/07/16 00:58 108 14 98 Mechanical Ventilator 50 12/07/16 00:41 50 12/07/16 00:40 105 14 50 12/07/16 00:40 105 14 98 Mechanical Ventilator 50 12/07/16 00:00 125 12/07/16 00:00 50 12/06/16 23:59 98.1 125 16 127/ 98 Room Air 12/06/16 23:18 102 14 50 Intake and Output 12/06/16 12/07/16 19:00 07:00 Intake Total 1575 ml 1380 ml Output Total 500 ml 1050 ml Balance 1075 ml 330 ml Intake Free Water 50 ml 100 ml IV Total 1465 ml 860 ml Tube Feeding 60 ml 420 ml Output Urine Total 300 ml 250 ml Other 200 ml 800 ml # Bowel Movements 1 2 Laboratory Tests 12/07/16 04:00: White Blood Count 6.2, Red Blood Count 2.80L, Hemoglobin 7.8L, Hematocrit 25.1L , Mean Corpuscular Volume 90, Mean Corpuscular Hemoglobin 27.8, Mean Corpuscular Hemoglobin Concent 31.0L, Red Cell Distribution Width 16.7H, Platelet Count 174, Mean Platelet Volume 7.8, Neutrophils (%) (Auto) , Lymphocytes (%) (Auto) , Monocytes (%) (Auto) , Eosinophils (%) (Auto) , Basophils (%) (Auto) , Differential Total Cells Counted 100, Neutrophils % ( Manual) 86H, Lymphocytes % (Manual) 8L, Monocytes % (Manual) 4, Eosinophils % ( Manual) 2, Basophils % (Manual) 0, Band Neutrophils 0, Platelet Estimate Adequate, Platelet Morphology Normal, Hypochromasia 1+, Anisocytosis 1+, Sodium Level 140, Potassium Level 3.9, Chloride Level 106, Carbon Dioxide Level 22, Anion Gap 12, Blood Urea Nitrogen 54H, Creatinine 1.2H, Estimat Glomerular Filtration Rate , Glucose Level 98, Calcium Level 8.3L, Total Bilirubin 0.3, Aspartate Amino Transf (AST/SGOT) 23, Alanine Aminotransferase (ALT/SGPT) 8, Alkaline Phosphatase 193H, Total Protein 6.3L, Albumin 2.7L, Globulin 3.6, Albumin/Globulin Ratio 0.7L 12/07/16 12:10: Prothrombin Time 12.0H, Prothromb Time International Ratio 1.1, Activated Partial Thromboplast Time 31 Height (Feet): 5 Height (Inches): 3.00 Weight (Pounds): 170 Alvina Silverio N.P. Dec 07, 2016 22:57
[2016-12-08] VITALS (7 sets, daily range): BP systolic 107–145; BP diastolic 48–58
[2016-12-08] MEDS: DuoNeb 0.5-3(2.5)mg/3ml neb HHN SCH ×4 (00:57→19:00)
[2016-12-08 05:03] LABS: MEAN CORPUSCULAR HEMOGLOBIN 28.1 PG (27.0-31.0); MEAN CORPUSCULAR HGB CONC 31.4 G/DL (32.0-36.0); MEAN CORPUSCULAR VOLUME 89 FL (80-99); MEAN PLATELET VOLUME 8.1 FL (6.5-10.1); PLATELET COUNT 226 K/UL (150-450); RED BLOOD COUNT 4.08 M/UL (4.20-5.40); RED CELL DISTRIBUTION WIDTH 15.5 % (11.6-14.8); WHITE BLOOD COUNT 15.6 K/UL (4.8-10.8)
[2016-12-08 05:34] LABS: ALANINE AMINOTRANSFERASE 8 U/L (3-33); ALBUMIN/GLOBULIN RATIO 0.8 (1.0-2.7); ANION GAP 13 (5-15); ASPARTATE AMINO TRANSFERASE 22 U/L (5-40); CALCIUM 8.8 mg/dL (8.6-10.2); CARBON DIOXIDE 24 mEQ/L (20-30); CHLORIDE 105 mEQ/L (98-107); CREATININE 1.5 mg/dL (0.5-0.9); HEMOLYSIS 0; POTASSIUM 4.1 mEQ/L (3.4-4.9); SODIUM 142 mEQ/L (135-145); TOTAL PROTEIN 6.9 g/dL (6.6-8.7)
[2016-12-08 07:12] LABS: OTHERS PATHOLOGIST COMMENT
[2016-12-08 07:20] LABS: ANISOCYTOSIS 1+; BAND NEUTROPHILS % (MANUAL) 0 % (0-8); BASOPHILS % (MANUAL) 0 % (0-2); EOSINOPHILS % (MANUAL) 2 % (0-3); HYPOCHROMASIA 1+; LYMPHOCYTES % (MANUAL) 6 % (20-45); NEUTROPHILS % (MANUAL) 86 % (45-75); PLATELET ESTIMATE ADEQUATE; TOTAL CELLS COUNTED 100
[2016-12-08 07:21] LABS: PLATELET MORPHOLOGY NORMAL
[2016-12-08] MEDS: Dyna-Hex 2% Top Sol 8oz TOPIC SCH ×2 (08:03→20:23)
[2016-12-08] MEDS: Spironolactone 50mg tab ORAL SCH (08:03)
--- NOTE | 2016-12-08 10:43 | Infectious Diseases Prog Note ---
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 Cirrhosis P: Continue Tygacil & Rocephin Subjective ROS Limited/Unobtainable: Yes Allergies: Coded Allergies: AMPICILLIN (Verified Allergy, Unknown, 03/04/11) ASPIRIN (Verified Allergy, Unknown, 03/04/11) PENICILLIN (Unverified Allergy, Unknown, 02/14/15) PENICILLINS (Verified Allergy, Unknown, 09/18/11) TRIFLUOPERAZINE (Verified Allergy, Unknown, 03/04/11) Objective Vital Signs Last 24 Hour Vital Signs Date Time Temp Pulse Resp B/P Pulse Ox O2 Delivery O2 Flow Rate FiO2 12/08/16 09:08 133 14 50 12/08/16 08:00 98.2 131 24 130/58 100 Mechanical Ventilator 50 12/08/16 08:00 50 12/08/16 07:14 Mechanical Ventilator 50 12/08/16 07:14 Mechanical Ventilator 50 12/08/16 07:12 130 14 50 12/08/16 05:09 131 14 50 12/08/16 04:00 130 12/08/16 04:00 98.3 132 14 107/48 98 Mechanical Ventilator 50 12/08/16 04:00 50 12/08/16 03:07 129 14 50 12/08/16 00:58 130 14 97 Mechanical Ventilator 15.0 50 12/08/16 00:58 Mechanical Ventilator 12/08/16 00:52 98.8 129 15 126/54 95 Mechanical Ventilator 50 12/08/16 00:50 129 14 50 12/08/16 00:00 129 12/08/16 00:00 98.8 129 15 126/54 95 Mechanical Ventilator 50 12/08/16 00:00 50 12/07/16 22:38 130 14 50 12/07/16 21:25 130 14 50 12/07/16 20:36 50 12/07/16 20:36 119 14 98 Mechanical Ventilator 15.0 50 12/07/16 20:36 119 14 100 Mechanical Ventilator 50 12/07/16 20:25 99.6 130 14 128/65 99 Mechanical Ventilator 50 12/07/16 20:00 131 12/07/16 20:00 50 12/07/16 19:22 80 14 50 12/07/16 16:30 75 14 50 12/07/16 16:00 50 12/07/16 15:54 129 12/07/16 15:40 98.0 129 14 113/72 99 Mechanical Ventilator 12/07/16 15:07 81 14 50 12/07/16 13:30 81 16 98 Mechanical Ventilator 50 12/07/16 13:20 50 12/07/16 13:20 78 14 98 Mechanical Ventilator 15.0 50 12/07/16 13:18 75 14 50 12/07/16 12:00 50 12/07/16 11:48 98.4 130 14 129/63 100 Mechanical Ventilator 12/07/16 11:33 131 12/07/16 11:16 76 14 50 Height (Feet): 5 Height (Inches): 3.00 Weight (Pounds): 176 HEENT: status post trach Respiratory/Chest: lungs clear, other - on ventilator Cardiovascular: tachycardia Abdomen: distended, other - asites, s/p GT recyal tube Extremities: other - generalized edema, R arm PICC line Skin: ulcers Neurologic/Psychiatric: other - opens eye Microbiology Date/Time Source Procedure Growth Status 12/05/16 11:45 Abdomen Gram Stain - Final Resulted 12/05/16 11:45 Wound Culture - Preliminary Staphylococcus Sp Coag Neg Yeast Species Resulted Laboratory Tests Test 12/07/16 12:10 12/08/16 04:00 Prothrombin Time 12.0 SEC (9.30-11.50) H Prothromb Time International Ratio 1.1 (0.9-1.1) Activated Partial Thromboplast Time 31 SEC (23-33) White Blood Count 15.6 K/UL (4.8-10.8) #H Red Blood Count 4.08 M/UL (4.20-5.40) L Hemoglobin 11.5 G/DL (12.0-16.0) #L Hematocrit 36.6 % (37.0-47.0) #L Mean Corpuscular Volume 89 FL (80-99) Mean Corpuscular Hemoglobin 28.1 PG (27.0-31.0) Mean Corpuscular Hemoglobin Concent 31.4 G/DL (32.0-36.0) L Red Cell Distribution Width 15.5 % (11.6-14.8) H Platelet Count 226 K/UL (150-450) Mean Platelet Volume 8.1 FL (6.5-10.1) Neutrophils (%) (Auto) % (45.0-75.0) Lymphocytes (%) (Auto) % (20.0-45.0) Monocytes (%) (Auto) % (1.0-10.0) Eosinophils (%) (Auto) % (0.0-3.0) Basophils (%) (Auto) % (0.0-2.0) Differential Total Cells Counted 100 Neutrophils % (Manual) 86 % (45-75) H Lymphocytes % (Manual) 6 % (20-45) L Monocytes % (Manual) 6 % (1-10) Eosinophils % (Manual) 2 % (0-3) Basophils % (Manual) 0 % (0-2) Band Neutrophils 0 % (0-8) Platelet Estimate Adequate Platelet Morphology Normal Hypochromasia 1+ Anisocytosis 1+ Sodium Level 142 mEQ/L (135-145) Potassium Level 4.1 mEQ/L (3.4-4.9) Chloride Level 105 mEQ/L (98-107) Carbon Dioxide Level 24 mEQ/L (20-30) Anion Gap 13 (5-15) Blood Urea Nitrogen 65 mg/dL (7-23) H Creatinine 1.5 mg/dL (0.5-0.9) H Estimat Glomerular Filtration Rate mL/min (>60) Glucose Level 128 mg/dL (74-106) H Calcium Level 8.8 mg/dL (8.6-10.2) Total Bilirubin 0.4 mg/dL (0.0-1.2) Aspartate Amino Transf (AST/SGOT) 22 U/L (5-40) Alanine Aminotransferase (ALT/SGPT) 8 U/L (3-33) Alkaline Phosphatase 224 U/L (35-104) H Total Protein 6.9 g/dL (6.6-8.7) Albumin 3.1 g/dL (3.5-5.2) L Globulin 3.8 g/dL Albumin/Globulin Ratio 0.8 (1.0-2.7) L Hepatitis A IgM Antibody Pending Hepatitis B Surface Antigen Pending Hepatitis B Core IgM Antibody Pending Hepatitis C Antibody Pending Current Medications Medications (Trade) Dose Ordered Sig/Joey Route PRN Reason Start Time Stop Time Status Last Admin Dose Admin Acetaminophen (Tylenol) 650 mg Q4H PRN ORAL Mild Pain (Pain Scale 1-3) 12/05/16 23:45 01/04/17 23:44 Albuterol/ Ipratropium (DuoNeb 0.5-3(2.5)mg/3ml) 3 ml Q6HRT HHN 12/06/16 01:00 12/11/16 00:59 12/07/16 20:35 Ceftriaxone Sodium/Dextrose (Rocephin/D5W) 55 ml @ 110 mls/hr Q24H IVPB 12/06/16 14:00 12/13/16 13:59 12/07/16 13:23 Chlorhexidine Gluconate (Ginger-Hex 2%) 1 applic DAILY TOPIC 12/06/16 09:00 01/05/17 08:59 12/08/16 08:03 Dextrose (Dextrose 50%) STAT PRN IV Hypoglycemia 12/05/16 21:00 01/04/17 20:59 Furosemide (Lasix) 20 mg DAILY IV 12/08/16 09:00 01/07/17 08:59 12/08/16 08:02 Lansoprazole 30 mg 30 mg DAILY GT 12/08/16 09:00 01/07/17 08:59 12/08/16 08:03 Lorazepam (Ativan 2mg/ml 1ml) 0.5 mg Q4H PRN IV For Anxiety 12/05/16 21:00 12/12/16 20:59 12/08/16 00:17 Ondansetron HCl 4 mg 4 mg Q6H PRN IVP Nausea & Vomiting 12/05/16 21:00 01/04/17 20:59 Sodium Chloride (Sodium Chloride 1000ml bag) 1,000 ml @ 100 mls/hr Q10H IVLG 12/05/16 21:30 01/04/17 21:29 12/08/16 08:03 Spironolactone (Aldactone) 100 mg DAILY ORAL 12/08/16 09:00 01/07/17 08:59 12/08/16 08:03 Tigecycline/ Dextrose (Tygacil/D5W) 110 ml @ 220 mls/hr Q12H IVPB 12/08/16 00:00 12/15/16 00:00 12/07/16 23:45 PRIMO MONIQUE Dec 08, 2016 10:43
--- NOTE | 2016-12-08 10:47 | GI Progress Note ---
Assessment/Plan Problems: (1) History of abdominal surgery ICD Codes: Z98.890 - Other specified postprocedural states SNOMED: 475304960, 395255748 (2) Anemia ICD Codes: D64.9 - Anemia SNOMED: 353600782 (3) Feeding by G-tube ICD Codes: Z93.1 - Feeding by G-tube SNOMED: 634628846 (4) Malfunction of gastrostomy tube ICD Codes: K94.23 - Gastrostomy malfunction SNOMED: 208528091 (5) Malnutrition ICD Codes: E46 - Unspecified protein-calorie malnutrition SNOMED: 5229221 Status: unchanged Status Narrative Discussed with Dr. Walker. Assessment/Plan GT replaced to 24fr on last admission (10/25/16) recent abdominal surgery with zehra >> Faxed records from [facility] "Closure of gastric fistula and insertion of new GT" performed on 12/01/16. APCT reviewed >> possibility of cirrhosis chronic liver disease. Recent abdominal surgery. No evidence of bowel obstruction. abd US reviewed. elevated CEA >> 5.4 hep panel >> negative iron deficiency defer EGD at this point and monitor H&H OB stool r/o GI bleed fu paracentesis, r/o SBP GTF's per dietary GT site care daily/prn monitor H&H, transfuse prn cont ppi fu labs Subjective Subjective limited Objective Last 24 Hour Vital Signs Date Time Temp Pulse Resp B/P Pulse Ox O2 Delivery O2 Flow Rate FiO2 12/08/16 09:08 133 14 50 12/08/16 08:00 98.2 131 24 130/58 100 Mechanical Ventilator 50 12/08/16 08:00 50 12/08/16 07:14 Mechanical Ventilator 50 12/08/16 07:14 Mechanical Ventilator 50 12/08/16 07:12 130 14 50 12/08/16 05:09 131 14 50 12/08/16 04:00 130 12/08/16 04:00 98.3 132 14 107/48 98 Mechanical Ventilator 50 12/08/16 04:00 50 12/08/16 03:07 129 14 50 12/08/16 00:58 130 14 97 Mechanical Ventilator 15.0 50 12/08/16 00:58 Mechanical Ventilator 12/08/16 00:52 98.8 129 15 126/54 95 Mechanical Ventilator 50 12/08/16 00:50 129 14 50 12/08/16 00:00 129 12/08/16 00:00 98.8 129 15 126/54 95 Mechanical Ventilator 50 12/08/16 00:00 50 12/07/16 22:38 130 14 50 12/07/16 21:25 130 14 50 12/07/16 20:36 50 12/07/16 20:36 119 14 98 Mechanical Ventilator 15.0 50 12/07/16 20:36 119 14 100 Mechanical Ventilator 50 12/07/16 20:25 99.6 130 14 128/65 99 Mechanical Ventilator 50 12/07/16 20:00 131 12/07/16 20:00 50 12/07/16 19:22 80 14 50 12/07/16 16:30 75 14 50 12/07/16 16:00 50 12/07/16 15:54 129 12/07/16 15:40 98.0 129 14 113/72 99 Mechanical Ventilator 12/07/16 15:07 81 14 50 12/07/16 13:30 81 16 98 Mechanical Ventilator 50 12/07/16 13:20 50 12/07/16 13:20 78 14 98 Mechanical Ventilator 15.0 50 12/07/16 13:18 75 14 50 12/07/16 12:00 50 12/07/16 11:48 98.4 130 14 129/63 100 Mechanical Ventilator 12/07/16 11:33 131 12/07/16 11:16 76 14 50 Intake and Output 12/07/16 12/08/16 19:00 07:00 Intake Total 1635 ml 1666 ml Output Total 750 ml 100 ml Balance 885 ml 1566 ml Intake Free Water 100 ml 200 ml IV Total 805 ml 736 ml Tube Feeding 480 ml 480 ml Blood Product 250 ml 250 ml Output Urine Total 100 ml Stool Total 0 ml Other 650 ml 100 ml # Voids 2 # Bowel Movements 2 100 Laboratory Tests Test 12/07/16 12:10 12/08/16 04:00 Prothrombin Time 12.0 SEC (9.30-11.50) H Prothromb Time International Ratio 1.1 (0.9-1.1) Activated Partial Thromboplast Time 31 SEC (23-33) White Blood Count 15.6 K/UL (4.8-10.8) #H Red Blood Count 4.08 M/UL (4.20-5.40) L Hemoglobin 11.5 G/DL (12.0-16.0) #L Hematocrit 36.6 % (37.0-47.0) #L Mean Corpuscular Volume 89 FL (80-99) Mean Corpuscular Hemoglobin 28.1 PG (27.0-31.0) Mean Corpuscular Hemoglobin Concent 31.4 G/DL (32.0-36.0) L Red Cell Distribution Width 15.5 % (11.6-14.8) H Platelet Count 226 K/UL (150-450) Mean Platelet Volume 8.1 FL (6.5-10.1) Neutrophils (%) (Auto) % (45.0-75.0) Lymphocytes (%) (Auto) % (20.0-45.0) Monocytes (%) (Auto) % (1.0-10.0) Eosinophils (%) (Auto) % (0.0-3.0) Basophils (%) (Auto) % (0.0-2.0) Differential Total Cells Counted 100 Neutrophils % (Manual) 86 % (45-75) H Lymphocytes % (Manual) 6 % (20-45) L Monocytes % (Manual) 6 % (1-10) Eosinophils % (Manual) 2 % (0-3) Basophils % (Manual) 0 % (0-2) Band Neutrophils 0 % (0-8) Platelet Estimate Adequate Platelet Morphology Normal Hypochromasia 1+ Anisocytosis 1+ Sodium Level 142 mEQ/L (135-145) Potassium Level 4.1 mEQ/L (3.4-4.9) Chloride Level 105 mEQ/L (98-107) Carbon Dioxide Level 24 mEQ/L (20-30) Anion Gap 13 (5-15) Blood Urea Nitrogen 65 mg/dL (7-23) H Creatinine 1.5 mg/dL (0.5-0.9) H Estimat Glomerular Filtration Rate mL/min (>60) Glucose Level 128 mg/dL (74-106) H Calcium Level 8.8 mg/dL (8.6-10.2) Total Bilirubin 0.4 mg/dL (0.0-1.2) Aspartate Amino Transf (AST/SGOT) 22 U/L (5-40) Alanine Aminotransferase (ALT/SGPT) 8 U/L (3-33) Alkaline Phosphatase 224 U/L (35-104) H Total Protein 6.9 g/dL (6.6-8.7) Albumin 3.1 g/dL (3.5-5.2) L Globulin 3.8 g/dL Albumin/Globulin Ratio 0.8 (1.0-2.7) L Hepatitis A IgM Antibody Pending Hepatitis B Surface Antigen Pending Hepatitis B Core IgM Antibody Pending Hepatitis C Antibody Pending Height (Feet): 5 Height (Inches): 3.00 Weight (Pounds): 176 General Appearance: no apparent distress, alert Cardiovascular: normal rate Respiratory/Chest: normal breath sounds, no respiratory distress Abdominal Exam: normal bowel sounds, non tender, soft Genitourinary/Rectal: normal rectal exam Extremities: normal range of motion, non-tender, normal inspection Georgette Yuen N.P. Dec 08, 2016 10:47
[2016-12-08] MEDS: Tigecycline 50 MG in D5W 110 ML IVPB SCH (11:33)
[2016-12-08] MEDS: cefTRIAXone 1 GM in D5W 55 ML IVPB SCH (14:52)
--- NOTE | 2016-12-08 16:57 | Diagnostic Imaging Report ---
Indications: Ascites Technique: Ultrasound used to localize optimal puncture site. Sterile prepping and draping right lower quadrant. Local anesthesia with 1% lidocaine. Under real-time ultrasound guidance, puncture peritoneal space using paracentesis needle. Stylet removed. Catheter placed to vacuum bottle suction. Total 1.8 liters of cloudy yellow fluid aspirated. Patient tolerated procedure well, without immediate complication. Findings: Followup sonography demonstrates complete resolution of peritoneal fluid. Impression: Successful ultrasound-guided paracentesis, yielding 1.8 liters of cloudy yellow fluid
[2016-12-08 20:25] LABS: APPEARANCE, BODY FLUID HAZY; BD FL SOURCE PARACENTESIS; BD FL VOLUME 24 mL; BODY FLUID NUCLEATED CELLS 201 /CUMM; BODY FLUID RBC 1643 /CUMM; MONONUCLEAR WBC 24 %; POLYMORPHONUCLEAR WBC 73 %
--- NOTE | 2016-12-08 20:47 | Pulmonology Progress Note ---
Assessment/Plan Assessment/Plan IMPRESSION: 1. Urinary tract infection. 2. Hypotension. 3. Septic shock. 4. Renal failure. 5. Hyperkalemia. 6. Chronic respiratory failure. 7. Pulmonary edema. 8. Previous cerebrovascular accident. 9. Diarrhea 10. Anemia DISCUSSION: Continue vent AC mode. Off dopamine Continue broad-spectrum antibiotics. Repeat morning laboratories for chemistries. Intravenous fluids to be given. 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 Continue enteral feedings S?P paarcentesis DC planning Subjective Interval Events: S/p parcentesis Constitutional: Reports: no symptoms HEENT: Repors: no symptoms Respiratory: Reports: no symptoms Cardiovascular: Reports: no symptoms Gastrointestinal/Abdominal: Reports: no symptoms Allergies: Coded Allergies: AMPICILLIN (Verified Allergy, Unknown, 03/04/11) ASPIRIN (Verified Allergy, Unknown, 03/04/11) PENICILLIN (Unverified Allergy, Unknown, 02/14/15) PENICILLINS (Verified Allergy, Unknown, 09/18/11) TRIFLUOPERAZINE (Verified Allergy, Unknown, 03/04/11) Objective Last 24 Hour Vital Signs Date Time Temp Pulse Resp B/P Pulse Ox O2 Delivery O2 Flow Rate FiO2 12/08/16 20:38 133 14 50 12/08/16 20:24 130 12/08/16 20:24 130 Mechanical Ventilator 50 12/08/16 20:00 50 12/08/16 20:00 99.0 133 14 145/54 98 Mechanical Ventilator 50 12/08/16 19:45 130 14 50 12/08/16 17:21 131 14 50 12/08/16 16:00 131 12/08/16 16:00 99.0 132 15 115/58 99 Mechanical Ventilator 50 12/08/16 16:00 50 12/08/16 15:10 131 14 50 12/08/16 12:39 131 Mechanical Ventilator 50 12/08/16 12:39 131 Mechanical Ventilator 50 12/08/16 12:37 131 14 50 12/08/16 12:10 98.1 130 15 110/50 98 12/08/16 12:00 50 12/08/16 12:00 130 12/08/16 11:03 131 14 50 12/08/16 09:08 133 14 50 12/08/16 08:00 98.2 131 24 130/58 100 Mechanical Ventilator 50 12/08/16 08:00 130 12/08/16 08:00 50 12/08/16 07:14 Mechanical Ventilator 50 12/08/16 07:14 Mechanical Ventilator 50 12/08/16 07:12 130 14 50 12/08/16 05:09 131 14 50 12/08/16 04:00 130 12/08/16 04:00 98.3 132 14 107/48 98 Mechanical Ventilator 50 12/08/16 04:00 50 12/08/16 03:07 129 14 50 12/08/16 00:58 130 14 97 Mechanical Ventilator 15.0 50 12/08/16 00:58 Mechanical Ventilator 12/08/16 00:52 98.8 129 15 126/54 95 Mechanical Ventilator 50 12/08/16 00:50 129 14 50 12/08/16 00:00 129 12/08/16 00:00 98.8 129 15 126/54 95 Mechanical Ventilator 50 12/08/16 00:00 50 12/07/16 22:38 130 14 50 12/07/16 21:25 130 14 50 Intake and Output 12/07/16 12/08/16 19:00 07:00 Intake Total 1635 ml 1666 ml Output Total 750 ml 100 ml Balance 885 ml 1566 ml Intake Free Water 100 ml 200 ml IV Total 805 ml 736 ml Tube Feeding 480 ml 480 ml Blood Product 250 ml 250 ml Output Urine Total 100 ml Stool Total 0 ml Other 650 ml 100 ml # Voids 2 # Bowel Movements 2 100 General Appearance: no acute distress HEENT: normocephalic Respiratory/Chest: chest wall non-tender, lungs clear Cardiovascular: normal peripheral pulses Abdomen: normal bowel sounds, soft, non tender Laboratory Tests 12/08/16 04:00: White Blood Count 15.6#H, Red Blood Count 4.08L, Hemoglobin 11.5#L, Hematocrit 36.6#L, Mean Corpuscular Volume 89, Mean Corpuscular Hemoglobin 28.1, Mean Corpuscular Hemoglobin Concent 31.4L, Red Cell Distribution Width 15.5H, Platelet Count 226, Mean Platelet Volume 8.1, Neutrophils (%) (Auto) , Lymphocytes (%) (Auto) , Monocytes (%) (Auto) , Eosinophils (%) (Auto) , Basophils (%) (Auto) , Differential Total Cells Counted 100, Neutrophils % ( Manual) 86H, Lymphocytes % (Manual) 6L, Monocytes % (Manual) 6, Eosinophils % ( Manual) 2, Basophils % (Manual) 0, Band Neutrophils 0, Platelet Estimate Adequate, Platelet Morphology Normal, Hypochromasia 1+, Anisocytosis 1+, Sodium Level 142, Potassium Level 4.1, Chloride Level 105, Carbon Dioxide Level 24, Anion Gap 13, Blood Urea Nitrogen 65H, Creatinine 1.5H, Estimat Glomerular Filtration Rate , Glucose Level 128H, Calcium Level 8.8, Total Bilirubin 0.4, Aspartate Amino Transf (AST/SGOT) 22, Alanine Aminotransferase (ALT/SGPT) 8, Alkaline Phosphatase 224H, Total Protein 6.9, Albumin 3.1L, Globulin 3.8, Albumin/Globulin Ratio 0.8L, Hepatitis A IgM Antibody [Pending], Hepatitis B Surface Antigen [Pending], Hepatitis B Core IgM Antibody [Pending], Hepatitis C Antibody [Pending] 12/08/16 17:00: Body Fluid Source Paracentesis, Body Fluid Volume 24, Body Fluid Appearance Hazy , Body Fluid RBC 1643, Body Fluid Total Nucleated Cells 201, Body Fluid Polynuclear WBCs (%) 73, Body Fluid Mononuclear WBCs (%) 24, Body Fluid Mesothelial Cells (%) 3, Body Fluid Albumin [Pending] Current Medications Medications (Trade) Dose Ordered Sig/Joey Route PRN Reason Start Time Stop Time Status Last Admin Dose Admin Acetaminophen (Tylenol) 650 mg Q4H PRN ORAL Mild Pain (Pain Scale 1-3) 12/05/16 23:45 01/04/17 23:44 Albuterol/ Ipratropium (DuoNeb 0.5-3(2.5)mg/3ml) 3 ml Q6HRT HHN 12/06/16 01:00 12/11/16 00:59 12/07/16 20:35 Ceftriaxone Sodium/Dextrose (Rocephin/D5W) 55 ml @ 110 mls/hr Q24H IVPB 12/06/16 14:00 12/13/16 13:59 12/08/16 14:52 Chlorhexidine Gluconate (Ginger-Hex 2%) 1 applic QHS TOPIC 12/08/16 21:00 01/07/17 20:59 12/08/16 20:23 Clotrimazole (Lotrimin) 1 applic THREE TIMES A DAY TOPIC 12/08/16 13:00 01/07/17 12:59 12/08/16 18:08 Dextrose (Dextrose 50%) STAT PRN IV Hypoglycemia 12/05/16 21:00 01/04/17 20:59 Furosemide (Lasix) 20 mg DAILY IV 12/08/16 09:00 01/07/17 08:59 12/08/16 08:02 Lansoprazole 30 mg 30 mg DAILY GT 12/08/16 09:00 01/07/17 08:59 12/08/16 08:03 Lorazepam (Ativan 2mg/ml 1ml) 0.5 mg Q4H PRN IV For Anxiety 12/05/16 21:00 12/12/16 20:59 12/08/16 00:17 Ondansetron HCl 4 mg 4 mg Q6H PRN IVP Nausea & Vomiting 12/05/16 21:00 01/04/17 20:59 Sodium Chloride (Sodium Chloride 1000ml bag) 1,000 ml @ 100 mls/hr Q10H IVLG 12/05/16 21:30 01/04/17 21:29 12/08/16 20:02 Spironolactone (Aldactone) 100 mg DAILY ORAL 12/08/16 09:00 01/07/17 08:59 12/08/16 08:03 Tigecycline/ Dextrose (Tygacil/D5W) 110 ml @ 220 mls/hr Q12H IVPB 12/08/16 00:00 12/15/16 00:00 12/08/16 11:33 Haris Ruby MD Dec 08, 2016 20:47
[2016-12-09] VITALS: BP 109/59
[2016-12-09] MEDS: Tigecycline 50 MG in D5W 110 ML IVPB SCH ×3 (00:14→14:50)
[2016-12-09] MEDS: DuoNeb 0.5-3(2.5)mg/3ml neb HHN SCH ×4 (01:00→18:33)
[2016-12-09 03:57] VITALS: BP 120/49
[2016-12-09 05:07] LABS: MEAN CORPUSCULAR HEMOGLOBIN 27.8 PG (27.0-31.0); MEAN CORPUSCULAR HGB CONC 30.8 G/DL (32.0-36.0); MEAN CORPUSCULAR VOLUME 90 FL (80-99); MEAN PLATELET VOLUME 8.6 FL (6.5-10.1); PLATELET COUNT 175 K/UL (150-450); RED BLOOD COUNT 3.44 M/UL (4.20-5.40); RED CELL DISTRIBUTION WIDTH 15.7 % (11.6-14.8); WHITE BLOOD COUNT 9.1 K/UL (4.8-10.8)
[2016-12-09 05:25] LABS: ALANINE AMINOTRANSFERASE 5 U/L (3-33); ALBUMIN/GLOBULIN RATIO 0.7 (1.0-2.7); ANION GAP 14 (5-15); ASPARTATE AMINO TRANSFERASE 16 U/L (5-40); CALCIUM 7.4 mg/dL (8.6-10.2); CARBON DIOXIDE 20 mEQ/L (20-30); CHLORIDE 110 mEQ/L (98-107); CREATININE 1.4 mg/dL (0.5-0.9); HEMOLYSIS 8; POTASSIUM 3.5 mEQ/L (3.4-4.9); SODIUM 144 mEQ/L (135-145); TOTAL PROTEIN 5.4 g/dL (6.6-8.7)
[2016-12-09 08:00] VITALS: BP 110/50
[2016-12-09 08:05] LABS: ANISOCYTOSIS 1+; BAND NEUTROPHILS % (MANUAL) 0 % (0-8); BASOPHILS % (MANUAL) 0 % (0-2); EOSINOPHILS % (MANUAL) 2 % (0-3); HYPOCHROMASIA 1+; LYMPHOCYTES % (MANUAL) 7 % (20-45); NEUTROPHILS % (MANUAL) 83 % (45-75); PLATELET ESTIMATE ADEQUATE; PLATELET MORPHOLOGY NORMAL; TOTAL CELLS COUNTED 100
[2016-12-09] MEDS ORDERED: NS 275ml ONE (09:53)
[2016-12-09] MEDS ORDERED: Tubing Blood Filter IV ONE (09:53)
--- NOTE | 2016-12-09 10:56 | GI Progress Note ---
Assessment/Plan Problems: (1) History of abdominal surgery ICD Codes: Z98.890 - Other specified postprocedural states SNOMED: 668986994, 253448154 (2) Anemia ICD Codes: D64.9 - Anemia SNOMED: 937031428 (3) Feeding by G-tube ICD Codes: Z93.1 - Feeding by G-tube SNOMED: 449220796 (4) Malfunction of gastrostomy tube ICD Codes: K94.23 - Gastrostomy malfunction SNOMED: 356429564 (5) Malnutrition ICD Codes: E46 - Unspecified protein-calorie malnutrition SNOMED: 1354821 Status: unchanged Status Narrative Discussed with Dr. Walker. 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 APCT reviewed >> possibility of cirrhosis chronic liver disease. Recent abdominal surgery. No evidence of bowel obstruction. abd US reviewed. elevated CEA >> 5.4 hep panel >> negative iron deficiency s/p paracentesis with 1.8L yield, r/o SBP defer EGD at this point and monitor H&H OB stool r/o GI bleed GTF's per dietary GT site care daily/prn monitor H&H, transfuse prn cont ppi fu labs Subjective Subjective limited Objective Last 24 Hour Vital Signs Date Time Temp Pulse Resp B/P Pulse Ox O2 Delivery O2 Flow Rate FiO2 12/09/16 09:38 15.0 50 12/09/16 09:00 50 12/09/16 08:47 108 14 50 12/09/16 08:00 97.5 128 14 110/50 100 Mechanical Ventilator 50 12/09/16 07:05 131 Mechanical Ventilator 50 12/09/16 07:04 131 Mechanical Ventilator 12/09/16 07:02 129 14 50 12/09/16 04:56 130 14 50 12/09/16 04:00 131 12/09/16 04:00 50 12/09/16 03:57 98.4 133 14 120/49 99 Mechanical Ventilator 50 12/09/16 02:43 126 14 50 12/09/16 01:05 132 14 50 12/09/16 01:00 135 12/09/16 01:00 135 12/09/16 00:00 98.2 133 14 109/59 99 Mechanical Ventilator 50 12/09/16 00:00 50 12/09/16 00:00 133 12/08/16 22:58 135 14 50 12/08/16 20:38 133 14 50 12/08/16 20:24 130 12/08/16 20:24 130 Mechanical Ventilator 50 12/08/16 20:00 50 12/08/16 20:00 99.0 133 14 145/54 98 Mechanical Ventilator 50 12/08/16 20:00 133 12/08/16 19:45 130 14 50 12/08/16 17:21 131 14 50 12/08/16 16:00 131 12/08/16 16:00 99.0 132 15 115/58 99 Mechanical Ventilator 50 12/08/16 16:00 50 12/08/16 15:10 131 14 50 12/08/16 12:39 131 Mechanical Ventilator 50 12/08/16 12:39 131 Mechanical Ventilator 50 12/08/16 12:37 131 14 50 12/08/16 12:10 98.1 130 15 110/50 98 12/08/16 12:00 50 12/08/16 12:00 130 12/08/16 11:03 131 14 50 Intake and Output 12/08/16 12/09/16 19:00 07:00 Intake Total 1480 ml 1890 ml Output Total 1868 ml 60 ml Balance -388 ml 1830 ml Intake Free Water 200 ml IV Total 1000 ml 1210 ml Tube Feeding 480 ml 480 ml Stool Total 50 ml 50 ml Other 1818 ml 10 ml # Voids 2 4 Laboratory Tests Test 12/08/16 17:00 12/09/16 04:00 Body Fluid Source Paracentesis Body Fluid Volume 24 mL Body Fluid Appearance Hazy Body Fluid RBC 1643 /CUMM Body Fluid Total Nucleated Cells 201 /CUMM Body Fluid Polynuclear WBCs (%) 73 % Body Fluid Mononuclear WBCs (%) 24 % Body Fluid Mesothelial Cells (%) 3 % Body Fluid Albumin Pending White Blood Count 9.1 K/UL (4.8-10.8) Red Blood Count 3.44 M/UL (4.20-5.40) L Hemoglobin 9.6 G/DL (12.0-16.0) L Hematocrit 31.1 % (37.0-47.0) L Mean Corpuscular Volume 90 FL (80-99) Mean Corpuscular Hemoglobin 27.8 PG (27.0-31.0) Mean Corpuscular Hemoglobin Concent 30.8 G/DL (32.0-36.0) L Red Cell Distribution Width 15.7 % (11.6-14.8) H Platelet Count 175 K/UL (150-450) Mean Platelet Volume 8.6 FL (6.5-10.1) Neutrophils (%) (Auto) % (45.0-75.0) Lymphocytes (%) (Auto) % (20.0-45.0) Monocytes (%) (Auto) % (1.0-10.0) Eosinophils (%) (Auto) % (0.0-3.0) Basophils (%) (Auto) % (0.0-2.0) Differential Total Cells Counted 100 Neutrophils % (Manual) 83 % (45-75) H Lymphocytes % (Manual) 7 % (20-45) L Monocytes % (Manual) 8 % (1-10) Eosinophils % (Manual) 2 % (0-3) Basophils % (Manual) 0 % (0-2) Band Neutrophils 0 % (0-8) Platelet Estimate Adequate Platelet Morphology Normal Hypochromasia 1+ Anisocytosis 1+ Sodium Level 144 mEQ/L (135-145) Potassium Level 3.5 mEQ/L (3.4-4.9) Chloride Level 110 mEQ/L (98-107) H Carbon Dioxide Level 20 mEQ/L (20-30) Anion Gap 14 (5-15) Blood Urea Nitrogen 67 mg/dL (7-23) H Creatinine 1.4 mg/dL (0.5-0.9) H Estimat Glomerular Filtration Rate mL/min (>60) Glucose Level 122 mg/dL (74-106) H Calcium Level 7.4 mg/dL (8.6-10.2) L Total Bilirubin 0.2 mg/dL (0.0-1.2) Aspartate Amino Transf (AST/SGOT) 16 U/L (5-40) Alanine Aminotransferase (ALT/SGPT) 5 U/L (3-33) Alkaline Phosphatase 150 U/L (35-104) H Total Protein 5.4 g/dL (6.6-8.7) L Albumin 2.3 g/dL (3.5-5.2) L Globulin 3.1 g/dL Albumin/Globulin Ratio 0.7 (1.0-2.7) L Height (Feet): 5 Height (Inches): 3.00 Weight (Pounds): 170 General Appearance: no apparent distress Cardiovascular: normal rate Respiratory/Chest: other - [facility] Georgette Garcia N.P. Dec 09, 2016 10:56
--- NOTE | 2016-12-09 10:59 | Pulmonology Progress Note ---
Assessment/Plan Assessment/Plan IMPRESSION: 1. Urinary tract infection. 2. Hypotension. 3. Septic shock. 4. Renal failure. 5. Hyperkalemia. 6. Chronic respiratory failure. 7. Pulmonary edema. 8. Previous cerebrovascular accident. 9. Diarrhea 10. Anemia DISCUSSION: Continue vent AC mode. Off dopamine Continue broad-spectrum antibiotics. On Tygacil and Rocephin I will follow as dyer helper Continue respiratory treatments, pulmonary hygiene, and GI and DVT prophylaxis. Continue enteral feedings S/P parcentesis DC planning Subjective Interval Events: Doing better Constitutional: Reports: no symptoms HEENT: Repors: no symptoms Respiratory: Reports: no symptoms Cardiovascular: Reports: no symptoms Gastrointestinal/Abdominal: Reports: no symptoms Genitourinary: Reports: no symptoms Allergies: Coded Allergies: AMPICILLIN (Verified Allergy, Unknown, 03/04/11) ASPIRIN (Verified Allergy, Unknown, 03/04/11) PENICILLIN (Unverified Allergy, Unknown, 02/14/15) PENICILLINS (Verified Allergy, Unknown, 09/18/11) TRIFLUOPERAZINE (Verified Allergy, Unknown, 03/04/11) Objective Last 24 Hour Vital Signs Date Time Temp Pulse Resp B/P Pulse Ox O2 Delivery O2 Flow Rate FiO2 12/09/16 09:38 15.0 50 12/09/16 09:00 50 12/09/16 08:47 108 14 50 12/09/16 08:00 97.5 128 14 110/50 100 Mechanical Ventilator 50 12/09/16 07:05 131 Mechanical Ventilator 50 12/09/16 07:04 131 Mechanical Ventilator 12/09/16 07:02 129 14 50 12/09/16 04:56 130 14 50 12/09/16 04:00 131 12/09/16 04:00 50 12/09/16 03:57 98.4 133 14 120/49 99 Mechanical Ventilator 50 12/09/16 02:43 126 14 50 12/09/16 01:05 132 14 50 12/09/16 01:00 135 12/09/16 01:00 135 12/09/16 00:00 98.2 133 14 109/59 99 Mechanical Ventilator 50 12/09/16 00:00 50 12/09/16 00:00 133 12/08/16 22:58 135 14 50 12/08/16 20:38 133 14 50 12/08/16 20:24 130 12/08/16 20:24 130 Mechanical Ventilator 50 12/08/16 20:00 50 12/08/16 20:00 99.0 133 14 145/54 98 Mechanical Ventilator 50 12/08/16 20:00 133 12/08/16 19:45 130 14 50 12/08/16 17:21 131 14 50 12/08/16 16:00 131 12/08/16 16:00 99.0 132 15 115/58 99 Mechanical Ventilator 50 12/08/16 16:00 50 12/08/16 15:10 131 14 50 12/08/16 12:39 131 Mechanical Ventilator 50 12/08/16 12:39 131 Mechanical Ventilator 50 12/08/16 12:37 131 14 50 12/08/16 12:10 98.1 130 15 110/50 98 12/08/16 12:00 50 12/08/16 12:00 130 12/08/16 11:03 131 14 50 Intake and Output 12/08/16 12/09/16 19:00 07:00 Intake Total 1480 ml 1890 ml Output Total 1868 ml 60 ml Balance -388 ml 1830 ml Intake Free Water 200 ml IV Total 1000 ml 1210 ml Tube Feeding 480 ml 480 ml Stool Total 50 ml 50 ml Other 1818 ml 10 ml # Voids 2 4 General Appearance: no acute distress HEENT: normocephalic, status post trach Respiratory/Chest: chest wall non-tender, lungs clear Cardiovascular: normal peripheral pulses, normal rate Abdomen: non distended Extremities: no cyanosis Laboratory Tests 12/08/16 17:00: Body Fluid Source Paracentesis, Body Fluid Volume 24, Body Fluid Appearance Hazy , Body Fluid RBC 1643, Body Fluid Total Nucleated Cells 201, Body Fluid Polynuclear WBCs (%) 73, Body Fluid Mononuclear WBCs (%) 24, Body Fluid Mesothelial Cells (%) 3, Body Fluid Albumin [Pending] 12/09/16 04:00: White Blood Count 9.1, Red Blood Count 3.44L, Hemoglobin 9.6L, Hematocrit 31.1L , Mean Corpuscular Volume 90, Mean Corpuscular Hemoglobin 27.8, Mean Corpuscular Hemoglobin Concent 30.8L, Red Cell Distribution Width 15.7H, Platelet Count 175, Mean Platelet Volume 8.6, Neutrophils (%) (Auto) , Lymphocytes (%) (Auto) , Monocytes (%) (Auto) , Eosinophils (%) (Auto) , Basophils (%) (Auto) , Differential Total Cells Counted 100, Neutrophils % ( Manual) 83H, Lymphocytes % (Manual) 7L, Monocytes % (Manual) 8, Eosinophils % ( Manual) 2, Basophils % (Manual) 0, Band Neutrophils 0, Platelet Estimate Adequate, Platelet Morphology Normal, Hypochromasia 1+, Anisocytosis 1+, Sodium Level 144, Potassium Level 3.5, Chloride Level 110H, Carbon Dioxide Level 20, Anion Gap 14, Blood Urea Nitrogen 67H, Creatinine 1.4H, Estimat Glomerular Filtration Rate , Glucose Level 122H, Calcium Level 7.4L, Total Bilirubin 0.2, Aspartate Amino Transf (AST/SGOT) 16, Alanine Aminotransferase (ALT/SGPT) 5, Alkaline Phosphatase 150H, Total Protein 5.4L, Albumin 2.3L, Globulin 3.1, Albumin/Globulin Ratio 0.7L Current Medications Medications (Trade) Dose Ordered Sig/Joey Route PRN Reason Start Time Stop Time Status Last Admin Dose Admin Acetaminophen (Tylenol) 650 mg Q4H PRN ORAL Mild Pain (Pain Scale 1-3) 12/05/16 23:45 01/04/17 23:44 Albuterol/ Ipratropium (DuoNeb 0.5-3(2.5)mg/3ml) 3 ml Q6HRT HHN 12/06/16 01:00 12/11/16 00:59 12/07/16 20:35 Ceftriaxone Sodium/Dextrose (Rocephin/D5W) 55 ml @ 110 mls/hr Q24H IVPB 12/06/16 14:00 12/13/16 13:59 12/08/16 14:52 Chlorhexidine Gluconate (Ginger-Hex 2%) 1 applic QHS TOPIC 12/08/16 21:00 01/07/17 20:59 12/08/16 20:23 Clotrimazole (Lotrimin) 1 applic THREE TIMES A DAY TOPIC 12/08/16 13:00 01/07/17 12:59 12/08/16 18:08 Dextrose (Dextrose 50%) STAT PRN IV Hypoglycemia 12/05/16 21:00 01/04/17 20:59 Furosemide (Lasix) 20 mg DAILY IV 12/08/16 09:00 01/07/17 08:59 12/08/16 08:02 Lansoprazole 30 mg 30 mg DAILY GT 12/08/16 09:00 01/07/17 08:59 12/08/16 08:03 Lorazepam (Ativan 2mg/ml 1ml) 0.5 mg Q4H PRN IV For Anxiety 12/05/16 21:00 12/12/16 20:59 12/08/16 00:17 Ondansetron HCl 4 mg 4 mg Q6H PRN IVP Nausea & Vomiting 12/05/16 21:00 01/04/17 20:59 Sodium Chloride (Sodium Chloride 1000ml bag) 1,000 ml @ 100 mls/hr Q10H IVLG 12/05/16 21:30 01/04/17 21:29 12/09/16 06:16 Spironolactone (Aldactone) 100 mg DAILY ORAL 12/08/16 09:00 01/07/17 08:59 12/08/16 08:03 Tigecycline/ Dextrose (Tygacil/D5W) 110 ml @ 220 mls/hr Q12H IVPB 12/08/16 00:00 12/15/16 00:00 12/09/16 00:14 Haris Ruby MD Dec 09, 2016 10:59
[2016-12-09] MEDS: Spironolactone 50mg tab ORAL SCH (11:13)
--- NOTE | 2016-12-09 11:56 | Infectious Diseases Prog Note ---
Assessment/Plan Assessment/Plan antibiotics : tygacil, ceftriaxone A 1. abdominal wall cellulitis improving 2. ascites 3. serratia pneumonia 4. klebsiella UTI 5. respiratory failure 6. renal insufficiency P 1. continue tygacil 3 more days 2. continue ceftriaxone 6 more days 3. start fluconazole 4. will follow up cultures Subjective ROS Limited/Unobtainable: Yes Allergies: Coded Allergies: AMPICILLIN (Verified Allergy, Unknown, 03/04/11) ASPIRIN (Verified Allergy, Unknown, 03/04/11) PENICILLIN (Unverified Allergy, Unknown, 02/14/15) PENICILLINS (Verified Allergy, Unknown, 09/18/11) TRIFLUOPERAZINE (Verified Allergy, Unknown, 03/04/11) Objective Vital Signs Last 24 Hour Vital Signs Date Time Temp Pulse Resp B/P Pulse Ox O2 Delivery O2 Flow Rate FiO2 12/09/16 11:18 92 14 50 12/09/16 09:38 15.0 50 12/09/16 09:00 50 12/09/16 08:47 108 14 50 12/09/16 08:00 97.5 128 14 110/50 100 Mechanical Ventilator 50 12/09/16 07:05 131 Mechanical Ventilator 50 12/09/16 07:04 131 Mechanical Ventilator 12/09/16 07:02 129 14 50 12/09/16 04:56 130 14 50 12/09/16 04:00 131 12/09/16 04:00 50 12/09/16 03:57 98.4 133 14 120/49 99 Mechanical Ventilator 50 12/09/16 02:43 126 14 50 12/09/16 01:05 132 14 50 12/09/16 01:00 135 12/09/16 01:00 135 12/09/16 00:00 98.2 133 14 109/59 99 Mechanical Ventilator 50 12/09/16 00:00 50 12/09/16 00:00 133 12/08/16 22:58 135 14 50 12/08/16 20:38 133 14 50 12/08/16 20:24 130 12/08/16 20:24 130 Mechanical Ventilator 50 12/08/16 20:00 50 12/08/16 20:00 99.0 133 14 145/54 98 Mechanical Ventilator 50 12/08/16 20:00 133 12/08/16 19:45 130 14 50 12/08/16 17:21 131 14 50 12/08/16 16:00 131 12/08/16 16:00 99.0 132 15 115/58 99 Mechanical Ventilator 50 12/08/16 16:00 50 12/08/16 15:10 131 14 50 12/08/16 12:39 131 Mechanical Ventilator 50 12/08/16 12:39 131 Mechanical Ventilator 50 12/08/16 12:37 131 14 50 12/08/16 12:10 98.1 130 15 110/50 98 12/08/16 12:00 50 12/08/16 12:00 130 Height (Feet): 5 Height (Inches): 3.00 Weight (Pounds): 170 HEENT: status post trach Respiratory/Chest: lungs clear Cardiovascular: normal rate, regular rhythm, no gallop/murmur Abdomen: soft, non tender, other - GT Extremities: other - + edema, right arm PICC Laboratory Tests Test 12/08/16 17:00 12/09/16 04:00 Body Fluid Source Paracentesis Body Fluid Volume 24 mL Body Fluid Appearance Hazy Body Fluid RBC 1643 /CUMM Body Fluid Total Nucleated Cells 201 /CUMM Body Fluid Polynuclear WBCs (%) 73 % Body Fluid Mononuclear WBCs (%) 24 % Body Fluid Mesothelial Cells (%) 3 % Body Fluid Albumin Pending White Blood Count 9.1 K/UL (4.8-10.8) Red Blood Count 3.44 M/UL (4.20-5.40) L Hemoglobin 9.6 G/DL (12.0-16.0) L Hematocrit 31.1 % (37.0-47.0) L Mean Corpuscular Volume 90 FL (80-99) Mean Corpuscular Hemoglobin 27.8 PG (27.0-31.0) Mean Corpuscular Hemoglobin Concent 30.8 G/DL (32.0-36.0) L Red Cell Distribution Width 15.7 % (11.6-14.8) H Platelet Count 175 K/UL (150-450) Mean Platelet Volume 8.6 FL (6.5-10.1) Neutrophils (%) (Auto) % (45.0-75.0) Lymphocytes (%) (Auto) % (20.0-45.0) Monocytes (%) (Auto) % (1.0-10.0) Eosinophils (%) (Auto) % (0.0-3.0) Basophils (%) (Auto) % (0.0-2.0) Differential Total Cells Counted 100 Neutrophils % (Manual) 83 % (45-75) H Lymphocytes % (Manual) 7 % (20-45) L Monocytes % (Manual) 8 % (1-10) Eosinophils % (Manual) 2 % (0-3) Basophils % (Manual) 0 % (0-2) Band Neutrophils 0 % (0-8) Platelet Estimate Adequate Platelet Morphology Normal Hypochromasia 1+ Anisocytosis 1+ Sodium Level 144 mEQ/L (135-145) Potassium Level 3.5 mEQ/L (3.4-4.9) Chloride Level 110 mEQ/L (98-107) H Carbon Dioxide Level 20 mEQ/L (20-30) Anion Gap 14 (5-15) Blood Urea Nitrogen 67 mg/dL (7-23) H Creatinine 1.4 mg/dL (0.5-0.9) H Estimat Glomerular Filtration Rate mL/min (>60) Glucose Level 122 mg/dL (74-106) H Calcium Level 7.4 mg/dL (8.6-10.2) L Total Bilirubin 0.2 mg/dL (0.0-1.2) Aspartate Amino Transf (AST/SGOT) 16 U/L (5-40) Alanine Aminotransferase (ALT/SGPT) 5 U/L (3-33) Alkaline Phosphatase 150 U/L (35-104) H Total Protein 5.4 g/dL (6.6-8.7) L Albumin 2.3 g/dL (3.5-5.2) L Globulin 3.1 g/dL Albumin/Globulin Ratio 0.7 (1.0-2.7) L DAIANA LEACH Dec 09, 2016 11:56
[2016-12-09 12:00] VITALS: BP 107/52
[2016-12-09] MEDS ORDERED: Fluconazole 100mg tab ORAL SCH (12:00)
--- NOTE | 2016-12-09 13:08 | Nephrology Progress Note ---
Assessment/Plan Problem List: (1) Dysphagia (2) Renal failure (ARF), acute on chronic (3) Hyperkalemia (4) Ventilator dependence (5) Respiratory failure, acute and chronic Plan Monitor renal function Monitor lytes, correct as needed Continue IVF Avoid nephrotoxic agents Continue abx Wound care Continue vent. Continue neb treatments GI and DVT prophylaxis. Continue enteral feedings Subjective ROS Limited/Unobtainable: Yes Subjective On vent via trach Objective Objective Last 24 Hour Vital Signs Date Time Temp Pulse Resp B/P Pulse Ox O2 Delivery O2 Flow Rate FiO2 12/09/16 12:00 97.5 120 14 107/52 100 Mechanical Ventilator 50 12/09/16 11:18 92 14 50 12/09/16 09:38 15.0 50 12/09/16 09:00 50 12/09/16 08:47 108 14 50 12/09/16 08:00 97.5 128 14 110/50 100 Mechanical Ventilator 50 12/09/16 07:05 131 Mechanical Ventilator 50 12/09/16 07:04 131 Mechanical Ventilator 12/09/16 07:02 129 14 50 12/09/16 04:56 130 14 50 12/09/16 04:00 131 12/09/16 04:00 50 12/09/16 03:57 98.4 133 14 120/49 99 Mechanical Ventilator 50 12/09/16 02:43 126 14 50 12/09/16 01:05 132 14 50 12/09/16 01:00 135 12/09/16 01:00 135 12/09/16 00:00 98.2 133 14 109/59 99 Mechanical Ventilator 50 12/09/16 00:00 50 12/09/16 00:00 133 12/08/16 22:58 135 14 50 12/08/16 20:38 133 14 50 12/08/16 20:24 130 12/08/16 20:24 130 Mechanical Ventilator 50 12/08/16 20:00 50 12/08/16 20:00 99.0 133 14 145/54 98 Mechanical Ventilator 50 12/08/16 20:00 133 12/08/16 19:45 130 14 50 12/08/16 17:21 131 14 50 12/08/16 16:00 131 12/08/16 16:00 99.0 132 15 115/58 99 Mechanical Ventilator 50 12/08/16 16:00 50 12/08/16 15:10 131 14 50 Intake and Output 12/08/16 12/09/16 19:00 07:00 Intake Total 1480 ml 1890 ml Output Total 1868 ml 60 ml Balance -388 ml 1830 ml Intake Free Water 200 ml IV Total 1000 ml 1210 ml Tube Feeding 480 ml 480 ml Stool Total 50 ml 50 ml Other 1818 ml 10 ml # Voids 2 4 Laboratory Tests 12/08/16 17:00: Body Fluid Source Paracentesis, Body Fluid Volume 24, Body Fluid Appearance Hazy , Body Fluid RBC 1643, Body Fluid Total Nucleated Cells 201, Body Fluid Polynuclear WBCs (%) 73, Body Fluid Mononuclear WBCs (%) 24, Body Fluid Mesothelial Cells (%) 3, Body Fluid Albumin [Pending] 12/09/16 04:00: White Blood Count 9.1, Red Blood Count 3.44L, Hemoglobin 9.6L, Hematocrit 31.1L , Mean Corpuscular Volume 90, Mean Corpuscular Hemoglobin 27.8, Mean Corpuscular Hemoglobin Concent 30.8L, Red Cell Distribution Width 15.7H, Platelet Count 175, Mean Platelet Volume 8.6, Neutrophils (%) (Auto) , Lymphocytes (%) (Auto) , Monocytes (%) (Auto) , Eosinophils (%) (Auto) , Basophils (%) (Auto) , Differential Total Cells Counted 100, Neutrophils % ( Manual) 83H, Lymphocytes % (Manual) 7L, Monocytes % (Manual) 8, Eosinophils % ( Manual) 2, Basophils % (Manual) 0, Band Neutrophils 0, Platelet Estimate Adequate, Platelet Morphology Normal, Hypochromasia 1+, Anisocytosis 1+, Sodium Level 144, Potassium Level 3.5, Chloride Level 110H, Carbon Dioxide Level 20, Anion Gap 14, Blood Urea Nitrogen 67H, Creatinine 1.4H, Estimat Glomerular Filtration Rate , Glucose Level 122H, Calcium Level 7.4L, Total Bilirubin 0.2, Aspartate Amino Transf (AST/SGOT) 16, Alanine Aminotransferase (ALT/SGPT) 5, Alkaline Phosphatase 150H, Total Protein 5.4L, Albumin 2.3L, Globulin 3.1, Albumin/Globulin Ratio 0.7L Height (Feet): 5 Height (Inches): 3.00 Weight (Pounds): 170 General Appearance: no apparent distress Neck: other - Trach Cardiovascular: regular rhythm Respiratory/Chest: decreased breath sounds, other - trach - vent settings Abdomen: other - PEG tube Genitourinary/Rectal: other - valero Extremities: moderate edema Neurologic: unresponsive Alvina Silverio N.P. Dec 09, 2016 13:08
[2016-12-09] MEDS: cefTRIAXone 1 GM in D5W 55 ML IVPB SCH (14:00)
[2016-12-09 14:19] LABS: COMMENT,BODY FLUID PATHOLOGIST COMMENT
[2016-12-09 16:00] VITALS: BP 103/59
[2016-12-09 20:00] VITALS: BP 119/57
[2016-12-09] MEDS: Dyna-Hex 2% Top Sol 8oz TOPIC SCH (21:49)
[2016-12-10] VITALS: BP 123/57
[2016-12-10] MEDS: Tigecycline 50 MG in D5W 110 ML IVPB SCH ×2 (00:37→14:05)
[2016-12-10] MEDS: DuoNeb 0.5-3(2.5)mg/3ml neb HHN SCH ×3 (01:00→13:05)
[2016-12-10 04:00] VITALS: BP 125/53
[2016-12-10 08:00] VITALS: BP 117/40
[2016-12-10] MEDS ORDERED: Fluconazole 100mg tab GT SCH (09:00)
[2016-12-10] MEDS ORDERED: Spironolactone 50mg tab GT SCH (09:00)
[2016-12-10] MEDS ORDERED: Tubing IV Secondary IV ONE ×2 (09:13→15:59)
--- NOTE | 2016-12-10 10:27 | Infectious Diseases Prog Note ---
Assessment/Plan Assessment/Plan antibiotics : tygacil, ceftriaxone A 1. abdominal wall cellulitis improving 2. ascites 3. serratia pneumonia 4. klebsiella UTI 5. respiratory failure 6. renal insufficiency P 1. continue tygacil 2 more days 2. continue ceftriaxone 5 more days 3. continue fluconazole 5 more days 4. will follow up cultures Subjective ROS Limited/Unobtainable: Yes Allergies: Coded Allergies: AMPICILLIN (Verified Allergy, Unknown, 03/04/11) ASPIRIN (Verified Allergy, Unknown, 03/04/11) PENICILLIN (Unverified Allergy, Unknown, 02/14/15) PENICILLINS (Verified Allergy, Unknown, 09/18/11) TRIFLUOPERAZINE (Verified Allergy, Unknown, 03/04/11) Objective Vital Signs Last 24 Hour Vital Signs Date Time Temp Pulse Resp B/P Pulse Ox O2 Delivery O2 Flow Rate FiO2 12/10/16 08:56 131 14 50 12/10/16 08:00 96.4 112 18 117/40 100 Mechanical Ventilator 50 12/10/16 08:00 50 12/10/16 07:02 126 14 50 12/10/16 07:01 126 Mechanical Ventilator 50 12/10/16 07:01 126 Mechanical Ventilator 12/10/16 04:59 115 14 50 12/10/16 04:00 96.6 116 14 125/53 100 Mechanical Ventilator 50 12/10/16 04:00 50 12/10/16 03:37 105 12/10/16 03:16 120 14 50 12/10/16 01:21 129 Mechanical Ventilator 12/10/16 01:21 129 Mechanical Ventilator 50 12/10/16 01:20 126 14 50 12/10/16 00:00 97.2 95 14 123/57 100 Mechanical Ventilator 50 12/10/16 00:00 50 12/09/16 23:37 107 12/09/16 23:12 124 14 50 12/09/16 21:17 107 14 50 12/09/16 20:00 97.2 124 14 119/57 100 Mechanical Ventilator 50 12/09/16 20:00 50 12/09/16 19:45 115 12/09/16 18:55 100 14 50 12/09/16 18:52 100 14 100 Mechanical Ventilator 50 12/09/16 18:51 50 12/09/16 18:44 100 14 100 Mechanical Ventilator 50 6/9/17 17:20 132 14 50 12/09/16 16:00 115 12/09/16 16:00 15.0 50 12/09/16 16:00 97.3 112 14 103/59 100 Mechanical Ventilator 50 12/09/16 15:29 109 14 50 12/09/16 13:12 129 Mechanical Ventilator 50 12/09/16 13:12 129 Mechanical Ventilator 12/09/16 13:09 120 14 50 12/09/16 12:00 97.5 120 14 107/52 100 Mechanical Ventilator 50 12/09/16 12:00 112 12/09/16 11:18 92 14 50 Height (Feet): 5 Height (Inches): 3.00 Weight (Pounds): 176 HEENT: status post trach Respiratory/Chest: lungs clear Cardiovascular: normal rate, regular rhythm, no gallop/murmur Abdomen: soft, non tender, distended, other - GT Extremities: other - + edema bilaterally, right arm PICC DAIANA LEACH Dec 10, 2016 10:27
[2016-12-10 10:46] LABS: MEAN CORPUSCULAR HEMOGLOBIN 28.8 PG (27.0-31.0); MEAN CORPUSCULAR HGB CONC 31.8 G/DL (32.0-36.0); MEAN CORPUSCULAR VOLUME 91 FL (80-99); MEAN PLATELET VOLUME 8.2 FL (6.5-10.1); PLATELET COUNT 179 K/UL (150-450); RED BLOOD COUNT 3.85 M/UL (4.20-5.40); RED CELL DISTRIBUTION WIDTH 15.8 % (11.6-14.8); WHITE BLOOD COUNT 10.3 K/UL (4.8-10.8)
--- NOTE | 2016-12-10 10:50 | General Progress Note ---
Assessment/Plan Problem List: (1) Anemia ICD Codes: D64.9 - Anemia SNOMED: 428762899 (2) History of abdominal surgery ICD Codes: Z98.890 - Other specified postprocedural states SNOMED: 239764172, 103859870 (3) History of CVA (cerebrovascular accident) ICD Codes: Z86.73 - History of CVA (cerebrovascular accident) SNOMED: 669534184 (4) COPD (chronic obstructive pulmonary disease) with acute bronchitis ICD Codes: J44.1 - COPD (chronic obstructive pulmonary disease) with acute bronchitis SNOMED: 40649055 (5) Feeding by G-tube ICD Codes: Z93.1 - Feeding by G-tube SNOMED: 730324699 Assessment/Plan s/p paracentesis tolerating TF pend dc today Subjective ROS Limited/Unobtainable: No Allergies: Coded Allergies: AMPICILLIN (Verified Allergy, Unknown, 03/04/11) ASPIRIN (Verified Allergy, Unknown, 03/04/11) PENICILLIN (Unverified Allergy, Unknown, 02/14/15) PENICILLINS (Verified Allergy, Unknown, 09/18/11) TRIFLUOPERAZINE (Verified Allergy, Unknown, 03/04/11) Objective Last 24 Hour Vital Signs Date Time Temp Pulse Resp B/P Pulse Ox O2 Delivery O2 Flow Rate FiO2 12/10/16 08:56 131 14 50 12/10/16 08:00 96.4 112 18 117/40 100 Mechanical Ventilator 50 12/10/16 08:00 50 12/10/16 07:02 126 14 50 12/10/16 07:01 126 Mechanical Ventilator 50 12/10/16 07:01 126 Mechanical Ventilator 12/10/16 04:59 115 14 50 12/10/16 04:00 96.6 116 14 125/53 100 Mechanical Ventilator 50 12/10/16 04:00 50 12/10/16 03:37 105 12/10/16 03:16 120 14 50 12/10/16 01:21 129 Mechanical Ventilator 12/10/16 01:21 129 Mechanical Ventilator 50 12/10/16 01:20 126 14 50 12/10/16 00:00 97.2 95 14 123/57 100 Mechanical Ventilator 50 12/10/16 00:00 50 12/09/16 23:37 107 12/09/16 23:12 124 14 50 12/09/16 21:17 107 14 50 12/09/16 20:00 97.2 124 14 119/57 100 Mechanical Ventilator 50 12/09/16 20:00 50 12/09/16 19:45 115 12/09/16 18:55 100 14 50 12/09/16 18:52 100 14 100 Mechanical Ventilator 50 12/09/16 18:51 50 12/09/16 18:44 100 14 100 Mechanical Ventilator 50 12/09/16 17:20 132 14 50 12/09/16 16:00 115 12/09/16 16:00 15.0 50 12/09/16 16:00 97.3 112 14 103/59 100 Mechanical Ventilator 50 12/09/16 15:29 109 14 50 12/09/16 13:12 129 Mechanical Ventilator 50 12/09/16 13:12 129 Mechanical Ventilator 12/09/16 13:09 120 14 50 12/09/16 12:00 97.5 120 14 107/52 100 Mechanical Ventilator 50 12/09/16 12:00 112 12/09/16 11:18 92 14 50 Intake and Output 12/09/16 12/10/16 19:00 07:00 Intake Total 720 ml 1969 ml Output Total 350 ml 150 ml Balance 370 ml 1819 ml Intake Free Water 200 ml 100 ml IV Total 200 ml 1389 ml Tube Feeding 320 ml 480 ml Stool Total 350 ml 150 ml # Voids 2 1 Laboratory Tests 12/10/16 10:15: White Blood Count [Pending], Red Blood Count [Pending], Hemoglobin [Pending], Hematocrit [Pending], Mean Corpuscular Volume [Pending], Mean Corpuscular Hemoglobin [Pending], Mean Corpuscular Hemoglobin Concent [Pending], Red Cell Distribution Width [Pending], Platelet Count [Pending], Mean Platelet Volume [ Pending], Neutrophils (%) (Auto) [Pending], Lymphocytes (%) (Auto) [Pending], Monocytes (%) (Auto) [Pending], Eosinophils (%) (Auto) [Pending], Basophils (%) (Auto) [Pending], Sodium Level [Pending], Potassium Level [Pending], Chloride Level [Pending], Carbon Dioxide Level [Pending], Blood Urea Nitrogen [Pending], Creatinine [Pending], Estimat Glomerular Filtration Rate [Pending], Glucose Level [Pending], Calcium Level [Pending], Phosphorus Level [Pending], Magnesium Level [Pending], Total Bilirubin [Pending], Aspartate Amino Transf (AST/SGOT) [ Pending], Alanine Aminotransferase (ALT/SGPT) [Pending], Alkaline Phosphatase [ Pending], Total Protein [Pending], Albumin [Pending], Globulin [Pending] Height (Feet): 5 Height (Inches): 3.00 Weight (Pounds): 176 General Appearance: no apparent distress EENT: normal ENT inspection Neck: supple Cardiovascular: normal rate Respiratory/Chest: decreased breath sounds Abdomen: soft, decreased bowel sounds, distended Extremities: non-tender HEATHER LAZARO Dec 10, 2016 10:50
[2016-12-10 11:17] LABS: ALANINE AMINOTRANSFERASE 5 U/L (3-33); ALBUMIN/GLOBULIN RATIO 0.6 (1.0-2.7); ANION GAP 14 (5-15); ASPARTATE AMINO TRANSFERASE 17 U/L (5-40); CALCIUM 8.3 mg/dL (8.6-10.2); CARBON DIOXIDE 19 mEQ/L (20-30); CHLORIDE 110 mEQ/L (98-107); CREATININE 1.4 mg/dL (0.5-0.9); HEMOLYSIS 3; MAGNESIUM 1.3 mg/dL (1.7-2.5); PHOSPHORUS 4.2 mg/dL (2.5-4.8); POTASSIUM 4.1 mEQ/L (3.4-4.9); SODIUM 143 mEQ/L (135-145); TOTAL PROTEIN 5.7 g/dL (6.6-8.7)
[2016-12-10 11:47] LABS: TOTAL CELLS COUNTED 100
[2016-12-10 11:48] LABS: BAND NEUTROPHILS % (MANUAL) 3 % (0-8); EOSINOPHILS % (MANUAL) 3 % (0-3); LYMPHOCYTES % (MANUAL) 8 % (20-45)
[2016-12-10 11:49] LABS: ANISOCYTOSIS 1+; BASOPHILS % (MANUAL) 0 % (0-2); NEUTROPHILS % (MANUAL) 79 % (45-75); PLATELET ESTIMATE ADEQUATE; PLATELET MORPHOLOGY NORMAL
[2016-12-10 12:00] VITALS: BP 120/60
--- NOTE | 2016-12-10 12:01 | Pulmonology Progress Note ---
Assessment/Plan Assessment/Plan IMPRESSION: 1. Urinary tract infection. 2. Hypotension. 3. Septic shock. 4. Renal failure. 5. Hyperkalemia. 6. Chronic respiratory failure. 7. Pulmonary edema. 8. Previous cerebrovascular accident. 9. Diarrhea 10. Anemia DISCUSSION: Continue vent AC mode. Off dopamine Continue broad-spectrum antibiotics. 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 Continue enteral feedings S/P paracentesis DC planning to subacute with isolation Subjective Interval Events: Doing better; no change Constitutional: Reports: no symptoms HEENT: Repors: no symptoms Respiratory: Reports: no symptoms Cardiovascular: Reports: no symptoms Gastrointestinal/Abdominal: Reports: no symptoms Allergies: Coded Allergies: AMPICILLIN (Verified Allergy, Unknown, 03/04/11) ASPIRIN (Verified Allergy, Unknown, 03/04/11) PENICILLIN (Unverified Allergy, Unknown, 02/14/15) PENICILLINS (Verified Allergy, Unknown, 09/18/11) TRIFLUOPERAZINE (Verified Allergy, Unknown, 03/04/11) Objective Last 24 Hour Vital Signs Date Time Temp Pulse Resp B/P Pulse Ox O2 Delivery O2 Flow Rate FiO2 12/10/16 10:53 123 14 50 12/10/16 08:56 131 14 50 12/10/16 08:00 96.4 112 18 117/40 100 Mechanical Ventilator 50 12/10/16 08:00 117 12/10/16 08:00 50 12/10/16 07:02 126 14 50 12/10/16 07:01 126 Mechanical Ventilator 50 12/10/16 07:01 126 Mechanical Ventilator 12/10/16 04:59 115 14 50 12/10/16 04:00 96.6 116 14 125/53 100 Mechanical Ventilator 50 12/10/16 04:00 50 12/10/16 03:37 105 12/10/16 03:16 120 14 50 12/10/16 01:21 129 Mechanical Ventilator 12/10/16 01:21 129 Mechanical Ventilator 50 12/10/16 01:20 126 14 50 12/10/16 00:00 97.2 95 14 123/57 100 Mechanical Ventilator 50 12/10/16 00:00 50 12/09/16 23:37 107 12/09/16 23:12 124 14 50 12/09/16 21:17 107 14 50 12/09/16 20:00 97.2 124 14 119/57 100 Mechanical Ventilator 50 12/09/16 20:00 50 12/09/16 19:45 115 12/09/16 18:55 100 14 50 12/09/16 18:52 100 14 100 Mechanical Ventilator 50 12/09/16 18:51 50 12/09/16 18:44 100 14 100 Mechanical Ventilator 50 12/09/16 17:20 132 14 50 12/09/16 16:00 115 12/09/16 16:00 15.0 50 12/09/16 16:00 97.3 112 14 103/59 100 Mechanical Ventilator 50 12/09/16 15:29 109 14 50 12/09/16 13:12 129 Mechanical Ventilator 50 12/09/16 13:12 129 Mechanical Ventilator 12/09/16 13:09 120 14 50 Intake and Output 12/09/16 12/10/16 19:00 07:00 Intake Total 720 ml 1969 ml Output Total 350 ml 150 ml Balance 370 ml 1819 ml Intake Free Water 200 ml 100 ml IV Total 200 ml 1389 ml Tube Feeding 320 ml 480 ml Stool Total 350 ml 150 ml # Voids 2 1 General Appearance: no acute distress HEENT: normocephalic, status post trach Respiratory/Chest: chest wall non-tender Cardiovascular: normal peripheral pulses Laboratory Tests 12/10/16 10:15: White Blood Count 10.3, Red Blood Count 3.85L, Hemoglobin 11.1L, Hematocrit 34.8L, Mean Corpuscular Volume 91, Mean Corpuscular Hemoglobin 28.8, Mean Corpuscular Hemoglobin Concent 31.8L, Red Cell Distribution Width 15.8H, Platelet Count 179, Mean Platelet Volume 8.2, Neutrophils (%) (Auto) , Lymphocytes (%) (Auto) , Monocytes (%) (Auto) , Eosinophils (%) (Auto) , Basophils (%) (Auto) , Differential Total Cells Counted 100, Neutrophils % ( Manual) 79H, Lymphocytes % (Manual) 8L, Monocytes % (Manual) 7, Eosinophils % ( Manual) 3, Basophils % (Manual) 0, Band Neutrophils 3, Platelet Estimate Adequate, Platelet Morphology Normal, Anisocytosis 1+, Sodium Level 143, Potassium Level 4.1, Chloride Level 110H, Carbon Dioxide Level 19L, Anion Gap 14 , Blood Urea Nitrogen 77H, Creatinine 1.4H, Estimat Glomerular Filtration Rate , Glucose Level 118H, Calcium Level 8.3L, Phosphorus Level 4.2, Magnesium Level 1.3L, Total Bilirubin 0.2, Aspartate Amino Transf (AST/SGOT) 17, Alanine Aminotransferase (ALT/SGPT) 5, Alkaline Phosphatase 155H, Total Protein 5.7L, Albumin 2.2L, Globulin 3.5, Albumin/Globulin Ratio 0.6L Current Medications Medications (Trade) Dose Ordered Sig/Joey Route PRN Reason Start Time Stop Time Status Last Admin Dose Admin Acetaminophen (Tylenol) 650 mg Q4H PRN ORAL Mild Pain (Pain Scale 1-3) 12/05/16 23:45 01/04/17 23:44 Albuterol/ Ipratropium (DuoNeb 0.5-3(2.5)mg/3ml) 3 ml Q6HRT HHN 12/06/16 01:00 12/11/16 00:59 12/09/16 18:33 Ceftriaxone Sodium/Dextrose (Rocephin/D5W) 55 ml @ 110 mls/hr Q24H IVPB 12/10/16 14:00 12/17/16 13:59 Chlorhexidine Gluconate (Ginger-Hex 2%) 1 applic QHS TOPIC 12/08/16 21:00 01/07/17 20:59 12/09/16 21:49 Clotrimazole (Lotrimin) 1 applic THREE TIMES A DAY TOPIC 12/08/16 13:00 01/07/17 12:59 12/10/16 09:11 Dextrose (Dextrose 50%) STAT PRN IV Hypoglycemia 12/05/16 21:00 01/04/17 20:59 Fluconazole (Diflucan) 100 mg DAILY GT 12/10/16 09:00 12/17/16 08:59 12/10/16 09:10 Furosemide (Lasix) 20 mg DAILY IV 12/08/16 09:00 01/07/17 08:59 12/10/16 09:10 Lansoprazole 30 mg 30 mg DAILY GT 12/08/16 09:00 01/07/17 08:59 12/10/16 09:10 Lorazepam (Ativan 2mg/ml 1ml) 0.5 mg Q4H PRN IV For Anxiety 12/05/16 21:00 12/12/16 20:59 12/08/16 00:17 Ondansetron HCl (Zofran) 4 mg Q6H PRN IVP Nausea & Vomiting 12/05/16 21:00 01/04/17 20:59 Sodium Chloride (Sodium Chloride 1000ml bag) 1,000 ml @ 100 mls/hr Q10H IVLG 12/05/16 21:30 01/04/17 21:29 12/10/16 02:17 Spironolactone 100 mg 100 mg DAILY GT 12/10/16 09:00 01/09/17 08:59 12/10/16 09:10 Tigecycline/ Dextrose (Tygacil/D5W) 110 ml @ 220 mls/hr Q12H IVPB 12/08/16 00:00 12/15/16 00:00 12/10/16 00:37 Haris Ruby MD Dec 10, 2016 12:01
[2016-12-10] MEDS ORDERED: cefTRIAXone 1 GM in D5W 55 ML IVPB SCH (14:00)
[2016-12-10] MEDS ORDERED: Sterile Water Irrig 1000ml IRRIG ONE (15:59)
[2016-12-10 16:00] VITALS: BP 121/60
--- NOTE | 2016-12-12 09:10 | Cardiology Report ---
APPROVED REPORT EKG Measurement Heart [id number] Atrial fibrillation Low voltage QRS Left anterior fascicular block Septal infarct, age undetermined Abnormal ECG
--- NOTE | 2016-12-12 12:16 | Discharge Summary ---
Discharge Summary Hospital Course Date of Admission Dec 03, 2016 at 02:58 Date of Discharge Dec 10, 2016 at 17:15 Admitting Diagnosis respiratory failure, desaturation HPI Dang Dumont is a 76 year old female who was admitted on Dec 03, 2016 at 02: 58 for Respiratory Failure, Desaturation Hospital Course dc summary # [id number] Discharge Medications New Medications: Ceftriaxone Sodium (Ceftriaxone) 1 Gm Vial 1 GM IJ DAILY, #5 VIAL Fluconazole (Fluconazole) 100 Mg Tablet 100 MG GT DAILY, #5 TAB 0 Refills Tigecycline (Tygacil) 50 Mg Vial 50 MG IVPB EVERY 12 HOURS, #4 VIAL Continued Medications: Acetaminophen* (Tylenol*) 650 Mg/20.3 Ml Oral.susp 650 MG GT Q4HR PRN for Mild Pain/Temp > 100.5 Albuterol Sulfate* (Albuterol Sulfate Hhn*) 2.5 Mg/3 Ml Vial.neb 3 ML INH Q6H PRN for Shortness of Breath, #30 EA 0 Refills Ascorbic Acid* (Vitamin C*) 500 Mg Tablet 500 MG GT DAILY, #30 TAB 0 Refills Bisacodyl (Dulcolax) 10 Mg Supp.rect 10 MG RC PRN PRN for Constipation, SUPP Digoxin* (Digoxin*) 0.125 Mg/2.5 Ml Solution 0.125 MG GT DAILY, ML 0 Refills Diltiazem HCl (Diltiazem 12Hr ER) 60 Mg Cap.er.12h 120 MG ORAL EVERY 12 HOURS, TAB Ferrous Sulfate* (Ferrous Sulfate*) 325 Mg Tablet 330 MG GT DAILY, #20 TAB Hydrocodone Bit/Acetaminophen 5-325* ([place] 5-325 Tablet*) 1 Each Tablet 1 TAB GT BEDTIME PRN for For Pain, TAB Lorazepam* (Lorazepam*) 0.5 Mg Tablet 0.5 MG GT Q4HR for For Anxiety, TAB Magnesium Hydroxide (Milk of Magnesia) 30 Ml Susp 30 ML GT DAILY PRN for Constipation Metoprolol Tartrate (Metoprolol Tartrate) 25 Mg Tablet 25 MG ORAL Q12HR for 60 Days, TAB Multivit-Min/Iron Fum/Folic AC (Alatl-Hxjhrwf-Tjiogywz Tablet) 1 Each Tablet 1 EACH PEG DAILY, TAB Na Phos,M-B/Na Phos,Di-Ba (Fleet Enema) 133 Ml Enema 118 ML RC PRN PRN for Constipation, EA Protein Supplement (Promod) 946 Ml Liquid 30 ML GT DAILY Saccharomyces Boulardii (Florastor*) 250 Mg Capsule 250 MG GT DAILY, CAP Zinc Sulfate (Zinc Sulfate*) 220 Mg Capsule 220 MG GT DAILY, CAP 0 Refills Discharge Condition Upon Discharge: stable Discharge Disposition Patient was discharged to SNF/Subacute Facility(03) Discharge Diagnoses: Discharge Instructions Discharge Instructions Special Instructions I have been assigned to complete a D/C Summary on this account. I was not involved in the patient management Fernanda Short NP ([facility]) Dec 12, 2016 12:16
--- NOTE | 2016-12-13 05:15 | Discharge Summary 2 SIG ---
DATE OF ADMISSION: 12/03/2016 DATE OF DISCHARGE: 12/10/2016 REASON FOR ADMISSION: 76-year-old female with history of chronic respiratory failure, tracheostomy status, dysphagia, G-tube, recent abdominal surgery, [facility] with difficulty breathing. The patient noted to have decreased respiratory volumes. The patient -Full Code. No reported fevers. Workup in the emergency room revealed a low-grade fever of 100.9 degrees. The patient initially on Ambu bag and pulse oximetry was 88%. No leukocytosis, anemia: hemoglobin -8.5, hematocrit -26.3. Potassium -6.0, BUN -44, creatinine- 1.6. Lactic acid - 0.5. AST and ALT were within normal limits. Troponin negative. Pro BNP - 21,916. Urinalysis with evidence of urinary tract infection. ABG revealed acute hypercapnia with acidosis pCO2 of 61 and pH 7.31. The patient was placed on ventilator. The patient pancultured and started on broad spectrum antibiotics. The patient was hypotensive. The patient was not given fluid challenge due to marked edema and fluid overload. The patient started on dopamine drip. Patient was admitted to ICU for further management. ADMITTING DIAGNOSES: 1. Septic shock. 2. Hypotension. 3. Acute renal failure. 4. Acute on chronic respiratory failure. 5. Urinary tract infection. 6. Pulmonary edema. 7. History of cerebrovascular accident. 8. Sacral decubitus stage 2 present on admission. HOSPITAL STAY: The patient was admitted to ICU. The patient started on dopamine drip. Ventilator support and tracheostomy care provided. Pulmonary toilet provided as needed. The patient was started on broad-spectrum antibiotics. Infectious Disease consult was requested. Sputum culture grew Serratia. Urine culture grew Klebsiella pneumonia, carbapenem resistant. Blood culture positive for Staph coag-negative, likely contaminant as per Infectious Disease. Repeated urine culture still revealed Klebsiella pneumonia, carbapenem resisted. The patient also noted to have abdominal wall cellulitis and was receiving antibiotic for that as well. - Strict aspiration precautions were maintained. The patient was able to tolerate G-tube feeding. At some point, the patient developed anemia with hemoglobin -7.8, hematocrit -25.1. The patient undergone two units of packed red blood cell transfusion and hemoglobin and hematocrit stabilized. Prior to discharge, hemoglobin- 11.1, hematocrit -34.8. The patient with a history of recent abdominal surgery, noted to be distended. Abdominal ultrasound revealed suspected liver cirrhosis. Moderate ascites may be indicative of portal hypertension. Echogenic kidney consistent with medical renal disease. Subsequently, CT of the abdomen and pelvis was performed, which revealed status post recent abdominal surgery, moderate ascites, nodularity of liver, possibility of cirrhosis, chronic liver disease, nodular infiltrates versus atelectasis, no evidence of intraabdominal abscess or bowel obstruction, anasarca. On 12/08/2016, the patient undergone paracentesis, which yielded 1.8 liters of cloudy yellow fluid. Wound culture revealed Staph coag-negative and Dominique. The patient was on antibiotic regimen, optimized as per Infectious Disease. Upon discharge, the patient will need two more days of Tygacil, five more days of ceftriaxone, and five more days of fluconazole. PICC line was placed for long time IV access. Hepatitis panel revealed positive for hepatitis C infection (new since 2013 when hepatitis panel was negative). Patient will need to have an outpatient hepatitis C workup. Landscape Drafter followed. CT of the abdomen and pelvis revealed echogenic kidney consistent with chronic renal disease. Renal parameters were closely monitored along with electrolytes. Hyperkalemia corrected. Nephrotoxics were avoided. Prior to discharge, creatinine -1.4 and BUN -77. Wound car nurse seen the patient for sacral stage II decubitus present on admission. Wound care was continued as per wound care nurse recommendation. Continue wound care at the [facility] as recommended by wound care nurse. DVT and GI prophylaxis provided. Pain management and bowel regimen instituted. The patient was stable for discharge back to [facility] facility. DISCHARGE DIAGNOSES: 1. Sepsis. 2. Septic shock. 3. Hypotension. 4. Abdominal wall cellulitis. 5. Urinary tract infection with Klebsiella pneumoniae, Carbapenem resistant. 6. Pneumonia with Serratia. 7. Pulmonary edema. 8. History of cerebrovascular accident. 9. Acute on chronic renal failure. 10. Ventilator-dependent respiratory failure/tracheostomy. 11. Anemia, status post blood transfusion. 12. Ascites. 13. Status post paracentesis. 14. Dysphagia, gastrostomy tube. 15. Cirrhosis. 16. Hepatitis C status. 17. Sacral stage II decubitus, present on admission. DISCHARGE MEDICATIONS: Medication reconciliation list was sent to the [facility] facility. Antibiotics cuellar, the patient still need two more days of Tygacil, five more days of ceftriaxone, and five more days of fluconazole. DISCHARGE INSTRUCTIONS: The patient was discharged [facility]. FOLLOWUP: Follow up with medical doctor and feed manager at the facility. Haris Ruby M.D. I have been assigned to dictate discharge summary on this account and I was not involved in the patient's management. Fernanda GantNima koehler DR: Angel JOB#: [id number] CC: ILANA
--- NOTE | 2016-12-13 18:20 | Cardiology Report ---
APPROVED REPORT EKG Measurement Heart [id number] ME [id number] [id number] Sinus tachycardia with 1st degree AV block Left anterior fascicular block Nonspecific T wave abnormality Abnormal ECG
== END 2016-12-10 17:15 | DRG 870 ==
LOC: EDBD 22:30 → EMR 12-03 02:57 → ICU 12-03 02:58 → EDBEDREQSVC 12-03 03:13 → EDBEDREQ 12-03 04:20 → 2W 12-05 20:44
PROC: 5A1955Z Respiratory Ventilation, Greater than 96 Consecutive Hours (ICD-10-PCS; principal; 2016-12-03)
PROC: 02HV33Z Insertion of Infusion Device into Superior Vena Cava, Percutaneous Approach (ICD-10-PCS; 2016-12-06)
PROC: 30233N1 Transfusion of Nonautologous Red Blood Cells into Peripheral Vein, Percutaneous Approach (ICD-10-PCS; 2016-12-07)
PROC: 0W9G30Z Drainage of Peritoneal Cavity with Drainage Device, Percutaneous Approach (ICD-10-PCS; 2016-12-08)
DX: A41.9 Sepsis, unspecified organism (principal); J96.20 Acute and chronic respiratory failure, unspecified whether with hypoxia or hypercapnia; R65.21 Severe sepsis with septic shock; J15.6 Pneumonia due to other Gram-negative bacteria; Z99.11 Dependence on respirator [ventilator] status; E46 Unspecified protein-calorie malnutrition; N17.9 Acute kidney failure, unspecified; Z43.0 Encounter for attention to tracheostomy; R18.8 Other ascites; J44.0 Chronic obstructive pulmonary disease with (acute) lower respiratory infection; N39.0 Urinary tract infection, site not specified; Z43.1 Encounter for attention to gastrostomy; L03.311 Cellulitis of abdominal wall; K76.6 Portal hypertension; E87.5 Hyperkalemia; J20.9 Acute bronchitis, unspecified; Z86.73 Personal history of transient ischemic attack (TIA), and cerebral infarction without residual deficits; Z88.1 Allergy status to other antibiotic agents; Z88.6 Allergy status to analgesic agent; Z88.0 Allergy status to penicillin; Z88.8 Allergy status to other drugs, medicaments and biological substances; R13.10 Dysphagia, unspecified; B96.1 Klebsiella pneumoniae [K. pneumoniae] as the cause of diseases classified elsewhere; R19.7 Diarrhea, unspecified; D64.9 Anemia, unspecified; L89.152 Pressure ulcer of sacral region, stage 2; B19.20 Unspecified viral hepatitis C without hepatic coma; N18.9 Chronic kidney disease, unspecified; K74.60 Unspecified cirrhosis of liver
CPT/HCPCS: 36415; 36569; 36600; 71010; 74177; 76700; 76937; 76942; 80048; 80053; 81003; 82550; 82553; 82803; 83605; 83735; 83880; 84100; 84484; 85007; 85025; 85610; 85730; 86705; 86709; 86803; 86850; 86900; 86901; 86920; 87040; 87070; 87086; 87181; 87205; 87324; 87340; 88104; 89051; 93005; 94002; 94003; 94640; 94664; J7620

== ENCOUNTER 2016-12-16 18:13 | Emergency (ER) | payer MEDICAID, OTHER ==
[~2016-12-16] VITALS: Ht 162.6 cm; Wt 122.5 kg
[~2016-12-16 18:13] MED LIST changes: +LORAZEPAM0.5 MG GT; +VITAMIN C500 M1 GT
--- NOTE | 2016-12-16 18:24 | Emergency Room Report ---
History of Present Illness General Chief Complaint: Dyspnea/Respdistress Source: Medical Record, EMS Present Illness HPI [id number] BIBEMS from SNF with "SOB". No other info from EMS, SNF. No family members available bedside. PMHx: Chronic respi failure s/p trach. Admitted for septic shock and DCed 6 days ago. ?Urosepsis. History of CVA. Stage 2 decubitus ulcer. - Sputum culture grew Serratia. - Urine culture grew Klebsiella pneumonia, carbapenem resistant. Repeated urine culture still revealed Klebsiella pneumonia, carbapenem resisted. - Blood culture positive for Staph coag-negative, likely contaminant as per Infectious Disease. CTAP during admission: s/p recent abdominal surgery, moderate ascites, nodularity of liver, possibility of cirrhosis, chronic liver disease, nodular infiltrates versus atelectasis, no evidence of intraabdominal abscess or bowel obstruction, anasarca. On 12/08/2016, the patient undergone paracentesis, which yielded 1.8 liters of cloudy yellow fluid. Wound culture revealed Staph coag-negative and Dominique. Per EMR, patient was DCed with 2 more days Tygacil, 5 more days of Ceftriaxone and 5 more days of fluconazole. I would expect patient received this full course already since was DCed [address] Ruby Allergies: Coded Allergies: AMPICILLIN (Verified Allergy, Unknown, 03/04/11) ASPIRIN (Verified Allergy, Unknown, 03/04/11) PENICILLIN (Unverified Allergy, Unknown, 02/14/15) PENICILLINS (Verified Allergy, Unknown, 09/18/11) TRIFLUOPERAZINE (Verified Allergy, Unknown, 03/04/11) Patient History Past Medical History: other - see hpi Past Surgical History: unable to obtain, other - Trach, PEG Social History: Denies: alcohol use, drug use, smoking Now: No Immunizations: UTD Reviewed Nursing Documentation: PMH: Agreed, PSxH: Agreed Nursing Documentation-PMH Hx Cardiac Problems: Yes - G-TUBE RENAL FAILURE ANEMIA CHRONIC TRACH VENT Hx Hypertension: Yes Hx COPD: Yes Hx Diabetes: Yes Hx Cancer: No Hx Gastrointestinal Problems: Yes Hx Neurological Problems: Yes Hx Cerebrovascular Accident: Yes Hx Transient Ischemic Attacks: Yes Hx Concentration Difficulty: Yes Hx Speech Problem: Yes Hx Dizziness: Yes Hx Headaches: Yes Hx Aphasia: Yes Hx Dysphasia: Yes Hx Weakness: Yes Hx Fatigue: Yes Review of Systems All Other Systems: limited - Aphasic at baseline Physical Exam Vital Signs Date Time Temp Pulse Resp B/P Pulse Ox O2 Delivery O2 Flow Rate FiO2 12/16/16 18:03 97.9 74 16 116/55 100 Ambu-Bag Sp02 EP Interpretation: reviewed, normal General Appearance: normal inspection, well appearing, no apparent distress, alert, non-toxic Head: normocephalic, atraumatic Eyes: bilateral eye EOMI, bilateral eye PERRL ENT: normal ENT inspection, normal pharynx, no angioedema Neck: normal inspection, full range of motion, supple, no bony tend Respiratory: normal inspection, lungs clear, normal breath sounds, no respiratory distress, no retraction, no accessory muscle use, decreased breath sounds, speaking full sentences, other - mild exp wheezinh Cardiovascular #1: regular rate, rhythm, no edema Gastrointestinal: normal inspection, normal bowel sounds, non tender, soft, no guarding, no hernia Genitourinary: no CVA tenderness Musculoskeletal: normal inspection, back normal, normal range of motion, Timothy' s Sign negative Neurologic: normal inspection, alert, responsive, wire spooler III-XII nml as tested, speech normal Psychiatric: normal inspection, judgement/insight normal, mood/affect normal Skin: normal inspection, normal color, no rash Medical Decision Making Medicare Attestation I Miguel Louise MD hereby attest that the medical record entry for date of service, 06/06/16 accurately reflects signatures/notations that I made in my capacity as MD when I treated/diagnosed the above listed Medicare beneficiary. I attest that this information is true, accurate and complete to the best of my knowledge. I understand that any falsification, omission, or concealment of material fact may subject me to administrative, civil, or criminal liability. This patient warrants hospital admission for extreme of age and has a condition that cannot be treated as outpatient. Diagnostic Impression: Primary Impression: Dyspnea Qualified Codes: R06.00 - Dyspnea, unspecified Additional Impressions: Leukocytosis Qualified Codes: D72.829 - Elevated white blood cell count, unspecified COPD (chronic obstructive pulmonary disease) with acute bronchitis ER Course Dyspnea - Patient with improved aeration, O2 sat after RT suctioning. No airleak noted. Connected to vent. - Afebrile. Normal Vital signs. - Mildly elevated leuks new since DC 6 days prior - CXR unchanged from 12/02. No obvious PNA. UA pending at time of endorsement - Blood Cx pending - For empiric Abx, was given initial dose of Tegracil and Ceftriaxone that patient was DCed with and hopefully continued on at SNF to cover range of microbes seen on previous admission's cultures. Attempted to endorse to Dr Ruby at 839pm for JODY admission but Dr Ruby requesting patient DC back to SNF where he will followup Blood/Urine Cx there. Agrees with plan to give initial dose of last ID-recommended Abx. Will DC back to SNF as requested by PMD. EKG Diagnostic Results Rate: other - Atrial fib Rhythm: other - Atrial fib ST Segments: no acute changes ASA given to the pt in ED: No Rhythm Strip Diag. Results EP Interpretation: yes Rate: 76 Rhythm: no PVC's, no ectopy Chest X-Ray Diagnostic Results Chest X-Ray Ordered: Yes # of Views/Limited/Complete: 1 View Interpretation: no consolidation, no effusion, no pneumothorax, no acute cardiopulmonary disease Indication: Shortness of Breath Impression: No acute disease Date Electronically Signed: Dec 16, 2016 Time Electronically Signed: 19:33 Interpreting ER Physician: Benitez Last Vital Signs Date Time Temp Pulse Resp B/P Pulse Ox O2 Delivery O2 Flow Rate FiO2 12/16/16 18:03 97.9 74 16 116/55 100 Ambu-Bag Status: improved Disposition: XFER SNF Condition: Stable MIGUEL LOUISE M.D. Dec 16, 2016 18:24
[2016-12-16 18:46] VITALS: BP 126/64
[2016-12-16 19:22] LABS: MEAN CORPUSCULAR HEMOGLOBIN 29.1 PG (27.0-31.0); MEAN CORPUSCULAR HGB CONC 31.8 G/DL (32.0-36.0); MEAN CORPUSCULAR VOLUME 92 FL (80-99); PLATELET COUNT 254 K/UL (150-450); RED BLOOD COUNT 3.41 M/UL (4.20-5.40); RED CELL DISTRIBUTION WIDTH 17.9 % (11.6-14.8); WHITE BLOOD COUNT 12.6 K/UL (4.8-10.8)
[2016-12-16 19:25] LABS: EOSINOPHILS % (AUTO) 1.6 % (0.0-3.0); LYMPHOCYTES % (AUTO) 4.4 % (20.0-45.0); MONOCYTES % (AUTO) 3.6 % (1.0-10.0); NEUTROPHILS % (AUTO) 89.3 % (45.0-75.0)
[2016-12-16] MEDS ORDERED: Albuterol ud Inhalation HHN ONE (19:30)
[2016-12-16] MEDS ORDERED: Fluconazole 100mg tab NG STA (19:35)
[2016-12-16] MEDS ORDERED: Tigecycline 50 MG in D5W 110 ML IVPB STA (19:35)
[2016-12-16 19:41] LABS: TROPONIN I < 0.30 ng/mL (<=0.30)
[2016-12-16 19:44] LABS: ALANINE AMINOTRANSFERASE 11 U/L (3-33); ALBUMIN/GLOBULIN RATIO 0.5 (1.0-2.7); ANION GAP 18 (5-15); ASPARTATE AMINO TRANSFERASE 27 U/L (5-40); CALCIUM 8.8 mg/dL (8.6-10.2); CARBON DIOXIDE 17 mEQ/L (20-30); CHLORIDE 98 mEQ/L (98-107); CREATININE 1.6 mg/dL (0.5-0.9); HEMOLYSIS 9; POTASSIUM 4.3 mEQ/L (3.4-4.9); SODIUM 133 mEQ/L (135-145); TOTAL PROTEIN 6.8 g/dL (6.6-8.7)
[2016-12-16 19:45] VITALS: BP 120/60
[2016-12-16] MEDS ORDERED: cefTRIAXone 1 GM in NS 55 ML IVPB ONE (19:45)
[2016-12-16 19:55] LABS: CKMB 2.9 ng/mL (< 3.8)
[2016-12-16 20:55] VITALS: BP 106/45
[2016-12-16 22:20] VITALS: BP 119/57
[2016-12-16 22:24] VITALS: BP 119/57
--- NOTE | 2016-12-17 09:38 | Diagnostic Imaging Report ---
Indication: Shortness of breath Technique: XRAY CHEST 1 V Comparison: 12/06/16 Findings: Tracheostomy and right PICC line are present. Right PICC line tip projects over the right axillary/subclavian junction. Cardiomediastinal silhouette is stable. Atherosclerotic changes are seen. Bilateral interstitial edema/infiltrates are present. Small bilateral pleural effusions are seen. Impression: Bilateral interstitial edema/infiltrates and small bilateral pleural effusions.
--- NOTE | 2016-12-17 17:15 | Consultation ---
DATE OF CONSULTATION: 12/16/2016 PULMONARY/INTERNAL MEDICINE CONSULTATION HISTORY OF PRESENT ILLNESS: This 76-year-old female who was brought by paramedics from the custodial with shortness of breath. The patient is currently on vent. She had a tracheostomy in place. She is in assist control mode. She was discharged from [facility] from the hospital with urosepsis and is on tigecycline at the nursing facility. The patient also has a history of multidrug resistant from Klebsiella and serratia. At this time, the patient is also noted to have a history of liver cirrhosis . PAST MEDICAL HISTORY: Chronic trach, chronic PEG, encephalopathy, and multidrug-resistant organisms. ALLERGIES: Ampicillin, aspirin, penicillin, and trifluoperazine. REVIEW OF SYSTEMS: Not obtainable. PHYSICAL EXAMINATION: Per ER physician is notable only for chronic trach and vent. Ascites noted. LABORATORY AND DIAGNOSTIC DATA: Lab testing shows mildly elevated white cell count of 12,000 and hemoglobin 9. Creatinine 1.6. Imaging studies unremarkable with x-ray showing no change from previous, has ongoing effusions. IMPRESSION: 1. Chronic tracheostomy. 2. Chronic ventilator. 3. Chronic gastrostomy tube. 4. Multidrug-resistant urinary tract infection. 5. Previous pneumonia. DISCUSSION AND PLAN: The patient appears to be fairly stable. There is no acute intervention required at the hospital. We will recommend discharge back to subacute where the patient will complete her antibiotic courses. Discussed with Dr. Miguel Tapia. Haris Ruby M.D. DR: LISA JOB#: [id number] CC:
== END 2016-12-16 22:37 ==
LOC: EDBD 18:13 → EMR 19:02 → CANBEDREQ 20:29 → EMR 22:37
DX: R06.00 Dyspnea, unspecified (principal); D72.829 Elevated white blood cell count, unspecified; J20.9 Acute bronchitis, unspecified; J44.0 Chronic obstructive pulmonary disease with (acute) lower respiratory infection; J96.10 Chronic respiratory failure, unspecified whether with hypoxia or hypercapnia; Z86.73 Personal history of transient ischemic attack (TIA), and cerebral infarction without residual deficits; I48.91 Unspecified atrial fibrillation; I10 Essential (primary) hypertension; E11.9 Type 2 diabetes mellitus without complications; R47.01 Aphasia; Z93.0 Tracheostomy status; N19 Unspecified kidney failure; Z99.81 Dependence on supplemental oxygen; Z88.0 Allergy status to penicillin; Z88.8 Allergy status to other drugs, medicaments and biological substances
CPT/HCPCS: 36415; 71010; 80053; 82550; 82553; 83880; 84484; 85025; 87040; 93005; 94002; 94640; 94664; 96360; 96361; 99284; J0696; J3243